=== PATIENT | male | born 1965 | race Caucasian/White ===

== ENCOUNTER 2020-01-18 17:12 | Emergency (ER) | payer OTHER, MEDICARE, SELFPAY ==
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
[2020-01-18 17:45] VITALS: BP 121/91; PULSE 85; RESP 16; TEMP 36.8; O2SAT 99
[2020-01-18 18:42] VITALS: RESP 14; O2SAT 99
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
[2020-01-18] MEDS: TETANUS,DIPHTHERIA,AC PERTUSSIS ADULT (0.5 ML) BOOSTRIX IM (19:46)
[2020-01-18 21:29] VITALS: BP 128/82; PULSE 89; RESP 20; O2SAT 97
== END 2020-01-18 21:33 | disposition home or self-care (01) ==
PROVIDERS: Emergency Provider Emergency Medicine; PCP Family Medicine
DX: S01.01XA Laceration without foreign body of scalp, initial encounter (principal); Z23 Encounter for immunization; I25.10 Atherosclerotic heart disease of native coronary artery without angina pectoris; J44.9 Chronic obstructive pulmonary disease, unspecified; K21.9 Gastro-esophageal reflux disease without esophagitis; E78.2 Mixed hyperlipidemia; I48.0 Paroxysmal atrial fibrillation; I50.22 Chronic systolic (congestive) heart failure; I42.6 Alcoholic cardiomyopathy; F10.20 Alcohol dependence, uncomplicated; Z87.891 Personal history of nicotine dependence; V49.40XA Driver injured in collision with unspecified motor vehicles in traffic accident, initial encounter
CPT/HCPCS: 12002; 70450; 90471; 90715; 99284

== ENCOUNTER 2020-01-19 04:03 | Emergency (ER) | payer MEDICARE, SELFPAY ==
[2020-01-19 03:05] VITALS: BP 150/105; PULSE 77; RESP 16; TEMP 36.1; O2SAT 98
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
== END 2020-01-19 04:11 | disposition left against medical advice (07) ==
LOC: ANHED 04:06
DX: S01.91XA Laceration without foreign body of unspecified part of head, initial encounter (principal)
CPT/HCPCS: 99199

== ENCOUNTER 2020-07-31 09:15 | Outpatient (CLI) | payer MEDICARE, SELFPAY | END 2020-07-31 09:16 | disposition home or self-care (01) | LOC: ANHCOVIDVC 09:15 | PROVIDERS: PCP Family Medicine | DX: Z23 Encounter for immunization (principal) | CPT/HCPCS: 0001A; 91300 ==

== ENCOUNTER 2020-08-21 09:13 | Outpatient (CLI) | payer MEDICARE, SELFPAY | END 2020-08-21 09:14 | disposition home or self-care (01) | LOC: ANHCOVIDVC 09:14 | PROVIDERS: PCP Family Medicine | DX: Z23 Encounter for immunization (principal) | CPT/HCPCS: 0002A; 91300 ==

== ENCOUNTER 2020-11-15 16:52 | Emergency (ER) | payer MEDICARE, SELFPAY ==
[2020-11-15 16:55] VITALS: BP 126/86; PULSE 77; RESP 16; TEMP 36.6; O2SAT 96
--- NOTE | 2020-11-15 17:33 | ED.ALLEREA ---
HPI - Allergic Reaction General Chief complaint: Allergic Reaction Stated complaint: wasp sting Time Seen by Provider: 11/15/20 17:31 Source: patient and family Mode of arrival: ambulatory Limitations: no limitations History of Present Illness HPI narrative: Patient is a 55-year-old male who presents for evaluation of wasp sting to left hand. Patient witnessed the wasp landing on him when he picked up a stick from the ground. Stung between the webspace between thumb and index finger. Patient with swelling in the left hand. States it is itching. He denies any chest pain or shortness of breath. No nausea or vomiting. No diarrhea. No history of anaphylaxis. Patient has not taken any medication to help with his symptoms. He denies any numbness. There is redness to the left hand. No discharge. Other signs of envenomation. Pt is right hand dominant. Related Data Home Medications Medication Instructions Recorded Confirmed amiodarone 200 mg tablet 200 mg PO DAILY 04/24/19 07/21/20 ferrous sulfate 325 mg (65 mg 325 mg PO BID 04/24/19 07/21/20 iron) tablet Allergies Allergy/AdvReac Type Severity Reaction Status Date / Time ragweed pollen Allergy Unknown seasonal Verified 07/21/20 08:38 [place] Allergy Unknown seasonal Uncoded 07/21/20 08:38 [place] Allergy Unknown seasonal Uncoded 07/21/20 08:38 Review of Systems Review of Systems: Narrative: CONSTITUTIONAL: Denies fever CARDIOVASCULAR: Denies chest pain RESPIRATORY: Denies cough or dyspnea. 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 Chronic systolic CHF (congestive heart failure) COPD (chronic obstructive pulmonary disease) Gastro-esophageal reflux disease without esophagitis Mixed hyperlipidemia Paroxysmal atrial fibrillation Family History Family History Father Family history of liver disease Sibling Family history of liver disease Mother Family history of emphysema Social History Social History Years smoked: 15 Smoking status: Current some day smoker Tobacco type: cigarettes Smokeless tobacco user: chewing tobacco Second hand tobacco smoke exposure: Yes Alcohol intake: current Drinks per week: 4 Substance use: never Substance use type: does not use Gender identity (if verbalized by the patient): Male Exam Narrative: Exam Narrative: GENERAL: Awake, alert, conversant HEAD: Normocephalic, atraumatic. EYES: PERRLA and EOMI. ENT: Nares clear, no rhinorrhea or epistaxis. Mucous membranes moist. NECK: Supple. CHEST: No respiratory distress, breathing even and non labored HEART: Regular rate, sinus rhythm ABDOMEN:Non distended, non tender EXTREMITIES: Normal range of motion. Edema of the left hand. Intact sensation median, ulnar, radial nerve distribution. Radial pulses 2+. Envenomation markings in the inner web space between thumb and index finger. Capillary refill less than 3 seconds. No purulent discharge. No evidence of abscess. No foreign body. SKIN: Warm, dry, no rash. NEURO:No focal deficits. Alert and oriented x3 Course Vital Signs Vital signs: Vital Signs Temperature 36.6 C 11/15/20 16:55 Pulse Rate 77 11/15/20 16:55 Respiratory Rate 16 11/15/20 16:55 Blood Pressure 126/86 11/15/20 16:55 Pulse Oximetry 96 11/15/20 16:55 Temperature 36.6 C 11/15/20 16:55 Pulse Rate 77 11/15/20 16:55 Respiratory Rate 16 11/15/20 16:55 Blood Pressure 126/86 11/15/20 16:55 Pulse Oximetry 96 11/15/20 16:55 MDM - Allergic Reaction MDM Narrative Medical decision making narrative: Aliza
[2020-11-15] MEDS: FAMOTIDINE 20 MG TABLET 40 MG PO (20:16)
[2020-11-15] MEDS: diphenhydrAMINE HCl CAP 25 MG CAPSULE 50 MG PO (20:16)
[2020-11-15 20:21] VITALS: BP 131/79; PULSE 82; RESP 18; TEMP 36.9; O2SAT 95
== END 2020-11-15 20:21 | disposition home or self-care (01) ==
PROVIDERS: Emergency Provider Emergency Medicine; PCP Family Medicine
DX: T63.461A Toxic effect of venom of wasps, accidental (unintentional), initial encounter (principal); I25.10 Atherosclerotic heart disease of native coronary artery without angina pectoris; I50.9 Heart failure, unspecified; J44.9 Chronic obstructive pulmonary disease, unspecified; K21.9 Gastro-esophageal reflux disease without esophagitis; E78.5 Hyperlipidemia, unspecified; I48.91 Unspecified atrial fibrillation
CPT/HCPCS: 96372; 99283; A9270; J1100

== ENCOUNTER 2020-12-31 11:36 | Outpatient (CLI) | payer MEDICARE, SELFPAY ==
--- NOTE | ~2020-12-31 | XR_ITS ---
XR chest 2V DATE: 12/31/2020 12:00 INDICATION: Shortness of breath TECHNIQUE: PA and lateral views COMPARISON: 02/07/2019 2 view chest FINDINGS: Normal heart size. No hilar or mediastinal enlargement. No pulmonary infiltrate or consolid ation, pleural effusion or pulmonary vascular congestion or pneumothorax. Included skeletal structure s are unremarkable. IMPRESSION: No active cardiopulmonary disease Reviewed, dictated and finalized at location A.
[2020-12-31 12:34] LABS: Basophils Percent Auto 0.4 % (0.2-1.2); Eosinophils Absolute Auto 0.1 K/mm3 (0-0.3); Eosinophils Percent Auto 1.2 % (0-4.4); Hematocrit 36.1 % (42.0-52.0); Hemoglobin 12.5 g/dL (14.0-18.0); Immature Granulocyte Absolute 0.05 K/mm3 (0.00-0.031); Immature Granulocyte Percent A 0.6 % (0-0.5); Lymphocytes Absolute Auto 0.89 K/mm3 (0.9-3.2); Lymphocytes Percent Auto 10.9 % (18.3-44.2); Mean Corpuscular HGB Conc 34.6 g/dl (32-36); Mean Corpuscular Hemoglobin 34.7 pg (26-34); Mean Corpuscular Volume 100.3 fl (80-100); Mean Platelet Volume 8.6 fl (7.4-10.4); Monocytes Absolute Auto 0.6 K/mm3 (0.1-0.6); Monocytes Percent Auto 6.7 % (2.6-8.5); Neutrophils Absolute Auto 6.6 K/mm3 (1.3-6.7); Neutrophils Percent Auto 80.2 % (45.5-73.1); Platelet Count Result 234 k/mm3 (150-375); Red Cell Distribution Width 13.7 % (11.5-14.5); White Blood Count 8.2 K/mm3 (4.5-10.0)
[2020-12-31 12:48] LABS: Alanine Aminotransferase 45 U/L (4-50); Albumin Level 3.7 g/dL (3.5-5.1); Alkaline Phosphatase 48 U/L (38-126); Anion Gap 6 mmol/L (8-16); Aspartate Amino Transferase 51 U/L (17-59); Bilirubin,Total 0.8 mg/dL (0.2-1.3); Blood Urea Nitrogen 18 mg/dL (9-20); Carbon Dioxide 27 mmol/L (22-30); Chloride 97 mmol/L (98-107); Estimated Glomerular Filt Rate 49; Glucose 92 mg/dL (65-110); Sodium 130 mmol/L (137-145)
[2020-12-31 18:18] LABS: NT Pro B Type Natriuretic Pept 586 pg/mL (5-100)
== END 2020-12-31 11:37 | disposition home or self-care (01) ==
PROVIDERS: PCP Family Medicine; Visit Provider Nurse Practitioner Family
DX: R53.83 Other fatigue (principal); R06.02 Shortness of breath; I11.0 Hypertensive heart disease with heart failure; F10.10 Alcohol abuse, uncomplicated; I42.6 Alcoholic cardiomyopathy; I50.22 Chronic systolic (congestive) heart failure
CPT/HCPCS: 36415; 71046; 80053; 83880; 84443; 85025

== ENCOUNTER 2021-01-14 08:41 | Outpatient (CLI) | payer MEDICARE, SELFPAY ==
[2021-01-14 09:09] LABS: Basophils Percent Auto 0.4 % (0.2-1.2); Eosinophils Absolute Auto 0.1 K/mm3 (0-0.3); Eosinophils Percent Auto 1.8 % (0-4.4); Hematocrit 37.4 % (42.0-52.0); Hemoglobin 12.2 g/dL (14.0-18.0); Immature Granulocyte Absolute 0.02 K/mm3 (0.00-0.031); Immature Granulocyte Percent A 0.4 % (0-0.5); Lymphocytes Absolute Auto 0.98 K/mm3 (0.9-3.2); Lymphocytes Percent Auto 17.8 % (18.3-44.2); Mean Corpuscular HGB Conc 32.6 g/dl (32-36); Mean Corpuscular Volume 107.2 fl (80-100); Mean Platelet Volume 8.5 fl (7.4-10.4); Monocytes Absolute Auto 0.4 K/mm3 (0.1-0.6); Monocytes Percent Auto 7.1 % (2.6-8.5); Neutrophils Percent Auto 72.5 % (45.5-73.1); Platelet Count Result 207 k/mm3 (150-375); Red Blood Count 3.49 M/mm3 (4.6-6.20); Red Cell Distribution Width 14.4 % (11.5-14.5); White Blood Count 5.5 K/mm3 (4.5-10.0)
[2021-01-14 09:27] LABS: Alanine Aminotransferase 18 U/L (4-50); Albumin Level 4.1 g/dL (3.5-5.1); Alkaline Phosphatase 41 U/L (38-126); Anion Gap 8 mmol/L (8-16); Aspartate Amino Transferase 29 U/L (17-59); Bilirubin,Total 0.6 mg/dL (0.2-1.3); Blood Urea Nitrogen 15 mg/dL (9-20); Calcium 9.3 mg/dL (8.4-10.2); Carbon Dioxide 23 mmol/L (22-30); Chloride 99 mmol/L (98-107); Estimated Glomerular Filt Rate > 60; Glucose 98 mg/dL (65-110); Potassium 4.1 mmol/L (3.4-5.0); Sodium 130 mmol/L (137-145)
== END 2021-01-14 08:42 | disposition home or self-care (01) ==
PROVIDERS: PCP Family Medicine; Visit Provider Nurse Practitioner Family
DX: I50.22 Chronic systolic (congestive) heart failure (principal); I11.0 Hypertensive heart disease with heart failure; R06.02 Shortness of breath; D64.9 Anemia, unspecified
CPT/HCPCS: 36415; 80053; 85025

== ENCOUNTER 2021-03-18 00:57 | Day surgery (SDC) | payer MEDICARE, SELFPAY ==
[2021-03-03 13:17] VITALS: BMI 21.7
--- NOTE | 2021-03-17 09:32 | WPDANESEPPF ---
Anes - Initial Pre Proc Eval Procedure: Operation Date: 03/18/21 10:00 Proposed Procedures p Esophagogastroduodenoscopy - Jonny Francis MD Date/Time: 03/17/21 09:32 Surgeon: Jonny Francis MD Pre Op Diagnosis: GERD Patient Data Age: 56 Gender: M Height: 1.68 m Weight: 61 kg Allergies Allergy/AdvReac Type Severity Reaction Status Date / Time ragweed pollen Allergy Unknown seasonal Verified 03/18/21 09:18 [place] Allergy Unknown seasonal Uncoded 03/18/21 09:18 [place] Allergy Unknown seasonal Uncoded 03/18/21 09:18 Home Medications Medication Instructions Recorded Confirmed Type amiodarone 200 mg tablet 200 mg PO DAILY 04/24/19 03/03/21 History ferrous sulfate 325 mg (65 mg 325 mg PO BID 04/24/19 03/03/21 History iron) tablet cetirizine 5 mg/5 mL oral solution 10 mg PO DAILY #150 ml 12/13/19 03/03/21 Rx fluticasone propionate 50 1 spray NASAL DAILY #16 ml 04/30/20 03/03/21 Rx mcg/actuation nasal spray,suspension atorvastatin 40 mg tablet 40 mg PO DAILY #90 tablet 09/18/20 03/03/21 Rx furosemide 20 mg tablet 20 mg PO QAM #90 tablet 10/03/20 03/03/21 Rx levothyroxine 25 mcg tablet See Rx Instructions .ROUTE 10/03/20 03/03/21 Rx .COMPLEX #30 tablet albuterol sulfate 90 mcg/actuation 2 inh INHALATION Q4-6H PRN #8.5 g 10/29/20 03/03/21 Rx aerosol inhaler apixaban 2.5 mg tablet 2.5 mg PO BID #60 tablet 12/22/20 03/03/21 Rx carvedilol 6.25 mg tablet 6.25 mg PO Q12H #180 tablet 12/29/20 03/03/21 Rx fluticasone 250 mcg-salmeterol 50 See Rx Instructions .ROUTE 01/06/21 02/25/21 Rx mcg/dose blistr powdr for .COMPLEX #60 disk inhalation esomeprazole magnesium 40 mg 40 mg PO DAILY #30 cap 01/08/21 03/03/21 Rx capsule,delayed release amitriptyline 25 mg tablet 25 mg PO QHS #30 tablet 01/14/21 03/03/21 Rx buspirone 5 mg tablet 5 mg PO BID #180 tablet 01/28/21 03/03/21 Rx potassium chloride 20 mEq 20 meq PO BID #180 tablet 01/28/21 03/03/21 Rx tablet,extended release spironolactone 25 mg tablet 25 mg PO DAILY #90 tablet 01/28/21 03/03/21 Rx cyclobenzaprine 10 mg tablet 10 mg PO Q8H PRN #30 tablet 02/23/21 03/03/21 Rx Patient hx anesthesia problems: none Family hx anesthesia problems: none Results Review: All pre-operative results and documents have been reviewed as part of the pre-operative evaluation. 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 Chronic systolic CHF (congestive heart failure) COPD (chronic obstructive pulmonary disease) Gastro-esophageal reflux disease without esophagitis Mixed hyperlipidemia [place] (myocardial infarction) Paroxysmal atrial fibrillation Tobacco abuse Family History Family History Father Family history of liver disease Sibling Family history of liver disease Mother Family history of emphysema Social History Social History Years smoked: 15 Smoking status: Current some day smoker Tobacco type: cigars Smokeless tobacco user: chewing tobacco Second hand tobacco smoke exposure: Yes Additional smoking assessment comments: chewing tobacco daily and occassional cigars Alcohol intake: current Drinks per week: 4 Alcohol use details: 1-2 pints weekly Substance use: never Substance use type: does not use Living arrangements: with family Gender identity (if verbalized by the patient): Male Sexual Orientation (if Verbalized by the Patient): Straight or Heterosexual Anes - Eval Final PreProcedure Day of Procedure 03/17/21 09:32 Patient weight: normal Heart: regular rate and rhythm Lungs: clear to auscultation and normal air movement Airway: Mallampati scale class II Neurological: alert and oriented Last oral intake: >/= 8 hours ASA
--- NOTE | 2021-03-17 13:33 | PM.HPGS ---
History of Present Illness History of Present Illness Consent: Risks, benefits, and alternatives have been discussed and questions answered. Patient agrees to proceed with procedure. Chief complaint: GERD Narrative: Gabriel Nathan is a 56 year old male referred for investigation of persistent acid reflux symptoms. This is particularly prone to happen after he lays down at night. He has been on Nexium 40 mg daily for quite a while. He was initially placed on it because of indigestion that would come on after eating or even during a meal but this has resolved. He also gets pain in the mid to upper abdomen which occurs a few times a week. This usually comes on after in meal. 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 Chronic systolic CHF (congestive heart failure) COPD (chronic obstructive pulmonary disease) Gastro-esophageal reflux disease without esophagitis Mixed hyperlipidemia [place] (myocardial infarction) Paroxysmal atrial fibrillation Tobacco abuse Family History Family History Father Family history of liver disease Sibling Family history of liver disease Mother Family history of emphysema Social History Social History Years smoked: 15 Smoking status: Current some day smoker Tobacco type: cigars Smokeless tobacco user: chewing tobacco Second hand tobacco smoke exposure: Yes Additional smoking assessment comments: chewing tobacco daily and occassional cigars Alcohol intake: current Drinks per week: 4 Alcohol use details: 1-2 pints weekly Substance use: never Substance use type: does not use Living arrangements: with family Gender identity (if verbalized by the patient): Male Sexual Orientation (if Verbalized by the Patient): Straight or Heterosexual Meds Home Medications and Allergies Home Medications Medication Instructions Recorded Confirmed Type amiodarone 200 mg tablet 200 mg PO DAILY 04/24/19 03/03/21 History ferrous sulfate 325 mg (65 mg 325 mg PO BID 04/24/19 03/03/21 History iron) tablet cetirizine 5 mg/5 mL oral solution 10 mg PO DAILY #150 ml 12/13/19 03/03/21 Rx fluticasone propionate 50 1 spray NASAL DAILY #16 ml 04/30/20 03/03/21 Rx mcg/actuation nasal spray,suspension atorvastatin 40 mg tablet 40 mg PO DAILY #90 tablet 09/18/20 03/03/21 Rx furosemide 20 mg tablet 20 mg PO QAM #90 tablet 10/03/20 03/03/21 Rx levothyroxine 25 mcg tablet See Rx Instructions .ROUTE 10/03/20 03/03/21 Rx .COMPLEX #30 tablet albuterol sulfate 90 mcg/actuation 2 inh INHALATION Q4-6H PRN #8.5 g 10/29/20 03/03/21 Rx aerosol inhaler apixaban 2.5 mg tablet 2.5 mg PO BID #60 tablet 12/22/20 03/03/21 Rx carvedilol 6.25 mg tablet 6.25 mg PO Q12H #180 tablet 12/29/20 03/03/21 Rx fluticasone 250 mcg-salmeterol 50 See Rx Instructions .ROUTE 01/06/21 02/25/21 Rx mcg/dose blistr powdr for .COMPLEX #60 disk inhalation esomeprazole magnesium 40 mg 40 mg PO DAILY #30 cap 01/08/21 03/03/21 Rx capsule,delayed release amitriptyline 25 mg tablet 25 mg PO QHS #30 tablet 01/14/21 03/03/21 Rx buspirone 5 mg tablet 5 mg PO BID #180 tablet 01/28/21 03/03/21 Rx potassium chloride 20 mEq 20 meq PO BID #180 tablet 01/28/21 03/03/21 Rx tablet,extended release spironolactone 25 mg tablet 25 mg PO DAILY #90 tablet 01/28/21 03/03/21 Rx cyclobenzaprine 10 mg tablet 10 mg PO Q8H PRN #30 tablet 02/23/21 03/03/21 Rx Allergies Allergy/AdvReac Type Severity Reaction Status Date / Time ragweed pollen Allergy Unknown seasonal Verified 03/18/21 09:18 [place] Allergy Unknown seasonal Uncoded 03/18/21 09:
[2021-03-18 09:21] VITALS: BP 125/87; PULSE 60; RESP 18; TEMP 36.4; O2SAT 100; BMI 22.7
[2021-03-18] MEDS: LACTATED RINGERS 1,000 ML 150 ML IV CONT (09:42)
[2021-03-18 10:18] VITALS: BP 112/69; PULSE 55; RESP 19; O2SAT 100
[2021-03-18 10:28] VITALS: BP 114/89; PULSE 58; RESP 16; O2SAT 100
--- NOTE | 2021-03-18 10:38 | SUR.PHASEII ---
Per Dr. Francis restart Eliquis 03/19/21
== END 2021-03-18 10:56 | disposition home or self-care (01) ==
PROVIDERS: PCP Family Medicine; Visit Provider Internal Medicine Gastroenterology
PROC: 0DJ08ZZ Inspection of Upper Intestinal Tract, Via Natural or Artificial Opening Endoscopic (ICD-10-PCS; CPT 43235; principal; 2021-03-18 10:00)
DX: R10.13 Epigastric pain (principal); K29.50 Unspecified chronic gastritis without bleeding; K29.80 Duodenitis without bleeding; I25.2 Old myocardial infarction; I42.6 Alcoholic cardiomyopathy; E78.2 Mixed hyperlipidemia; I48.0 Paroxysmal atrial fibrillation; J44.9 Chronic obstructive pulmonary disease, unspecified; K21.9 Gastro-esophageal reflux disease without esophagitis; I25.10 Atherosclerotic heart disease of native coronary artery without angina pectoris; I50.9 Heart failure, unspecified; F17.290 Nicotine dependence, other tobacco product, uncomplicated; F17.220 Nicotine dependence, chewing tobacco, uncomplicated; E03.9 Hypothyroidism, unspecified; Z79.01 Long term (current) use of anticoagulants; Z79.51 Long term (current) use of inhaled steroids
CPT/HCPCS: 43239; 88305; J2704; J7120

== ENCOUNTER 2021-04-10 17:28 | Emergency (ER) | payer MEDICARE, SELFPAY ==
--- NOTE | ~2021-04-10 | CT_ITS ---
EXAMINATION: CT cervical spine wo con DATE: 04/10/2021 18:25 INDICATION: Fall with head injury TECHNIQUE: Computed tomography (CT) of the cervical spine was performed without intravenous contrast. Automated exposure control and iterative reconstruction technique were employed. The dose-length pro duct was 318.07 mGy-cm. COMPARISON: 01/12/2018 FINDINGS: Mild cervical thoracic levocurvature. Sagittal alignment is normal. Vertebral body heights are normal . No fracture. Moderate osteoarthritis at the atlantoaxial articulation. Moderate disc height loss at T5 C6 and C6-C7. Mild disc height loss at C2-3 C4. Severe uncovertebral osteoarthritis on the right at C5-C6. Mild to moderate uncovertebral osteoarthritis at a few additional levels on both the left a nd right. Severe facet osteoarthritis bilaterally at C4-C5 with mild to moderate osteoarthritis at th e remaining cervical facet joints. Disc bulges with mild central canal stenosis at C3-C4 through C6-C 7. Moderate neural foraminal stenosis on the right at C5-C6 and mild neural foraminal stenosis at sev eral additional levels on the left and right side of the cervical spine. Cervical soft tissues are un remarkable. Visualized airway and apices of lungs are clear. IMPRESSION: 1. Moderate cervical spondylosis. No acute osseous abnormality. Reviewed, dictated and finalized at location A. [employer]
--- NOTE | ~2021-04-10 | CT_ITS ---
EXAMINATION: CT brain wo con DATE: 04/10/2021 18:25 INDICATION: Head injury post fall with laceration and altered mental status. TECHNIQUE: Computed tomography (CT) of the head was performed without intravenous contrast. Sagittal and coronal reconstructions were performed. The mA was adjusted according to patient size. Iterative reconstruction technique was employed. The dose-length product was 605.33 mGy-cm. COMPARISON: head CT dated 12/29/2019 FINDINGS: Small scalp hematoma likely at the site of a reported laceration in the left parietal region. No frac ture. No acute intracranial hemorrhage, acute infarction or abnormal extra axial fluid collection. Th ere is mild scattered white matter hypoattenuation consistent with chronic small vessel ischemic dise ase. Ventricles are normal and symmetric. No mass/mass effect. Changes of left intraocular lens repl acement. The orbits, paranasal sinuses and mastoid air cells are normal. IMPRESSION: 1. No fracture or acute intracranial process. 2. Mild scattered white matter hypoattenuation consistent with chronic small vessel ischemic disease. Reviewed, dictated and finalized at location A. [employer] IMPRESSION: 1. No fracture or acute intracranial process. 2. Mild scattered white matter hypoattenuation consistent with chronic small ve ssel ischemic disease.
[2021-04-10 17:33] VITALS: BP 131/90; PULSE 91; RESP 14; TEMP 36.8; O2SAT 98
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
[2021-04-10 19:37] VITALS: BP 146/97; PULSE 81; RESP 18; O2SAT 96
[2021-04-10 20:10] LABS: Ethanol 389 mg/dL (<10)
--- NOTE | 2021-04-10 20:20 | PC.NURSE ---
Pt spouse contacted per pt request. Spouse will come to ED to pick pt up upon discharge.
[2021-04-10 21:18] VITALS: BP 107/76; PULSE 88; RESP 18; O2SAT 95
--- NOTE | 2021-04-10 22:37 | PC.NURSE ---
Patient seen ambulating with steady gait. , Jessica, called and stated she would come filler picker patient.
[2021-04-10 22:46] VITALS: BP 155/98; PULSE 82; RESP 18; O2SAT 96
[2021-04-10 23:13] VITALS: BP 155/98; PULSE 88; RESP 18; O2SAT 97
== END 2021-04-10 23:17 | disposition home or self-care (01) ==
PROVIDERS: Emergency Provider Emergency Medicine; PCP Family Medicine
DX: S01.112A Laceration without foreign body of left eyelid and periocular area, initial encounter (principal); S00.81XA Abrasion of other part of head, initial encounter; F10.129 Alcohol abuse with intoxication, unspecified; Y90.8 Blood alcohol level of 240 mg/100 ml or more; I42.6 Alcoholic cardiomyopathy; I25.10 Atherosclerotic heart disease of native coronary artery without angina pectoris; I50.22 Chronic systolic (congestive) heart failure; J44.9 Chronic obstructive pulmonary disease, unspecified; K21.9 Gastro-esophageal reflux disease without esophagitis; E78.2 Mixed hyperlipidemia; I25.2 Old myocardial infarction; I48.0 Paroxysmal atrial fibrillation; F17.290 Nicotine dependence, other tobacco product, uncomplicated; F17.220 Nicotine dependence, chewing tobacco, uncomplicated; Z79.01 Long term (current) use of anticoagulants; M47.812 Spondylosis without myelopathy or radiculopathy, cervical region; V18.4XXA Pedal cycle driver injured in noncollision transport accident in traffic accident, initial encounter; Y93.55 Activity, bike riding
CPT/HCPCS: 12011; 36415; 70450; 72125; 80307; 99284

== ENCOUNTER 2021-07-10 09:48 | Outpatient (CLI) | payer MEDICARE, SELFPAY ==
--- NOTE | ~2021-07-10 | XR_ITS ---
EXAMINATION: XR ribs BI 3V w CXR 2V INDICATION: Bilateral chest pain after fall TECHNIQUE: A frontal and lateral views of the chest and multiple views of the bilateral ribs were obt ained. COMPARISON: 12/31/2020 FINDINGS: There are acute fractures of the right fourth and fifth ribs. There are acute fractures of the left fourth through eighth ribs. The lungs are free of acute opacities. There is no pleural effus ion or pneumothorax. The cardiomediastinal silhouette is normal. There is mild thoracic spondylosis. IMPRESSION: 1. Bilateral acute rib fractures as described above. No acute cardiopulmonary abnormality. Reviewed, dictated and finalized at location A. TING ENGINEER IMPRESSION: 1. Bilateral acute rib fractures as described above. No acute cardiopulmonary a bnormality.
== END 2021-07-10 09:49 | disposition home or self-care (01) ==
LOC: ANHIMG 09:56
PROVIDERS: PCP Family Medicine; Visit Provider Physician Assistant
DX: R05.9 Cough, unspecified (principal); R06.02 Shortness of breath; R07.81 Pleurodynia; W19.XXXA Unspecified fall, initial encounter; S22.43XA Multiple fractures of ribs, bilateral, initial encounter for closed fracture
CPT/HCPCS: 71046; 71110

== ENCOUNTER 2021-10-22 11:59 | Inpatient (IN) | payer MEDICARE, SELFPAY ==
[2021-10-22] VITALS (8 sets, daily range): BP systolic 96–133; BP diastolic 66–81; PULSE 59–73; RESP 16–18; TEMP 35.8–36.3; O2SAT 95–100; BMI 17.0
--- NOTE | ~2021-10-22 | CT_ITS ---
EXAMINATION: CT thoracic spine wo con DATE: 10/22/2021 19:08 INDICATION: New T11 compression fracture TECHNIQUE: Computed tomography (CT) of the lumbar spine was performed without intravenous contrast. T he dose-length product (DLP) was 423.79 mGy-cm. Iterative reconstruction was used. COMPARISON: 01/28/2010 FINDINGS: There is a burst fracture of L1 with 3 mm of retropulsion of fracture fragments into the ce ntral spinal canal. No acute fracture of the thoracic spine is identified. The vertebral body heights and alignment are maintained. There is mild loss of intervertebral disc space height at several leve ls in the thoracic spine. There are healing fractures of the medial left fourth, fifth, and sixth rib s. There are healing fractures of the left L1 and L2 transverse processes. There are patchy airspace opacities in the lungs. IMPRESSION: 1. L1 burst fracture with 3 mm of retropulsion of fracture fragments into the central spinal canal. 2. Patchy airspace opacities of the lungs, consistent with pneumonia. 3. Healing fractures of the left medial fourth through sixth ribs and the left L1 and L2 transverse p rocesses. Reviewed, dictated and finalized at location F. IMPRESSION: 1. L1 burst fracture with 3 mm of retropulsion of fracture fragments into the c entral spinal canal. 2. Patchy airspace opacities of the lungs, consistent with pneumonia. 3. Healing fractures of the left medial fourth through sixth ribs and the left L1 and L2 transverse processes.
--- NOTE | ~2021-10-22 | XR_ITS ---
XR chest 1V portable 10/27/2021 08:04 Indication: Pneumonia Procedure: AP portable chest Comparison: Comparison to multiple prior studies sequentially, with oldest reviewed study dated 06/2021. Findings: Cardiomegaly. There is developing widespread bilateral airspace disease, consistent with pn eumonia. Possible small left effusion. No pneumothorax. No acute osseous abnormality. Impression: 1: Progression of widespread bilateral airspace disease, consistent with pneumonia. Reviewed, dictated and finalized at location D. Impression: 1: Progression of widespread bilateral airspace disease, consistent with pneumo william.
--- NOTE | ~2021-10-22 | XR_ITS ---
EXAMINATION: XR chest 1V portable Exam Date/Time: 10/25/2021 14:33 CDT HISTORY: chest pain Comparison: 10/22/2021, 12/21/2020; CT thoracic spine 10/22/2021. RESULT: Lines, tubes, and devices: None. Lungs and pleura: Low lung volumes. Slightly worsened interstitial opacities in the left mid and low er lung and to a lesser extent in the right lower lung. Cardiomediastinal silhouette: Stable cardiomediastinal silhouette. Other: No acute osseous or upper abdominal finding. IMPRESSION: Slightly worsening interstitial pulmonary opacities primarily in the left mid and lower lung, may rep resent sequela of atypical infection (such as Covid 19). Reviewed, dictated and finalized at location K. IMPRESSION: Slightly worsening interstitial pulmonary opacities primarily in the left mid a nd lower lung, may represent sequela of atypical infection (such as Covid 19).
--- NOTE | ~2021-10-22 | XR_ITS ---
EXAMINATION: XR chest 2V DATE: 10/22/2021 12:50 INDICATION: Weakness. TECHNIQUE: Frontal and lateral views of the chest were obtained. COMPARISON: Chest 2 views 07/10/2021, CT abdomen and pelvis 11/25/2018 FINDINGS: The patient is rotated to his left. There are reticular opacities in left mid and lower lucas g zones. No pleural effusion or pneumothorax. The heart size is normal. There are old healed left rib fractures. There is a compression fracture of T12. IMPRESSION: 1. Reticular opacities in left mid and lower lung zones, likely atelectasis. 2. T12 compression fracture, new from 07/10/21. Reviewed, dictated and finalized at location A.
--- NOTE | ~2021-10-22 | CT_ITS ---
EXAMINATION: CT brain wo con DATE: 10/22/2021 12:45 INDICATION: Recent history of falls. Trauma to the back of the head. Weakness. TECHNIQUE: Computed tomography (CT) of the head was performed without intravenous contrast. The dose- length product was 605.33 mGy-cm. Automated exposure control and iterative reconstruction technique w ere employed. COMPARISON: CT dated 04/10/2021 FINDINGS: Generalized atrophy. There are scattered mild periventricular and subcortical white matter changes, most likely related to small vessel ischemic disease (microangiopathy). No acute intracrania l hemorrhage, infarction, mass or mass effect. No ventriculomegaly or midline shift. Basilar cisterns are patent. There are chronic right lacunar infarctions inferiorly. Paranasal sinuses and mastoids a re pneumatized. No depressed skull fractures. IMPRESSION: 1. No acute intracranial abnormality. 2: Chronic right lacunar infarctions. 3: Chronic age-related findings. Reviewed, dictated and finalized at location A.
--- NOTE | 2021-10-22 12:22 | ECG_ITS ---
Measurements Intervals [place] Rate: 57 P: 113 ME: 224 QRS: -44 QRSD: 132 T: 159 QT: 488 QTc: 476 Interpretive Statements SINUS BRADYCARDIA WITH FIRST DEGREE AV BLOCK LEFT AXIS DEVIATION [QRS AXIS < -30] INTRAVENTRICULAR CONDUCTION DELAY [130+ ms QRS DURATION] LEFT VENTRICULAR HYPERTROPHY AND ST-T CHANGE [VOLTAGE CRITERIA PLUS ST/T ABNORMALITY] ABNORMAL ECG COMPARED TO ECG 02/08/2019 02:53:30 HEART RATE HAS DECREASED FIRST DEGREE AV BLOCK NOW PRESENT Electronically Signed On 10-22-2021 17:54:53 CDT by Ameya Burrell M.D.
[2021-10-22 12:44] LABS: Basophils Percent Auto 0.4 % (0.2-1.2); Eosinophils Absolute Auto 0.1 K/mm3 (0-0.3); Eosinophils Percent Auto 1.9 % (0-4.4); Hematocrit 35.7 % (42.0-52.0); Hemoglobin 12.3 g/dL (14.0-18.0); Immature Granulocyte Absolute 0.09 K/mm3 (0.00-0.031); Immature Granulocyte Percent A 1.3 % (0-0.5); Lymphocytes Absolute Auto 0.53 K/mm3 (0.9-3.2); Lymphocytes Percent Auto 7.6 % (18.3-44.2); Mean Corpuscular HGB Conc 34.5 g/dl (32-36); Mean Corpuscular Hemoglobin 37.2 pg (26-34); Mean Corpuscular Volume 107.9 fl (80-100); Mean Platelet Volume 9.2 fl (7.4-10.4); Monocytes Absolute Auto 0.4 K/mm3 (0.1-0.6); Neutrophils Absolute Auto 5.8 K/mm3 (1.3-6.7); Neutrophils Percent Auto 82.8 % (45.5-73.1); Platelet Count Result 237 k/mm3 (150-375); Red Blood Count 3.31 M/mm3 (4.6-6.20); Red Cell Distribution Width 13.9 % (11.5-14.5)
[2021-10-22 13:04] LABS: Alanine Aminotransferase 18 U/L (6-50); Alkaline Phosphatase 87 U/L (38-126); Anion Gap 10 mmol/L (8-16); Aspartate Amino Transferase 41 U/L (17-59); Bilirubin,Total 0.6 mg/dL (0.2-1.3); Blood Urea Nitrogen 20 mg/dL (9-20); Calcium 8.6 mg/dL (8.4-10.2); Carbon Dioxide 18 mmol/L (22-30); Chloride 91 mmol/L (98-107); Estimated CRCL calculation 36 ml/min; Estimated Glomerular Filt Rate 52; Glucose 96 mg/dL (65-110); Potassium 4.4 mmol/L (3.4-5.0); Sodium 119 mmol/L (137-145)
[2021-10-22] MEDS: THIAMINE HCL 200 MG/2 ML VIAL 100 MG IV PUSH (13:13)
[2021-10-22] MEDS: SODIUM CHLORIDE 0.9% IV 1,000 ML 999 ML IV CONT (13:13)
--- NOTE | 2021-10-22 13:51 | ED.WEAKNESS ---
HPI - Weakness General Chief complaint: Weakness Stated complaint: DIZZINESS MULT FALLS X2WKS Time Seen by Provider: 10/22/21 12:36 Source: patient History of Present Illness HPI Narrative: Presents with weakness and falls over the past 2 weeks. Patient ports he has had progressive weakness. He is unsure if it is related to the heat but is having a difficult time getting around so he came to the ER for further evaluation. Reports last time he fell was 4 days ago and struck his head or any loss of consciousness. Reports that he walks around will feel lightheaded and dizzy then collapsed. Denies any chest pain or shortness of breath denies any nausea or vomiting but he not been eating very much as he has not had much of an appetite denies any urinary symptoms. Related Data Home Medications Medication Instructions Recorded Confirmed amiodarone 200 mg tablet 200 mg PO DAILY 04/24/19 10/22/21 ferrous sulfate 325 mg (65 mg 325 mg PO BID 04/24/19 10/22/21 iron) tablet chlorpheniramine-acetaminophen 2 2 tablet PO Q4-6H PRN Cough 10/22/21 10/22/21 mg-325 mg tablet Allergies Allergy/AdvReac Type Severity Reaction Status Date / Time ragweed pollen Allergy Unknown seasonal Verified 10/22/21 11:21 [place] Allergy Unknown seasonal Uncoded 10/22/21 11:21 [place] Allergy Unknown seasonal Uncoded 10/22/21 11:21 Review of Systems Review of Systems: CONSTITUTIONAL: Denies fever, chills, or sweats. EYES: Denies visual changes, redness, or discharge. ENT: Denies rhinorrhea, congestion, sore throat, or otalgia. CARDIOVASCULAR: Denies chest pain, palpitations, or edema. RESPIRATORY: Denies cough or dyspnea. GASTROINTESTINAL: Denies abdominal pain, nausea, vomiting, or diarrhea. GENITOURINARY: Denies dysuria or hematuria. SKIN: Denies rash or itching. MUSCULOSKELETAL: Denies back pain, joint pain, or myalgia. NEUROLOGIC: Denies headache, numbness, dizziness, or focal weakness. PSYCHIATRIC: Denies anxiety or depression. 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 Chronic systolic CHF (congestive heart failure) COPD (chronic obstructive pulmonary disease) Gastro-esophageal reflux disease without esophagitis Mixed hyperlipidemia [place] (myocardial infarction) Paroxysmal atrial fibrillation Tobacco abuse Family History Family History Father Family history of liver disease Sibling Family history of liver disease Mother Family history of emphysema Social History Social History Social History: Years smoked: 15 Smoking status: Current every day smoker Smokeless tobacco user: chewing tobacco Second hand tobacco smoke exposure: Yes Additional smoking assessment comments: chewing tobacco daily and occassional cigars Alcohol intake: current Drinks per week: 4 Alcohol use details: 1-2 pints weekly Substance use: never Substance use type: does not use Gender identity (if verbalized by the patient): Male Sexual Orientation (if Verbalized by the Patient): Straight or Heterosexual Spiritual care concerns: No Exam Narrative: GENERAL: Well-appearing, well-nourished, and in no acute distress. HEAD: Normocephalic, atraumatic. EYES: PERRLA and EOMI. ENT: Nares clear, no rhinorrhea or epistaxis. Mucous membranes moist. NECK: Supple. No masses. No JVD CHEST: Clear to auscultation. No respiratory distress. No wheezes rales or rhonchi HEART: Regular rate and rhythm. No murmur heard. Normal peripheral pulses. ABDOMEN: Soft, nontender, nondistended EXTREMITIES: Normal range of motion. No edema. SKIN: Warm, dry, no rash. Multiple vari
[2021-10-22 13:59] LABS: Ethanol < 10 mg/dL (<10)
[2021-10-22] MEDS: SODIUM CHLORIDE 0.9% IV 1,000 ML 150 ML IV CONT (14:38)
[2021-10-22 14:47] LABS: Appearance Urine Clear (Clear); Bilirubin Urine Negative (Negative); Blood Urine Negative (Negative); Color Urine Yellow (Yellow); Glucose Urine UA Negative (Negative); Ketones Urine Negative (Negative); Leukocyte Esterase Ur Negative LEU/UL (Negative); Nitrate Urine Negative (Negative); Protein Urine Negative (Negative); Urobilinogen Urine 0.2 mg/dL (<2.0)
[2021-10-22 14:48] LABS: Add Urine Microscopic? NO
[2021-10-22 14:54] LABS: Creatinine Urine 89.6 mg/dL
[2021-10-22 14:58] LABS: Sodium Urine Random 12 meq/L
[2021-10-22 15:03] LABS: Amphetamine Screen Urine Negative (Negative); Barbiturate Screen Urine Negative (Negative); Benzodiazepines Screen Urine Negative (Negative); Cannabinoid Screen Urine Negative (Negative); Cocaine Screen Urine Negative (Negative); Methadone Screen Urine Negative (Negative); Opiate Screen Urine Negative (Negative); Phencyclidine Screen Urine Negative (Negative)
--- NOTE | 2021-10-22 16:08 | PM.IMHP ---
H&P: HPI History of Present Illness Date/Time: 10/22/21 16:08 Chief Complaint: Weakness with dizziness and multiple falls Narrative: This 56-year-old male patient with significant past medical history of alcohol abuse, alcoholic cardiomyopathy, paroxysmal atrial fibrillation on chronic anticoagulation with Eliquis, atherosclerotic heart disease of coronary artery status post DC, chronic systolic congestive Heart failure, COPD, GERD, hyperlipidemia and tobacco abuse presents to the emergency room with complaints of having approximately 2 weeks of increasing weakness in his knees that has resulted in multiple falls. He endorses that the last fall was October 19. Before falling he states that he feels acutely dizzy and lightheaded. Today he states he felt so weak that he needed to come in for evaluation. The patient is noted to have scattered areas of bruising on bilateral upper extremities, his back as well as his left lateral ribs. There all of various stages. Patient is a long-term user of alcohol with his last drink being October 19, 2021. His ER workup consisted of labs which are remarkable for what appears to be a chronic anemia as compared with previous visits. Likely iron deficient as patient is taking supplemental iron b.i.d.. His H&H is stable at this time at 12.3 and 35.7. The remainder of his labs are significant for a marked level of sodium at 1:19 a.m., chloride of 91 and an JULIUS with a creatinine of 1.4 BUN of 20. This patient's baseline creatinine is 0.8-1.0. Serum osmolality as well as urine osmolality are pending at this time. His urine sodium is low at 12. Alcohol level is less than 10. Imaging was performed and chest x-ray shows reticular opacities in the left mid and lower lung zones which are likely atelectasis. There is also a new T12 compression fracture as compared to imaging from July 10, 2021 that was not present then. CT of the head showed no acute intracranial abnormality there are chronic right lacunar infarct and age-related findings only. This patient is being admitted to the hospital at this time for his hyponatremia, generalized weakness with falls and JULIUS. He currently denies any chest pain, dyspnea, nausea, vomiting, diarrhea, lightheadedness or headache. He states that he only becomes lightheaded or dizzy when he is moving around and he overall just feels generally weak. 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 Chronic systolic CHF (congestive heart failure) COPD (chronic obstructive pulmonary disease) Gastro-esophageal reflux disease without esophagitis Mixed hyperlipidemia [place] (myocardial infarction) Paroxysmal atrial fibrillation Tobacco abuse Family History Family History Father Family history of liver disease Sibling Family history of liver disease Mother Family history of emphysema Social History Social History Social History: Years smoked: 15 Smoking status: Current every day smoker Smokeless tobacco user: chewing tobacco Second hand tobacco smoke exposure: Yes Additional smoking assessment comments: chewing tobacco daily and occassional cigars Alcohol intake: current Drinks per week: 4 Alcohol use details: 1-2 pints weekly Substance use: never Substance use type: does not use Gender identity (if verbalized by the patient): Male Sexual Orientation (if Verbalized by the Patient): Straight or Heterosexual Spiritual care concerns: No Meds Home Medications and Allergies Home Medications Medication Instructions Recorded Confirmed Type amiodarone 200 mg tablet 200 mg PO DAILY 04/24/19 10/22/21 H
--- NOTE | 2021-10-22 16:23 | PC.NURSE ---
This patient, Gabriel Nathan, was admitted to Medical Room 240-. Patient/family oriented to hospital policies and general routines including ID bracelet, bed and alarms, visiting hours, pain management, procedures, bathroom and other care routines, personal items, smoking policy, room service/diet, and visiting hours. Information on how to activate the Rapid Response Team has been discussed. Patient/Family are encouraged to report perceived risks to care and to ask questions if they do not understand what they are told or what they should do.
[2021-10-22 18:28] LABS: Glucose Point of Care 88 mg/dl (65-105)
[2021-10-22] MEDS: NICOTINE (*PBKC) 21 MG PATCH 1 PATCH TRANSDERM (21:39)
[2021-10-22] MEDS: APIXABAN 2.5 MG TABLET BY MOUTH (21:50)
[2021-10-22] MEDS: busPIRone HCL 5 MG TABLET PO (21:50)
[2021-10-22] MEDS: AMITRIPTYLINE HCL 25 MG TABLET PO (21:50)
[2021-10-23] VITALS (15 sets, daily range): BP systolic 83–113; BP diastolic 50–74; PULSE 62–79; RESP 16–18; TEMP 36.1–36.3; O2SAT 97–100; BMI 17.0
[2021-10-23] MEDS: SODIUM CHLORIDE 0.9% IV 1,000 ML 100 ML IV CONT (00:41)
[2021-10-23] MEDS: ACETAMINOPHEN 500 MG TABLET 1000 MG PO (04:49)
[2021-10-23] MEDS: LEVOTHYROXINE SODIUM 50 MCG TABLET PO (04:49)
[2021-10-23 06:10] LABS: Alanine Aminotransferase 13 U/L (6-50); Albumin Level 2.5 g/dL (3.5-5.1); Alkaline Phosphatase 72 U/L (38-126); Anion Gap 3 mmol/L (8-16); Aspartate Amino Transferase 26 U/L (17-59); Bilirubin,Total < 0.1 mg/dL (0.2-1.3); Blood Urea Nitrogen 16 mg/dL (9-20); Calcium 7.4 mg/dL (8.4-10.2); Carbon Dioxide 20 mmol/L (22-30); Chloride 105 mmol/L (98-107); Estimated CRCL calculation 42 ml/min; Estimated Glomerular Filt Rate > 60; Glucose 95 mg/dL (65-110); Magnesium 1.5 mg/dL (1.6-2.3); Potassium 3.8 mmol/L (3.4-5.0); Sodium 128 mmol/L (137-145)
[2021-10-23 06:12] LABS: Basophils Percent Auto 0.6 % (0.2-1.2); Eosinophils Absolute Auto 0.1 K/mm3 (0-0.3); Eosinophils Percent Auto 2.1 % (0-4.4); Hematocrit 29.1 % (42.0-52.0); Hemoglobin 9.6 g/dL (14.0-18.0); Immature Granulocyte Absolute 0.07 K/mm3 (0.00-0.031); Immature Granulocyte Percent A 1.4 % (0-0.5); Lymphocytes Absolute Auto 0.62 K/mm3 (0.9-3.2); Lymphocytes Percent Auto 12.1 % (18.3-44.2); Mean Corpuscular Hemoglobin 37.6 pg (26-34); Mean Corpuscular Volume 114.1 fl (80-100); Mean Platelet Volume 9.3 fl (7.4-10.4); Monocytes Absolute Auto 0.4 K/mm3 (0.1-0.6); Monocytes Percent Auto 8.4 % (2.6-8.5); Neutrophils Absolute Auto 3.9 K/mm3 (1.3-6.7); Neutrophils Percent Auto 75.4 % (45.5-73.1); Platelet Count Result 154 k/mm3 (150-375); Red Blood Count 2.55 M/mm3 (4.6-6.20); Red Cell Distribution Width 13.9 % (11.5-14.5); White Blood Count 5.1 K/mm3 (4.5-10.0)
[2021-10-23] MEDS: FOLIC ACID 1 MG TABLET PO (08:13)
[2021-10-23] MEDS: APIXABAN 2.5 MG TABLET BY MOUTH ×2 (08:13→21:03)
[2021-10-23] MEDS: FERROUS SULFATE 324 MG TABLET PO ×2 (08:13→16:14)
[2021-10-23] MEDS: carvediloL 6.25 MG TABLET PO (08:13)
[2021-10-23] MEDS: PANTOPRAZOLE 40 MG TABLET PO (08:13)
[2021-10-23] MEDS: busPIRone HCL 5 MG TABLET PO ×2 (08:13→16:14)
[2021-10-23] MEDS: LORATADINE 10 MG TABLET PO (08:14)
--- NOTE | 2021-10-23 09:30 | PM.IMPN ---
Progress Note: A&P Assessment and Plan (1) Hyponatremia: Code(s): E87.1 - Hypo-osmolality and hyponatremia Status: Acute Assessment and Plan: -etiology unknown. Differentials include SIADH versus alcohol-induced hypo-osmolality versus dehydration -Current sodium 128 -urine sodium is low at 12. -serum osmolality and urine osmolality are pending. -IV stopped at this time due to significant increase in sodium levels -dietary fluid restriction of 1200 mL in 24 hours. -Increase sodium 8 per day -Seizure precautions. -initiate fall precautions. -consider Nephrology consult if declining or no considerable improvement over the course of the next 2 days. (2) Orthostatic hypotension: Code(s): I95.1 - Orthostatic hypotension Status: Acute Assessment and Plan: Blood pressure significantly decreases with position changes Will hold coreg for now Cannot start Midodrine due to him taking Elavil Trend BP Adjust therapy as indicated (3) Weakness: Code(s): R53.1 - Weakness Status: Acute Assessment and Plan: -likely multifactorial in etiology. -Including alcohol abuse, hyponatremia, dehydration. -fall precautions initiated -correct underlying medical factors of JULIUS and hyponatremia and re-evaluate. -PT and OT evaluation for concern of safety at home (4) Fall: Qualifiers: Encounter type: initial encounter Qualified Code(s): W19.XXXA - Unspecified fall, initial encounter Code(s): W19.XXXA - Unspecified fall, initial encounter Status: Acute Assessment and Plan: -fall precautions -PT and OT evaluation -Orthostatic blood pressure -Head CT shows chronic infarcts, no acute abnormalities -of increased concern for patient's safety with frequent falls as he is on Eliquis. (5) Compression fracture of T12 vertebra: Code(s): S22.080A - Wedge compression fracture of T11-T12 vertebra, initial encounter for closed fracture Status: Acute Assessment and Plan: -most likely secondary to recent falls. -CT of the thoracic spine found L1 burst fracture with 3mm of retropulsion of fracture fragments into the central spinal canal -Healing fracture of the left medial fourth through sixth ribs and L1 and L2 transverse process -patient without any neurological deficit including saddle anesthesia, paresthesias. -Patient will likely need a TLSO brace to help with protection, will order (6) Acute kidney injury: Code(s): N17.9 - Acute kidney failure, unspecified Status: Acute Assessment and Plan: -Current BUN/Cr 16/1.20 -BUN/Cr elevated upon admission -IV fluids stopped at this time due to excessive increase in sodium -baseline renal function demonstrates creatinine of 0.8-1.0. -follow and trend labs. -if acutely worsening consider Nephrology consult. -hold Lasix and spironolactone -avoid nephrotoxic medications. (7) Paroxysmal atrial fibrillation: Code(s): I48.0 - Paroxysmal atrial fibrillation Status: Acute Assessment and Plan: -chads Vasc score is 2. -continue Eliquis. -telemetry -continue amiodarone 200 mg p.o. daily -Hold carvedilol 6.25 mg p.o. q.12 hours due to orthostatic hypotension (8) Alcohol abuse: Code(s): F10.10 - Alcohol abuse, uncomplicated Status: Acute Assessment and Plan: -CIWA scoring q.4 hours -alcohol withdrawal Assessment ordered including neurological checks, glucose management, p.r.n. Ativan, Zofran, seizure precautions ordered. -Folic acid and thiamine -Librium and ativan added for etoh withdrawal -B12 686.0 (9) Anemia: Code(s): D64.9 - Anemia, unspecified Status: Acute Assessment and Plan: -likely chronic in etiology -Current H/H 9.6/29.1 -currently stable -Anemia labs ordered -continue daily supplementation with iron 325 mg p.o. b.i.d. -monitor labs. (10) Systolic
[2021-10-23] MEDS: FLUTICASONE PROPIONATE 0.05% NA SPR 16 GM BTL (*BKC) 1 SPRAY NASAL (09:42)
[2021-10-23] MEDS: AMIODARONE HCL 200 MG TABLET PO (09:42)
[2021-10-23] MEDS: ATORVASTATIN 40 MG TABLET PO (09:42)
[2021-10-23] MEDS: THIAMINE HCL 100 MG TABLET PO (09:42)
[2021-10-23 10:29] LABS: Iron 65 ug/dL (49-181)
[2021-10-23 10:40] LABS: Transferrin 135 mg/dL (206-381)
[2021-10-23 10:58] LABS: Percent Iron Saturation 25 % (20-50)
[2021-10-23 11:36] LABS: Folic Acid 2.9 ng/mL (2.76->20)
--- NOTE | 2021-10-23 12:27 | PCPTNOTE ---
attempted evaluation ~ 1100 hold per nursing due to low BP; RN is contacting dr about BP;
[2021-10-23 15:58] LABS: IFOB Positive Control Positive; Immunochemical Fecal Occult Bl Negative (N)
[2021-10-23] MEDS: AMITRIPTYLINE HCL 25 MG TABLET PO (21:03)
[2021-10-23] MEDS: NICOTINE (*PBKC) 21 MG PATCH 1 PATCH TRANSDERM (21:03)
[2021-10-24] VITALS (10 sets, daily range): BP systolic 95–121; BP diastolic 65–74; PULSE 68–86; RESP 16–18; TEMP 36.3–36.4; O2SAT 94–100
--- NOTE | 2021-10-24 | ECHO_ITS ---
Patient Info Name: Gabriel Nathan Age: 56 years : 1965 Gender: Male Ht: 66 in Wt: 105 lbs BSA: 1.48 m2 HR: 72 bpm BP: 108 / 74 mmHg Technical Quality: Fair Exam Date: 10/24/2021 9:18 AM Exam Location: [facility] Pulmonary Exam Room: 240 Patient Status: Inpatient Admit Date: 10/23/2021 Staff Ordering Physician: Newton Soliz Body Coverer: Jazz Allen RCS Attending Provider: Giacomo Mcleod MD Referring Physician: Martínez PADRON; Exam Type: CA echo doppler color flow Study Info Indications - fluid status Complete two-dimensional, color flow and Doppler transthoracic echocardiogram is performed. Summary 1. Complete two-dimensional, color flow and Doppler transthoracic echocardiogram is performed. 2. Left ventricular chamber dimension is normal. 3. Left ventricular systolic function is normal, estimated at 60-65%. 4. The left ventricular diastolic function is grade I diastolic dysfunction. 5. E/e' 8 is minimally elevated. 6. Left atrial chamber dimension is mildly enlarged. 7. There is trace mitral valve regurgitation. 8. There is trace tricuspid valve regurgitation. 9. No pulmonary hypertension, estimated pulmonary arterial systolic pressure is 22 mmHg. Left Ventricle E/e' 8 is minimally elevated. Left ventricular chamber dimension is normal. Left ventricular systolic function is normal, estimated at 60-65%. The left ventricular diastolic function is grade I diastolic dysfunction. Right Ventricle Right ventricular chamber dimension is normal. Right ventricular systolic function is normal. Left Atria Left atrial chamber dimension is mildly enlarged. Right Atria Right atrial chamber dimension is normal. Aortic Valve The aortic valve is trileaflet. There is no aortic valve stenosis. There is no aortic valve regurgitation. Pulmonic Valve There is no pulmonic regurgitation. Mitral Valve There is no mitral valve stenosis. There is trace mitral valve regurgitation. Tricuspid Valve There is trace tricuspid valve regurgitation. No pulmonary hypertension, estimated pulmonary arterial systolic pressure is 22 mmHg. Pericardium/Pleural There is no pericardial effusion. Inferior Vena Cava Normal inferior vena cava with >50% collapse upon inspiration consistent with normal right atrial pressure, 5 mmHg. Aorta The aortic root size at the sinus of Valsalva is normal. Left Ventricular Outflow Tract Name Value Normal LVOT 2D LVOT Diameter 2.0 cm LVOT Doppler LVOT Peak Gradient 5 mmHg LVOT Mean Gradient 3 mmHg LVOT VTI 19 cm LVOT VTI/AV VTI Ratio 1.0 LVOT Stroke Volume 60 ml LVOT CO 15.5 l/min LVOT CI 10.5 l/min/m2 Pulmonic Valve Name Value Normal PV Doppler
[2021-10-24 05:34] LABS: Basophils Percent Auto 0.5 % (0.2-1.2); Eosinophils Absolute Auto 0.1 K/mm3 (0-0.3); Eosinophils Percent Auto 1.5 % (0-4.4); Hematocrit 32.3 % (42.0-52.0); Hemoglobin 10.7 g/dL (14.0-18.0); Immature Granulocyte Absolute 0.08 K/mm3 (0.00-0.031); Immature Granulocyte Percent A 1.3 % (0-0.5); Lymphocytes Absolute Auto 0.47 K/mm3 (0.9-3.2); Lymphocytes Percent Auto 7.8 % (18.3-44.2); Mean Corpuscular HGB Conc 33.1 g/dl (32-36); Mean Corpuscular Hemoglobin 38.1 pg (26-34); Mean Corpuscular Volume 114.9 fl (80-100); Mean Platelet Volume 8.9 fl (7.4-10.4); Monocytes Absolute Auto 0.5 K/mm3 (0.1-0.6); Monocytes Percent Auto 8.3 % (2.6-8.5); Neutrophils Absolute Auto 4.8 K/mm3 (1.3-6.7); Neutrophils Percent Auto 80.6 % (45.5-73.1); Platelet Count Result 191 k/mm3 (150-375); Red Blood Count 2.81 M/mm3 (4.6-6.20); Red Cell Distribution Width 14.5 % (11.5-14.5)
[2021-10-24] MEDS: LEVOTHYROXINE SODIUM 50 MCG TABLET PO (05:40)
[2021-10-24 05:44] LABS: Alanine Aminotransferase 14 U/L (6-50); Albumin Level 2.8 g/dL (3.5-5.1); Alkaline Phosphatase 75 U/L (38-126); Anion Gap 4 mmol/L (8-16); Aspartate Amino Transferase 32 U/L (17-59); Bilirubin,Total 0.1 mg/dL (0.2-1.3); Blood Urea Nitrogen 12 mg/dL (9-20); Calcium 7.9 mg/dL (8.4-10.2); Carbon Dioxide 21 mmol/L (22-30); Chloride 102 mmol/L (98-107); Estimated CRCL calculation 69 ml/min; Estimated Glomerular Filt Rate > 60; Glucose 78 mg/dL (65-110); Magnesium 1.3 mg/dL (1.6-2.3); Potassium 3.4 mmol/L (3.4-5.0); Sodium 127 mmol/L (137-145)
[2021-10-24] MEDS: MAGNESIUM SULF 4 GM/WATER100ML 4 GM/100 ML BAG IVPB (08:27)
[2021-10-24] MEDS: busPIRone HCL 5 MG TABLET PO ×2 (08:32→16:20)
[2021-10-24] MEDS: FOLIC ACID 1 MG TABLET PO (08:32)
[2021-10-24] MEDS: ATORVASTATIN 40 MG TABLET PO (08:32)
[2021-10-24] MEDS: PANTOPRAZOLE 40 MG TABLET PO (08:32)
[2021-10-24] MEDS: LORATADINE 10 MG TABLET PO (08:33)
[2021-10-24] MEDS: AMIODARONE HCL 200 MG TABLET PO (08:33)
[2021-10-24] MEDS: THIAMINE HCL 100 MG TABLET PO (08:33)
[2021-10-24] MEDS: FLUTICASONE PROPIONATE 0.05% NA SPR 16 GM BTL (*BKC) 1 SPRAY NASAL (08:34)
[2021-10-24] MEDS: APIXABAN 2.5 MG TABLET BY MOUTH ×2 (08:34→20:36)
[2021-10-24] MEDS: FERROUS SULFATE 324 MG TABLET PO ×2 (08:34→16:20)
[2021-10-24] MEDS: SODIUM CHLORIDE 0.9% IV 1,000 ML 100 ML IV CONT ×2 (08:40→20:35)
--- NOTE | 2021-10-24 09:45 | PM.IMPN ---
Progress Note: A&P Assessment and Plan (1) Hyponatremia: Code(s): E87.1 - Hypo-osmolality and hyponatremia Status: Acute Assessment and Plan: -etiology unknown. Differentials include SIADH versus alcohol-induced hypo-osmolality versus dehydration -Current sodium 127 -urine sodium is low at 12. -serum osmolality and urine osmolality are pending. -IV stopped at this time due to significant increase in sodium levels -dietary fluid restriction of 1200 mL in 24 hours. -Increase sodium 8 per day -Seizure precautions. -initiate fall precautions. -consider Nephrology consult if declining or no considerable improvement over the course of the next 2 days. (2) Orthostatic hypotension: Code(s): I95.1 - Orthostatic hypotension Status: Acute Assessment and Plan: Blood pressure significantly decreases with position changes Will hold coreg for now Cannot start Midodrine due to him taking Elavil Trend BP Adjust therapy as indicated (3) Weakness: Code(s): R53.1 - Weakness Status: Acute Assessment and Plan: -likely multifactorial in etiology. -Including alcohol abuse, hyponatremia, dehydration. -fall precautions initiated -correct underlying medical factors of JULIUS and hyponatremia and re-evaluate. -PT and OT evaluation for concern of safety at home (4) Fall: Qualifiers: Encounter type: initial encounter Qualified Code(s): W19.XXXA - Unspecified fall, initial encounter Code(s): W19.XXXA - Unspecified fall, initial encounter Status: Acute Assessment and Plan: -fall precautions -PT and OT evaluation -Orthostatic blood pressure -Head CT shows chronic infarcts, no acute abnormalities -of increased concern for patient's safety with frequent falls as he is on Eliquis. (5) Compression fracture of T12 vertebra: Code(s): S22.080A - Wedge compression fracture of T11-T12 vertebra, initial encounter for closed fracture Status: Acute Assessment and Plan: -most likely secondary to recent falls. -CT of the thoracic spine found L1 burst fracture with 3mm of retropulsion of fracture fragments into the central spinal canal -Healing fracture of the left medial fourth through sixth ribs and L1 and L2 transverse process -patient without any neurological deficit including saddle anesthesia, paresthesias. -Patient will likely need a TLSO brace to help with protection, will order (6) Acute kidney injury: Code(s): N17.9 - Acute kidney failure, unspecified Status: Acute Assessment and Plan: -Current BUN/Cr 12/0.70 -BUN/Cr elevated upon admission -IV fluids stopped at this time due to excessive increase in sodium -baseline renal function demonstrates creatinine of 0.8-1.0. -follow and trend labs. -if acutely worsening consider Nephrology consult. -hold Lasix and spironolactone -avoid nephrotoxic medications. (7) Paroxysmal atrial fibrillation: Code(s): I48.0 - Paroxysmal atrial fibrillation Status: Acute Assessment and Plan: -Chads Vasc score is 2. -continue Eliquis -telemetry -continue amiodarone 200 mg p.o. daily -Hold carvedilol 6.25 mg p.o. q.12 hours due to orthostatic hypotension (8) Alcohol abuse: Code(s): F10.10 - Alcohol abuse, uncomplicated Status: Acute Assessment and Plan: -CIWA scoring q.4 hours -alcohol withdrawal Assessment ordered including neurological checks, glucose management, p.r.n. Ativan, Zofran, seizure precautions ordered. -Folic acid and thiamine -Librium and ativan added for etoh withdrawal -B12 686.0 (9) Anemia: Code(s): D64.9 - Anemia, unspecified Status: Acute Assessment and Plan: -likely chronic in etiology -Current H/H 10.7/32.3 -currently stable -Anemia labs Iron 65, TIBC 258, % sat 25, Ferritin 524, Transferrin 135, B12 499, Folate 2.9 -continue daily supplemen
[2021-10-24] MEDS: NICOTINE (*PBKC) 4 MG GUM PO ×2 (11:19→20:37)
[2021-10-24 14:56] LABS: Sodium 129 mmol/L (137-145)
[2021-10-24] MEDS: AMITRIPTYLINE HCL 25 MG TABLET PO (20:36)
[2021-10-24] MEDS: NICOTINE (*PBKC) 21 MG PATCH 1 PATCH TRANSDERM (20:36)
[2021-10-25] VITALS (16 sets, daily range): BP systolic 93–137; BP diastolic 63–83; PULSE 68–86; RESP 16–18; TEMP 35.5–36.8; O2SAT 98–100
[2021-10-25] MEDS: LEVOTHYROXINE SODIUM 50 MCG TABLET PO (05:43)
[2021-10-25] MEDS: THIAMINE HCL 100 MG TABLET PO (08:31)
[2021-10-25] MEDS: APIXABAN 2.5 MG TABLET BY MOUTH ×2 (08:31→20:09)
[2021-10-25] MEDS: FERROUS SULFATE 324 MG TABLET PO ×2 (08:31→17:25)
[2021-10-25] MEDS: busPIRone HCL 5 MG TABLET PO ×2 (08:31→17:25)
[2021-10-25] MEDS: FOLIC ACID 1 MG TABLET PO (08:31)
[2021-10-25] MEDS: ATORVASTATIN 40 MG TABLET PO (08:31)
[2021-10-25] MEDS: LORATADINE 10 MG TABLET PO (08:31)
[2021-10-25] MEDS: AMIODARONE HCL 200 MG TABLET PO (08:31)
[2021-10-25] MEDS: FLUTICASONE PROPIONATE 0.05% NA SPR 16 GM BTL (*BKC) 1 SPRAY NASAL (08:31)
[2021-10-25] MEDS: PANTOPRAZOLE 40 MG TABLET PO (08:31)
[2021-10-25] MEDS: SODIUM CHLORIDE 0.9% IV 1,000 ML 100 ML IV CONT (08:38)
--- NOTE | 2021-10-25 09:15 | PM.IMPN ---
Progress Note: A&P Assessment and Plan (1) Hyponatremia: Code(s): E87.1 - Hypo-osmolality and hyponatremia Status: Acute Assessment and Plan: -etiology unknown. Differentials include SIADH versus alcohol-induced hypo-osmolality versus dehydration -Current sodium 132 -urine sodium is low at 12. -serum osmolality and urine osmolality are pending. -IV stopped at this time due to significant increase in sodium levels -dietary fluid restriction of 1200 mL in 24 hours. -Increase sodium 8 per day -Seizure precautions. -initiate fall precautions. -consider Nephrology consult if declining or no considerable improvement over the course of the next 2 days. (2) Orthostatic hypotension: Code(s): I95.1 - Orthostatic hypotension Status: Acute Assessment and Plan: Blood pressure significantly decreases with position changes Will hold coreg for now Cheetah showed that the he is fluid responsive, showing 12.4% 500ml fluid bolus given orthostatic blood pressures laying 113/68, sitting 101/68, standing 93/64 before the bolus Orthostatic blood pressures laying , sitting , standing Midodrine 2.5mg PO TID Confirmed with pharmacy that there is no interaction with the midodrine and the amitriptyline Trend BP Adjust therapy as indicated (3) Weakness: Code(s): R53.1 - Weakness Status: Acute Assessment and Plan: -likely multifactorial in etiology. -Including alcohol abuse, hyponatremia, dehydration. -fall precautions initiated -correct underlying medical factors of JULIUS and hyponatremia and re-evaluate. -PT and OT evaluation for concern of safety at home (4) Fall: Qualifiers: Encounter type: initial encounter Qualified Code(s): W19.XXXA - Unspecified fall, initial encounter Code(s): W19.XXXA - Unspecified fall, initial encounter Status: Acute Assessment and Plan: -fall precautions -PT and OT evaluation -Orthostatic blood pressure -Head CT shows chronic infarcts, no acute abnormalities -of increased concern for patient's safety with frequent falls as he is on Eliquis. (5) Compression fracture of T12 vertebra: Code(s): S22.080A - Wedge compression fracture of T11-T12 vertebra, initial encounter for closed fracture Status: Acute Assessment and Plan: -most likely secondary to recent falls. -CT of the thoracic spine found L1 burst fracture with 3mm of retropulsion of fracture fragments into the central spinal canal -Healing fracture of the left medial fourth through sixth ribs and L1 and L2 transverse process -patient without any neurological deficit including saddle anesthesia, paresthesias. -Patient will likely need a TLSO brace to help with protection, will order -Refusing to use the TLSO brace at this time (6) Acute kidney injury: Code(s): N17.9 - Acute kidney failure, unspecified Status: Acute Assessment and Plan: -Current BUN/Cr 11/0.70 -BUN/Cr elevated upon admission -IV fluids stopped at this time due to excessive increase in sodium -baseline renal function demonstrates creatinine of 0.8-1.0. -follow and trend labs. -if acutely worsening consider Nephrology consult. -hold Lasix and spironolactone -avoid nephrotoxic medications. (7) Paroxysmal atrial fibrillation: Code(s): I48.0 - Paroxysmal atrial fibrillation Status: Acute Assessment and Plan: -Chads Vasc score is 2. -continue Eliquis -telemetry -continue amiodarone 200 mg p.o. daily -Hold carvedilol 6.25 mg p.o. q.12 hours due to orthostatic hypotension (8) Alcohol abuse: Code(s): F10.10 - Alcohol abuse, uncomplicated Status: Acute Assessment and Plan: -CIWA scoring q.4 hours -alcohol withdrawal Assessment ordered including neurological checks, glucose management, p.r.n. Ativan, Zofran, seizure precautions ordered. -Folic acid and thiamine -Saadia
[2021-10-25] MEDS: ACETAMINOPHEN 325 MG TABLET 650 MG PO (09:52)
[2021-10-25] MEDS: SODIUM CHLORIDE 0.9% IV 500 ML IV CONT (12:36)
[2021-10-25] MEDS: MIDODRINE HCL 2.5 MG TABLET PO ×2 (12:38→17:25)
[2021-10-25 13:39] LABS: Basophils Percent Auto 0.5 % (0.2-1.2); Eosinophils Absolute Auto 0.1 K/mm3 (0-0.3); Eosinophils Percent Auto 2.1 % (0-4.4); Hematocrit 30.6 % (42.0-52.0); Hemoglobin 10.2 g/dL (14.0-18.0); Immature Granulocyte Absolute 0.07 K/mm3 (0.00-0.031); Immature Granulocyte Percent A 1.2 % (0-0.5); Lymphocytes Absolute Auto 0.61 K/mm3 (0.9-3.2); Lymphocytes Percent Auto 10.6 % (18.3-44.2); Mean Corpuscular HGB Conc 33.3 g/dl (32-36); Mean Corpuscular Hemoglobin 37.9 pg (26-34); Mean Corpuscular Volume 113.8 fl (80-100); Mean Platelet Volume 8.7 fl (7.4-10.4); Monocytes Absolute Auto 0.6 K/mm3 (0.1-0.6); Monocytes Percent Auto 11.1 % (2.6-8.5); Neutrophils Absolute Auto 4.3 K/mm3 (1.3-6.7); Neutrophils Percent Auto 74.5 % (45.5-73.1); Platelet Count Result 189 k/mm3 (150-375); Red Blood Count 2.69 M/mm3 (4.6-6.20); Red Cell Distribution Width 14.2 % (11.5-14.5); White Blood Count 5.7 K/mm3 (4.5-10.0)
[2021-10-25 13:55] LABS: Alanine Aminotransferase 12 U/L (6-50); Albumin Level 2.7 g/dL (3.5-5.1); Alkaline Phosphatase 72 U/L (38-126); Anion Gap 5 mmol/L (8-16); Aspartate Amino Transferase 19 U/L (17-59); Bilirubin,Total 0.1 mg/dL (0.2-1.3); Blood Urea Nitrogen 11 mg/dL (9-20); Calcium 7.5 mg/dL (8.4-10.2); Carbon Dioxide 20 mmol/L (22-30); Chloride 107 mmol/L (98-107); Estimated CRCL calculation 69 ml/min; Estimated Glomerular Filt Rate > 60; Glucose 88 mg/dL (65-110); Magnesium 1.6 mg/dL (1.6-2.3); Potassium 2.9 mmol/L (3.4-5.0); Sodium 132 mmol/L (137-145)
--- NOTE | 2021-10-25 14:27 | ECG_ITS ---
Measurements Intervals [place] Rate: 68 P: 30 WV: 201 QRS: -32 QRSD: 137 T: 125 QT: 453 QTc: 484 Interpretive Statements SINUS RHYTHM MARKED LEFT AXIS DEVIATION [QRS AXIS < -30] INTRAVENTRICULAR CONDUCTION DELAY [130+ ms QRS DURATION] LEFT VENTRICULAR HYPERTROPHY AND ST-T CHANGE [VOLTAGE CRITERIA PLUS ST/T ABNORMALITY] QT prolongation, consider drug effect COMPARED TO ECG 10/22/2021 12:36:28 SINUS RHYTHM NOW PRESENT and the previously noted ST and T-wave changes have improved Electronically Signed On 10-25-2021 19:26:43 CDT by Raquel Hoff M.D.
[2021-10-25 15:12] LABS: Troponin I < 0.012 ng/mL (0.000-0.034)
[2021-10-25] MEDS: MORPHINE SULFATE (*CRX) 2 MG/ML INJ IV PUSH (15:21)
[2021-10-25] MEDS: MAGNESIUM SULF 4 GM/WATER100ML 4 GM/100 ML BAG IVPB (15:21)
[2021-10-25] MEDS: POTASSIUM CHLORIDE 20 MEQ PACKET (FOR LIQUID) 40 MEQ PO (15:21)
[2021-10-25 16:38] LABS: SARS-CoV-2 RNA PCR Negative
[2021-10-25 17:51] LABS: Troponin I < 0.012 ng/mL (0.000-0.034)
[2021-10-25] MEDS: NICOTINE (*PBKC) 21 MG PATCH 1 PATCH TRANSDERM (20:09)
[2021-10-25] MEDS: AMITRIPTYLINE HCL 25 MG TABLET PO (20:09)
[2021-10-25] MEDS: LORazepam INJ (*CRX) 2 MG/ML VIAL 1 MG IV PUSH (23:48)
[2021-10-26] VITALS (12 sets, daily range): BP systolic 100–137; BP diastolic 58–83; PULSE 73–103; RESP 16–18; TEMP 36.6–36.8; O2SAT 91–100
[2021-10-26 02:52] LABS: Osmolality, Urine 277 mOsm/kg (50-1200)
[2021-10-26] MEDS: SODIUM CHLORIDE 0.9% IV 1,000 ML 100 ML IV CONT (05:07)
[2021-10-26 05:49] LABS: Basophils Percent Auto 0.4 % (0.2-1.2); Eosinophils Absolute Auto 0.1 K/mm3 (0-0.3); Hematocrit 29.8 % (42.0-52.0); Hemoglobin 9.8 g/dL (14.0-18.0); Immature Granulocyte Absolute 0.04 K/mm3 (0.00-0.031); Immature Granulocyte Percent A 0.9 % (0-0.5); Lymphocytes Percent Auto 10.9 % (18.3-44.2); Mean Corpuscular HGB Conc 32.9 g/dl (32-36); Mean Corpuscular Hemoglobin 37.3 pg (26-34); Mean Corpuscular Volume 113.3 fl (80-100); Mean Platelet Volume 9.1 fl (7.4-10.4); Monocytes Absolute Auto 0.5 K/mm3 (0.1-0.6); Monocytes Percent Auto 11.8 % (2.6-8.5); Neutrophils Absolute Auto 3.4 K/mm3 (1.3-6.7); Platelet Count Result 175 k/mm3 (150-375); Red Blood Count 2.63 M/mm3 (4.6-6.20); Red Cell Distribution Width 13.9 % (11.5-14.5); White Blood Count 4.6 K/mm3 (4.5-10.0)
[2021-10-26 05:59] LABS: Alanine Aminotransferase 12 U/L (6-50); Albumin Level 2.7 g/dL (3.5-5.1); Alkaline Phosphatase 68 U/L (38-126); Anion Gap 4 mmol/L (8-16); Aspartate Amino Transferase 25 U/L (17-59); Bilirubin,Total 0.2 mg/dL (0.2-1.3); Blood Urea Nitrogen 9 mg/dL (9-20); Calcium 7.7 mg/dL (8.4-10.2); Carbon Dioxide 17 mmol/L (22-30); Chloride 107 mmol/L (98-107); Estimated CRCL calculation 69 ml/min; Estimated Glomerular Filt Rate > 60; Glucose 77 mg/dL (65-110); Magnesium 1.9 mg/dL (1.6-2.3); Potassium 3.4 mmol/L (3.4-5.0); Sodium 128 mmol/L (137-145)
[2021-10-26] MEDS: LEVOTHYROXINE SODIUM 50 MCG TABLET PO (06:05)
--- NOTE | 2021-10-26 08:30 | PM.IMPN ---
Progress Note: A&P Assessment and Plan (1) Hyponatremia: Code(s): E87.1 - Hypo-osmolality and hyponatremia Status: Acute Assessment and Plan: -etiology unknown. Differentials include SIADH versus alcohol-induced hypo-osmolality versus dehydration -Current sodium 128 -urine sodium is low at 12. -serum osmolality and urine osmolality are pending. -IV stopped at this time due to significant increase in sodium levels -dietary fluid restriction of 1200 mL in 24 hours. -Increase sodium 8 per day -Seizure precautions. -initiate fall precautions. -consider Nephrology consult tomorrow if continues to trend down (2) Pneumonia: Code(s): J18.9 - Pneumonia, unspecified organism Status: Acute Assessment and Plan: Chest xray shows worsening opacities consistent with infection Start azithromycin and ceftriaxone sputum culture ordered repeat xray in the am WBC 4.6 Trend labs Blood cultures pending (3) Orthostatic hypotension: Code(s): I95.1 - Orthostatic hypotension Status: Acute Assessment and Plan: Blood pressure significantly decreases with position changes Will hold coreg for now Cheetah showed that the he is fluid responsive, showing 12.4% 500ml fluid bolus given orthostatic blood pressures laying 113/68, sitting 101/68, standing 93/64 before the bolus Orthostatic blood pressures laying 111/63, sitting 103/67, standing 101/63, better after fluid bolus Midodrine 2.5mg PO TID Confirmed with pharmacy that there is no interaction with the midodrine and the amitriptyline Trend BP Adjust therapy as indicated (4) Weakness: Code(s): R53.1 - Weakness Status: Acute Assessment and Plan: -likely multifactorial in etiology. -Including alcohol abuse, hyponatremia, dehydration. -fall precautions initiated -correct underlying medical factors of JULIUS and hyponatremia and re-evaluate. -PT and OT evaluation for concern of safety at home (5) Fall: Qualifiers: Encounter type: initial encounter Qualified Code(s): W19.XXXA - Unspecified fall, initial encounter Code(s): W19.XXXA - Unspecified fall, initial encounter Status: Acute Assessment and Plan: -fall precautions -PT and OT evaluation -Orthostatic blood pressure -Head CT shows chronic infarcts, no acute abnormalities -of increased concern for patient's safety with frequent falls as he is on Eliquis. (6) Compression fracture of T12 vertebra: Code(s): S22.080A - Wedge compression fracture of T11-T12 vertebra, initial encounter for closed fracture Status: Acute Assessment and Plan: -most likely secondary to recent falls. -CT of the thoracic spine found L1 burst fracture with 3mm of retropulsion of fracture fragments into the central spinal canal -Healing fracture of the left medial fourth through sixth ribs and L1 and L2 transverse process -patient without any neurological deficit including saddle anesthesia, paresthesias. -Patient will likely need a TLSO brace to help with protection, will order -Refusing to use the TLSO brace at this time (7) Acute kidney injury: Code(s): N17.9 - Acute kidney failure, unspecified Status: Acute Assessment and Plan: -seems to be resolved -Current BUN/Cr 9/0.70 -BUN/Cr elevated upon admission -IV fluids stopped at this time due to excessive increase in sodium -baseline renal function demonstrates creatinine of 0.8-1.0. -follow and trend labs. -if acutely worsening consider Nephrology consult. -give one dose of Lasix due to unclearing of ronchi -avoid nephrotoxic medications. (8) Paroxysmal atrial fibrillation: Code(s): I48.0 - Paroxysmal atrial fibrillation Status: Acute Assessment and Plan: -Chads Vasc score is 2. -continue Eliquis -telemetry -EKG from 10/25/21 shows sinus rhythm -continue amiodarone 200 mg p
[2021-10-26] MEDS: LORATADINE 10 MG TABLET PO (08:52)
[2021-10-26] MEDS: FLUTICASONE PROPIONATE 0.05% NA SPR 16 GM BTL (*BKC) 1 SPRAY NASAL (08:52)
[2021-10-26] MEDS: AMIODARONE HCL 200 MG TABLET PO (08:53)
[2021-10-26] MEDS: ATORVASTATIN 40 MG TABLET PO (08:53)
[2021-10-26] MEDS: APIXABAN 2.5 MG TABLET BY MOUTH ×2 (08:53→20:00)
[2021-10-26] MEDS: THIAMINE HCL 100 MG TABLET PO (08:54)
[2021-10-26] MEDS: busPIRone HCL 5 MG TABLET PO ×2 (08:54→16:53)
[2021-10-26] MEDS: FOLIC ACID 1 MG TABLET PO (08:54)
[2021-10-26] MEDS: PANTOPRAZOLE 40 MG TABLET PO (08:54)
[2021-10-26] MEDS: ASPIRIN 81 MG ENTERIC TABLET PO (08:54)
[2021-10-26] MEDS: MIDODRINE HCL 2.5 MG TABLET PO ×3 (08:54→16:53)
[2021-10-26] MEDS: FERROUS SULFATE 324 MG TABLET PO ×2 (08:58→16:53)
[2021-10-26] MEDS: FUROSEMIDE INJ 40 MG/4 ML VIAL IV PUSH (10:22)
[2021-10-26] MEDS: NICOTINE (*PBKC) 21 MG PATCH 1 PATCH TRANSDERM (20:00)
[2021-10-26] MEDS: LIDOCAINE HCL 1% LOCAL INJ 2 ML AMPUL 5 ML INFILTRATE (20:00)
[2021-10-26] MEDS: AMITRIPTYLINE HCL 25 MG TABLET PO (20:00)
[2021-10-26] MEDS: ACETAMINOPHEN 325 MG TABLET 650 MG PO (22:01)
[2021-10-27] VITALS (16 sets, daily range): BP systolic 93–124; BP diastolic 59–88; PULSE 69–99; RESP 16; TEMP 36.7–37.1; O2SAT 95–99
[2021-10-27 05:10] LABS: Hematocrit 26.3 % (42.0-52.0); Hemoglobin 8.6 g/dL (14.0-18.0); Mean Corpuscular HGB Conc 32.7 g/dl (32-36); Mean Corpuscular Hemoglobin 37.4 pg (26-34); Mean Corpuscular Volume 114.3 fl (80-100); Mean Platelet Volume 8.7 fl (7.4-10.4); Platelet Count Result 151 k/mm3 (150-375); White Blood Count 4.4 K/mm3 (4.5-10.0)
[2021-10-27 05:22] LABS: Alanine Aminotransferase 14 U/L (6-50); Albumin Level 2.4 g/dL (3.5-5.1); Alkaline Phosphatase 73 U/L (38-126); Anion Gap 3 mmol/L (8-16); Aspartate Amino Transferase 27 U/L (17-59); Bilirubin,Total < 0.1 mg/dL (0.2-1.3); Blood Urea Nitrogen 11 mg/dL (9-20); Calcium 7.5 mg/dL (8.4-10.2); Carbon Dioxide 22 mmol/L (22-30); Chloride 106 mmol/L (98-107); Estimated CRCL calculation 61 ml/min; Estimated Glomerular Filt Rate > 60; Glucose 78 mg/dL (65-110); Magnesium 1.5 mg/dL (1.6-2.3); Potassium 3.2 mmol/L (3.4-5.0); Sodium 131 mmol/L (137-145)
[2021-10-27] MEDS: SODIUM CHLORIDE 0.9% IV 1,000 ML 100 ML IV CONT (05:30)
[2021-10-27] MEDS: LEVOTHYROXINE SODIUM 50 MCG TABLET PO (05:31)
[2021-10-27 05:37] LABS: Band Neutrophils Percent 1 % (0-6); Eosinophils Absolute Manual 0.13 K/mm3 (0.02-0.5); Eosinophils Percent Manual 3 % (0-4); Monocytes Absolute Manual 0.22 K/mm3 (0.1-0.90); Monocytes Percent Manual 5 % (3-9); Neutrophils Absolute Manual 2.94 K/mm3 (1.3-6.7); Neutrophils Percent Manual 66 % (46-73); Platelet Estimate Adequate (Adequate); Total Cells Counted 100
[2021-10-27 05:38] LABS: Atypical Lymphocytes Present; Hypochromasia 1+ (NORMAL)
[2021-10-27] MEDS: POTASSIUM CHLORIDE 20 MEQ PACKET (FOR LIQUID) 40 MEQ PO (06:52)
[2021-10-27] MEDS: MAGNESIUM SULF 4 GM/WATER100ML 4 GM/100 ML BAG IVPB (06:59)
[2021-10-27] MEDS: ASPIRIN 81 MG ENTERIC TABLET PO (08:20)
[2021-10-27] MEDS: PANTOPRAZOLE 40 MG TABLET PO (08:20)
[2021-10-27] MEDS: FLUTICASONE PROPIONATE 0.05% NA SPR 16 GM BTL (*BKC) 1 SPRAY NASAL (08:20)
[2021-10-27] MEDS: APIXABAN 2.5 MG TABLET BY MOUTH ×2 (08:20→20:04)
[2021-10-27] MEDS: FUROSEMIDE INJ 40 MG/4 ML VIAL IV PUSH ×2 (08:20→16:16)
[2021-10-27] MEDS: ATORVASTATIN 40 MG TABLET PO (08:20)
[2021-10-27] MEDS: THIAMINE HCL 100 MG TABLET PO (08:20)
[2021-10-27] MEDS: busPIRone HCL 5 MG TABLET PO ×2 (08:20→16:16)
[2021-10-27] MEDS: MIDODRINE HCL 2.5 MG TABLET PO ×3 (08:21→16:16)
[2021-10-27] MEDS: FOLIC ACID 1 MG TABLET PO (08:21)
[2021-10-27] MEDS: AMIODARONE HCL 200 MG TABLET PO (08:21)
[2021-10-27] MEDS: LORATADINE 10 MG TABLET PO (08:24)
[2021-10-27] MEDS: FERROUS SULFATE 324 MG TABLET PO ×2 (08:24→16:16)
--- NOTE | 2021-10-27 09:15 | PM.IMPN ---
Progress Note: A&P Assessment and Plan (1) Hyponatremia: Code(s): E87.1 - Hypo-osmolality and hyponatremia Status: Acute Assessment and Plan: -etiology unknown. Differentials include SIADH versus alcohol-induced hypo-osmolality versus dehydration -Current sodium 131 -urine sodium is low at 12. -serum osmolality and urine osmolality are pending. -IV fluids stopped at this time -completed fluid restriction, however, explained that he could go back on it if the sodium declines again -Increase sodium 8 per day -Seizure precautions. -initiate fall precautions. -Responded to the lasix will start on BID dosing for 4 doses (2) Pneumonia: Code(s): J18.9 - Pneumonia, unspecified organism Status: Acute Assessment and Plan: Chest xray shows worsening opacities consistent with infection Azithromycin and ceftriaxone sputum culture ordered, still pending repeat xray- progression of widespaced bilateral airspace disease consistent with PNA WBC 4.4 Trend labs Blood cultures NGTD (3) Orthostatic hypotension: Code(s): I95.1 - Orthostatic hypotension Status: Acute Assessment and Plan: Blood pressure significantly decreases with position changes Will hold coreg for now Cheetah showed that the he is fluid responsive, showing 12.4% Orthostatic blood pressure laying, sitting, standing Midodrine 2.5mg PO TID Confirmed with pharmacy that there is no interaction with the midodrine and the amitriptyline Trend BP Adjust therapy as indicated (4) Weakness: Code(s): R53.1 - Weakness Status: Acute Assessment and Plan: -likely multifactorial in etiology. -Including alcohol abuse, hyponatremia, dehydration. -fall precautions initiated -correct underlying medical factors of JULIUS and hyponatremia and re-evaluate. -PT and OT evaluation for concern of safety at home -PT indicates patient is walking 300 feet with a walker (5) Fall: Qualifiers: Encounter type: initial encounter Qualified Code(s): W19.XXXA - Unspecified fall, initial encounter Code(s): W19.XXXA - Unspecified fall, initial encounter Status: Acute Assessment and Plan: -fall precautions -PT and OT evaluation -Orthostatic blood pressure -Head CT shows chronic infarcts, no acute abnormalities -of increased concern for patient's safety with frequent falls as he is on Eliquis. (6) Compression fracture of T12 vertebra: Code(s): S22.080A - Wedge compression fracture of T11-T12 vertebra, initial encounter for closed fracture Status: Acute Assessment and Plan: -most likely secondary to recent falls. -CT of the thoracic spine found L1 burst fracture with 3mm of retropulsion of fracture fragments into the central spinal canal -Healing fracture of the left medial fourth through sixth ribs and L1 and L2 transverse process -patient without any neurological deficit including saddle anesthesia, paresthesias. -Patient will likely need a TLSO brace to help with protection, will order -Refusing to use the TLSO brace at this time (7) Acute kidney injury: Code(s): N17.9 - Acute kidney failure, unspecified Status: Acute Assessment and Plan: -seems to be resolved -Current BUN/Cr 11/0.80 -BUN/Cr elevated upon admission -baseline renal function demonstrates creatinine of 0.8-1.0. -follow and trend labs. -repeat lasix x 4 doses -avoid nephrotoxic medications. (8) Paroxysmal atrial fibrillation: Code(s): I48.0 - Paroxysmal atrial fibrillation Status: Acute Assessment and Plan: -Chads Vasc score is 2. -continue Eliquis -telemetry SR in the 80s -EKG from 10/25/21 shows sinus rhythm -continue amiodarone 200 mg p.o. daily -Hold carvedilol 6.25 mg p.o. q.12 hours due to orthostatic hypotension (9) Alcohol abuse: Code(s): F10.10 - Alcohol abuse, uncompl
[2021-10-27] MEDS: NICOTINE (*PBKC) 4 MG GUM PO (12:35)
--- NOTE | 2021-10-27 12:36 | PCOTNOTE ---
Attempted to see patient this pm, however patient refused. Upon introduction and explanation of care, PELLETIZER TENDER and RN entered room to retrieve patient's chewing tobacco. Pt became agitated and refused therapy at this time stating, I'm too upset right now.
--- NOTE | 2021-10-27 13:31 | PCNFU ---
Nutrition Follow-Up Complete: Increased Energy Expenditure as related to COPD as evidenced by BMI: 17.1 underweight. Goal: Adequate Intake of at least 75% of meals/supplements - Pt is meeting goal. Pt current nutrition is regular. Last recorded weight is 48 kg. Bowel Motility: +BM (10/25/2021) Labs Reviewed: Hgb 8.6, Hct 26.3, Alb 2.4, Na 131, K 3.2 Meds Noted: B complex vitamins, folic acid, Zofran, Larix, ferrous sulfate Skin: Skin tears and bruising Additional Notes: Pt reports he is eating great, has a very good appetite, and is drinking his Ensure Compact supplement BID (220 kcal, 9gm protein each). Agree with diet order. Will monitor every 7 days.
--- NOTE | 2021-10-27 13:59 | PCNSR ---
On 10/27/21, the student, Arelis Hills, provided care and completed [facility] documentation on this patient. I have reviewed the student's documentation and agree with the findings.
[2021-10-27 15:25] LABS: IFOB Positive Control Positive; Immunochemical Fecal Occult Bl Negative (N)
[2021-10-27] MEDS: ACETAMINOPHEN 325 MG TABLET 650 MG PO (17:24)
[2021-10-27] MEDS: guaiFENesin 200 MG/10 ML UDC PO (19:13)
[2021-10-27] MEDS: AMITRIPTYLINE HCL 25 MG TABLET PO (20:04)
[2021-10-27] MEDS: NICOTINE (*PBKC) 21 MG PATCH 1 PATCH TRANSDERM (20:04)
[2021-10-28] VITALS (14 sets, daily range): BP systolic 87–124; BP diastolic 54–80; PULSE 73–97; RESP 16–20; TEMP 36.4–36.9; O2SAT 96–100
[2021-10-28 05:09] LABS: Basophils Percent Auto 0.6 % (0.2-1.2); Eosinophils Absolute Auto 0.2 K/mm3 (0-0.3); Eosinophils Percent Auto 3.5 % (0-4.4); Hematocrit 28.1 % (42.0-52.0); Immature Granulocyte Absolute 0.05 K/mm3 (0.00-0.031); Lymphocytes Absolute Auto 0.81 K/mm3 (0.9-3.2); Lymphocytes Percent Auto 15.8 % (18.3-44.2); Mean Corpuscular Hemoglobin 36.3 pg (26-34); Mean Corpuscular Volume 113.3 fl (80-100); Mean Platelet Volume 8.8 fl (7.4-10.4); Monocytes Percent Auto 18.8 % (2.6-8.5); Neutrophils Absolute Auto 3.1 K/mm3 (1.3-6.7); Neutrophils Percent Auto 60.3 % (45.5-73.1); Platelet Count Result 167 k/mm3 (150-375); Red Blood Count 2.48 M/mm3 (4.6-6.20); Red Cell Distribution Width 14.1 % (11.5-14.5); White Blood Count 5.1 K/mm3 (4.5-10.0)
[2021-10-28 05:22] LABS: Alanine Aminotransferase 17 U/L (6-50); Albumin Level 2.7 g/dL (3.5-5.1); Alkaline Phosphatase 76 U/L (38-126); Anion Gap 4 mmol/L (8-16); Aspartate Amino Transferase 29 U/L (17-59); Bilirubin,Total < 0.1 mg/dL (0.2-1.3); Blood Urea Nitrogen 10 mg/dL (9-20); Calcium 7.6 mg/dL (8.4-10.2); Carbon Dioxide 26 mmol/L (22-30); Chloride 102 mmol/L (98-107); Estimated CRCL calculation 79 ml/min; Estimated Glomerular Filt Rate > 60; Glucose 78 mg/dL (65-110); Magnesium 1.6 mg/dL (1.6-2.3); Potassium 3.2 mmol/L (3.4-5.0); Sodium 132 mmol/L (137-145)
[2021-10-28] MEDS: LEVOTHYROXINE SODIUM 50 MCG TABLET PO (06:23)
[2021-10-28] MEDS: POTASSIUM CHLORIDE 20 MEQ PACKET (FOR LIQUID) 40 MEQ PO (09:21)
[2021-10-28] MEDS: FERROUS SULFATE 324 MG TABLET PO ×2 (09:21→17:15)
[2021-10-28] MEDS: busPIRone HCL 5 MG TABLET PO ×2 (09:22→17:15)
[2021-10-28] MEDS: ASPIRIN 81 MG ENTERIC TABLET PO (09:22)
[2021-10-28] MEDS: LORATADINE 10 MG TABLET PO (09:22)
[2021-10-28] MEDS: FLUTICASONE PROPIONATE 0.05% NA SPR 16 GM BTL (*BKC) 1 SPRAY NASAL (09:22)
[2021-10-28] MEDS: APIXABAN 2.5 MG TABLET BY MOUTH ×2 (09:22→20:55)
[2021-10-28] MEDS: FUROSEMIDE INJ 40 MG/4 ML VIAL IV PUSH ×2 (09:22→17:16)
[2021-10-28] MEDS: MIDODRINE HCL 2.5 MG TABLET PO ×3 (09:22→17:15)
[2021-10-28] MEDS: THIAMINE HCL 100 MG TABLET PO (09:22)
[2021-10-28] MEDS: PANTOPRAZOLE 40 MG TABLET PO (09:22)
[2021-10-28] MEDS: ATORVASTATIN 40 MG TABLET PO (09:22)
[2021-10-28] MEDS: AMIODARONE HCL 200 MG TABLET PO (09:22)
[2021-10-28] MEDS: FOLIC ACID 1 MG TABLET PO (09:22)
[2021-10-28] MEDS: ACETAMINOPHEN 325 MG TABLET 650 MG PO (09:36)
[2021-10-28 10:34] LABS: Influenza Control Positive
--- NOTE | 2021-10-28 16:27 | P.PNIM_ITS ---
Progress Note: A&P Assessment and Plan (1) Hyponatremia: Code(s): E87.1 - Hypo-osmolality and hyponatremia Status: Acute Assessment and Plan: Etiology unknown. Differentials include SIADH versus alcohol-induced hypo- osmolality versus volume overload * Improved. Current sodium 132 * Improved following fluid restriction * Continue with IV Lasix * Monitor sodium levels closely (2) Pneumonia: Code(s): J18.9 - Pneumonia, unspecified organism Status: Acute Assessment and Plan: Patient complains of shortness of breath * CXR reveals progression of widespread bilateral airspace disease consistent with pneumonia * Continue ceftriaxone azithromycin * COVID negative. Influenza negative * Legionella pneumococcal urine antigens pending * Continue incentive spirometry * Sputum culture ordered, awaiting collection * Blood cultures negative to date (3) Orthostatic hypotension: Code(s): I95.1 - Orthostatic hypotension Status: Acute Assessment and Plan: Improving. * Orthostatics from today with only 16 point drop in systolic BP from supine to standing position. However blood pressure did decline to 87/58 with standing * Carvedilol on hold * Continue midodrine 2.5 mg p.o. TID * May consider increasing midodrine to 5 mg p.o. t.i.d. if BP remains low * Yong hose applied today * Monitor BP trends closely (4) Weakness: Code(s): R53.1 - Weakness Status: Acute Assessment and Plan: Patient complains of increased weakness with recent falls * May be related to alcohol abuse, hyponatremia, orthostasis * Continue fall precautions * Appreciate PT/OT eval (5) Compression fracture of T12 vertebra: Code(s): S22.080A - Wedge compression fracture of T11-T12 vertebra, initial encounter for closed fracture Status: Acute Assessment and Plan: Secondary to fall * CT of the thoracic spine found L1 burst fracture with 3mm of retropulsion of fracture fragments into the central spinal canal * Healing fracture of the left medial fourth through sixth ribs and L1 and L2 transverse process * Patient without any neurological deficit including saddle anesthesia, paresthesias, loss of bowel or bladder control * Continue TLSO brace * PT/OT (6) Paroxysmal atrial fibrillation: Code(s): I48.0 - Paroxysmal atrial fibrillation Status: Acute Assessment and Plan: Rate is controlled * Continue Eliquis * Continue amiodarone 200 mg daily * Carvedilol on hold (7) Alcohol abuse: Code(s): F10.10 - Alcohol abuse, uncomplicated Status: Acute Assessment and Plan: Patient reports drinking 1-2 pints of liquor weekly * CIWA scores have been 0 * No evidence of alcohol withdrawal * Continue thiamine and folic acid * Ativan as needed for CIWA >8 * Alcohol cessation is imperative (8) Anemia: Code(s): D64.9 - Anemia, unspecified Status: Acute Assessment and Plan: H&H is stable * Hemoglobin 9.0 today * Stool occult blood test was negative * Iron stores are adequate. B12 is within normal limits. Folate on the low end of normal. Continue folic acid supplementation. * Suspect anemia of chronic disease * Patient likely with history of iron deficiency. Continue with p.o. iron supplementation * Monitor H&H (9) Systolic heart failure: Code(s): I50.20 - Unspecified systolic (congestive) heart failure Status: Acute Assessment an
--- NOTE | 2021-10-28 16:27 | PM.IMPN ---
Progress Note: A&P Assessment and Plan (1) Hyponatremia: Code(s): E87.1 - Hypo-osmolality and hyponatremia Status: Acute Assessment and Plan: Etiology unknown. Differentials include SIADH versus alcohol-induced hypo-osmolality versus volume overload Improved. Current sodium 132 Improved following fluid restriction Continue with IV Lasix Monitor sodium levels closely (2) Pneumonia: Code(s): J18.9 - Pneumonia, unspecified organism Status: Acute Assessment and Plan: Patient complains of shortness of breath CXR reveals progression of widespread bilateral airspace disease consistent with pneumonia Continue ceftriaxone azithromycin COVID negative. Influenza negative Legionella pneumococcal urine antigens pending Continue incentive spirometry Sputum culture ordered, awaiting collection Blood cultures negative to date (3) Orthostatic hypotension: Code(s): I95.1 - Orthostatic hypotension Status: Acute Assessment and Plan: Improving. Orthostatics from today with only 16 point drop in systolic BP from supine to standing position. However blood pressure did decline to 87/58 with standing Carvedilol on hold Continue midodrine 2.5 mg p.o. TID May consider increasing midodrine to 5 mg p.o. t.i.d. if BP remains low Yong hose applied today Monitor BP trends closely (4) Weakness: Code(s): R53.1 - Weakness Status: Acute Assessment and Plan: Patient complains of increased weakness with recent falls May be related to alcohol abuse, hyponatremia, orthostasis Continue fall precautions Appreciate PT/OT eval (5) Compression fracture of T12 vertebra: Code(s): S22.080A - Wedge compression fracture of T11-T12 vertebra, initial encounter for closed fracture Status: Acute Assessment and Plan: Secondary to fall CT of the thoracic spine found L1 burst fracture with 3mm of retropulsion of fracture fragments into the central spinal canal Healing fracture of the left medial fourth through sixth ribs and L1 and L2 transverse process Patient without any neurological deficit including saddle anesthesia, paresthesias, loss of bowel or bladder control Continue TLSO brace PT/OT (6) Paroxysmal atrial fibrillation: Code(s): I48.0 - Paroxysmal atrial fibrillation Status: Acute Assessment and Plan: Rate is controlled Continue Eliquis Continue amiodarone 200 mg daily Carvedilol on hold (7) Alcohol abuse: Code(s): F10.10 - Alcohol abuse, uncomplicated Status: Acute Assessment and Plan: Patient reports drinking 1-2 pints of liquor weekly CIWA scores have been 0 No evidence of alcohol withdrawal Continue thiamine and folic acid Ativan as needed for CIWA >8 Alcohol cessation is imperative (8) Anemia: Code(s): D64.9 - Anemia, unspecified Status: Acute Assessment and Plan: H&H is stable Hemoglobin 9.0 today Stool occult blood test was negative Iron stores are adequate. B12 is within normal limits. Folate on the low end of normal. Continue folic acid supplementation. Suspect anemia of chronic disease Patient likely with history of iron deficiency. Continue with p.o. iron supplementation Monitor H&H (9) Systolic heart failure: Code(s): I50.20 - Unspecified systolic (congestive) heart failure Status: Acute Assessment and Plan: Not in acute exacerbation. Echo from 10/24/21 EF of 60-65% with a grade one diastolic dysfunction Monitor volume status Continue Lasix, spironolactone, carvedilol (10) Hypothyroidism: Code(s): E03.9 - Hypothyroidism, unspecified Status: Acute Assessment and Plan: TSH is within normal limits Continue levothyroxine (11) Chest pain: Code(s): R07.9 - Chest pain, unspecified Status: Acute Assessment and Plan: Resolved. Not felt to be cardiac in
[2021-10-28] MEDS: NICOTINE (*PBKC) 21 MG PATCH 1 PATCH TRANSDERM (20:55)
[2021-10-28] MEDS: AMITRIPTYLINE HCL 25 MG TABLET PO (20:55)
[2021-10-29] VITALS (7 sets, daily range): BP systolic 101–134; BP diastolic 64–79; PULSE 74–88; RESP 14–21; TEMP 36.3–37.1; O2SAT 98–100
[2021-10-29] MEDS: POTASSIUM CHLORIDE 20 MEQ PACKET (FOR LIQUID) 80 MEQ PO (01:47)
[2021-10-29] MEDS: LEVOTHYROXINE SODIUM 50 MCG TABLET PO (05:29)
[2021-10-29 05:50] LABS: Hematocrit 28.6 % (42.0-52.0); Hemoglobin 9.7 g/dL (14.0-18.0); Mean Corpuscular HGB Conc 33.9 g/dl (32-36); Mean Corpuscular Hemoglobin 37.2 pg (26-34); Mean Corpuscular Volume 109.6 fl (80-100); Mean Platelet Volume 9.1 fl (7.4-10.4); Platelet Count Result 193 k/mm3 (150-375); Red Blood Count 2.61 M/mm3 (4.6-6.20); Red Cell Distribution Width 14.1 % (11.5-14.5); White Blood Count 5.8 K/mm3 (4.5-10.0)
[2021-10-29 06:12] LABS: Anion Gap 4 mmol/L (8-16); Blood Urea Nitrogen 13 mg/dL (9-20); Calcium 8.2 mg/dL (8.4-10.2); Carbon Dioxide 27 mmol/L (22-30); Chloride 100 mmol/L (98-107); Estimated CRCL calculation 79 ml/min; Estimated Glomerular Filt Rate > 60; Glucose 84 mg/dL (65-110); Potassium 3.5 mmol/L (3.4-5.0); Sodium 131 mmol/L (137-145)
[2021-10-29] MEDS: FOLIC ACID 1 MG TABLET PO (08:11)
[2021-10-29] MEDS: LORATADINE 10 MG TABLET PO (08:11)
[2021-10-29] MEDS: FERROUS SULFATE 324 MG TABLET PO ×2 (08:11→17:23)
[2021-10-29] MEDS: THIAMINE HCL 100 MG TABLET PO (08:11)
[2021-10-29] MEDS: ASPIRIN 81 MG ENTERIC TABLET PO (08:11)
[2021-10-29] MEDS: PANTOPRAZOLE 40 MG TABLET PO (08:12)
[2021-10-29] MEDS: ATORVASTATIN 40 MG TABLET PO (08:12)
[2021-10-29] MEDS: FLUTICASONE PROPIONATE 0.05% NA SPR 16 GM BTL (*BKC) 1 SPRAY NASAL (08:12)
[2021-10-29] MEDS: APIXABAN 2.5 MG TABLET BY MOUTH ×2 (08:12→20:46)
[2021-10-29] MEDS: busPIRone HCL 5 MG TABLET PO ×2 (08:12→17:23)
[2021-10-29] MEDS: AMIODARONE HCL 200 MG TABLET PO (08:12)
[2021-10-29] MEDS: MIDODRINE HCL 2.5 MG TABLET PO ×3 (08:13→17:25)
[2021-10-29] MEDS: FUROSEMIDE INJ 40 MG/4 ML VIAL IV PUSH (08:17)
[2021-10-29] MEDS: ACETAMINOPHEN 325 MG TABLET 650 MG PO (08:18)
--- NOTE | 2021-10-29 16:27 | P.PNIM_ITS ---
Progress Note: A&P Assessment and Plan (1) Hyponatremia: Code(s): E87.1 - Hypo-osmolality and hyponatremia Status: Acute Assessment and Plan: Etiology unknown. Differentials include SIADH versus alcohol-induced hypo- osmolality versus volume overload * Improved. Current sodium 131 * Improved following fluid restriction and IV diuretic * Monitor sodium levels closely (2) Pneumonia: Code(s): J18.9 - Pneumonia, unspecified organism Status: Acute Assessment and Plan: Patient complained of shortness of breath * CXR reveals progression of widespread bilateral airspace disease consistent with pneumonia * Continue ceftriaxone and azithromycin * COVID negative. Influenza negative * Legionella and pneumococcal urinary antigens pending * Continue incentive spirometry * Sputum culture ordered, awaiting collection * Blood cultures negative to date (3) Orthostatic hypotension: Code(s): I95.1 - Orthostatic hypotension Status: Acute Assessment and Plan: Improving. * Orthostatics 10/28 with only 16 point drop in systolic BP from supine to standing position. However blood pressure did decline to 87/58 with standing * Carvedilol on hold * Continue midodrine 2.5 mg p.o. TID * Blood pressures stable today at rest * Orthostatic BP pending. Monitor qShift * Continue Yong hose * Monitor BP trends closely (4) Weakness: Code(s): R53.1 - Weakness Status: Acute Assessment and Plan: Patient complains of increased weakness with recent falls * May be related to alcohol abuse, hyponatremia, orthostasis * Continue fall precautions * Appreciate PT/OT eval (5) Compression fracture of T12 vertebra: Code(s): S22.080A - Wedge compression fracture of T11-T12 vertebra, initial encounter for closed fracture Status: Acute Assessment and Plan: Secondary to fall * CT of the thoracic spine found L1 burst fracture with 3mm of retropulsion of fracture fragments into the central spinal canal * Healing fracture of the left medial fourth through sixth ribs and L1 and L2 transverse process * Patient without any neurological deficit including saddle anesthesia, paresthesias, loss of bowel or bladder control * Continue TLSO brace when out of bed * PT/OT (6) Paroxysmal atrial fibrillation: Code(s): I48.0 - Paroxysmal atrial fibrillation Status: Acute Assessment and Plan: Rate is controlled * Continue Eliquis * Continue amiodarone 200 mg daily * Carvedilol on hold due to hypotension (7) Alcohol abuse: Code(s): F10.10 - Alcohol abuse, uncomplicated Status: Acute Assessment and Plan: Patient reports drinking 1-2 pints of liquor weekly * CIWA scores have been 0-2 * No evidence of alcohol withdrawal * Continue thiamine and folic acid * Ativan as needed for CIWA >8 * Alcohol cessation is imperative (8) Anemia: Code(s): D64.9 - Anemia, unspecified Status: Acute Assessment and Plan: H&H is stable * Hemoglobin 9.7 today * Stool occult blood test was negative * Iron stores are adequate. B12 is within normal limits. Folate on the low end of normal. Continue folic acid supplementation. * Suspect anemia of chronic disease * Patient likely with history of iron deficiency. Continue with p.o. iron supplementation * Monitor H&H (9) Systolic heart failure: Code(s): I50.20 - Unspecified systolic (congestive) heart failure Sta
--- NOTE | 2021-10-29 16:27 | PM.IMPN ---
Progress Note: A&P Assessment and Plan (1) Hyponatremia: Code(s): E87.1 - Hypo-osmolality and hyponatremia Status: Acute Assessment and Plan: Etiology unknown. Differentials include SIADH versus alcohol-induced hypo-osmolality versus volume overload Improved. Current sodium 131 Improved following fluid restriction and IV diuretic Monitor sodium levels closely (2) Pneumonia: Code(s): J18.9 - Pneumonia, unspecified organism Status: Acute Assessment and Plan: Patient complained of shortness of breath CXR reveals progression of widespread bilateral airspace disease consistent with pneumonia Continue ceftriaxone and azithromycin COVID negative. Influenza negative Legionella and pneumococcal urinary antigens pending Continue incentive spirometry Sputum culture ordered, awaiting collection Blood cultures negative to date (3) Orthostatic hypotension: Code(s): I95.1 - Orthostatic hypotension Status: Acute Assessment and Plan: Improving. Orthostatics 10/28 with only 16 point drop in systolic BP from supine to standing position. However blood pressure did decline to 87/58 with standing Carvedilol on hold Continue midodrine 2.5 mg p.o. TID Blood pressures stable today at rest Orthostatic BP pending. Monitor qShift Continue Yong hose Monitor BP trends closely (4) Weakness: Code(s): R53.1 - Weakness Status: Acute Assessment and Plan: Patient complains of increased weakness with recent falls May be related to alcohol abuse, hyponatremia, orthostasis Continue fall precautions Appreciate PT/OT eval (5) Compression fracture of T12 vertebra: Code(s): S22.080A - Wedge compression fracture of T11-T12 vertebra, initial encounter for closed fracture Status: Acute Assessment and Plan: Secondary to fall CT of the thoracic spine found L1 burst fracture with 3mm of retropulsion of fracture fragments into the central spinal canal Healing fracture of the left medial fourth through sixth ribs and L1 and L2 transverse process Patient without any neurological deficit including saddle anesthesia, paresthesias, loss of bowel or bladder control Continue TLSO brace when out of bed PT/OT (6) Paroxysmal atrial fibrillation: Code(s): I48.0 - Paroxysmal atrial fibrillation Status: Acute Assessment and Plan: Rate is controlled Continue Eliquis Continue amiodarone 200 mg daily Carvedilol on hold due to hypotension (7) Alcohol abuse: Code(s): F10.10 - Alcohol abuse, uncomplicated Status: Acute Assessment and Plan: Patient reports drinking 1-2 pints of liquor weekly CIWA scores have been 0-2 No evidence of alcohol withdrawal Continue thiamine and folic acid Ativan as needed for CIWA >8 Alcohol cessation is imperative (8) Anemia: Code(s): D64.9 - Anemia, unspecified Status: Acute Assessment and Plan: H&H is stable Hemoglobin 9.7 today Stool occult blood test was negative Iron stores are adequate. B12 is within normal limits. Folate on the low end of normal. Continue folic acid supplementation. Suspect anemia of chronic disease Patient likely with history of iron deficiency. Continue with p.o. iron supplementation Monitor H&H (9) Systolic heart failure: Code(s): I50.20 - Unspecified systolic (congestive) heart failure Status: Acute Assessment and Plan: Not in acute exacerbation. Echo from 10/24/21 EF of 60-65% with a grade one diastolic dysfunction Monitor volume status Continue Lasix, spironolactone, carvedilol (10) Hypothyroidism: Code(s): E03.9 - Hypothyroidism, unspecified Status: Acute Assessment and Plan: TSH is within normal limits Continue levothyroxine (11) Chest pain: Code(s): R07.9 - Chest pain, unspecified Status: Acute Assessment and Plan: Re
[2021-10-29] MEDS: NICOTINE (*PBKC) 21 MG PATCH 1 PATCH TRANSDERM (20:46)
[2021-10-29] MEDS: AMITRIPTYLINE HCL 25 MG TABLET PO (20:46)
[2021-10-30] VITALS (9 sets, daily range): BP systolic 93–127; BP diastolic 56–86; PULSE 81–108; RESP 18; TEMP 36.3–36.7; O2SAT 96–97
[2021-10-30] MEDS: LEVOTHYROXINE SODIUM 50 MCG TABLET PO (05:30)
[2021-10-30 06:17] LABS: Hematocrit 30.8 % (42.0-52.0); Hemoglobin 9.9 g/dL (14.0-18.0); Mean Corpuscular HGB Conc 32.1 g/dl (32-36); Mean Corpuscular Hemoglobin 35.5 pg (26-34); Mean Corpuscular Volume 110.4 fl (80-100); Platelet Count Result 189 k/mm3 (150-375); Red Blood Count 2.79 M/mm3 (4.6-6.20); Red Cell Distribution Width 14.2 % (11.5-14.5); White Blood Count 5.2 K/mm3 (4.5-10.0)
[2021-10-30 06:36] LABS: Anion Gap 5 mmol/L (8-16); Blood Urea Nitrogen 13 mg/dL (9-20); Calcium 8.6 mg/dL (8.4-10.2); Carbon Dioxide 26 mmol/L (22-30); Chloride 101 mmol/L (98-107); Estimated CRCL calculation 69 ml/min; Estimated Glomerular Filt Rate > 60; Glucose 86 mg/dL (65-110); Potassium 3.8 mmol/L (3.4-5.0); Sodium 132 mmol/L (137-145)
[2021-10-30] MEDS: FERROUS SULFATE 324 MG TABLET PO (07:58)
[2021-10-30] MEDS: THIAMINE HCL 100 MG TABLET PO (07:58)
[2021-10-30] MEDS: LORATADINE 10 MG TABLET PO (07:59)
[2021-10-30] MEDS: ATORVASTATIN 40 MG TABLET PO (07:59)
[2021-10-30] MEDS: busPIRone HCL 5 MG TABLET PO (07:59)
[2021-10-30] MEDS: FLUTICASONE PROPIONATE 0.05% NA SPR 16 GM BTL (*BKC) 1 SPRAY NASAL (07:59)
[2021-10-30] MEDS: PANTOPRAZOLE 40 MG TABLET PO (07:59)
[2021-10-30] MEDS: FOLIC ACID 1 MG TABLET PO (07:59)
[2021-10-30] MEDS: APIXABAN 2.5 MG TABLET BY MOUTH (07:59)
[2021-10-30] MEDS: MIDODRINE HCL 2.5 MG TABLET PO ×2 (07:59→12:07)
[2021-10-30] MEDS: ASPIRIN 81 MG ENTERIC TABLET PO (07:59)
[2021-10-30] MEDS: AMIODARONE HCL 200 MG TABLET PO (07:59)
--- NOTE | 2021-10-30 10:09 | PCOTNOTE ---
Attempted to see patient this am, however patient refused ADLs at this time stating, No, I don't want to right now. Maybe later.
--- NOTE | 2021-10-30 13:10 | P.DS_ITS ---
DS: Admitting Diagnosis Discharge Date 10/30/2021 Admitting Diagnosis Weakness DS: Discharge Diagnosis Discharge Diagnosis (1) Hyponatremia: Code(s): E87.1 - Hypo-osmolality and hyponatremia Status: Acute Assessment and Plan: May be related to SIADH versus alcohol-induced hypo-osmolality versus volume overload * Sodium levels improved at appropriate rate following fluid restriction and diuresis. * Sodium 132 at time of discharge. (2) Pneumonia: Code(s): J18.9 - Pneumonia, unspecified organism Status: Acute Assessment and Plan: Patient complained of shortness of breath * CXR revealed widespread bilateral airspace disease consistent with pneumonia * Received ceftriaxone and azithromycin. Completed 5 days of IV azithromycin. Continue PO Cefdinir to complete a total of 7 days of antibiotic therapy * COVID negative. Influenza negative * Legionella urinary antigen pending. Pneumococcal urinary antigen negative * Incentive spirometry * Blood cultures negative to date. Final cultures will be monitored. (3) Orthostatic hypotension: Code(s): I95.1 - Orthostatic hypotension Status: Acute Assessment and Plan: Improved with medication adjustment and appropriate hydration. * Carvedilol was held. * Started on midodrine 2.5 mg TID which will be continued * FITO hose when out of bed * Orthostatic vital signs negative on day of discharge * Encouraged to monitor BP at home and record for review by PCP * Fall precautions discussed (4) Weakness: Code(s): R53.1 - Weakness Status: Acute Assessment and Plan: Patient complained of increased weakness with recent falls * May be related to alcohol abuse, hyponatremia, orthostasis * Participated in PT/OT and was independent with ambulation * He will obtain a walker to use while at home * Lives with who is willing to assist him as needed (5) Compression fracture of T12 vertebra: Code(s): S22.080A - Wedge compression fracture of T11-T12 vertebra, initial encounter for closed fracture Status: Acute Assessment and Plan: Secondary to fall * CT of the thoracic spine found L1 burst fracture with 3mm of retropulsion of fracture fragments into the central spinal canal * Healing fracture of the left medial fourth through sixth ribs and L1 and L2 transverse process * Patient without any neurological deficit including saddle anesthesia, paresthesias, loss of bowel or bladder control * Continue TLSO brace when out of bed * Outpatient referral to neurosurgery (6) Paroxysmal atrial fibrillation: Code(s): I48.0 - Paroxysmal atrial fibrillation Status: Acute Assessment and Plan: Rate controlled * Continue Eliquis * Continue amiodarone 200 mg daily * Carvedilol held due to hypotension. Follow up with PCP for monitoring in 1 week (7) Alcohol abuse: Code(s): F10.10 - Alcohol abuse, uncomplicated Status: Acute Assessment and Plan: Patient reports drinking 1-2 pints of liquor weekly * No issues with alcohol withdrawal. Monitored with [facility] protocol. * Continue thiamine and folic acid * Alcohol cessation is imperative. Patient educated regarding cessation and resources provided. (8) Anemia: Code(s): D64.9 - Anemia, unspecified Status: Acute Assessment and Plan: H&H remained stable * Stool occult blood test was negative * Iron stores adequate. B12 within normal limits. Folate on the low end of nor
--- NOTE | 2021-10-30 13:10 | PM.DS ---
DS: Admitting Diagnosis Discharge Date 10/30/2021 Admitting Diagnosis Weakness DS: Discharge Diagnosis Discharge Diagnosis (1) Hyponatremia: Code(s): E87.1 - Hypo-osmolality and hyponatremia Status: Acute Assessment and Plan: May be related to SIADH versus alcohol-induced hypo-osmolality versus volume overload Sodium levels improved at appropriate rate following fluid restriction and diuresis. Sodium 132 at time of discharge. (2) Pneumonia: Code(s): J18.9 - Pneumonia, unspecified organism Status: Acute Assessment and Plan: Patient complained of shortness of breath CXR revealed widespread bilateral airspace disease consistent with pneumonia Received ceftriaxone and azithromycin. Completed 5 days of IV azithromycin. Continue PO Cefdinir to complete a total of 7 days of antibiotic therapy COVID negative. Influenza negative Legionella urinary antigen pending. Pneumococcal urinary antigen negative Incentive spirometry Blood cultures negative to date. Final cultures will be monitored. (3) Orthostatic hypotension: Code(s): I95.1 - Orthostatic hypotension Status: Acute Assessment and Plan: Improved with medication adjustment and appropriate hydration. Carvedilol was held. Started on midodrine 2.5 mg TID which will be continued FITO hose when out of bed Orthostatic vital signs negative on day of discharge Encouraged to monitor BP at home and record for review by PCP Fall precautions discussed (4) Weakness: Code(s): R53.1 - Weakness Status: Acute Assessment and Plan: Patient complained of increased weakness with recent falls May be related to alcohol abuse, hyponatremia, orthostasis Participated in PT/OT and was independent with ambulation He will obtain a walker to use while at home Lives with who is willing to assist him as needed (5) Compression fracture of T12 vertebra: Code(s): S22.080A - Wedge compression fracture of T11-T12 vertebra, initial encounter for closed fracture Status: Acute Assessment and Plan: Secondary to fall CT of the thoracic spine found L1 burst fracture with 3mm of retropulsion of fracture fragments into the central spinal canal Healing fracture of the left medial fourth through sixth ribs and L1 and L2 transverse process Patient without any neurological deficit including saddle anesthesia, paresthesias, loss of bowel or bladder control Continue TLSO brace when out of bed Outpatient referral to neurosurgery (6) Paroxysmal atrial fibrillation: Code(s): I48.0 - Paroxysmal atrial fibrillation Status: Acute Assessment and Plan: Rate controlled Continue Eliquis Continue amiodarone 200 mg daily Carvedilol held due to hypotension. Follow up with PCP for monitoring in 1 week (7) Alcohol abuse: Code(s): F10.10 - Alcohol abuse, uncomplicated Status: Acute Assessment and Plan: Patient reports drinking 1-2 pints of liquor weekly No issues with alcohol withdrawal. Monitored with CIWA protocol. Continue thiamine and folic acid Alcohol cessation is imperative. Patient educated regarding cessation and resources provided. (8) Anemia: Code(s): D64.9 - Anemia, unspecified Status: Acute Assessment and Plan: H&H remained stable Stool occult blood test was negative Iron stores adequate. B12 within normal limits. Folate on the low end of normal. Continue folic acid supplementation. Patient with history of iron deficiency. Continue with p.o. iron supplementation (9) Systolic heart failure: Code(s): I50.20 - Unspecified systolic (congestive) heart failure Status: Acute Assessment and Plan: Not in acute exacerbation. Echo from 10/24/21 EF of 60-65% with a grade one diastolic dysfunction Continue Lasix and spironolactone (10) Hypothyroidism: Code(s): E03.9 - Hypothyroidis
[2021-10-30 18:42] LABS: Pneumococcal Antigen Urine Not Detected (Not Detected)
[2021-11-01 04:36] LABS: Legionella pneumophila Ag Ur Not Detected (Not Detected)
== END 2021-10-30 14:45 | disposition home or self-care (01) | DRG 640 ==
LOC: ANHED 14:36 → ANH2MED 15:32
PROVIDERS: Internal Medicine; Nurse Practitioner; Nurse Practitioner Adult Health; Admitting Provider Chiropractor; Emergency Provider Emergency Medicine; PCP Family Medicine; Visit Provider Physician Assistant
DX: E87.1 Hypo-osmolality and hyponatremia (principal); J18.9 Pneumonia, unspecified organism; S22.080A Wedge compression fracture of T11-T12 vertebra, initial encounter for closed fracture; I42.6 Alcoholic cardiomyopathy; I50.22 Chronic systolic (congestive) heart failure; N17.9 Acute kidney failure, unspecified; S22.42XD Multiple fractures of ribs, left side, subsequent encounter for fracture with routine healing; D50.9 Iron deficiency anemia, unspecified; E03.9 Hypothyroidism, unspecified; E78.2 Mixed hyperlipidemia; F10.10 Alcohol abuse, uncomplicated; F17.290 Nicotine dependence, other tobacco product, uncomplicated; I25.10 Atherosclerotic heart disease of native coronary artery without angina pectoris; I95.1 Orthostatic hypotension; I48.0 Paroxysmal atrial fibrillation; I25.2 Old myocardial infarction; I11.0 Hypertensive heart disease with heart failure; J44.9 Chronic obstructive pulmonary disease, unspecified; K21.9 Gastro-esophageal reflux disease without esophagitis; R29.6 Repeated falls; R07.9 Chest pain, unspecified; W19.XXXA Unspecified fall, initial encounter; Z79.01 Long term (current) use of anticoagulants; Z86.73 Personal history of transient ischemic attack (TIA), and cerebral infarction without residual deficits; Z99.81 Dependence on supplemental oxygen; Z20.822 Contact with and (suspected) exposure to COVID-19
CPT/HCPCS: 36415; 36569; 51701; 70450; 71045; 71046; 72128; 80048; 80053; 80307; 81003; 82274; 82570; 82607; 82728; 82746; 82948; 83540; 83550; 83735; 83930; 83935; 84132; 84295; 84300; 84443; 84466; 84484; 85025; 85027; 87040; 87449; 87804; 87899; 93005; 93306; 96361; 96374; 97110; 97116; 97161; 97165; 97530; 99285; A9270; C1751; C9803; G0378; J0456; J0696; J1940; J2060; J2270; J3411; J3475; J7030; J7040; U0003; U0005

== ENCOUNTER 2021-12-06 12:18 | Inpatient (IN) | payer MEDICARE, SELFPAY ==
[2021-12-06] VITALS (17 sets, daily range): BP systolic 114–150; BP diastolic 62–93; PULSE 62–104; RESP 13–23; TEMP 36.4–36.6; O2SAT 94–100; BMI 17.6
--- NOTE | ~2021-12-06 | XR_ITS ---
EXAMINATION: XR chest 1V portable Exam Date/Time: 12/06/2021 14:25 CDT HISTORY: cough Comparison: 10/27/2021. RESULT: Lines, tubes, and devices: None. Lungs and pleura: Ill-defined bilateral midlung opacities likely residual from prior infection. Incr eased left basilar opacity with partial silhouetting of the left hemidiaphragm and some evidence of v olume loss. Cardiomediastinal silhouette: Stable cardiomediastinal silhouette. Other: No acute osseous or upper abdominal finding. IMPRESSION: Atelectasis/consolidation left lower lung. Reviewed, dictated and finalized at location K.
--- NOTE | ~2021-12-06 | XR_ITS ---
EXAMINATION: XR chest 1V portable DATE: 12/09/2021 13:20 INDICATION: Consolidation on prior radiographs TECHNIQUE: frontal view of the chest was obtained. COMPARISON: Chest radiograph dated 12/06/2021 FINDINGS: Improved aeration in the left lower lung zone with mild residual groundglass opacities and mild eleva tion of the left hemidiaphragm. Mild increased interstitial pattern with some bronchial wall thickeni ng in the bilateral lower lung zones. No pleural effusion or pneumothorax. The cardiomediastinal silh ouette is normal. IMPRESSION: 1. Increased interstitial pattern with some bronchial wall thickening the bilateral lower lung zones with improvement in now groundglass airspace opacities in the left mid and lower lung zone. Different ial would include pneumonia or mild pulmonary edema. Reviewed, dictated and finalized at location A. IMPRESSION: 1. Increased interstitial pattern with some bronchial wall thickening the bilat eral lower lung zones with improvement in now groundglass airspace opacities in the left mid and lower lung zone. Differential would include pneumonia or mild pulmonary edema.
--- NOTE | 2021-12-06 12:22 | ECG_ITS ---
Measurements Intervals [place] Rate: 75 P: [place]: 0 QRS: 138 QRSD: 150 T: 64 QT: 529 QTc: 594 Interpretive Statements SINUS OR ECTOPIC ATRIAL RHYTHM LEFT BUNDLE BRANCH BLOCK BASELINE ARTIFACT- I, II, III, AVR, AVL, AVF, V1-V6 ABNORMAL ECG Electronically Signed On 12-06-2021 23:02:21 CDT by Sarmad Valenzuela D.O.
[2021-12-06 12:33] LABS: Glucose Point of Care 83 mg/dl (65-105)
[2021-12-06 12:56] LABS: Basophils Percent Auto 0.2 % (0.2-1.2); Hematocrit 39.2 % (42.0-52.0); Hemoglobin 13.1 g/dL (14.0-18.0); Immature Granulocyte Absolute 0.06 K/mm3 (0.00-0.031); Immature Granulocyte Percent A 0.7 % (0-0.5); Lymphocytes Absolute Auto 0.35 K/mm3 (0.9-3.2); Lymphocytes Percent Auto 3.9 % (18.3-44.2); Mean Corpuscular HGB Conc 33.4 g/dl (32-36); Mean Corpuscular Hemoglobin 33.9 pg (26-34); Mean Corpuscular Volume 101.6 fl (80-100); Mean Platelet Volume 8.4 fl (7.4-10.4); Monocytes Absolute Auto 0.5 K/mm3 (0.1-0.6); Monocytes Percent Auto 5.7 % (2.6-8.5); Neutrophils Percent Auto 89.5 % (45.5-73.1); Platelet Count Result 261 k/mm3 (150-375); Red Blood Count 3.86 M/mm3 (4.6-6.20); Red Cell Distribution Width 14.5 % (11.5-14.5); White Blood Count 8.9 K/mm3 (4.5-10.0)
[2021-12-06 13:05] LABS: Prothrombin Time 12.9 Seconds (11.1-14.7)
[2021-12-06 13:07] LABS: Lactic Acid Reflex 1.2 mmol/L (0.7-2.0)
[2021-12-06 13:12] LABS: Alanine Aminotransferase 41 U/L (6-50); Albumin Level 4.6 g/dL (3.5-5.1); Alkaline Phosphatase 72 U/L (38-126); Anion Gap 19 mmol/L (8-16); Aspartate Amino Transferase 85 U/L (17-59); Bilirubin,Total 1.4 mg/dL (0.2-1.3); Blood Urea Nitrogen 17 mg/dL (9-20); Calcium 8.9 mg/dL (8.4-10.2); Carbon Dioxide 12 mmol/L (22-30); Chloride 89 mmol/L (98-107); Estimated CRCL calculation 74 ml/min; Estimated Glomerular Filt Rate > 60; Glucose 106 mg/dL (65-110); Potassium 4.6 mmol/L (3.4-5.0); Sodium 120 mmol/L (137-145)
--- NOTE | 2021-12-06 13:19 | ED.GENADULT ---
HPI - General Adult General Chief complaint: Altered Mental Status Stated complaint: AMS/low BG Time Seen by Provider: 12/06/21 13:01 History of Present Illness HPI narrative: 56-year-old male presented to the emergency department for evaluation after being found unresponsive at home. Patient's states that he does drink heavily daily for the last few months. Patient states that sometimes he does go through alcohol withdrawal. Patient denies any prior history of alcohol withdrawal seizures. This morning his attempted to wake the patient up and she thought that he was still intoxicated. After she was unable to wake the patient she called EMS and they found the patient to be hypoglycemic. He was treated with dextrose and had an improvement of his mental status. Upon arrival to the emergency department patient does have tremor at baseline but denies any other complaints. Related Data Home Medications Medication Instructions Recorded Confirmed amiodarone 200 mg tablet 200 mg PO DAILY 04/24/19 11/06/21 Allergies Allergy/AdvReac Type Severity Reaction Status Date / Time ragweed pollen Allergy Unknown seasonal Verified 12/06/21 12:43 [place] Allergy Unknown seasonal Uncoded 11/25/21 09:40 [place] Allergy Unknown seasonal Uncoded 11/25/21 09:40 Review of Systems Review of Systems: CONSTITUTIONAL: See HPI EYES: Denies visual changes, redness, or discharge. ENT: Denies rhinorrhea, congestion, sore throat, or otalgia. CARDIOVASCULAR: Denies chest pain, palpitations, or edema. RESPIRATORY: Denies cough or dyspnea. GASTROINTESTINAL: Denies abdominal pain, nausea, vomiting, or diarrhea. GENITOURINARY: Denies dysuria or hematuria. SKIN: Denies rash or itching. MUSCULOSKELETAL: Denies back pain, joint pain, or myalgia. NEUROLOGIC: See HPI PSYCHIATRIC: Denies anxiety or depression. 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 Chronic systolic CHF (congestive heart failure) COPD (chronic obstructive pulmonary disease) Gastro-esophageal reflux disease without esophagitis Mixed hyperlipidemia [place] (myocardial infarction) Paroxysmal atrial fibrillation Tobacco abuse Family History Family History Father Family history of liver disease Sibling Family history of liver disease Mother Family history of emphysema Social History Social History Social History: Years smoked: 15 Smoking status: Current every day smoker Smokeless tobacco user: chewing tobacco Second hand tobacco smoke exposure: Yes Additional smoking assessment comments: chewing tobacco daily and occassional cigars Alcohol intake: current Drinks per week: 4 Alcohol use details: 1-2 pints weekly Substance use: never Substance use type: does not use Gender identity (if verbalized by the patient): Male Sexual Orientation (if Verbalized by the Patient): Straight or Heterosexual Spiritual care concerns: No Exam Narrative: APPEARANCE: Well appearing, no pain, no distress, well-nourished. HEAD: normocephalic, atraumatic. EYES: PERRLA/EOMI, conjunctivae clear. NOSE: Normal no drainage THROAT: Pharynx clear, no exudate. NECK: Supple. No adenopathy, no masses. RESPIRATORY: Airway patent, respirations nonlabored. Clear to auscultation bilaterally, no rales, rhonchi, wheezing. CARDIOVASCULAR: Regular rate and rhythm without murmurs rubs or gallops. ABDOMINAL: Soft, nontender, nondistended, normal bowel sounds MUSCULOSKELETAL: Moves all extremities. Strength/ROM intact, No edema, No calf tenderness. NEURO: Alert. Cranial nerves II through XII intact. Grossly intact. Tremulous SKIN: Warm, dry. Normal Color PSYCHIATRIC: Normal affect/mood
[2021-12-06] MEDS: LORazepam INJ (*CRX) 2 MG/ML VIAL 1 MG IV PUSH (13:29)
[2021-12-06] MEDS: ONDANSETRON INJ 4 MG/2 ML VIAL IV PUSH (13:29)
[2021-12-06] MEDS: SODIUM CHLORIDE 0.9% IV 1,000 ML 999 ML IV CONT (13:29)
[2021-12-06 13:42] LABS: Ethanol < 10 mg/dL (<10)
[2021-12-06 14:20] LABS: Appearance Urine Clear (Clear); Bilirubin Urine 1+ (Negative); Blood Urine 2+ (Negative); Color Urine Yellow (Yellow); Glucose Urine UA Negative (Negative); Ketones Urine 3+ mg/dL (Negative); Leukocyte Esterase Ur Negative LEU/UL (Negative); Nitrate Urine Negative (Negative); Protein Urine 1+ mg/dL (Negative); Urobilinogen Urine 0.2 mg/dL (<2.0)
[2021-12-06 14:27] LABS: RBC Urine 0-2 /hpf (0-2); WBC Urine 0-3 /hpf
[2021-12-06 14:30] LABS: Add Urine Microscopic? YES
[2021-12-06 15:26] LABS: SARS-CoV-2 RNA PCR Negative
--- NOTE | 2021-12-06 15:46 | PM.IMHP ---
H&P: HPI History of Present Illness Date/Time: 12/06/21 1443 Chief Complaint: Altered mental status with hypoglycemia Narrative: this 56-year-old male patient with significant past medical history of alcohol abuse, alcoholic cardiomyopathy, COPD, chronic systolic congestive Heart failure, hyperlipidemia, previous [place], paroxysmal atrial fibrillation, GERD and tobacco abuse presents to the emergency room today via EMS after was unable to awaken him this morning. Patient has been on an alcohol binge with last drink 5:00 p.m. last evening. This morning his noted he was difficult to arouse, called 911 in the found his glucose was in the 20s. Patient's hypoglycemia was corrected with supplemental glucose and dextrose, and he was brought to the emergency room for further evaluation. In the emergency room the patient remains somnolent, and his labs are significant for a sodium level of 120 chloride of 89 and bicarb of 12. In addition his total bilirubin is 1.4, AST is 85 and ALT is 41. He has a normal lactic acid of 1.2. Patient is being admitted to the hospital under hospitalist service at this time for hydration, monitoring of any alcohol-related seizures and/or withdrawal and for stabilization. At the time of my exam patient is very somnolent, however does arouse to tactile and verbal stimulation. He denies any acute pain, states he is just very tired. He denies any dyspnea, nausea, vomiting, diarrhea. Review of this patient's last echocardiogram was from 10/24/2021, and demonstrate normal left ventricular dimension and function with ejection fraction at 60-65%. There was grade 1 diastolic dysfunction. No pulmonary hypertension was appreciated. Pulmonary arterial pressure is 22. 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 Chronic systolic CHF (congestive heart failure) COPD (chronic obstructive pulmonary disease) Gastro-esophageal reflux disease without esophagitis Mixed hyperlipidemia [place] (myocardial infarction) Paroxysmal atrial fibrillation Tobacco abuse Family History Family History Father Family history of liver disease Sibling Family history of liver disease Mother Family history of emphysema Social History Social History Social History: Years smoked: 15 Smoking status: Current every day smoker Smokeless tobacco user: chewing tobacco Second hand tobacco smoke exposure: Yes Additional smoking assessment comments: chewing tobacco daily and occassional cigars Alcohol intake: current Drinks per week: 4 Alcohol use details: 1-2 pints weekly Substance use: never Substance use type: does not use Gender identity (if verbalized by the patient): Male Sexual Orientation (if Verbalized by the Patient): Straight or Heterosexual Spiritual care concerns: No Meds Home Medications and Allergies Home Medications Medication Instructions Recorded Confirmed Type amiodarone 200 mg tablet 200 mg PO DAILY 04/24/19 11/06/21 History fluticasone propionate 50 1 spray intranasal DAILY #16 mL 04/30/20 11/06/21 Rx mcg/actuation nasal spray,suspension (Allergy Relief (fluticasone)) albuterol sulfate 90 mcg/actuation 2 inh inhalation Q4-6H PRN 10/29/20 11/06/21 Rx aerosol inhaler (ProAir HFA) shortness of breath or wheezing #8.5 grams buspirone 5 mg tablet 5 mg PO BID #180 tabs 01/28/21 11/06/21 Rx atorvastatin 40 mg tablet (Lipitor) 40 mg PO DAILY #90 tabs 05/20/21 11/06/21 Rx potassium chloride 20 mEq 20 meq PO BID #180 tabs 06/15/21 11/06/21 Rx tablet,extended
[2021-12-06 16:18] LABS: Glucose Point of Care 72 mg/dl (65-105)
[2021-12-06] MEDS: chlordiazePOXIDE (*CRX) 25 MG CAPSULE PO (16:50)
[2021-12-06 17:31] LABS: Glucose 48 mg/dL (65-110)
[2021-12-06] MEDS: THIAMINE HCL INJ 100 MG, FOLIC ACID INJ 1 MG, MULTIVITAMINS-12 INJ VIAL 1 5 ML, MULTIVI... 125 MG IV CONT (17:31)
[2021-12-06 17:36] LABS: Glucose Point of Care 45 mg/dl (65-105)
[2021-12-06 17:59] LABS: Procalcitonin 0.3 ng/mL
[2021-12-06 18:00] LABS: Anion Gap 14 mmol/L (8-16); Blood Urea Nitrogen 17 mg/dL (9-20); Calcium 8.5 mg/dL (8.4-10.2); Carbon Dioxide 13 mmol/L (22-30); Chloride 93 mmol/L (98-107); Estimated CRCL calculation 93 ml/min; Estimated Glomerular Filt Rate > 60; Potassium 4.7 mmol/L (3.4-5.0); Sodium 120 mmol/L (137-145)
[2021-12-06 18:17] LABS: Basophils Percent Auto 0.1 % (0.2-1.2); Hematocrit 36.8 % (42.0-52.0); Hemoglobin 12.2 g/dL (14.0-18.0); Immature Granulocyte Absolute 0.04 K/mm3 (0.00-0.031); Immature Granulocyte Percent A 0.5 % (0-0.5); Lymphocytes Absolute Auto 0.42 K/mm3 (0.9-3.2); Lymphocytes Percent Auto 5.7 % (18.3-44.2); Mean Corpuscular HGB Conc 33.2 g/dl (32-36); Mean Corpuscular Hemoglobin 33.3 pg (26-34); Mean Corpuscular Volume 100.5 fl (80-100); Mean Platelet Volume 8.2 fl (7.4-10.4); Monocytes Absolute Auto 0.7 K/mm3 (0.1-0.6); Monocytes Percent Auto 9.3 % (2.6-8.5); Neutrophils Absolute Auto 6.2 K/mm3 (1.3-6.7); Neutrophils Percent Auto 84.4 % (45.5-73.1); Platelet Count Result 230 k/mm3 (150-375); Red Blood Count 3.66 M/mm3 (4.6-6.20); Red Cell Distribution Width 14.4 % (11.5-14.5); White Blood Count 7.4 K/mm3 (4.5-10.0)
[2021-12-06] MEDS: DEXTROSE 50% 25 GM/50 ML SYRINGE IV PUSH (18:17)
[2021-12-06 18:20] LABS: Glucose Point of Care 40 mg/dl (65-105)
[2021-12-06] MEDS: DEXTROSE 5%/0.9% SOD CHL 1,000 ML 125 ML IV CONT (18:22)
--- NOTE | 2021-12-06 18:24 | ADMGEN ---
This patient, Gabriel Nathan, was admitted to IMU Room 205-02. Patient/family oriented to hospital policies and general routines including ID bracelet, bed and alarms, visiting hours, pain management, procedures, bathroom and other care routines, personal items, smoking policy, room service/diet, and visiting hours. Information on how to activate the Rapid Response Team has been discussed. Patient/Family are encouraged to report perceived risks to care and to ask questions if they do not understand what they are told or what they should do.
[2021-12-06] MEDS: MIDODRINE HCL 2.5 MG TABLET PO (18:43)
[2021-12-06 19:01] LABS: Glucose Point of Care 179 mg/dl (65-105)
[2021-12-06] MEDS: FLUTICASONE/SALMETEROL 115-21 MCG INHALER 1 PUFF 2 PUFF INHALATION (20:05)
[2021-12-06 20:17] LABS: Glucose Point of Care 206 mg/dl (65-105)
[2021-12-06] MEDS: LORazepam INJ (*CRX) 2 MG/ML VIAL IV PUSH (20:37)
[2021-12-06] MEDS: busPIRone HCL 5 MG TABLET PO (20:37)
[2021-12-06] MEDS: APIXABAN 2.5 MG TABLET PO (20:37)
[2021-12-06] MEDS: carvediloL 6.25 MG TABLET PO (20:37)
[2021-12-06] MEDS: PANTOPRAZOLE SODIUM IV 40 MG VIAL IV PUSH (20:38)
[2021-12-07] VITALS (17 sets, daily range): BP systolic 84–126; BP diastolic 50–79; PULSE 57–78; RESP 12–20; TEMP 36.3–37.1; O2SAT 94–100; BMI 18.4
[2021-12-07] MEDS: DEXTROSE 5%/0.9% SOD CHL 1,000 ML 125 ML IV CONT ×2 (02:46→11:02)
[2021-12-07] MEDS: LEVOTHYROXINE SODIUM 50 MCG TABLET PO (05:32)
[2021-12-07] MEDS: chlordiazePOXIDE (*CRX) 25 MG CAPSULE PO ×4 (05:32→23:19)
[2021-12-07] MEDS: FLUTICASONE/SALMETEROL 115-21 MCG INHALER 1 PUFF 2 PUFF INHALATION ×2 (08:22→20:20)
[2021-12-07 08:38] LABS: Glucose Point of Care 114 mg/dl (65-105)
[2021-12-07 09:43] LABS: Anion Gap 1 mmol/L (8-16); Blood Urea Nitrogen 10 mg/dL (9-20); Calcium 7.5 mg/dL (8.4-10.2); Carbon Dioxide 19 mmol/L (22-30); Chloride 103 mmol/L (98-107); Estimated CRCL calculation 74 ml/min; Estimated Glomerular Filt Rate > 60; Glucose 99 mg/dL (65-110); Potassium 3.5 mmol/L (3.4-5.0); Sodium 123 mmol/L (137-145)
[2021-12-07] MEDS: PANTOPRAZOLE SODIUM IV 40 MG VIAL IV PUSH ×2 (11:06→21:00)
[2021-12-07] MEDS: FOLIC ACID 1 MG TABLET PO (11:07)
[2021-12-07] MEDS: THIAMINE HCL 100 MG TABLET PO (11:07)
[2021-12-07] MEDS: APIXABAN 2.5 MG TABLET PO ×2 (11:07→21:00)
[2021-12-07] MEDS: LORATADINE 10 MG TABLET PO (11:07)
[2021-12-07] MEDS: busPIRone HCL 5 MG TABLET PO ×2 (11:08→21:00)
[2021-12-07] MEDS: POTASSIUM CHLORIDE 20 MEQ PACKET (FOR LIQUID) PO (11:08)
[2021-12-07] MEDS: ATORVASTATIN 40 MG TABLET PO (11:08)
[2021-12-07] MEDS: AMIODARONE HCL 200 MG TABLET PO (11:09)
[2021-12-07] MEDS: MIDODRINE HCL 2.5 MG TABLET PO ×3 (11:10→17:31)
[2021-12-07] MEDS: FLUTICASONE PROPIONATE 0.05% NA SPR 16 GM BTL (*BKC) 2 SPRAY NASAL (11:10)
--- NOTE | 2021-12-07 11:31 | PM.IMPN ---
Progress Note: A&P Assessment and Plan (1) Alcohol intoxication: Code(s): F10.929 - Alcohol use, unspecified with intoxication, unspecified Status: Acute Assessment and Plan: - chronic abuser of alcohol related substances - [facility] protocol - fall precautions and seizure precautions initiated - banana bag ordered -p.r.n. lorazepam - Librium q.6 hours scheduled 25 mg - p.r.n. Zofran and p.r.n. Haldol ordered - patient to receive folic acid and thiamine every day. - care coordination consult for rehab - monitor daily labs and vital signs. (2) Hypoglycemia: Code(s): E16.2 - Hypoglycemia, unspecified Status: Acute Assessment and Plan: Currently on D5. Will transition normal saline (3) Acute hyponatremia: Code(s): E87.1 - Hypo-osmolality and hyponatremia Status: Acute Assessment and Plan: Likely related to alcohol intoxication decreased p.o. intake. Asymptomatic. Sodium is now improved to 123. Monitor. (4) Pneumonia: Code(s): J18.9 - Pneumonia, unspecified organism Status: Acute Assessment and Plan: Low suspicion of pneumonia. (5) Hypothyroidism: Code(s): E03.9 - Hypothyroidism, unspecified Status: Acute Assessment and Plan: - Continue supplementation with levothyroxine. (6) Systolic heart failure: Code(s): I50.20 - Unspecified systolic (congestive) heart failure Status: Acute Assessment and Plan: - last echocardiogram was from 10/24/2021, and demonstrate normal left ventricular dimension and function with ejection fraction at 60-65%. There was grade 1 diastolic dysfunction. No pulmonary hypertension was appreciated. Pulmonary arterial pressure is 22. Appears compensated (7) Alcohol abuse: Code(s): F10.10 - Alcohol abuse, uncomplicated Status: Acute Assessment and Plan: - See plan as above for acute alcohol intoxication. - [facility] protocol in affect. - Care coordination consult for rehabilitation. (8) Paroxysmal atrial fibrillation: Code(s): I48.0 - Paroxysmal atrial fibrillation Status: Acute Assessment and Plan: - Telemetry - continue Eliquis 2.5 mg p.o. b.i.d.. (9) COPD (chronic obstructive pulmonary disease): Code(s): J44.9 - Chronic obstructive pulmonary disease, unspecified Status: Acute Assessment and Plan: - Continue fluticasone/salmeterol - monitor SpO2 with vital signs. (10) Gastro-esophageal reflux disease without esophagitis: Code(s): K21.9 - Gastro-esophageal reflux disease without esophagitis Status: Acute Assessment and Plan: - Continue PPI therapy. Subjective Date/time seen: 12/07/21 11:31 Blood sugars improved. Tolerating IV fluids. No seizures noted. Exam Const: General: comfortable and no acute distress Other: Somnolent HENMT: Ears: TM's normal bilaterally General nose exam: Normal nares present Mouth: Yes moist mucous membranes Eyes: General: appearance normal, both eyes and all related structures Sclera: sclerae normal Pupils: Equal, round and reactive pupils present EOM: EOMs intact bilaterally Neck: Neck: supple and no JVD Chest: Other: not tender to palpation Resp: Effort & Inspection: normal respiratory effort Auscultation: clear to auscultation bilaterally Cardio: Rate: regular rate Rhythm: regular rhythm Heart sounds: no gallops, no murmurs and no rubs GI: Auscultation: normal bowel sounds Skin: General skin exam: normal color and no rashes or lesions noted Lesions: no lesions noted Rashes: no rashes noted Wounds: wound noted Neuro: General: No gait normal ( did not test secondary to patient's current condition.) Cranial nerves: Yes Equal, round and reactive pupils present Speech: normal speech Motor exam (neuro): 5/5 motor strength present throughout and tone not normal throughout ( Tremor noted) Sensory Exam: normal sensation Extr
[2021-12-07 12:24] LABS: Glucose Point of Care 157 mg/dl (65-105)
[2021-12-07] MEDS: SODIUM CHLORIDE 0.9% IV 1,000 ML 100 ML IV CONT ×2 (14:03→23:19)
[2021-12-07 16:40] LABS: Glucose Point of Care 141 mg/dl (65-105)
[2021-12-07 20:31] LABS: Glucose Point of Care 99 mg/dl (65-105)
[2021-12-08] VITALS (17 sets, daily range): BP systolic 97–110; BP diastolic 54–74; PULSE 61–83; RESP 18–20; TEMP 36.2–37.1; O2SAT 92–100
[2021-12-08 05:01] LABS: Hematocrit 29.1 % (42.0-52.0); Hemoglobin 9.2 g/dL (14.0-18.0); Immature Platelet Fraction Pct 1.8 % (0.9-11.2); Mean Corpuscular HGB Conc 31.6 g/dl (32-36); Mean Corpuscular Hemoglobin 33.3 pg (26-34); Mean Corpuscular Volume 105.4 fl (80-100); Mean Platelet Volume 8.8 fl (7.4-10.4); Platelet Count Result 126 k/mm3 (150-375); Red Blood Count 2.76 M/mm3 (4.6-6.20)
[2021-12-08 05:14] LABS: Anion Gap 4 mmol/L (8-16); Blood Urea Nitrogen 7 mg/dL (9-20); Calcium 7.2 mg/dL (8.4-10.2); Carbon Dioxide 18 mmol/L (22-30); Chloride 106 mmol/L (98-107); Estimated CRCL calculation 86 ml/min; Estimated Glomerular Filt Rate > 60; Glucose 102 mg/dL (65-110); Potassium 3.6 mmol/L (3.4-5.0); Sodium 128 mmol/L (137-145)
[2021-12-08] MEDS: LEVOTHYROXINE SODIUM 50 MCG TABLET PO (05:34)
[2021-12-08] MEDS: chlordiazePOXIDE (*CRX) 25 MG CAPSULE PO ×2 (05:34→20:33)
[2021-12-08 08:30] LABS: Glucose Point of Care 105 mg/dl (65-105)
[2021-12-08] MEDS: FLUTICASONE/SALMETEROL 115-21 MCG INHALER 1 PUFF 2 PUFF INHALATION ×2 (09:04→20:30)
[2021-12-08] MEDS: FLUTICASONE PROPIONATE 0.05% NA SPR 16 GM BTL (*BKC) 2 SPRAY NASAL (09:25)
[2021-12-08] MEDS: APIXABAN 2.5 MG TABLET PO ×2 (09:25→20:33)
[2021-12-08] MEDS: THIAMINE HCL 100 MG TABLET PO (09:25)
[2021-12-08] MEDS: ATORVASTATIN 40 MG TABLET PO (09:25)
[2021-12-08] MEDS: MIDODRINE HCL 2.5 MG TABLET PO ×3 (09:25→18:23)
[2021-12-08] MEDS: FOLIC ACID 1 MG TABLET PO (09:25)
[2021-12-08] MEDS: busPIRone HCL 5 MG TABLET PO ×2 (09:25→20:33)
[2021-12-08] MEDS: LORATADINE 10 MG TABLET PO (09:26)
[2021-12-08] MEDS: PANTOPRAZOLE SODIUM IV 40 MG VIAL IV PUSH ×2 (09:26→20:33)
[2021-12-08] MEDS: POTASSIUM CHLORIDE 20 MEQ PACKET (FOR LIQUID) PO (09:26)
[2021-12-08] MEDS: AMIODARONE HCL 200 MG TABLET PO (09:26)
[2021-12-08] MEDS: SODIUM CHLORIDE 0.9% IV 1,000 ML 100 ML IV CONT ×2 (09:28→18:24)
[2021-12-08 11:51] LABS: Glucose Point of Care 117 mg/dl (65-105)
--- NOTE | 2021-12-08 13:23 | ECG_ITS ---
Measurements Intervals [place] Rate: 72 P: 9 [place]: 185 QRS: -34 QRSD: 126 T: -28 QT: 433 QTc: 475 Interpretive Statements SINUS RHYTHM LEFT AXIS DEVIATION INTRAVENTRICULAR CONDUCTION DELAY MINIMAL Q WAVES- HIGH LATERAL LEADS BORDERLINE ST-T WAVE ABNORMALITY- ANTEROLAT/INF LEADS BORDERLINE ECG Electronically Signed On 12-08-2021 15:35:18 CDT by Sarmad Valenzuela D.O.
--- NOTE | 2021-12-08 13:55 | PM.IMPN ---
Progress Note: A&P Assessment and Plan (1) Alcohol intoxication: Code(s): F10.929 - Alcohol use, unspecified with intoxication, unspecified Status: Acute Assessment and Plan: - chronic abuser of alcohol related substances - [facility] protocol - fall precautions and seizure precautions initiated - banana bag ordered -p.r.n. lorazepam - Librium q.6 hours scheduled 25 mg - p.r.n. Zofran and p.r.n. Haldol ordered - patient to receive folic acid and thiamine every day. - care coordination consult for rehab - monitor daily labs and vital signs. (2) Hypoglycemia: Code(s): E16.2 - Hypoglycemia, unspecified Status: Acute Assessment and Plan: Currently on D5. Will transition normal saline (3) Acute hyponatremia: Code(s): E87.1 - Hypo-osmolality and hyponatremia Status: Acute Assessment and Plan: Likely related to alcohol intoxication decreased p.o. intake. Asymptomatic. Sodium is now improved to 123. Monitor. (4) Pneumonia: Code(s): J18.9 - Pneumonia, unspecified organism Status: Acute Assessment and Plan: Low suspicion of pneumonia. (5) Hypothyroidism: Code(s): E03.9 - Hypothyroidism, unspecified Status: Acute Assessment and Plan: - Continue supplementation with levothyroxine. (6) Systolic heart failure: Code(s): I50.20 - Unspecified systolic (congestive) heart failure Status: Acute Assessment and Plan: - last echocardiogram was from 10/24/2021, and demonstrate normal left ventricular dimension and function with ejection fraction at 60-65%. There was grade 1 diastolic dysfunction. No pulmonary hypertension was appreciated. Pulmonary arterial pressure is 22. Appears compensated (7) Alcohol abuse: Code(s): F10.10 - Alcohol abuse, uncomplicated Status: Acute Assessment and Plan: - See plan as above for acute alcohol intoxication. - [facility] protocol in affect. - Care coordination consult for rehabilitation. (8) Paroxysmal atrial fibrillation: Code(s): I48.0 - Paroxysmal atrial fibrillation Status: Acute Assessment and Plan: - Telemetry - continue Eliquis 2.5 mg p.o. b.i.d.. (9) COPD (chronic obstructive pulmonary disease): Code(s): J44.9 - Chronic obstructive pulmonary disease, unspecified Status: Acute Assessment and Plan: - Continue fluticasone/salmeterol - monitor SpO2 with vital signs. (10) Gastro-esophageal reflux disease without esophagitis: Code(s): K21.9 - Gastro-esophageal reflux disease without esophagitis Status: Acute Assessment and Plan: - Continue PPI therapy. (11) Chest pain: Code(s): R07.9 - Chest pain, unspecified Status: Acute Assessment and Plan: EKG ordered. Will also trend troponins x2 This does not sound cardiac Subjective Date/time seen: 12/08/21 13:55 Complaining of mild left-sided chest pain. Does not sound cardiac. He is also complaining of neck pain and arm pain and lower back pain and bilateral leg pain. Exam Const: General: comfortable and no acute distress Other: Somnolent HENMT: Ears: TM's normal bilaterally General nose exam: Normal nares present Mouth: Yes moist mucous membranes Eyes: General: appearance normal, both eyes and all related structures Sclera: sclerae normal Pupils: Equal, round and reactive pupils present EOM: EOMs intact bilaterally Neck: Neck: supple and no JVD Chest: Other: not tender to palpation Resp: Effort & Inspection: normal respiratory effort Auscultation: clear to auscultation bilaterally Cardio: Rate: regular rate Rhythm: regular rhythm Heart sounds: no gallops, no murmurs and no rubs GI: Auscultation: normal bowel sounds Skin: General skin exam: normal color and no rashes or lesions noted Lesions: no lesions noted Rashes: no rashes noted Wounds: wound noted Neuro: General: No gait normal (
[2021-12-08 15:25] LABS: Troponin I < 0.012 ng/mL (0.000-0.034)
[2021-12-08 17:18] LABS: Glucose Point of Care 113 mg/dl (65-105)
[2021-12-08] MEDS: traMADol HCL (*CRX) 50 MG TABLET PO (20:34)
[2021-12-08 21:23] LABS: Glucose Point of Care 105 mg/dl (65-105)
[2021-12-08 21:41] LABS: Troponin I < 0.012 ng/mL (0.000-0.034)
[2021-12-09] VITALS (13 sets, daily range): BP systolic 97–124; BP diastolic 55–80; PULSE 65–78; RESP 18–22; TEMP 36.1–36.6; O2SAT 95–100
[2021-12-09] MEDS: SODIUM CHLORIDE 0.9% IV 1,000 ML 100 ML IV CONT (05:50)
[2021-12-09] MEDS: LEVOTHYROXINE SODIUM 50 MCG TABLET PO (05:50)
[2021-12-09] MEDS: FLUTICASONE/SALMETEROL 115-21 MCG INHALER 1 PUFF 2 PUFF INHALATION ×2 (08:58→20:34)
[2021-12-09] MEDS: traMADol HCL (*CRX) 50 MG TABLET PO ×2 (09:02→20:53)
[2021-12-09] MEDS: busPIRone HCL 5 MG TABLET PO ×2 (09:02→20:53)
[2021-12-09] MEDS: MIDODRINE HCL 2.5 MG TABLET PO ×3 (09:03→17:19)
[2021-12-09] MEDS: ATORVASTATIN 40 MG TABLET PO (09:03)
[2021-12-09] MEDS: POTASSIUM CHLORIDE 20 MEQ PACKET (FOR LIQUID) PO (09:03)
[2021-12-09] MEDS: THIAMINE HCL 100 MG TABLET PO (09:03)
[2021-12-09] MEDS: LORATADINE 10 MG TABLET PO (09:03)
[2021-12-09] MEDS: AMIODARONE HCL 200 MG TABLET PO (09:03)
[2021-12-09] MEDS: PANTOPRAZOLE SODIUM IV 40 MG VIAL IV PUSH ×2 (09:03→20:54)
[2021-12-09] MEDS: FOLIC ACID 1 MG TABLET PO (09:03)
[2021-12-09] MEDS: FLUTICASONE PROPIONATE 0.05% NA SPR 16 GM BTL (*BKC) 2 SPRAY NASAL (09:03)
[2021-12-09] MEDS: APIXABAN 2.5 MG TABLET PO ×2 (09:04→20:53)
[2021-12-09] MEDS: chlordiazePOXIDE (*CRX) 25 MG CAPSULE PO ×2 (09:05→20:53)
[2021-12-09 10:38] LABS: Basophils Percent Auto 0.4 % (0.2-1.2); Eosinophils Absolute Auto 0.1 K/mm3 (0-0.3); Eosinophils Percent Auto 2.4 % (0-4.4); Hematocrit 35.2 % (42.0-52.0); Hemoglobin 10.9 g/dL (14.0-18.0); Immature Granulocyte Absolute 0.01 K/mm3 (0.00-0.031); Immature Granulocyte Percent A 0.2 % (0-0.5); Lymphocytes Absolute Auto 0.72 K/mm3 (0.9-3.2); Lymphocytes Percent Auto 15.6 % (18.3-44.2); Mean Corpuscular Volume 109.7 fl (80-100); Mean Platelet Volume 8.8 fl (7.4-10.4); Monocytes Absolute Auto 0.3 K/mm3 (0.1-0.6); Monocytes Percent Auto 5.6 % (2.6-8.5); Neutrophils Absolute Auto 3.5 K/mm3 (1.3-6.7); Neutrophils Percent Auto 75.8 % (45.5-73.1); Platelet Count Result 108 k/mm3 (150-375); Red Blood Count 3.21 M/mm3 (4.6-6.20); Red Cell Distribution Width 15.2 % (11.5-14.5); White Blood Count 4.6 K/mm3 (4.5-10.0)
[2021-12-09 10:48] LABS: Alanine Aminotransferase 31 U/L (6-50); Albumin Level 2.9 g/dL (3.5-5.1); Alkaline Phosphatase 61 U/L (38-126); Anion Gap 3 mmol/L (8-16); Aspartate Amino Transferase 39 U/L (17-59); Bilirubin,Total 0.1 mg/dL (0.2-1.3); Blood Urea Nitrogen 7 mg/dL (9-20); Carbon Dioxide 21 mmol/L (22-30); Chloride 105 mmol/L (98-107); Estimated CRCL calculation 85 ml/min; Estimated Glomerular Filt Rate > 60; Glucose 101 mg/dL (65-110); Magnesium 1.4 mg/dL (1.6-2.3); Potassium 3.6 mmol/L (3.4-5.0); Sodium 129 mmol/L (137-145)
[2021-12-09] MEDS: MAGNESIUM SULF 2 GM/WATER 50ML 2 GM/50 ML BAG IVPB (13:11)
--- NOTE | 2021-12-09 13:14 | PM.IMPN ---
Progress Note: A&P Assessment and Plan (1) Alcohol intoxication: Code(s): F10.929 - Alcohol use, unspecified with intoxication, unspecified Status: Acute (2) Acute hyponatremia: Code(s): E87.1 - Hypo-osmolality and hyponatremia Status: Acute (3) Chest pain: Code(s): R07.9 - Chest pain, unspecified Status: Acute (4) Paroxysmal atrial fibrillation: Code(s): I48.0 - Paroxysmal atrial fibrillation Status: Acute (5) Hypomagnesemia: Code(s): E83.42 - Hypomagnesemia Status: Acute Additional Plan 56-year-old male patient with significant past medical history of alcohol abuse,? alcoholic cardiomyopathy, COPD, chronic systolic congestive Heart failure, hyperlipidemia, previous [place], paroxysmal atrial fibrillation, presented as was not able to wake him up. 1)Acute Alcohol intoxication: improved mentation d/c IV fluids c/w thiamine, folic acid c/w Librium CIWA scores were consisently low d/c CIWA protocol Supplement mag 2)H/o Systolic HF: c/w lasix c/w aldactone 3)Acute Hyponatremia: Improving sodium levels Recheck BMP in AM 4)Paroxysmal Afibb: c/w amiodarone, eliquis intermittent chest pain, troponin negative, EKG unremarkable 5)H/o Chronic Resp Failure: at baseline O2 support, stable ?suspicion for PNA on CXR repeat CXR 6)Thrombocytopenia: Drop in platelet noted Will monitor closely 7)DVT ppx: Eliquis 8)Code:Full 9)Dispo:pending improvement in hyponatremia Time Spent With Patient Time with patient: 25 - 35 minutes Subjective Date/time seen: 12/09/21 13:14 Interval history: no acute events overnight, Review of Systems Review of Systems: All systems reviewed & are unremarkable except as noted in HPI and below Constitutional: Constitutional: Reports fatigue, Reports lethargy and Reports weakness Eyes: Eyes: Reports no additional eye complaints ENT: Reports system reviewed and no additional complaints, except as documented Cardiovascular: Cardiovascular: Reports no additional cardiovascular complaints Respiratory: Respiratory: Reports no additional respiratory complaints Gastrointestinal: Gastrointestinal: Reports no additional gastrointestinal complaints Musculoskeletal: Musculoskeletal: Reports no additional musculoskeletal complaints Exam Const: General: no acute distress HENMT: Mouth: Yes moist mucous membranes Eyes: Sclera: sclerae normal Neck: Neck: supple Resp: Effort & Inspection: normal respiratory effort Cardio: Rate: regular rate Rhythm: regular rhythm GI: GI Palp: Yes Soft to palpation Auscultation: normal bowel sounds Urinary Catheter: Urinary Catheter: patent and draining and urine clear Skin: General skin exam: normal color Extrem: General: normal to inspection Psych: Mental Status: mental status grossly normal Objective Data Vital Signs Vital Signs: Vital Signs - 24 hr 12/08/21 13:46 12/08/21 16:00 12/08/21 14:00 Temperature Pulse Rate 70 Respiratory Rate Blood Pressure Pulse Oximetry 94 Oxygen Delivery Nasal Cannula Nasal Cannula Oxygen Flow Rate 2 2 12/08/21 16:00 12/08/21 18:00 12/08/21 16:00 Temperature 97.6 F Pulse Rate 81 83 77 Respiratory Rate 20 Blood Pressure 102/70 Pulse Oximetry 98 Oxygen Delivery Oxygen Flow Rate 12/08/21 19:59 12/08/21 20:00 12/08/21 20:00 Temperature 98.7 F Pulse Rate 76 76 Respiratory Rate 20 Blood Pressure 101/62 101/62 Pulse Oximetry 97 Oxygen Delivery Oxygen Flow Rate 12/08/21 20:00 12/08/21 21:36 12/08/21 23:47 Temperature 97.5 F L Pulse Rate 76 80 81 Respiratory Rate 20 18 Blood Pressure 97/55 L Pulse Oximetry 97 95 Oxygen Delivery Nasal Cannula Oxygen Flow Rate 2 12/09/21 00:00 12/09/21 00:00 12/09/21 00:00 Temperature Pulse Rate 74 74 Respiratory Rate 18 Blood Pressure 97/55 L Pulse Oximetry 95 Oxygen Delivery Nasal Cannula Oxyg
[2021-12-09 16:54] LABS: Glucose Point of Care 114 mg/dl (65-105)
[2021-12-09 19:51] LABS: Glucose Point of Care 92 mg/dl (65-105)
[2021-12-10 04:00] VITALS: BP 106/66; PULSE 70; RESP 18; TEMP 36.4; O2SAT 100
[2021-12-10 04:52] LABS: Basophils Percent Auto 0.8 % (0.2-1.2); Eosinophils Absolute Auto 0.2 K/mm3 (0-0.3); Eosinophils Percent Auto 2.9 % (0-4.4); Hematocrit 32.6 % (42.0-52.0); Hemoglobin 10.5 g/dL (14.0-18.0); Immature Granulocyte Absolute 0.02 K/mm3 (0.00-0.031); Immature Granulocyte Percent A 0.4 % (0-0.5); Lymphocytes Absolute Auto 0.92 K/mm3 (0.9-3.2); Lymphocytes Percent Auto 17.8 % (18.3-44.2); Mean Corpuscular HGB Conc 32.2 g/dl (32-36); Mean Corpuscular Hemoglobin 34.5 pg (26-34); Mean Corpuscular Volume 107.2 fl (80-100); Mean Platelet Volume 8.8 fl (7.4-10.4); Monocytes Absolute Auto 0.4 K/mm3 (0.1-0.6); Neutrophils Absolute Auto 3.7 K/mm3 (1.3-6.7); Neutrophils Percent Auto 71.1 % (45.5-73.1); Platelet Count Result 114 k/mm3 (150-375); Red Blood Count 3.04 M/mm3 (4.6-6.20); Red Cell Distribution Width 15.1 % (11.5-14.5); White Blood Count 5.2 K/mm3 (4.5-10.0)
[2021-12-10 05:06] LABS: Alanine Aminotransferase 28 U/L (6-50); Albumin Level 2.9 g/dL (3.5-5.1); Alkaline Phosphatase 57 U/L (38-126); Anion Gap 3 mmol/L (8-16); Aspartate Amino Transferase 36 U/L (17-59); Bilirubin,Total 0.2 mg/dL (0.2-1.3); Blood Urea Nitrogen 7 mg/dL (9-20); Calcium 7.9 mg/dL (8.4-10.2); Carbon Dioxide 24 mmol/L (22-30); Chloride 104 mmol/L (98-107); Estimated CRCL calculation 85 ml/min; Estimated Glomerular Filt Rate > 60; Glucose 87 mg/dL (65-110); Magnesium 1.8 mg/dL (1.6-2.3); Potassium 3.7 mmol/L (3.4-5.0); Sodium 131 mmol/L (137-145)
[2021-12-10] MEDS: LEVOTHYROXINE SODIUM 50 MCG TABLET PO (06:18)
[2021-12-10 08:00] VITALS: BP 112/74; PULSE 66; RESP 16; TEMP 35.7; O2SAT 100
[2021-12-10 08:10] LABS: Glucose Point of Care 72 mg/dl (65-105)
[2021-12-10 08:14] VITALS: PULSE 70; RESP 12
[2021-12-10] MEDS: FLUTICASONE/SALMETEROL 115-21 MCG INHALER 1 PUFF 2 PUFF INHALATION (08:14)
[2021-12-10 08:33] VITALS: PULSE 81
[2021-12-10] MEDS: AMIODARONE HCL 200 MG TABLET PO (08:33)
[2021-12-10] MEDS: APIXABAN 2.5 MG TABLET PO (08:34)
[2021-12-10] MEDS: ATORVASTATIN 40 MG TABLET PO (08:34)
[2021-12-10] MEDS: MIDODRINE HCL 2.5 MG TABLET PO ×2 (08:35→12:38)
[2021-12-10] MEDS: busPIRone HCL 5 MG TABLET PO (08:35)
[2021-12-10] MEDS: FOLIC ACID 1 MG TABLET PO (08:35)
[2021-12-10] MEDS: FLUTICASONE PROPIONATE 0.05% NA SPR 16 GM BTL (*BKC) 2 SPRAY NASAL (08:35)
[2021-12-10] MEDS: LORATADINE 10 MG TABLET PO (08:35)
[2021-12-10] MEDS: POTASSIUM CHLORIDE 20 MEQ PACKET (FOR LIQUID) PO (08:36)
[2021-12-10] MEDS: PANTOPRAZOLE SODIUM IV 40 MG VIAL IV PUSH (08:36)
[2021-12-10] MEDS: THIAMINE HCL 100 MG TABLET PO (08:36)
[2021-12-10] MEDS: traMADol HCL (*CRX) 50 MG TABLET PO (08:41)
[2021-12-10] MEDS: chlordiazePOXIDE (*CRX) 25 MG CAPSULE PO (08:42)
[2021-12-10 12:15] LABS: Glucose Point of Care 126 mg/dl (65-105)
[2021-12-10] MEDS: LIDOCAINE 5% PATCH 1 PATCH TRANSDERM (12:44)
--- NOTE | 2021-12-10 14:23 | PM.DS ---
DS: Admitting Diagnosis Discharge Date 12/10/21 Admitting Diagnosis Acute Alcohol Intoxication DS: Discharge Diagnosis Discharge Diagnosis (1) Hypomagnesemia: Code(s): E83.42 - Hypomagnesemia Status: Acute (2) Alcohol intoxication: Code(s): F10.929 - Alcohol use, unspecified with intoxication, unspecified Status: Acute (3) Hypoglycemia: Code(s): E16.2 - Hypoglycemia, unspecified Status: Acute (4) Acute hyponatremia: Code(s): E87.1 - Hypo-osmolality and hyponatremia Status: Acute (5) Paroxysmal atrial fibrillation: Code(s): I48.0 - Paroxysmal atrial fibrillation Status: Acute (6) Thrombocytopenia: Code(s): D69.6 - Thrombocytopenia, unspecified Status: Acute DS: Summary Hospital Course Reason for hospitalization: Acute Alcohol Intoxication Hospital Course: 56-year-old male patient with significant past medical history of alcohol abuse,? alcoholic cardiomyopathy, COPD, chronic systolic congestive Heart failure, hyperlipidemia, previous [place], paroxysmal atrial fibrillation, presented as was not able to wake him up. Symptoms were 2/2 acute alcohol intoxication and hypoglycemia. Was started on CIWA protocol, IV fluids, banana bag, multivitamins. Symptoms improved, mental status improved. Also had hyponatremia which had improved by day of discharge. Continued on lasix and aldactone for h/o systolic HF. O2 requirement remained stable for chronic resp failure. Denied SNF placement for physical deconditioning. Discharged home in stable condition. Status at Discharge Overall status at discharge: patient is back to baseline Time Spent with Patient Time attestation: Total time spent providing and/or coordinating discharge services: Time spent: Greater than 30 minutes Exam Const: General: no acute distress HENMT: Mouth: Yes moist mucous membranes Eyes: Sclera: sclerae normal Pupils: Equal, round and reactive pupils present Neck: Neck: supple Resp: Effort & Inspection: normal respiratory effort Auscultation: clear to auscultation bilaterally Cardio: Rate: regular rate Rhythm: regular rhythm GI: Auscultation: normal bowel sounds Skin: General skin exam: normal color Lesions: no lesions noted Neuro: Speech: normal speech Extrem: General: normal to inspection and no edema Psych: Mental Status: mental status grossly normal DS: Data Data Completed and Pending Labs on day of discharge: Labs from last 24 hours 12/10/21 12/10/2112/10/22 12:03 08:04 04:24 WBC RBC Hgb Hct MCV MCH MCHC RDW Plt Count MPV Immature Gran % (Auto) Neut % (Auto) Lymph % (Auto) [place] % (Auto) Eos % (Auto) Baso % (Auto) Lymph # (Auto) [place] # (Auto) Eos # (Auto) Baso # (Auto) Abs Immat Gran (auto) Absolute Neuts (auto) Absolute Nucleated RBC Nucleated RBC % Sodium 131 L Potassium 3.7 Chloride 104 Carbon Dioxide 24 Anion Gap 3 L BUN 7 L Creatinine 0.60 L Estim Creat Clear Calc 85 Estimated GFR > 60 Glucose 87 POC Capillary Glucose 126 H 72 Calcium 7.9 L Magnesium 1.8 Total Bilirubin 0.2 AST 36 ALT 28 Alkaline Phosphatase 57 Total Protein 5.0 L Albumin 2.9 L 12/10/21 12/09/21 12/09/21 04:24 19:46 15:49 WBC 5.2 RBC 3.04 L Hgb 10.5 L Hct 32.6 L MCV 107.2 H MCH 34.5 H MCHC 32.2 RDW 15.1 H Plt Count 114 L MPV 8.8 Immature Gran % (Auto) 0.4 Neut % (Auto) 71.1 Lymph % (Auto) 17.8 L [place] % (Auto) 7.0 Eos % (Auto) 2.9 Baso % (Auto) 0.8 Lymph # (Auto) 0.92 [place] # (Auto) 0.4 Eos # (Auto) 0.2 Baso # (Auto) 0.0 Abs Immat Gran (auto) 0.02 Absolute Neuts (auto) 3.7 Absolute Nucleated RBC 0.0 Nucleated RBC % 0.0 Sodium Potassium Chloride Carbon Dioxide Anion Gap BUN Creatinine Estim Creat Clear Calc
== END 2021-12-10 15:27 | disposition home or self-care (01) | DRG 897 ==
LOC: ANHED 13:01 → ANHIMU 16:14
PROVIDERS: Nurse Practitioner Adult Health; Admitting Provider Chiropractor; Emergency Provider Emergency Medicine; PCP Family Medicine; Visit Provider Internal Medicine
DX: F10.129 Alcohol abuse with intoxication, unspecified (principal); E87.1 Hypo-osmolality and hyponatremia; I42.6 Alcoholic cardiomyopathy; I50.22 Chronic systolic (congestive) heart failure; J96.10 Chronic respiratory failure, unspecified whether with hypoxia or hypercapnia; F17.220 Nicotine dependence, chewing tobacco, uncomplicated; Z20.822 Contact with and (suspected) exposure to COVID-19; I25.10 Atherosclerotic heart disease of native coronary artery without angina pectoris; J44.9 Chronic obstructive pulmonary disease, unspecified; K21.9 Gastro-esophageal reflux disease without esophagitis; E16.2 Hypoglycemia, unspecified; E78.2 Mixed hyperlipidemia; I48.0 Paroxysmal atrial fibrillation; I25.2 Old myocardial infarction; E03.9 Hypothyroidism, unspecified; E83.42 Hypomagnesemia; R07.9 Chest pain, unspecified; D69.6 Thrombocytopenia, unspecified
CPT/HCPCS: 36415; 51701; 71045; 80048; 80053; 80307; 81001; 82948; 83605; 83735; 84145; 84484; 85025; 85027; 85055; 85610; 85730; 93005; 94640; 96361; 96365; 96374; 96375; 96376; 97110; 97161; 97530; 99285; A9270; C9113; C9803; G0378; J0696; J2060; J2405; J3411; J3475; J7030; J7042; U0003; U0005

== ENCOUNTER 2022-06-14 18:01 | Inpatient (IN) | payer MEDICARE, SELFPAY ==
--- NOTE | ~2022-06-14 | CT_ITS ---
EXAMINATION: CT brain wo con DATE: 06/14/2022 18:29 INDICATION: Head injury . TECHNIQUE: Computed tomography (CT) of the head was performed without intravenous contrast. The mA wa s adjusted according to patient size. Iterative reconstruction technique was employed. The dose-lengt h product was 605.33 mGy-cm. COMPARISON: 10/22/2021. FINDINGS: No acute intracranial hemorrhage or extra-axial fluid collection. No hydrocephalus, mass, or herniation. No acute ischemic infarct. Unremarkable dural venous sinus attenuation. No acute osseous abnormality. The aerated spaces are clear. Mild atrophy and chronic white matter change. Mild atherosclerotic calcifications. Left lens replacem ent. IMPRESSION: No acute intracranial process. Reviewed, dictated and finalized at location K. THER
[2022-06-14 18:01] VITALS: BP 112/93; PULSE 71; RESP 16; TEMP 36.1; O2SAT 100
--- NOTE | 2022-06-14 18:08 | ECG_ITS ---
Measurements Intervals [place] Rate: 72 P: 9 [place]: 231 QRS: -46 QRSD: 162 T: 59 QT: 469 QTc: 516 Interpretive Statements SINUS RHYTHM WITH FIRST DEGREE AV BLOCK LEFT AXIS DEVIATION LEFT BUNDLE BRANCH BLOCK BASELINE ARTIFACT- I, II, III, AVR, AVL, AVF, V1-V6 ABNORMAL ECG COMPARED TO ECG 12/08/2021 14:22:20 FIRST DEGREE AV BLOCK NOW PRESENT LEFT BUNDLE-BRANCH BLOCK NOW PRESENT Electronically Signed On 06-15-2022 7:44:18 [employer] by Sarmad Valenzuela D.O.
--- NOTE | 2022-06-14 18:10 | ED.AMS ---
HPI - Altered Mental Status General Chief Complaint: Alcohol Stated Complaint: ETOH, hypoglycemic History of Present Illness HPI narrative: This is a 57-year-old male with past medical history of alcohol abuse, alcoholic cardiomyopathy, brought in by EMS for hypoglycemia and altered mental status. EMS reports they received a call from the patient's after the patient was found on the floor unresponsive. Earlier today he appeared to be in his normal state of health. On examination the patient had sonorous breathing pattern; a fingerstick glucose read as low. Patient was given IV thiamine and started on D10 IV with repeat blood sugar in the 120s. He has since regained consciousness. The patient denies pain and states this is what happen when you keep drinking. s He has no other complaints. He is not sure if he fell. He states his last drink today was 2 hours ago. Related Data Home Medications Medication Instructions Recorded Confirmed amiodarone 200 mg tablet 200 mg PO DAILY 04/24/19 06/14/22 apixaban 2.5 mg tablet (Eliquis) 2.5 mg PO BID 06/14/22 06/14/22 folic acid 1 mg tablet 1 mg PO DAILY 06/14/22 06/14/22 Allergies Allergy/AdvReac Type Severity Reaction Status Date / Time ragweed pollen Allergy Unknown seasonal Verified 06/14/22 18:33 [place] Allergy Unknown seasonal Uncoded 11/25/21 09:40 [place] Allergy Unknown seasonal Uncoded 11/25/21 09:40 Review of Systems Review of Systems: CONSTITUTIONAL: Denies fever, chills, or sweats. EYES: Denies visual changes, redness, or discharge. ENT: Denies rhinorrhea, congestion, sore throat, or otalgia. CARDIOVASCULAR: Denies chest pain, palpitations, or edema. RESPIRATORY: Denies cough or dyspnea. GASTROINTESTINAL: Denies abdominal pain, nausea, vomiting, or diarrhea. GENITOURINARY: Denies dysuria or hematuria. SKIN: Denies rash or itching. MUSCULOSKELETAL: Denies back pain, joint pain, or myalgia. NEUROLOGIC: Loss of consciousness, generalized weakness denies headache, numbness, dizziness, PSYCHIATRIC: Denies anxiety or depression. [facility] Past Medical History Medical History Alcohol abuse Alcoholic cardiomyopathy Atherosclerotic heart disease of [place] coronary artery without angina pectoris Chronic systolic CHF (congestive heart failure) COPD (chronic obstructive pulmonary disease) Gastro-esophageal reflux disease without esophagitis Mixed hyperlipidemia [place] (myocardial infarction) Paroxysmal atrial fibrillation Tobacco abuse Family History Family History Father Family history of liver disease Sibling Family history of liver disease Mother Family history of emphysema Social History Social History Social History: Years smoked: 15 Smoking status: Current every day smoker Smokeless tobacco user: chewing tobacco Second hand tobacco smoke exposure: Yes Additional smoking assessment comments: chewing tobacco daily and occassional cigars Alcohol intake: current Drinks per week: 4 Alcohol use details: 1-2 pints weekly Substance use: never Substance use type: does not use Living arrangements: with family Occupation/Education: retired Gender identity (if verbalized by the patient): Male Sexual Orientation (if Verbalized by the Patient): Straight or Heterosexual Spiritual care concerns: No Exam Narrative: GENERAL: Well-developed, cachectic, appears intoxicated HEAD: Normocephalic, a 0.5cm superficial laceration is noted to the left forehead EYES: PERRLA and EOMI. ENT: Nares clear, no rhinorrhea or epistaxis. Mucous membranes dry. Oropharynx without tonsillar hypertrophy exudate or other lesions. NECK: Supple. No adenopathy or masses. No carotid bruits or JVD CHEST: Clear to auscultation. No respiratory distress. No wheezes rales or rhonchi HEART: R
[2022-06-14 18:17] LABS: Glucose Point of Care 156 mg/dl (65-105)
[2022-06-14] MEDS: SODIUM CHLORIDE 0.9% IV 1,000 ML 999 ML IV CONT (19:16)
[2022-06-14 19:50] LABS: Basophils Percent Auto 0.1 % (0.2-1.2); Hematocrit 35.7 % (42.0-52.0); Hemoglobin 11.8 g/dL (14.0-18.0); Immature Granulocyte Absolute 0.06 K/mm3 (0.00-0.031); Immature Granulocyte Percent A 0.8 % (0-0.5); Lymphocytes Absolute Auto 0.45 K/mm3 (0.9-3.2); Lymphocytes Percent Auto 6.3 % (18.3-44.2); Mean Corpuscular HGB Conc 33.1 g/dl (32-36); Mean Corpuscular Hemoglobin 30.9 pg (26-34); Mean Corpuscular Volume 93.5 fl (80-100); Mean Platelet Volume 8.6 fl (7.4-10.4); Monocytes Absolute Auto 0.1 K/mm3 (0.1-0.6); Monocytes Percent Auto 1.8 % (2.6-8.5); Neutrophils Absolute Auto 6.5 K/mm3 (1.3-6.7); Platelet Count Result 337 k/mm3 (150-375); Red Blood Count 3.82 M/mm3 (4.6-6.20); Red Cell Distribution Width 14.4 % (11.5-14.5); White Blood Count 7.1 K/mm3 (4.5-10.0)
[2022-06-14 19:51] LABS: Appearance Urine Clear (Clear); Bilirubin Urine Negative (Negative); Blood Urine 2+ (Negative); Color Urine Yellow (Yellow); Glucose Urine UA Negative (Negative); Ketones Urine Negative (Negative); Leukocyte Esterase Ur Negative LEU/UL (Negative); Nitrate Urine Negative (Negative); Protein Urine Negative (Negative); Specific Grav Ur 1.015 (1.001-1.035); Urobilinogen Urine 0.2 mg/dL (<2.0); pH Urine 6.5 (5.0-9.0)
[2022-06-14 19:54] LABS: Bacteria Urine Trace /hpf; Mucus Urine Rare /lpf; RBC Urine 21-50 /hpf (0-2)
[2022-06-14 20:04] LABS: Amphetamine Screen Urine Negative (Negative); Barbiturate Screen Urine Negative (Negative); Benzodiazepines Screen Urine Negative (Negative); Cannabinoid Screen Urine Negative (Negative); Cocaine Screen Urine Negative (Negative); Methadone Screen Urine Negative (Negative); Opiate Screen Urine Negative (Negative); Phencyclidine Screen Urine Negative (Negative)
[2022-06-14 20:07] LABS: Ethanol 195 mg/dL (<10)
[2022-06-14 20:17] LABS: Add Urine Microscopic? YES
[2022-06-14 20:22] LABS: Alanine Aminotransferase 79 U/L (6-50); Albumin Level 3.7 g/dL (3.5-5.1); Alkaline Phosphatase 104 U/L (38-126); Anion Gap 16 mmol/L (8-16); Aspartate Amino Transferase 180 U/L (17-59); Bilirubin,Total 0.8 mg/dL (0.2-1.3); Blood Urea Nitrogen 21 mg/dL (9-20); Calcium 7.8 mg/dL (8.4-10.2); Carbon Dioxide 18 mmol/L (22-30); Chloride 84 mmol/L (98-107); Estimated CRCL calculation 40 ml/min; Estimated Glomerular Filt Rate > 60; Glucose 300 mg/dL (65-110); Potassium 4.9 mmol/L (3.4-5.0); Sodium 118 mmol/L (137-145)
[2022-06-14 20:48] LABS: Thyroid Stimulating Hormone 0.268 uIU/mL (0.465-4.680)
[2022-06-14] MEDS: THIAMINE 500 MG/NS 100 ML 500 MG/100 ML BAG 200 MG IVPB (21:30)
[2022-06-14] MEDS: SODIUM CHLORIDE 0.9% IV 1,000 ML 75 ML IV CONT (21:40)
[2022-06-14 22:09] LABS: Glucose Point of Care 118 mg/dl (65-105)
[2022-06-15] VITALS (17 sets, daily range): BP systolic 100–131; BP diastolic 62–79; PULSE 68–87; RESP 14–18; TEMP 36.1–37.2; O2SAT 98–100; BMI 15.2; BMI 16.1
--- NOTE | 2022-06-15 00:29 | ADMGEN ---
This patient, Gabriel Nathan, was admitted to IMU Room 214-01 at 0020. Patient/family oriented to hospital policies and general routines including ID bracelet, bed and alarms, visiting hours, pain management, procedures, bathroom and other care routines, personal items, smoking policy, room service/diet, and visiting hours. Information on how to activate the Rapid Response Team has been discussed. Patient/Family are encouraged to report perceived risks to care and to ask questions if they do not understand what they are told or what they should do.
[2022-06-15] MEDS: SODIUM CHLORIDE 0.9% IV 1,000 ML 75 ML IV CONT (01:16)
[2022-06-15 01:49] LABS: Anion Gap 7 mmol/L (8-16); Blood Urea Nitrogen 19 mg/dL (9-20); Calcium 7.8 mg/dL (8.4-10.2); Carbon Dioxide 21 mmol/L (22-30); Chloride 90 mmol/L (98-107); Estimated CRCL calculation 51 ml/min; Estimated Glomerular Filt Rate > 60; Glucose 64 mg/dL (65-110); Sodium 118 mmol/L (137-145)
--- NOTE | 2022-06-15 04:11 | PM.IMHP ---
H&P: HPI History of Present Illness Date/Time: 06/15/22 04:11 Chief Complaint: Unresponsive episode Narrative: 57-year-old male with a extensive history of alcohol abuse, combination ischemic and alcoholic cardiomyopathy, systolic heart failure, paroxysmal atrial fibrillation on chronic anticoagulation who presented to the ER with an unresponsive episode. Source of information is past medical records and ER and EMS report and past medical records. The patient himself is a poor historian. He is oriented to person and the fact that he is in the hospital. He thinks the month is June and that the years 2001. AMS stated that they got a call from the patient's the patient was unresponsive. When they arrived to the residence the patient glucose read low on the monitor. The patient received thiamin and was started on D10. Repeat blood sugar was in the 120s. He regained consciousness after administration of glucose. Patient denies any pain. He states that he has not been eating or drinking. He denies any diarrhea or constipation. He denied difficulty with urination but on exam the patient had a palpable bladder. Nursing staff checked a bladder scan in his bladder was 300 mL. They had nursing staff weight 2-3 hours and after shift change the patient bladder scan was repeated as he was unable to urinate in patient had greater than 600 mL retained. He denies any headache or visual changes but he is poor historian. Patient seemed to have some facial droop but is difficult to ascertain due to the patient's long mustache. He has multiple wounds in scabs across his arms and bruises. He is vague on report of events recently. He is unsure if he fell but is covered in bruises. His last drink was reportedly drinking alcohol day his last drink was around 15:00. Review of Systems Review of Systems: Review of systems limited due to the patient's confusion. 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 Chronic systolic CHF (congestive heart failure) COPD (chronic obstructive pulmonary disease) With prior history of home O2 use Essential hypertension Gastro-esophageal reflux disease without esophagitis Hypothyroidism Mixed hyperlipidemia [facility] (myocardial infarction) Orthostatic hypotension Paroxysmal atrial fibrillation Severe protein-calorie malnutrition SVT (supraventricular tachycardia) Tobacco abuse Surgical History Surgical History (Updated 06/15/22 @ 04:40 by Lorraine Tran DO) History of toe surgery History of tonsillectomy and adenoidectomy Family History Family History Father Family history of liver disease Sibling Family history of liver disease Chronic obstructive pulmonary disease Mother Family history of emphysema Social History Social History (Updated 06/15/22 @ 10:04 by Lorraine Tran DO) Social History: He is on disability. He has a long history of alcohol abuse. He tends to binge drink. Typically drinking vodka and beer. He has used chewing tobacco and smokes cigars on occasion. Alcohol has affected the patient's life in many ways. He has been to assisted due to his alcohol use and has intermittently required placement in custodial facilities. He has been homeless at other times due to his alcohol use. Surrogate decision maker: Xiao () Code status: Full code Years smoked: 35 Smoking status: Current some day smoker Tobacco type: cigars Smokeless tobacco user: chewing tobacco Second hand tobacco smoke exposure: No Additional smoking assessment comments: chewing tobacco daily and occassional cigars Alcohol intake: current Alcohol use details: 0.5-1 pt per day of vodka Substance use: never Lack of Transportation: No Lack of Food
[2022-06-15] MEDS: DEXTROSE 5%/0.9% SOD CHL 1,000 ML 100 ML IV CONT (04:23)
[2022-06-15 04:25] LABS: Glucose Point of Care 52 mg/dl (65-105)
[2022-06-15 05:01] LABS: Basophils Percent Auto 0.1 % (0.2-1.2); Eosinophils Percent Auto 0.1 % (0-4.4); Hematocrit 29.7 % (42.0-52.0); Hemoglobin 10.1 g/dL (14.0-18.0); Immature Granulocyte Absolute 0.05 K/mm3 (0.00-0.031); Immature Granulocyte Percent A 0.5 % (0-0.5); Lymphocytes Absolute Auto 0.51 K/mm3 (0.9-3.2); Mean Corpuscular Hemoglobin 30.7 pg (26-34); Mean Corpuscular Volume 90.3 fl (80-100); Mean Platelet Volume 8.7 fl (7.4-10.4); Monocytes Absolute Auto 0.6 K/mm3 (0.1-0.6); Monocytes Percent Auto 6.3 % (2.6-8.5); Platelet Count Result 235 k/mm3 (150-375); Red Blood Count 3.29 M/mm3 (4.6-6.20); Red Cell Distribution Width 14.3 % (11.5-14.5); White Blood Count 10.2 K/mm3 (4.5-10.0)
[2022-06-15 05:10] LABS: Glucose Point of Care 120 mg/dl (65-105)
[2022-06-15 05:22] LABS: Anion Gap 5 mmol/L (8-16); Blood Urea Nitrogen 19 mg/dL (9-20); Calcium 7.6 mg/dL (8.4-10.2); Carbon Dioxide 23 mmol/L (22-30); Chloride 92 mmol/L (98-107); Estimated CRCL calculation 51 ml/min; Estimated Glomerular Filt Rate > 60; Glucose 55 mg/dL (65-110); Potassium 4.3 mmol/L (3.4-5.0); Sodium 120 mmol/L (137-145)
[2022-06-15 06:11] LABS: Glucose Point of Care 149 mg/dl (65-105)
[2022-06-15] MEDS: LEVOTHYROXINE SODIUM 50 MCG TABLET PO (06:41)
[2022-06-15] MEDS: chlordiazePOXIDE (*CRX) 25 MG CAPSULE PO ×3 (06:41→21:56)
[2022-06-15 07:43] LABS: Glucose Point of Care 140 mg/dl (65-105)
[2022-06-15] MEDS: ATORVASTATIN 40 MG TABLET PO (08:32)
[2022-06-15] MEDS: THIAMINE HCL 100 MG TABLET 500 MG PO (08:32)
[2022-06-15] MEDS: AMIODARONE HCL 200 MG TABLET PO (08:33)
[2022-06-15] MEDS: PANTOPRAZOLE 40 MG TABLET PO (08:33)
[2022-06-15] MEDS: APIXABAN 2.5 MG TABLET PO ×2 (08:34→20:38)
[2022-06-15] MEDS: busPIRone HCL 5 MG TABLET PO ×2 (08:34→20:38)
[2022-06-15] MEDS: FOLIC ACID 1 MG TABLET PO (08:34)
[2022-06-15] MEDS: MIDODRINE HCL 2.5 MG TABLET PO ×2 (08:34→14:01)
--- NOTE | 2022-06-15 10:08 | PM.CNNEP ---
Assessment and Plan Assessment and plan (1) Hyponatremia: Code(s): E87.1 - Hypo-osmolality and hyponatremia Status: Acute Assessment and Plan: acute on chronic likely related to volume depletion and excessive alcohol intake improvement in sodium noted with normal saline IVFs goal of therapy is a rate of change of 6 - 8mmol/L in 24 hours check urine electrolytes, TSH, cortisol, SPEP and UPEP follow trend of serial sodium levels (2) Hypoglycemia: Code(s): E16.2 - Hypoglycemia, unspecified Status: Acute Assessment and Plan: due to poor oral intake on dextrose IVFs at this time follow oral intake (3) Alcohol intoxication: Qualifiers: Complication of substance-induced condition: with unspecified complication Qualified Code(s): F10.929 - Alcohol use, unspecified with intoxication, unspecified Code(s): F10.929 - Alcohol use, unspecified with intoxication, unspecified Status: Acute Assessment and Plan: long standing issue/problem monitor for withdrawal thiamine and folate Will continue to follow. History of Present Illness Reason for Consult Consult date: 06/15/22 Reason for consult: hyponatremia Chief Complaint Chief complaint: Hyponatremia History of Present Illness Narrative: Almost all the information I have obtained is from review of the electronic medical record as well as discussion with the physician/ nurses involved in his care as well as the patient's at bedside as the patient was not very forthcoming in answering any of my questions and is a poor historian. The patient is a 57-year-old male with extensive past medical history as outlined below who presented to [facility] Emergency room following a unresponsive episode. Apparently, EMS got received a call from the patient's after he had the a for mentioned unresponsive episode. When they arrived to the residence, it was noted that his Accu-Chek was quite low. He was given thigh min and D10 with a repeat blood sugar in the 120s and this seemed to result in improvement in his consciousness. According to the , the patient has been eating and drinking very well for the last several days if not longer as his diet has been mainly alcohol intake. He is also noted to have multiple bruises and wounds in his upper and lower extremities but the details of how he received these are unclear. Workup and evaluation emergency room demonstrated the patient be hemodynamically stable. Routine blood test demonstrated significant hyponatremia. Furthermore, his exam was noteworthy for a palpable bladder and several bladder scans in the emergency room demonstrated clear evidence of urinary retention. From review of his breath, he has had several hospitalizations /admissions to the hospital for alcohol intoxication of which hyponatremia has been noted with improvement with supportive therapy in the form of IV fluids and fluid resuscitation. He was subsequently given IV fluid boluses in the emergency room and started on maintenance IV fluids with subsequent admission to the hospital. Since his admission, he has been receiving IV fluids with some improvement in his hyponatremia up to 120 millimoles per L from a reading of 118 millimoles per L on presentation. His mentation still seems to be somewhat fluctuating although I am unclear if this is related to his alcohol intake versus his previous hypoglycemic episode. Renal consultation was requested due to his hyponatremia. From review of his records, the patient has a chronic component of hyponatremia probably from his longstanding use/abuse of alcohol. his hyponatremia has been an issue/problems since 2018 with the best sodium level around 131 millimoles per L in that time frame. Throughout his multiple hospitalizations, it would seem that IV fluid fluid resuscitation always seems to improve his sodium level by the time of discharge.
[2022-06-15] MEDS: TAMSULOSIN HCL 0.4 MG CAPSULE PO (11:16)
[2022-06-15] MEDS: LORazepam INJ (*CRX) 2 MG/ML VIAL IV PUSH (11:16)
[2022-06-15 11:18] LABS: Anion Gap 7 mmol/L (8-16); Blood Urea Nitrogen 16 mg/dL (9-20); Calcium 7.6 mg/dL (8.4-10.2); Carbon Dioxide 21 mmol/L (22-30); Chloride 91 mmol/L (98-107); Estimated CRCL calculation 51 ml/min; Estimated Glomerular Filt Rate > 60; Glucose 167 mg/dL (65-110); Potassium 3.5 mmol/L (3.4-5.0); Sodium 119 mmol/L (137-145)
[2022-06-15 12:16] LABS: Glucose Point of Care 168 mg/dl (65-105)
[2022-06-15 13:02] LABS: Creatinine Urine 52.1 mg/dL; Total Protein Urine Random 21 mg/dL; Urea Random Urine 516 MG/DL
[2022-06-15 13:03] LABS: Creatinine Urine 52.7 mg/dL
[2022-06-15 13:10] LABS: Sodium Urine Random 22 meq/L
[2022-06-15 13:51] LABS: Eosinophil Urine None Seen % (None Seen)
[2022-06-15 14:55] LABS: Anion Gap 7 mmol/L (8-16); Blood Urea Nitrogen 15 mg/dL (9-20); Calcium 7.6 mg/dL (8.4-10.2); Carbon Dioxide 22 mmol/L (22-30); Chloride 93 mmol/L (98-107); Estimated CRCL calculation 57 ml/min; Estimated Glomerular Filt Rate > 60; Glucose 105 mg/dL (65-110); Potassium 3.8 mmol/L (3.4-5.0); Sodium 122 mmol/L (137-145)
[2022-06-15 17:19] LABS: Glucose Point of Care 140 mg/dl (65-105)
--- NOTE | 2022-06-15 18:06 | PM.IMPN ---
Progress Note: A&P Assessment and Plan (1) Hypoglycemia: Code(s): E16.2 - Hypoglycemia, unspecified Status: Acute (2) Alcohol intoxication: Qualifiers: Complication of substance-induced condition: with unspecified complication Qualified Code(s): F10.929 - Alcohol use, unspecified with intoxication, unspecified Code(s): F10.929 - Alcohol use, unspecified with intoxication, unspecified Status: Acute (3) Acute hyponatremia: Code(s): E87.1 - Hypo-osmolality and hyponatremia Status: Acute (4) QT prolongation: Code(s): R94.31 - Abnormal electrocardiogram [ECG] [EKG] Status: Acute (5) Alcohol abuse: Code(s): F10.10 - Alcohol abuse, uncomplicated Status: Acute (6) Paroxysmal atrial fibrillation: Code(s): I48.0 - Paroxysmal atrial fibrillation Status: Acute Plan The patient had syncope due to hypoglycemia. Hypoglycemia is likely due to alcohol intoxication and the bleach the patient's glycogen stores chronic alcohol abuse. The patient is cachectic and has severe protein calorie malnutrition. Will change the patient's IV fluids to D5 NS at 100. Patient has severe hyponatremia. Patient received a L of normal saline bolus in the ER. Initially fluids were started 75 mL an hour with NS. Patient's sodium did not change. Subsequently patient has been changed to normal saline with D5 at 100 mL an hour. Patient is having slow and appropriate correction to his sodium. Nephrology has been consulted. Goal is to not correct by more than 10 g sodium in 24 hour period. Will hold the patient's home Lasix. Will continue home spironolactone. The patient has chronic alcoholism. He is actively intoxicated now but will start the patient on Librium to avoid the symptoms of alcohol withdrawal. Ativan has been ordered as needed for CIWA scores greater than 12. Will continue home BusPar will will continue thiamin and folic acid. The patient has QT prolongation on EKG. Will avoid QT prolonging medications with the exception of the patient's amiodarone. Will hold tramadol Patient has been placed on fall precautions. Patient seen by nephrology for the hyponatremia and appreciate their input. Glucose better. Continue IVF with dextrose. Sun in place and FLomax started for retention. Home meds resumed. No evidence of alcohol w/d. Continue thiamine and folate. Add librium prn. QTc prolonged felt related to left BBB (noted in the past as well as IVCD). Repeat EKG in the morning. Subjective Date/time seen: 06/15/22 18:06 Interval history: 57yo male with COPD, pAFib, CHF, and alcohol abuse here for unresponsive episode. No complaints today. No CP or SOSB. No n/v. Eating okay. Exam Narrative: AF 98.5 107/62 80 16 100% ra Gen - thin male NARD sitting up eating Chest - distant BS CV - RRR S1/S2. Tele showing no significant dysrhythmias Abd - Soft, protuberant, +BS - Sun secured draining clear yellow urine Ext - No pedal edema Neuro - Alert and oriented x4. Psych - Nml mood but odd affect Skin - Warm and dry Objective Data Vital Signs Vital Signs: Vital Signs - 24 hr 06/15/22 00:02 06/15/22 00:00 06/15/22 02:00 Temperature 96.9 F L 97.1 F L Pulse Rate 81 80 81 Respiratory Rate 16 16 Blood Pressure 112/69 123/76 Pulse Oximetry 100 98 Oxygen Delivery 06/15/22 03:25 06/15/22 03:27 06/15/22 02:00 Temperature 97.1 F L 97.1 F L Pulse Rate 87 87 Respiratory Rate 16 14 Blood Pressure 119/79 119/79 Pulse Oximetry 98 98 Oxygen Delivery Room Air 06/15/22 04:00 06/15/22 06:00 06/15/22 07:47 Temperature 98.9 F Pulse Rate 84 77 70 Respiratory Rate 18 Blood Pressure 131/73 Pulse Oximetry 100 Oxygen Delivery 06/15/22 08:33 06/15/22 08:00 06/15/22 08:00 Temperature 98.9 F Pulse Rate 80 86 70 Respiratory Rate 18 Blood Pressure 131/73 Pulse Oximetry 100 Oxygen Delivery 06/15/22 12:00 05/24
[2022-06-15 18:56] LABS: Anion Gap 5 mmol/L (8-16); Blood Urea Nitrogen 14 mg/dL (9-20); Calcium 7.4 mg/dL (8.4-10.2); Carbon Dioxide 21 mmol/L (22-30); Chloride 96 mmol/L (98-107); Estimated CRCL calculation 57 ml/min; Estimated Glomerular Filt Rate > 60; Glucose 122 mg/dL (65-110); Potassium 3.6 mmol/L (3.4-5.0); Sodium 122 mmol/L (137-145)
[2022-06-15 20:35] LABS: Glucose Point of Care 146 mg/dl (65-105)
[2022-06-15] MEDS: AMITRIPTYLINE HCL 25 MG TABLET 50 MG PO (20:37)
[2022-06-15] MEDS: ACETAMINOPHEN 325 MG TABLET 650 MG PO (21:56)
[2022-06-15 23:03] LABS: Anion Gap 5 mmol/L (8-16); Blood Urea Nitrogen 13 mg/dL (9-20); Calcium 7.4 mg/dL (8.4-10.2); Carbon Dioxide 22 mmol/L (22-30); Chloride 95 mmol/L (98-107); Estimated CRCL calculation 64 ml/min; Estimated Glomerular Filt Rate > 60; Glucose 129 mg/dL (65-110); Potassium 3.3 mmol/L (3.4-5.0); Sodium 122 mmol/L (137-145)
[2022-06-16] VITALS (12 sets, daily range): BP systolic 100–147; BP diastolic 68–82; PULSE 69–88; RESP 16–20; TEMP 36.1–36.9; O2SAT 96–100
[2022-06-16 05:03] LABS: Hematocrit 27.6 % (42.0-52.0); Mean Corpuscular HGB Conc 32.6 g/dl (32-36); Mean Corpuscular Hemoglobin 30.4 pg (26-34); Mean Corpuscular Volume 93.2 fl (80-100); Mean Platelet Volume 8.8 fl (7.4-10.4); Platelet Count Result 133 k/mm3 (150-375); Red Blood Count 2.96 M/mm3 (4.6-6.20); Red Cell Distribution Width 14.7 % (11.5-14.5); White Blood Count 6.2 K/mm3 (4.5-10.0)
[2022-06-16 05:17] LABS: Alanine Aminotransferase 63 U/L (6-50); Albumin Level 2.5 g/dL (3.5-5.1); Alkaline Phosphatase 73 U/L (38-126); Anion Gap 3 mmol/L (8-16); Aspartate Amino Transferase 76 U/L (17-59); Bilirubin,Total 0.4 mg/dL (0.2-1.3); Blood Urea Nitrogen 12 mg/dL (9-20); Calcium 7.5 mg/dL (8.4-10.2); Carbon Dioxide 22 mmol/L (22-30); Chloride 103 mmol/L (98-107); Estimated CRCL calculation 57 ml/min; Estimated Glomerular Filt Rate > 60; Glucose 119 mg/dL (65-110); Magnesium 1.4 mg/dL (1.6-2.3); Phosphorus 2.2 mg/dL (2.5-4.5); Potassium 3.4 mmol/L (3.4-5.0); Sodium 128 mmol/L (137-145)
[2022-06-16] MEDS: chlordiazePOXIDE (*CRX) 25 MG CAPSULE PO (06:32)
[2022-06-16] MEDS: LEVOTHYROXINE SODIUM 50 MCG TABLET PO (06:49)
[2022-06-16 07:53] LABS: Free T4 Free Thyroxine Reflex 1.73 ng/dL (0.78-2.19)
[2022-06-16 07:59] LABS: Glucose Point of Care 142 mg/dl (65-105)
--- NOTE | 2022-06-16 08:00 | ECG_ITS ---
Measurements Intervals [place] Rate: 72 P: -58 MN: 159 QRS: -39 QRSD: 142 T: 100 QT: 360 QTc: 395 Interpretive Statements SINUS RHYTHM LEFT AXIS DEVIATION IVCD, CONSIDER ATYPICAL LBBB BASELINE ARTIFACT- I, III, V3-V4 ABNORMAL ECG COMPARED TO ECG 06/14/2022 19:21:25 NO SIGNIFICANT CHANGES Electronically Signed On 06-16-2022 11:54:17 [employer] by Sarmad Valenzuela D.O.
[2022-06-16 08:35] LABS: Total Triiodothyronine (T3) 0.54 NG/ML (0.97-1.69)
--- NOTE | 2022-06-16 08:41 | PM.IMPN ---
Progress Note: A&P Assessment and Plan (1) Hypoglycemia: Code(s): E16.2 - Hypoglycemia, unspecified Status: Acute Assessment and Plan: Resolved, continue to monitor (2) Alcohol intoxication: Qualifiers: Complication of substance-induced condition: with unspecified complication Qualified Code(s): F10.929 - Alcohol use, unspecified with intoxication, unspecified Code(s): F10.929 - Alcohol use, unspecified with intoxication, unspecified Status: Acute Assessment and Plan: Last CIWA score was 4 Will discontinue scheduled Librium today, continue p.r.n. dosing, monitor CIWA scores Continue thiamine and folate with D5 infusion (3) Acute hyponatremia: Code(s): E87.1 - Hypo-osmolality and hyponatremia Status: Acute Assessment and Plan: Sodium improved to 128 from 122 yesterday, continue to monitor Appreciate nephrology consultation, continue spironolactone, continue to hold Lasix (4) QT prolongation: Code(s): R94.31 - Abnormal electrocardiogram [ECG] [EKG] Status: Acute Assessment and Plan: Recheck EKG pending (5) Alcohol abuse: Code(s): F10.10 - Alcohol abuse, uncomplicated Status: Acute Assessment and Plan: As above (6) Paroxysmal atrial fibrillation: Code(s): I48.0 - Paroxysmal atrial fibrillation Status: Acute Assessment and Plan: Currently in sinus rhythm (7) Urinary retention: Code(s): R33.9 - Retention of urine, unspecified Status: Acute Assessment and Plan: Sun in place for now, continue Flomax (8) Hypothyroidism: Code(s): E03.9 - Hypothyroidism, unspecified Status: Acute Assessment and Plan: TSH 0.2, check T4, hold levothyroxine (9) Anemia: Code(s): D64.9 - Anemia, unspecified Status: Acute Assessment and Plan: multifactorial, stable, monitor Check B12, folate, iron studies (10) Thrombocytopenia: Code(s): D69.6 - Thrombocytopenia, unspecified Status: Acute Assessment and Plan: Suspect this is secondary to alcoholic liver disease, monitor Plan DVT prophylaxis with Eliquis GI prophylaxis with PPI Code status full code Subjective Date/time seen: 06/16/22 08:41 Interval history: 57yo male with COPD, pAFib, CHF, and alcohol abuse here for unresponsive episode. Patient was snoring, difficult to arouse. He denied any complaints, no overnight events noted. No chest pain or shortness of breath. No nausea, vomiting or diarrhea. No fevers or chills. Review of Systems Review of Systems: 12 point review of systems was assessed and was negative except as noted in the HPI Exam Narrative: General: No acute distress, somnolent HEENT: Atraumatic, normocephalic, mucous membranes moist CV: Regular rate and rhythm, S1, S2 Lungs: Clear to auscultation bilaterally, no rales or crackles noted, no wheezes, good air entry Abdomen: Soft, nontender, nondistended Extremities: Normal to inspection, scattered small, circular areas of bruising and scabbing noted on upper extremities which appears to be the sequelae from skin picking Skin: No rashes noted, no lesions or wounds seen Psych: Unable to assess secondary to lethargy Objective Data Vital Signs Vital Signs: Vital Signs - 24 hr 06/15/22 12:00 06/15/22 16:00 06/15/22 10:00 Temperature 98.8 F 98.5 F Pulse Rate 79 80 68 Respiratory Rate 16 16 Blood Pressure 100/66 107/62 Pulse Oximetry 98 100 Oxygen Delivery 06/15/22 12:00 06/15/22 14:00 06/15/22 16:00 Temperature Pulse Rate 73 76 81 Respiratory Rate Blood Pressure Pulse Oximetry Oxygen Delivery 06/15/22 18:00 06/15/22 20:00 06/15/22 20:00 Temperature 97.2 F L Pulse Rate 70 73 Respiratory Rate 18 Blood Pressure 120/76 Pulse Oximetry 100 Oxygen Delivery Room Air 06/15/22 20:00 06/16/22 00:00 06/16/22 00:00 Temperature 97.2 F L 9
--- NOTE | 2022-06-16 09:32 | PM.PNNEP ---
Progress Note: A&P Assessment and Plan (1) Hyponatremia: Code(s): E87.1 - Hypo-osmolality and hyponatremia Status: Acute Assessment and Plan: acute on chronic likely related to volume depletion and excessive alcohol intake improvement in sodium noted with normal saline IVFs goal of therapy is a rate of change of 6 - 8mmol/L in 24 hours -- this had been acheived urine electrolytes prerenal TSH and cortisol olay SPEP/UPEP pending follow trend of serial sodium levels (2) Hypoglycemia: Code(s): E16.2 - Hypoglycemia, unspecified Status: Acute Assessment and Plan: due to poor oral intake was on dextrose IVFs eating okay -- follow blood sugards (3) Alcohol intoxication: Qualifiers: Complication of substance-induced condition: with unspecified complication Qualified Code(s): F10.929 - Alcohol use, unspecified with intoxication, unspecified Code(s): F10.929 - Alcohol use, unspecified with intoxication, unspecified Status: Acute Assessment and Plan: long standing issue/problem monitor for withdrawal thiamine and folate Will continue to follow. Subjective Date/time seen: 06/16/22 09:32 Sleeping soundly when seen and difficult to arouse despite significant stimulation; sodium has improved with IVF resuscitation; no apparent distress noted; no issues overnight. Exam Narrative: General: male sleeping comfortably who appears older than stated age Heart: normal S1 and S2; no rub Lungs: clear to auscultation Abdomen: soft, nontender, nondistended, positive bowel sounds Extremities: no cyanosis or clubbing; no edema Skin: multiple bruises/excoriations noted Objective Data Vital Signs Vital Signs: Vital Signs Temp Pulse Resp BP Pulse Ox O2 Del Method 06/16/22 08:00 97.6 F 87 20 147/77 H 96 06/16/22 08:00 97.0 F L 84 16 121/82 100 06/16/22 06:00 73 06/16/22 04:00 75 06/16/22 04:00 97.1 F L 70 18 146/81 H 100 06/16/22 04:00 Room Air 06/16/22 02:00 69 06/16/22 00:00 75 06/15/22 22:00 83 06/15/22 20:00 79 06/16/22 00:00 Room Air 06/16/22 00:00 97.6 F 71 20 111/70 100 06/15/22 20:00 97.2 F L 73 18 120/76 100 06/15/22 20:00 Room Air 06/15/22 20:00 97.2 F L 73 18 120/76 100 06/15/22 18:00 70 06/15/22 16:00 81 06/15/22 14:00 76 06/15/22 12:00 73 06/15/22 10:00 68 06/15/22 16:00 98.5 F 80 16 107/62 100 06/15/22 12:00 98.8 F 79 16 100/66 98 Intake/Output Intake/Output: Intake & Output 06/13/22 06/14/22 06/15/22 06/16/22 23:59 23:59 23:59 23:59 Intake Total 1000 1820 640 Output Total 1000 600 Balance 1000 820 40 Meds/Results Medications: Active Medications Generic Name Dose Route Start Last Admin Trade Name Freq PRN Reason Stop Dose Admin Amiodarone HCl 200 mg 06/15/22 08:00 06/15/22 08:33 Amiodarone Hcl 200 Mg Tablet PO 200 mg DAILY@0800 HEENA Administration Amitriptyline HCl 50 mg 06/15/22 21:00 06/15/22 20:37 Amitriptyline Hcl 25 Mg Tablet PO 50 mg HS HEENA Administration Apixaban 2.5 mg 06/15/22 09:00 06/15/22 20:38 Apixaban 2.5 Mg Tablet PO 2.5 mg Q12HR HEENA Administration Atorvastatin Calcium 40 mg 06/15/22 09:00 06/15/22 08:32 Atorvastatin 40 Mg Tablet PO 40 mg DAILY HEENA Administration Buspirone HCl 5 mg 06/15/22 09:00 06/15/22 20:38 Buspirone Hcl 5 Mg Tablet PO 5 mg Q12HR HEENA Administration Chlordiazepoxide HCl 25 mg 06/15/22 06:00 06/16/22 06:32 Chlordiazepoxide (*Crx) 25 Mg Capsule PO 25 mg Q8HR HEENA Administration Chlordiazepoxide HCl 25 mg 06/15/22 19:11 Chlordiazepoxide (*Crx) 25 Mg Capsule PO Q6H PRN Withdrawal with CIWA 10-15 Dextrose 12.5 gm 06/15/22 04:20 Dextrose 50% 25 Gm/50 Ml Syringe IV PUSH PRN PRN Hypoglycemia Protocol
[2022-06-16] MEDS: PANTOPRAZOLE 40 MG TABLET PO (09:50)
[2022-06-16] MEDS: APIXABAN 2.5 MG TABLET PO ×2 (09:50→20:24)
[2022-06-16] MEDS: busPIRone HCL 5 MG TABLET PO ×2 (09:50→20:24)
[2022-06-16] MEDS: THIAMINE HCL 100 MG TABLET 500 MG PO (09:50)
[2022-06-16] MEDS: MIDODRINE HCL 2.5 MG TABLET PO ×3 (09:50→17:40)
[2022-06-16] MEDS: TAMSULOSIN HCL 0.4 MG CAPSULE PO (09:50)
[2022-06-16] MEDS: ATORVASTATIN 40 MG TABLET PO (09:50)
[2022-06-16] MEDS: FOLIC ACID 1 MG TABLET PO (09:50)
[2022-06-16] MEDS: AMIODARONE HCL 200 MG TABLET PO (09:50)
[2022-06-16 11:36] LABS: Glucose Point of Care 210 mg/dl (65-105)
[2022-06-16 12:02] LABS: Hemoglobin A1C 4.3 % (<5.7)
[2022-06-16] MEDS: SODIUM CHLORIDE 0.9% IV 1,000 ML 75 ML IV CONT (14:17)
[2022-06-16 16:36] LABS: Glucose Point of Care 100 mg/dl (65-105)
[2022-06-16 19:40] LABS: Glucose Point of Care 127 mg/dl (65-105)
[2022-06-16] MEDS: AMITRIPTYLINE HCL 25 MG TABLET 50 MG PO (20:24)
[2022-06-17] VITALS (13 sets, daily range): BP systolic 101–115; BP diastolic 65–72; PULSE 73–96; RESP 16–24; TEMP 36.5–37.1; O2SAT 95–100
[2022-06-17] MEDS: SODIUM CHLORIDE 0.9% IV 1,000 ML 75 ML IV CONT ×2 (03:07→12:04)
[2022-06-17 05:00] LABS: Basophils Percent Auto 0.4 % (0.2-1.2); Eosinophils Absolute Auto 0.1 K/mm3 (0-0.3); Eosinophils Percent Auto 0.9 % (0-4.4); Hematocrit 26.4 % (42.0-52.0); Hemoglobin 8.3 g/dL (14.0-18.0); Immature Granulocyte Absolute 0.02 K/mm3 (0.00-0.031); Immature Granulocyte Percent A 0.4 % (0-0.5); Lymphocytes Absolute Auto 0.65 K/mm3 (0.9-3.2); Lymphocytes Percent Auto 12.3 % (18.3-44.2); Mean Corpuscular HGB Conc 31.4 g/dl (32-36); Mean Corpuscular Hemoglobin 30.9 pg (26-34); Mean Corpuscular Volume 98.1 fl (80-100); Mean Platelet Volume 9.2 fl (7.4-10.4); Monocytes Absolute Auto 0.3 K/mm3 (0.1-0.6); Neutrophils Absolute Auto 4.2 K/mm3 (1.3-6.7); Platelet Count Result 118 k/mm3 (150-375); Red Blood Count 2.69 M/mm3 (4.6-6.20); Red Cell Distribution Width 15.6 % (11.5-14.5); White Blood Count 5.3 K/mm3 (4.5-10.0)
[2022-06-17 05:14] LABS: Alanine Aminotransferase 45 U/L (6-50); Albumin Level 2.1 g/dL (3.5-5.1); Alkaline Phosphatase 60 U/L (38-126); Anion Gap 2 mmol/L (8-16); Aspartate Amino Transferase 45 U/L (17-59); Bilirubin,Total 0.3 mg/dL (0.2-1.3); Blood Urea Nitrogen 15 mg/dL (9-20); Calcium 7.4 mg/dL (8.4-10.2); Carbon Dioxide 21 mmol/L (22-30); Chloride 107 mmol/L (98-107); Estimated CRCL calculation 43 ml/min; Estimated Glomerular Filt Rate > 60; Glucose 90 mg/dL (65-110); Potassium 3.5 mmol/L (3.4-5.0); Sodium 130 mmol/L (137-145)
[2022-06-17 06:06] LABS: Iron 28 ug/dL (49-181)
[2022-06-17 06:15] LABS: Percent Iron Saturation 15 % (20-50)
[2022-06-17 06:17] LABS: Folic Acid 10.4 ng/mL (2.76->20)
[2022-06-17 07:35] LABS: Glucose Point of Care 93 mg/dl (65-105)
[2022-06-17] MEDS: FOLIC ACID 1 MG TABLET PO (08:11)
[2022-06-17] MEDS: TAMSULOSIN HCL 0.4 MG CAPSULE PO (08:11)
[2022-06-17] MEDS: PANTOPRAZOLE 40 MG TABLET PO (08:12)
[2022-06-17] MEDS: THIAMINE HCL 100 MG TABLET 500 MG PO (08:12)
[2022-06-17] MEDS: AMIODARONE HCL 200 MG TABLET PO (08:12)
[2022-06-17] MEDS: MIDODRINE HCL 2.5 MG TABLET PO ×3 (08:12→16:29)
[2022-06-17] MEDS: busPIRone HCL 5 MG TABLET PO ×2 (08:12→20:37)
[2022-06-17] MEDS: APIXABAN 2.5 MG TABLET PO ×2 (08:12→20:37)
[2022-06-17] MEDS: ATORVASTATIN 40 MG TABLET PO (08:12)
--- NOTE | 2022-06-17 09:47 | PM.IMPN ---
Progress Note: A&P Assessment and Plan (1) Alcohol intoxication: Qualifiers: Complication of substance-induced condition: with unspecified complication Qualified Code(s): F10.929 - Alcohol use, unspecified with intoxication, unspecified Code(s): F10.929 - Alcohol use, unspecified with intoxication, unspecified Status: Acute Assessment and Plan: CIWA still 4 off scheduled librium, no prn ativan or librium given Discontinue IV fluids, start with iron (2) Hypoglycemia: Code(s): E16.2 - Hypoglycemia, unspecified Status: Acute Assessment and Plan: Resolved, continue to monitor (3) Acute hyponatremia: Code(s): E87.1 - Hypo-osmolality and hyponatremia Status: Acute Assessment and Plan: Sodium cont to improve, up to 130 today Appreciate nephrology consultation, continue spironolactone, continue to hold Lasix (4) QT prolongation: Code(s): R94.31 - Abnormal electrocardiogram [ECG] [EKG] Status: Acute Assessment and Plan: QT prolongation resolved on repeat ECG (5) Alcohol abuse: Code(s): F10.10 - Alcohol abuse, uncomplicated Status: Acute Assessment and Plan: As above (6) Paroxysmal atrial fibrillation: Code(s): I48.0 - Paroxysmal atrial fibrillation Status: Acute Assessment and Plan: Currently in sinus rhythm (7) Urinary retention: Code(s): R33.9 - Retention of urine, unspecified Status: Acute Assessment and Plan: Sun in place for now, continue Flomax (8) Hypothyroidism: Code(s): E03.9 - Hypothyroidism, unspecified Status: Acute Assessment and Plan: TSH 0.2, FT4 WNL, ok to restart levothyroxine 50 mcg daily, follow up outpatient TSH + FT4 (9) Anemia: Code(s): D64.9 - Anemia, unspecified Status: Acute Assessment and Plan: Multifactorial, stable, monitor Iron studies quite low, check FOBT, will initiate venofer infusions B12 and folate WNL (10) Thrombocytopenia: Code(s): D69.6 - Thrombocytopenia, unspecified Status: Acute Assessment and Plan: Suspect this is secondary to alcoholic liver disease, dropped slightly today, down to 118 from 133, monitor Plan DVT prophylaxis with Eliquis GI prophylaxis with PPI Code status full code Subjective Date/time seen: 06/17/22 09:47 Interval history: 57yo male with COPD, pAFib, CHF, and alcohol abuse here for unresponsive episode. No overnight events noted. No chest pain or shortness of breath. No nausea, vomiting or diarrhea. No fevers or chills. Patient's is in the room, they state the patient looks much better. Patient is concerned about the scabbing and bruising on his skin and admits to picking at it. Patient and educated that this is from his low platelets which is secondary to his alcoholic liver disease. Review of Systems Review of Systems: 12 point review of systems was assessed and was negative except as noted in the HPI Exam Narrative: General: No acute distress, alert and oriented per baseline HEENT: Atraumatic, normocephalic, mucous membranes moist CV: Regular rate and rhythm, S1, S2 Lungs: Clear to auscultation bilaterally, no rales or crackles noted, no wheezes, good air entry Abdomen: Soft, nontender, nondistended Extremities: Normal to inspection, scattered small, circular areas of bruising and scabbing noted on upper extremities which appears to be the sequelae from skin picking Psych: Somewhat slowed cognition, euthymic, appropriate affect Objective Data Vital Signs Vital Signs: Vital Signs - 24 hr 06/16/22 10:35 06/16/22 10:49 06/16/22 10:00 Temperature Pulse Rate 84 Respiratory Rate Blood Pressure Pulse Oximetry Oxygen Delivery Room Air Room Air 06/16/22 12:00 06/16/22 12:00 06/16/22 12:00 Temperature 97.6 F Pulse Rate 79 84 Respiratory Rate 20 Blood Pressure 116/77
[2022-06-17] MEDS: IRON SUCROSE COMPLEX 500 MG in SODIUM CHLORIDE 0.9% IV 250 ML 78.57 MG IVPB (11:09)
[2022-06-17 11:36] LABS: Glucose Point of Care 112 mg/dl (65-105)
[2022-06-17] MEDS: MULTIVIT/MIN/PREN/FOL AC/IRON TABLET 1 TAB PO (12:02)
--- NOTE | 2022-06-17 12:33 | PM.PNNEP ---
Progress Note: A&P Assessment and Plan (1) Hyponatremia: Code(s): E87.1 - Hypo-osmolality and hyponatremia Status: Acute Assessment and Plan: acute on chronic likely related to volume depletion and excessive alcohol intake improvement in sodium noted with normal saline IVFs goal of therapy is a rate of change of 6 - 8mmol/L in 24 hours -- this has been achieved urine electrolytes prerenal TSH and cortisol okay SPEP/UPEP pending follow trend of serial sodium levels (2) Hypoglycemia: Code(s): E16.2 - Hypoglycemia, unspecified Status: Acute Assessment and Plan: due to poor oral intake was on dextrose IVFs eating okay -- follow blood sugards (3) Alcohol intoxication: Qualifiers: Complication of substance-induced condition: with unspecified complication Qualified Code(s): F10.929 - Alcohol use, unspecified with intoxication, unspecified Code(s): F10.929 - Alcohol use, unspecified with intoxication, unspecified Status: Acute Assessment and Plan: long standing issue/problem monitor for withdrawal thiamine and folate Will continue to follow. Subjective Date/time seen: 06/17/22 12:33 No new issues or problems voiced at this time; slow and steady improvement in overall condition since hospital admission; no other events overnight or earlier this morning. Exam Narrative: General: male who appears older than stated age Heart: normal S1 and S2; no rub Lungs: clear to auscultation Abdomen: soft, nontender, nondistended, positive bowel sounds Extremities: no cyanosis or clubbing; no edema Skin: multiple bruises/excoriations present Objective Data Vital Signs Vital Signs: Vital Signs Temp Pulse Resp BP Pulse Ox O2 Del Method 06/17/22 12:00 98.7 F 80 24 H 111/71 100 06/17/22 12:00 85 06/17/22 10:00 78 06/17/22 08:00 86 06/17/22 08:00 97.7 F 76 24 H 101/65 100 06/17/22 06:00 85 06/17/22 04:00 97.7 F 77 16 115/72 99 06/17/22 04:00 Room Air 06/17/22 04:00 73 06/17/22 02:00 79 06/17/22 00:00 79 16 100 Room Air 06/17/22 00:00 79 06/16/22 23:29 97.8 F 79 16 122/76 100 06/16/22 22:00 78 06/16/22 20:00 Room Air 06/16/22 20:00 84 06/16/22 20:00 97.7 F 83 18 100/68 98 06/16/22 16:00 98.5 F 84 20 110/69 99 06/16/22 16:00 82 06/16/22 16:00 96 Room Air 06/16/22 14:00 88 Intake/Output Intake/Output: Intake & Output 06/14/22 06/15/22 06/16/22 06/17/22 23:59 23:59 23:59 23:59 Intake Total 1000 1820 1230 2870 Output Total 1000 1050 550 Balance 1000 315 062 2121 Meds/Results Medications: Active Medications Generic Name Dose Route Start Last Admin Trade Name Freq PRN Reason Stop Dose Admin Amiodarone HCl 200 mg 06/15/22 08:00 06/17/22 08:12 Amiodarone Hcl 200 Mg Tablet PO 200 mg DAILY@0800 HEENA Administration Amitriptyline HCl 50 mg 06/15/22 21:00 06/16/22 20:24 Amitriptyline Hcl 25 Mg Tablet PO 50 mg HS HEENA Administration Apixaban 2.5 mg 06/15/22 09:00 06/17/22 08:12 Apixaban 2.5 Mg Tablet PO 2.5 mg Q12HR HEENA Administration Atorvastatin Calcium 40 mg 06/15/22 09:00 06/17/22 08:12 Atorvastatin 40 Mg Tablet PO 40 mg DAILY HEENA Administration Buspirone HCl 5 mg 06/15/22 09:00 06/17/22 08:12 Buspirone Hcl 5 Mg Tablet PO 5 mg Q12HR HEENA Administration Chlordiazepoxide HCl 25 mg 06/15/22 19:11 Chlordiazepoxide (*Crx) 25 Mg Capsule PO Q6H PRN Withdrawal with CIWA 10-15 Dextrose 12.5 gm 06/15/22 04:20 Dextrose 50% 25 Gm/50 Ml Syringe IV PUSH PRN PRN Hypoglycemia Protocol Folic Acid 1 mg 06/15/22 09:00 06/17/22 08:11 Folic Acid 1 Mg Tablet PO 1 mg DAILY HEENA Administration Glucagon 1 mg 06/15/22 04:20 Glucagon For Inj 1 Mg Vial IM PRN PRN Hypogly
[2022-06-17 15:24] LABS: Osmolality, Urine 376 mOsm/kg (50-1200)
[2022-06-17 15:46] LABS: Glucose Point of Care 98 mg/dl (65-105)
[2022-06-17 17:32] LABS: Glucose Point of Care 99 mg/dl (65-105)
[2022-06-17 20:21] LABS: Glucose Point of Care 120 mg/dl (65-105)
[2022-06-17] MEDS: AMITRIPTYLINE HCL 25 MG TABLET 50 MG PO (20:37)
[2022-06-17] MEDS: ACETAMINOPHEN 325 MG TABLET 650 MG PO (20:37)
[2022-06-18] VITALS (10 sets, daily range): BP systolic 109–115; BP diastolic 65–72; PULSE 70–93; RESP 16–20; TEMP 36.3–36.6; O2SAT 97–100
[2022-06-18] MEDS: SODIUM CHLORIDE 0.9% IV 1,000 ML 75 ML IV CONT (04:10)
[2022-06-18 05:14] LABS: Basophils Percent Auto 0.2 % (0.2-1.2); Eosinophils Absolute Auto 0.1 K/mm3 (0-0.3); Eosinophils Percent Auto 1.5 % (0-4.4); Hematocrit 26.4 % (42.0-52.0); Hemoglobin 8.3 g/dL (14.0-18.0); Immature Granulocyte Absolute 0.06 K/mm3 (0.00-0.031); Immature Granulocyte Percent A 1.2 % (0-0.5); Lymphocytes Absolute Auto 0.57 K/mm3 (0.9-3.2); Lymphocytes Percent Auto 11.8 % (18.3-44.2); Mean Corpuscular HGB Conc 31.4 g/dl (32-36); Mean Corpuscular Volume 98.5 fl (80-100); Mean Platelet Volume 9.5 fl (7.4-10.4); Monocytes Absolute Auto 0.3 K/mm3 (0.1-0.6); Monocytes Percent Auto 6.8 % (2.6-8.5); Neutrophils Absolute Auto 3.8 K/mm3 (1.3-6.7); Neutrophils Percent Auto 78.5 % (45.5-73.1); Platelet Count Result 108 k/mm3 (150-375); Red Blood Count 2.68 M/mm3 (4.6-6.20); Red Cell Distribution Width 15.9 % (11.5-14.5); White Blood Count 4.8 K/mm3 (4.5-10.0)
[2022-06-18 05:27] LABS: Alanine Aminotransferase 33 U/L (6-50); Albumin Level 2.2 g/dL (3.5-5.1); Alkaline Phosphatase 64 U/L (38-126); Anion Gap 1 mmol/L (8-16); Aspartate Amino Transferase 29 U/L (17-59); Bilirubin,Total 0.2 mg/dL (0.2-1.3); Blood Urea Nitrogen 14 mg/dL (9-20); Calcium 7.5 mg/dL (8.4-10.2); Carbon Dioxide 22 mmol/L (22-30); Chloride 107 mmol/L (98-107); Estimated CRCL calculation 77 ml/min; Estimated Glomerular Filt Rate > 60; Glucose 77 mg/dL (65-110); Potassium 3.3 mmol/L (3.4-5.0); Sodium 130 mmol/L (137-145)
[2022-06-18 07:50] LABS: Glucose Point of Care 100 mg/dl (65-105)
[2022-06-18] MEDS: busPIRone HCL 5 MG TABLET PO (08:36)
[2022-06-18] MEDS: TAMSULOSIN HCL 0.4 MG CAPSULE PO (08:36)
[2022-06-18] MEDS: ATORVASTATIN 40 MG TABLET PO (08:36)
[2022-06-18] MEDS: APIXABAN 2.5 MG TABLET PO (08:36)
[2022-06-18] MEDS: PANTOPRAZOLE 40 MG TABLET PO (08:36)
[2022-06-18] MEDS: AMIODARONE HCL 200 MG TABLET PO (08:36)
[2022-06-18] MEDS: THIAMINE HCL 100 MG TABLET 500 MG PO (08:37)
[2022-06-18] MEDS: MIDODRINE HCL 2.5 MG TABLET PO ×2 (08:37→12:54)
[2022-06-18] MEDS: FOLIC ACID 1 MG TABLET PO (08:38)
[2022-06-18] MEDS: IRON SUCROSE COMPLEX 500 MG in SODIUM CHLORIDE 0.9% IV 250 ML 78.57 MG IVPB (08:54)
--- NOTE | 2022-06-18 09:07 | PM.DS ---
DS: Admitting Diagnosis Discharge Date 06/18/22 Admitting Diagnosis unresponsive episode DS: Discharge Diagnosis Discharge Diagnosis (1) Alcohol intoxication: Qualifiers: Complication of substance-induced condition: with unspecified complication Qualified Code(s): F10.929 - Alcohol use, unspecified with intoxication, unspecified Code(s): F10.929 - Alcohol use, unspecified with intoxication, unspecified Status: Acute (2) Hypoglycemia: Code(s): E16.2 - Hypoglycemia, unspecified Status: Acute (3) Acute hyponatremia: Code(s): E87.1 - Hypo-osmolality and hyponatremia Status: Acute (4) QT prolongation: Code(s): R94.31 - Abnormal electrocardiogram [ECG] [EKG] Status: Acute (5) Alcohol abuse: Code(s): F10.10 - Alcohol abuse, uncomplicated Status: Acute (6) Paroxysmal atrial fibrillation: Code(s): I48.0 - Paroxysmal atrial fibrillation Status: Acute (7) Urinary retention: Code(s): R33.9 - Retention of urine, unspecified Status: Acute (8) Hypothyroidism: Code(s): E03.9 - Hypothyroidism, unspecified Status: Acute (9) Anemia: Code(s): D64.9 - Anemia, unspecified Status: Acute (10) Thrombocytopenia: Code(s): D69.6 - Thrombocytopenia, unspecified Status: Acute DS: Summary Hospital Course Hospital Course: 57-year-old male with a extensive history of alcohol abuse, combination ischemic and alcoholic cardiomyopathy, systolic heart failure, paroxysmal atrial fibrillation on chronic anticoagulation who presented to the ER with an unresponsive episode.? The patient received thiamin and was started on D10.? Repeat blood sugar was in the 120s.? He regained consciousness after administration of glucose.? A bales was placed due to urinaryu retention. Patient was admitted with librium and CIWAs monitored. Thiamine, folate and D5 was administered. Patient's symptoms resolved. He was noted to have chronic hyponatremia, thrombocytopenia and other sequelae of chronic alcohol abuse and liver disease. His symptoms stabilized off libirum. Bales was pulled, voiding trial was successful. Outpatient resources were given to the patient for his alcohol abuse. Education provided to and patient regarding importance of quitting alcohol. All questions answered. Patient was discharged in stable condition with close outpatient follow up and repeat labs in 1 week. He did have some swelling and mild erythem to RUE around IV site. IV was removed, iced, and elevated. No infection noted. Time Spent with Patient Time attestation: Total time spent providing and/or coordinating discharge services: Exam Narrative: General: No acute distress, alert and oriented per baseline HEENT: Atraumatic, normocephalic, mucous membranes moist CV: Regular rate and rhythm, S1, S2 Lungs: Clear to auscultation bilaterally, no rales or crackles noted, no wheezes, good air entry Abdomen: Soft, nontender, nondistended Extremities: Normal to inspection, scattered small, circular areas of bruising and scabbing noted on upper extremities which appears to be the sequelae from skin picking Psych: Somewhat slowed cognition, euthymic, appropriate affect DS: Data Data Completed and Pending Labs on day of discharge: Labs from last 24 hours 06/18/22 06/18/22 06/18/22 07:43 04:41 04:41 WBC 4.8 RBC 2.68 L Hgb 8.3 L Hct 26.4 L MCV 98.5 MCH 31.0 MCHC 31.4 L RDW 15.9 H Plt Count 108 L MPV 9.5 Immature Gran % (Auto) 1.2 H Neut % (Auto) 78.5 H Lymph % (Auto) 11.8 L [place] % (Auto) 6.8 Eos % (Auto) 1.5 Baso % (Auto) 0.2 Lymph # (Auto) 0.57 L [place] # (Auto) 0.3 Eos # (Auto) 0.1 Baso # (Auto) 0.0 Abs Immat Gran (auto) 0.06 H Absolute Neuts (auto) 3.8 Absolute Nucleated RBC 0.0 Nucleated RBC % 0.0 Sodium 130 L Potassium 3.3 L Chloride 107 Carbon Di
[2022-06-18] MEDS: POTASSIUM CHLORIDE 20 MEQ TABLET 40 MEQ PO (10:31)
[2022-06-18 11:53] LABS: Glucose Point of Care 126 mg/dl (65-105)
[2022-06-18] MEDS: MULTIVIT/MIN/PREN/FOL AC/IRON TABLET 1 TAB PO (12:54)
[2022-06-18 18:27] LABS: Chloride Rand Ur 23 mmol/L (32-290); Chloride/Creatinine Rand Ur 64 (23-275); Creatinine Random Urine 36 mg/dL (20-320)
[2022-06-18 19:06] LABS: Kappa\\Lambda Light Chains 0.68 (0.26-1.65); Lambda Light Chain 45.6 mg/L (5.7-26.3)
[2022-06-18 20:12] LABS: Albumin 2.5 g/dL (3.8-4.8); Alpha 1 Globulin 0.4 g/dL (0.2-0.3); Alpha 2 Globulin 0.6 g/dL (0.5-0.9); Beta 1 Globulin 0.3 g/dL (0.4-0.6); Gamma Globulin 0.4 g/dL (0.8-1.7); Protein, Total 4.4 g/dL (6.1-8.1)
[2022-06-20 20:07] LABS: Creatinine, Random Urine 53 mg/dL (20-320); Total Protein/Creatinine Ratio 340 mg/g creat (25-148)
== END 2022-06-18 15:17 | disposition home health service (06) | DRG 640 ==
LOC: ANHED 19:17 → ANHIMU 23:42
PROVIDERS: Internal Medicine Nephrology; Admitting Provider Internal Medicine; Emergency Provider Preventive Medicine Aerospace Medicine; PCP Family Medicine; Visit Provider Student in an Organized Health Care Education/Training Program
DX: E16.2 Hypoglycemia, unspecified (principal); E43 Unspecified severe protein-calorie malnutrition; I42.6 Alcoholic cardiomyopathy; E87.1 Hypo-osmolality and hyponatremia; I50.22 Chronic systolic (congestive) heart failure; Z68.1 Body mass index [BMI] 19.9 or less, adult; F10.229 Alcohol dependence with intoxication, unspecified; S01.01XA Laceration without foreign body of scalp, initial encounter; I25.10 Atherosclerotic heart disease of native coronary artery without angina pectoris; D69.6 Thrombocytopenia, unspecified; E78.2 Mixed hyperlipidemia; F17.290 Nicotine dependence, other tobacco product, uncomplicated; F42.4 Excoriation (skin-picking) disorder; I25.2 Old myocardial infarction; I48.0 Paroxysmal atrial fibrillation; J44.9 Chronic obstructive pulmonary disease, unspecified; K21.9 Gastro-esophageal reflux disease without esophagitis; N40.1 Benign prostatic hyperplasia with lower urinary tract symptoms; R33.8 Other retention of urine; R94.31 Abnormal electrocardiogram [ECG] [EKG]; Y90.6 Blood alcohol level of 120-199 mg/100 ml; Z79.01 Long term (current) use of anticoagulants
CPT/HCPCS: 12001; 36415; 70450; 80048; 80053; 80307; 81001; 81050; 82436; 82533; 82570; 82607; 82728; 82746; 82948; 83036; 83540; 83550; 83735; 83883; 83930; 83935; 84100; 84155; 84156; 84165; 84166; 84300; 84439; 84443; 84480; 84540; 85025; 85027; 85999; 93005; 96361; 96374; 96375; 97161; 97165; 99285; A9270; G0378; J1756; J2060; J3411; J7030; J7042; J7050

== ENCOUNTER 2022-07-10 20:42 | Emergency (ER) | payer MEDICARE, SELFPAY ==
--- NOTE | ~2022-07-10 | XR_ITS ---
EXAMINATION: XR chest 1V portable Exam Date/Time: 07/10/2022 21:20 LOADER MACHINE HISTORY: COPD/CHF Comparison: 12/09/2021. RESULT: Lines, tubes, and devices: None. Lungs and pleura: Ill-defined patchy reticular and groundglass opacities. Possible emphysematous [place] nge. Cardiomediastinal silhouette: Stable. Other: No acute osseous or upper abdominal finding. IMPRESSION: Pulmonary opacities may reflect edema or infection, in the appropriate clinical context. Reviewed, dictated and finalized at location K. ER MACHINE
--- NOTE | ~2022-07-10 | CT_ITS ---
EXAMINATION: CT cervical spine wo con DATE: 07/10/2022 21:27 INDICATION: Fall on thinners TECHNIQUE: Computed tomography (CT) of the cervical spine was performed without intravenous contrast. Automated exposure control and iterative reconstruction technique were employed. The dose-length pro duct was 135.86 mGy-cm. COMPARISON: 04/10/2021. FINDINGS: Vertebral Body Alignment: Intact. Exaggerated cervical lordosis. Craniocervical and atlantoaxial alignment: Moderate degenerative change. Alignment intact. Osseous structures/fracture: No evidence of a lytic or blastic process in the visualized spine. No e vidence of acute fracture. . Cervical soft tissues: The paraspinal soft tissues planes are maintained. Ill-defined reticular and g roundglass opacities in the left upper, anterior lung Degenerative changes: Multilevel degenerative disc disease and facet arthropathy. Severe right neural foraminal narrowing at C5-6. IMPRESSION: No acute fracture or traumatic malalignment in the cervical spine. Findings may represent mild edema versus infection. Reviewed, dictated and finalized at location K. RITY OPERATIONS ENGINEER
--- NOTE | ~2022-07-10 | CT_ITS ---
EXAMINATION: CT brain wo con DATE: 07/10/2022 21:26 INDICATION: Fall on thinners, hit to R side head . TECHNIQUE: Computed tomography (CT) of the head was performed without intravenous contrast. The mA wa s adjusted according to patient size. Iterative reconstruction technique was employed. The dose-lengt h product was 605.33 mGy-cm. COMPARISON: 06/14/2022. FINDINGS: No acute intracranial hemorrhage or extra-axial fluid collection. No hydrocephalus, mass, or herniation. No acute ischemic infarct. Unremarkable dural venous sinus attenuation. No acute osseous abnormality. The aerated spaces are clear. Mild atrophy and chronic white matter change. Atherosclerotic intracranial calcification. Left lens r eplacement. IMPRESSION: No acute intracranial process. Reviewed, dictated and finalized at location K. YBOAT PILOT
[2022-07-10 20:48] VITALS: PULSE 85; RESP 18
[2022-07-10 20:53] VITALS: BP 128/74; PULSE 84; RESP 18; TEMP 37.2; O2SAT 100
[2022-07-10 21:00] VITALS: PULSE 85; RESP 19; O2SAT 100
--- NOTE | 2022-07-10 21:08 | ECG_ITS ---
Measurements Intervals [place] Rate: 83 P: -41 WA: 138 QRS: -43 QRSD: 137 T: 51 QT: 431 QTc: 507 Interpretive Statements SINUS RHYTHM BASELINE ARTIFACT LEFT AXIS DEVIATION NONSPECIFIC INTRAVENTRICULAR CONDUCTION DELAY MINIMAL VOLTAGE CRITERIA FOR LVH, CONSIDER NORMAL VARIANT BORDERLINE ECG COMPARED TO ECG 06/16/2022 11:19:59 NO SIGNIFICANT CHANGES Electronically Signed On 07-11-2022 14:44:09 REGIONAL OPERATIONS DIRECTOR by Ameya Burrell M.D.
--- NOTE | 2022-07-10 21:10 | ED.GENADULT ---
HPI - General Adult General Chief complaint: Fall Stated complaint: laceration Time Seen by Provider: 07/10/22 20:51 History of Present Illness HPI narrative: This is a 57-year-old alcoholic presenting to ED after a fall at home. Patient got drunk and fell against his brick chimney. He struck his head over the right ear and sustained a right ear laceration. Additionally he takes Eliquis for atrial fibrillation. Patient is denying any complaints at this time. His is at bedside. Related Data Home Medications Medication Instructions Recorded Confirmed amiodarone 200 mg tablet 200 mg PO DAILY 04/24/19 06/29/22 tramadol 50 mg tablet 50 mg PO BID PRN Pain 06/15/22 06/29/22 Allergies Allergy/AdvReac Type Severity Reaction Status Date / Time ragweed pollen Allergy Unknown seasonal Verified 07/10/22 22:01 [place] Allergy Unknown seasonal Uncoded 07/10/22 22:01 [place] Allergy Unknown seasonal Uncoded 07/10/22 22:01 [facility] Past Medical History Medical History Alcohol abuse Alcoholic cardiomyopathy Atherosclerotic heart disease of [place] coronary artery without angina pectoris Chronic systolic CHF (congestive heart failure) COPD (chronic obstructive pulmonary disease) With prior history of home O2 use Essential hypertension Gastro-esophageal reflux disease without esophagitis Hypothyroidism Mixed hyperlipidemia [place] (myocardial infarction) Orthostatic hypotension Paroxysmal atrial fibrillation Severe protein-calorie malnutrition SVT (supraventricular tachycardia) Tobacco abuse Surgical History Surgical History History of toe surgery History of tonsillectomy and adenoidectomy Family History Family History Father Family history of liver disease Sibling Family history of liver disease Chronic obstructive pulmonary disease Mother Family history of emphysema Social History Social History Social History: He is on disability. He has a long history of alcohol abuse. He tends to binge drink. Typically drinking vodka and beer. He has used chewing tobacco and smokes cigars on occasion. Alcohol has affected the patient's life in many ways. He has been to snf due to his alcohol use and has intermittently required placement in longterm facilities. He has been homeless at other times due to his alcohol use. Surrogate decision maker: Xiao () Code status: Full code Years smoked: 35 Smoking status: Current some day smoker Tobacco type: cigars Smokeless tobacco user: chewing tobacco Second hand tobacco smoke exposure: No Additional smoking assessment comments: chewing tobacco daily and occassional cigars Alcohol intake: current Alcohol use details: 0.5-1 pt per day of vodka Substance use: never Lack of Transportation: No Lack of Food: Never True Current Housing: I Have Housing Concerned About Future Housing: No Difficulty Paying Gas/Electric Bills: No Difficulty Paying for Meds: No Currently Unemployed: No Education: High School Diploma/GED Difficulty w/ Childcare or Family Care: No Living arrangements: with family Occupation/Education: retired Gender identity (if verbalized by the patient): Male Sexual Orientation (if Verbalized by the Patient): Straight or Heterosexual Spiritual care concerns: No Exam Narrative: APPEARANCE: patient appears 20 years older than his stated age, appears chronically unwell, cachectic Head: Skin avulsion to thepatient's right earlobe EYES: EOMI, pleural NOSE: Atraumatic NECK: Trachea midline RESPIRATORY: No increased rate of breathing, clear to auscultation CARDIOVASCULAR: RRR, peripheral edema ABDOMINAL: Non-distended soft nontender no guarding or rebound MUSCULOSKELETAl: No obvio
[2022-07-10 21:15] VITALS: PULSE 83; RESP 19; O2SAT 100
[2022-07-10 21:48] LABS: Basophils Percent Auto 0.8 % (0.2-1.2); Eosinophils Absolute Auto 0.1 K/mm3 (0-0.3); Eosinophils Percent Auto 2.5 % (0-4.4); Hematocrit 37.7 % (42.0-52.0); Hemoglobin 12.5 g/dL (14.0-18.0); Immature Granulocyte Absolute 0.03 K/mm3 (0.00-0.031); Immature Granulocyte Percent A 0.6 % (0-0.5); Lymphocytes Absolute Auto 1.47 K/mm3 (0.9-3.2); Lymphocytes Percent Auto 27.9 % (18.3-44.2); Mean Corpuscular HGB Conc 33.2 g/dl (32-36); Mean Corpuscular Volume 96.4 fl (80-100); Mean Platelet Volume 8.4 fl (7.4-10.4); Monocytes Absolute Auto 0.3 K/mm3 (0.1-0.6); Monocytes Percent Auto 5.7 % (2.6-8.5); Neutrophils Absolute Auto 3.3 K/mm3 (1.3-6.7); Neutrophils Percent Auto 62.5 % (45.5-73.1); Platelet Count Result 217 k/mm3 (150-375); Red Blood Count 3.91 M/mm3 (4.6-6.20); Red Cell Distribution Width 15.2 % (11.5-14.5); White Blood Count 5.3 K/mm3 (4.5-10.0)
[2022-07-10 21:55] VITALS: PULSE 84; RESP 23; O2SAT 98
[2022-07-10 21:57] LABS: Lactic Acid Reflex 2.1 mmol/L (0.7-2.0)
[2022-07-10 21:58] LABS: Alanine Aminotransferase 21 U/L (6-50); Albumin Level 4.6 g/dL (3.5-5.1); Alkaline Phosphatase 113 U/L (38-126); Anion Gap 9 mmol/L (8-16); Aspartate Amino Transferase 40 U/L (17-59); Bilirubin,Total 0.4 mg/dL (0.2-1.3); Blood Urea Nitrogen 11 mg/dL (9-20); Calcium 8.4 mg/dL (8.4-10.2); Carbon Dioxide 25 mmol/L (22-30); Chloride 100 mmol/L (98-107); Estimated Glomerular Filt Rate > 60; Glucose 74 mg/dL (65-110); Potassium 4.4 mmol/L (3.4-5.0); Sodium 134 mmol/L (137-145)
[2022-07-10 21:59] LABS: Partial Thromboplastin Time 29.3 SECONDS (22.3-36.8); Prothrombin Time 12.5 Seconds (11.1-14.7)
[2022-07-10] MEDS: ACETAMINOPHEN 500 MG TABLET 1000 MG PO (21:59)
[2022-07-10 22:10] LABS: Lipase 138 U/L (23-300); Magnesium 1.7 mg/dL (1.6-2.3); Phosphorus 3.4 mg/dL (2.5-4.5)
[2022-07-10] MEDS: THIAMINE HCL INJ 100 MG, FOLIC ACID INJ 1 MG, MULTIVITAMINS-12 INJ VIAL 1 5 ML, MULTIVI... 999 MG IV CONT (22:30)
[2022-07-10 22:33] LABS: Ethanol 315 mg/dL (<10)
[2022-07-10] MEDS: SILVER NITRATE (*SP) STICK 1 EACH ×2 (23:07→23:08)
[2022-07-10] MEDS: LIDOCAINE HCL 1% LOCAL INJ 20 ML VIAL (23:08)
[2022-07-10] MEDS: BACITRACIN ZINC OINTMENT 0.9 GRAM PACKET 1 PACKET TOPICAL (23:36)
[2022-07-10] MEDS: levoFLOXacin 750 MG TABLET PO (23:36)
[2022-07-10] MEDS: BACITRACIN OINTMENT 15 GM TUBE 1 APPLIC TOPICAL (23:37)
--- NOTE | 2022-07-10 23:42 | PC.NURSE ---
bacitracin applied to pt R ear/lac. Pt tolerated well.
[2022-07-10 23:43] VITALS: BP 111/69; PULSE 77; RESP 18; TEMP 36.6; O2SAT 99
[2022-07-11 00:46] LABS: Reflex Lactic Acid Yes or No Add Lactic
--- NOTE | 2022-07-14 12:04 | PC.NURSE ---
[facility] ONLY HAS BACITRACIN TUBES NOT PACKETS. OK PER QI RUST
== END 2022-07-10 23:43 | disposition home or self-care (01) ==
PROVIDERS: Emergency Provider Emergency Medicine; PCP Family Medicine
DX: S01.311A Laceration without foreign body of right ear, initial encounter (principal); F10.20 Alcohol dependence, uncomplicated; Y90.8 Blood alcohol level of 240 mg/100 ml or more; I48.0 Paroxysmal atrial fibrillation; I42.6 Alcoholic cardiomyopathy; I50.22 Chronic systolic (congestive) heart failure; J44.9 Chronic obstructive pulmonary disease, unspecified; I11.0 Hypertensive heart disease with heart failure; E78.2 Mixed hyperlipidemia; E03.9 Hypothyroidism, unspecified; K21.9 Gastro-esophageal reflux disease without esophagitis; I25.2 Old myocardial infarction; Z79.01 Long term (current) use of anticoagulants; F17.290 Nicotine dependence, other tobacco product, uncomplicated; F17.220 Nicotine dependence, chewing tobacco, uncomplicated; W01.198A Fall on same level from slipping, tripping and stumbling with subsequent striking against other object, initial encounter
CPT/HCPCS: 36415; 70450; 71045; 72125; 80053; 80307; 83605; 83690; 83735; 84100; 85025; 85610; 85730; 93005; 96365; 99284; A9270; J3411; J3475; J7120

== ENCOUNTER 2022-07-28 03:24 | Emergency (ER) | payer MEDICARE, SELFPAY ==
--- NOTE | ~2022-07-28 | CT_ITS ---
EXAMINATION: CT cervical spine wo con DATE: 07/28/2022 04:13 INDICATION: Patient fell, struck left supraorbital area. TECHNIQUE: Computed tomography (CT) of the cervical spine was performed without intravenous contrast. Automated exposure control and iterative reconstruction technique were employed. Exam dose: 148.50 mGy-cm total exam DLP. COMPARISON: July 10, 2022 CDT cervical spine FINDINGS: The paranasal sinuses and mastoid air cells are included and are normally developed and aer ated. Nasal bones, anterior maxillary spine, facial bones including frontal segment sutures, orbital rims and naranjo, zygomatic arches, pterygoid plates, maxillary bones are intact, without fracture. Nor mal alignment at the temporomandibular joints. No mandibular fracture is evident. Included cranial vault is intact without skull fracture. C1 and C2 are normally aligned and the odontoid process is intact. No fracture or dislocation, locked facet or prevertebral soft tissue swelling. There is mild loss of interspace height and minimal retrolisthesis at C3-4. Moderately severe degenerative disc disease at C5-6 and C6-7. There is slight anterolisthesis at C7-T1. There is degenerative change at the apophyseal joints. There is uncovertebral joint spurring at C5-6 and C6-7, especially prominent on the right at C5-6. Minimal infiltrate, atelectasis or scarring in the left upper lung. IMPRESSION: Cervical spondylosis; no fracture or dislocation or locked facet Reviewed, dictated and finalized at Location A. Reviewed, dictated and finalized at location B. Y CHILDHOOD WORKER
--- NOTE | ~2022-07-28 | CT_ITS ---
EXAMINATION: CT brain wo con DATE: 07/28/2022 04:12 INDICATION: Head injury. TECHNIQUE: Computed tomography (CT) of the head was performed without intravenous contrast. The mA wa s adjusted according to patient size. Iterative reconstruction technique was employed. The dose-lengt h product was 605.33 mGy-cm. COMPARISON: Head CT 07/07/2022 FINDINGS: There are scattered areas of low attenuation in the cerebral white matter. There is no intr acranial hemorrhage, acute infarction, or abnormal intracranial mass lesion. The ventricles are manuel l in size. The paranasal sinuses are clear. There are likely changes of left ocular lens replacement surgery. The mastoid air cells are normal. There is a left-sided scalp laceration. IMPRESSION: 1. Stable mild nonspecific cerebral white matter disease, which likely represents chronic small vesse l ischemic disease. Reviewed, dictated and finalized at location A. OMER SERVICE ANALYST IMPRESSION: 1. Stable mild nonspecific cerebral white matter disease, which likely represen ts chronic small vessel ischemic disease.
[2022-07-28 03:24] VITALS: BP 103/84; PULSE 84; TEMP 36.4; O2SAT 100
[2022-07-28 03:29] VITALS: PULSE 89; RESP 20
[2022-07-28 03:30] VITALS: PULSE 86; RESP 22; O2SAT 100
--- NOTE | 2022-07-28 03:50 | ED.GENADULT ---
HPI - General Adult General Chief complaint: Head Injury Stated complaint: fall Time Seen by Provider: 07/28/22 03:27 History of Present Illness HPI narrative: this is a 57-year-old alcoholic presenting ED after a fall on Eliquis. Patient was drinking a large amount of alcohol as per his daily routine. The patient tripped and fell and struck his head on a clock on the ground causing a large laceration to his head. His then brought him to the hospital. Patient is denying any other injuries at this time. I had the patient for a similar complaint approximately 3 weeks ago and told him that he is a poor candidate for Eliquis due to his chronic alcoholism. He has an appointment later today with his primary care physician to discuss the cessation of Eliquis. Related Data Home Medications Medication Instructions Recorded Confirmed amiodarone 200 mg tablet 200 mg PO DAILY 04/24/19 06/29/22 tramadol 50 mg tablet 50 mg PO BID PRN Pain 06/15/22 06/29/22 Allergies Allergy/AdvReac Type Severity Reaction Status Date / Time ragweed pollen Allergy Unknown seasonal Verified 07/10/22 22:01 [place] Allergy Unknown seasonal Uncoded 07/10/22 22:01 [place] Allergy Unknown seasonal Uncoded 07/10/22 22:01 [facility] Past Medical History Medical History Alcohol abuse Alcoholic cardiomyopathy Atherosclerotic heart disease of [place] coronary artery without angina pectoris Chronic systolic CHF (congestive heart failure) COPD (chronic obstructive pulmonary disease) With prior history of home O2 use Essential hypertension Gastro-esophageal reflux disease without esophagitis Hypothyroidism Mixed hyperlipidemia [place] (myocardial infarction) Orthostatic hypotension Paroxysmal atrial fibrillation Severe protein-calorie malnutrition SVT (supraventricular tachycardia) Tobacco abuse Surgical History Surgical History History of toe surgery History of tonsillectomy and adenoidectomy Family History Family History Father Family history of liver disease Sibling Family history of liver disease Chronic obstructive pulmonary disease Mother Family history of emphysema Social History Social History Social History: He is on disability. He has a long history of alcohol abuse. He tends to binge drink. Typically drinking vodka and beer. He has used chewing tobacco and smokes cigars on occasion. Alcohol has affected the patient's life in many ways. He has been to [facility] due to his alcohol use and has intermittently required placement in correction facilities. He has been homeless at other times due to his alcohol use. Surrogate decision maker: Xiao () Code status: Full code Years smoked: 35 Smoking status: Current some day smoker Tobacco type: cigars Smokeless tobacco user: chewing tobacco Second hand tobacco smoke exposure: No Additional smoking assessment comments: chewing tobacco daily and occassional cigars Alcohol intake: current Alcohol use details: 0.5-1 pt per day of vodka Substance use: never Lack of Transportation: No Lack of Food: Never True Current Housing: I Have Housing Concerned About Future Housing: No Difficulty Paying Gas/Electric Bills: No Difficulty Paying for Meds: No Currently Unemployed: No Education: High School Diploma/GED Difficulty w/ Childcare or Family Care: No Living arrangements: with family Occupation/Education: retired Gender identity (if verbalized by the patient): Male Sexual Orientation (if Verbalized by the Patient): Straight or Heterosexual Spiritual care concerns: No Exam Narrative: APPEARANCE: Appears chronically unwell, A&O x3, smells of alcohol Head: 6.35 cm laceration to the forehead, Small abrasion over eye
[2022-07-28 04:00] VITALS: PULSE 88; RESP 23; O2SAT 100
[2022-07-28 04:15] VITALS: PULSE 84; RESP 20; O2SAT 98
[2022-07-28 04:30] VITALS: PULSE 84; RESP 20; O2SAT 97
--- NOTE | 2022-07-28 05:02 | PC.NURSE ---
Triple antibiotic applied to laceration, telfa, and tegaderm also applied to wound. Patient assisted into wheelchair and taken out to his 's car. Patient able to stand and sit in his 's car. Patient alert and orientated x4 upon leaving the ED.
== END 2022-07-28 05:05 | disposition home or self-care (01) ==
PROVIDERS: Emergency Provider Emergency Medicine; PCP Family Medicine
DX: S01.81XA Laceration without foreign body of other part of head, initial encounter (principal); F10.20 Alcohol dependence, uncomplicated; Y90.9 Presence of alcohol in blood, level not specified; I42.6 Alcoholic cardiomyopathy; I48.0 Paroxysmal atrial fibrillation; I25.10 Atherosclerotic heart disease of native coronary artery without angina pectoris; J44.9 Chronic obstructive pulmonary disease, unspecified; I10 Essential (primary) hypertension; E03.9 Hypothyroidism, unspecified; E78.2 Mixed hyperlipidemia; I25.2 Old myocardial infarction; K21.9 Gastro-esophageal reflux disease without esophagitis; F17.290 Nicotine dependence, other tobacco product, uncomplicated; F17.220 Nicotine dependence, chewing tobacco, uncomplicated; Z79.01 Long term (current) use of anticoagulants; W01.198A Fall on same level from slipping, tripping and stumbling with subsequent striking against other object, initial encounter
CPT/HCPCS: 12014; 70450; 72125; 99284

== ENCOUNTER 2022-08-02 10:15 | Outpatient (CLI) | payer MEDICARE, SELFPAY ==
--- NOTE | ~2022-08-02 | XR_ITS ---
AP and oblique views of the bilateral ribs, and PA and lateral chest radiographs Clinical History: Pain Findings: No acute rib fracture is seen. There are probable chronic fracture deformities of several l eft-sided ribs. Probable subacute fracture deformity of the posterior right 11th and 12th ribs. Subac [place] to chronic fracture deformity of the distal left clavicle noted. Lungs are clear, without focal c onsolidation or pleural effusion. Cardiomediastinal contour is within normal limits. Soft tissues are unremarkable. Impression: No definite acute fracture seen. Probable subacute to chronic fracture deformities of the right 11th and 12th ribs, as well as several left-sided ribs. Subacute to chronic fracture deformity of the distal left clavicle. Clear lungs. Reviewed, dictated and finalized at location . Impression: No definite acute fracture seen. Probable subacute to chronic fracture deformities of the right 11th and 12th ri bs, as well as several left-sided ribs. Subacute to chronic fracture deformity of the distal left clavicle. Clear lungs.
--- NOTE | ~2022-08-02 | XR_ITS ---
Left Shoulder Technique: AP and scapular Y views were obtained. Clinical History: Pain Findings: There is a fracture the distal left clavicle, possibly subacute to chronic in nature. No de finite acute fracture seen.. The glenohumeral and acromioclavicular joint spaces are preserved. Soft tissues are unremarkable. Impression: Subacute to chronic fracture of the distal left clavicle. No acute fracture seen. Reviewed, dictated and finalized at location . Impression: Subacute to chronic fracture of the distal left clavicle. No acute fracture seen.
== END 2022-08-02 10:16 | disposition home or self-care (01) ==
PROVIDERS: PCP Family Medicine; Visit Provider Physician Assistant
DX: M25.512 Pain in left shoulder (principal); R07.81 Pleurodynia; R07.89 Other chest pain; Z91.81 History of falling
CPT/HCPCS: 71046; 71110; 73030

== ENCOUNTER 2022-08-16 18:59 | Observation (INO) | payer MEDICARE, SELFPAY ==
--- NOTE | ~2022-08-16 | XR_ITS ---
EXAMINATION: XR ribs LT 2V w CXR 2V INDICATION: Left rib pain TECHNIQUE: Frontal and lateral views of the chest and 2 views of the left ribs were obtained. COMPARISON: 08/02/2022 FINDINGS: There are minimal airspace opacities of the left lung base. No pleural effusion or pneumoth orax. Cardiomegaly is noted. There are age-indeterminate fractures of the left fifth through seventh ribs. IMPRESSION: 1. Age indeterminate fractures of the left fifth through seventh ribs. 2. Mild atelectasis of the left lung base. Reviewed, dictated and finalized at location F.
--- NOTE | ~2022-08-16 | CT_ITS ---
EXAMINATION: CT cervical spine wo con DATE: 08/16/2022 20:05 INDICATION: Neck pain TECHNIQUE: Computed tomography (CT) of the cervical spine was performed without intravenous contrast. The dose-length product (DLP) was 130.68 mGy-cm. Automated exposure control and iterative reconstruc tion technique were employed. COMPARISON: 07/29/2019 FINDINGS: There is no fracture. The vertebral body heights are maintained. There is mild loss of inte rvertebral disc space height at C5-6 and C6-7. The odontoid process is intact. Small degenerative ost eophytes project from the anterior endplates of multiple vertebral bodies. The prevertebral soft tiss ues are normal. There is multilevel mild to moderate. Uncovertebral joint osteoarthritis and multilev el severe facet joint osteoarthritis. IMPRESSION: 1. Moderate cervical spondylosis without acute findings or significant interval change. Reviewed, dictated and finalized at location F.
--- NOTE | ~2022-08-16 | CT_ITS ---
EXAMINATION: CT brain wo con INDICATION: Head injury COMPARISON: 07/28/2022 TECHNIQUE: Standard unenhanced head CT. The dose-length product (DLP) was 605.33 mGy-cm. The mA was a djusted according to patient size. Iterative reconstruction technique was employed. FINDINGS: There is no acute intraparenchymal hemorrhage. No evidence of mass lesion. No evidence of a cute infarction. There is mild periventricular and subcortical hypodensity probably related to small vessel ischemic disease. There is mild prominence of the sulci and ventricles related to cerebral atr ophy. Intracranial calcified cerebral atherosclerosis is noted. There are no extra-axial collections. There is no mass effect or midline shift. Changes in the left globe are likely from ocular lens surg miya. The visualized sinuses and mastoid air cells are well aerated. IMPRESSION: 1. No acute intracranial abnormality. 2. Age related findings. Reviewed, dictated and finalized at location F.
[2022-08-16 18:59] VITALS: BP 123/80; PULSE 74; RESP 17; O2SAT 100
[2022-08-16 19:08] LABS: Glucose Point of Care 215 mg/dl (65-105)
[2022-08-16 20:29] VITALS: BP 142/95; PULSE 76; RESP 18; TEMP 36.6; O2SAT 100
[2022-08-16 20:37] LABS: Basophils Percent Auto 0.2 % (0.2-1.2); Hemoglobin 11.9 g/dL (14.0-18.0); Immature Granulocyte Absolute 0.03 K/mm3 (0.00-0.031); Immature Granulocyte Percent A 0.6 % (0-0.5); Lymphocytes Absolute Auto 0.31 K/mm3 (0.9-3.2); Lymphocytes Percent Auto 6.7 % (18.3-44.2); Mean Corpuscular HGB Conc 33.1 g/dl (32-36); Mean Corpuscular Hemoglobin 33.9 pg (26-34); Mean Corpuscular Volume 102.6 fl (80-100); Mean Platelet Volume 8.7 fl (7.4-10.4); Monocytes Absolute Auto 0.1 K/mm3 (0.1-0.6); Monocytes Percent Auto 2.8 % (2.6-8.5); Neutrophils Absolute Auto 4.2 K/mm3 (1.3-6.7); Neutrophils Percent Auto 89.7 % (45.5-73.1); Platelet Count Result 128 k/mm3 (150-375); Red Blood Count 3.51 M/mm3 (4.6-6.20); Red Cell Distribution Width 15.3 % (11.5-14.5); White Blood Count 4.7 K/mm3 (4.5-10.0)
[2022-08-16 20:57] LABS: Ethanol 236 mg/dL (<10)
[2022-08-16 21:05] LABS: Alanine Aminotransferase 29 U/L (6-50); Albumin Level 3.9 g/dL (3.5-5.1); Alkaline Phosphatase 122 U/L (38-126); Anion Gap 13 mmol/L (8-16); Aspartate Amino Transferase 86 U/L (17-59); Bilirubin,Total 0.5 mg/dL (0.2-1.3); Blood Urea Nitrogen 18 mg/dL (9-20); Calcium 7.8 mg/dL (8.4-10.2); Carbon Dioxide 17 mmol/L (22-30); Chloride 93 mmol/L (98-107); Estimated CRCL calculation 84 ml/min; Estimated Glomerular Filt Rate > 60; Glucose 239 mg/dL (65-110); Magnesium 1.4 mg/dL (1.6-2.3); Potassium 4.5 mmol/L (3.4-5.0); Sodium 123 mmol/L (137-145)
--- NOTE | 2022-08-16 21:35 | PM.IMHP ---
H&P: HPI History of Present Illness Date/Time: 08/16/22 21:35 Chief Complaint: FALLS Narrative: THIS IS A 57-YEAR-OLD MALE WITH PAST MEDICAL HISTORY SIGNIFICANT FOR ALCOHOL DEPENDENCE, RECURRENT FALLS, alcoholic cardiomyopathy, COPD/emphysema, tobacco dependence, hypertension, GERD, paroxysmal atrial fibrillation. Patient presents to the emergency room after having recurrent falls after alcohol intoxication, patient complaining of ribcage pain. Found to have several rib fractures and several electrolyte abnormalities. Patient denies any fevers, rigors, chills, cough, sputum production, nausea, vomiting, diarrhea, chest pain, leg swelling, palpitations. Patient is been admitted for further evaluation management and treatment. Head CT was reported as: FINDINGS: There is no acute intraparenchymal hemorrhage. No evidence of mass lesion. No evidence of acute infarction. There is mild periventricular and subcortical hypodensity probably related to small vessel ischemic disease. There is mild prominence of the sulci and ventricles related to cerebral atrophy. Intracranial calcified cerebral atherosclerosis is noted. There are no extra-axial collections. There is no mass effect or midline shift. Changes in the left globe are likely from ocular lens surgery. The visualized sinuses and mastoid air cells are well aerated. IMPRESSION: 1. No acute intracranial abnormality. 2. Age related findings. Cervical CT was reported as: FINDINGS: There is no fracture. The vertebral body heights are maintained. There is mild loss of intervertebral disc space height at C5-6 and C6-7. The odontoid process is intact. Small degenerative osteophytes project from the anterior endplates of multiple vertebral bodies. The prevertebral soft tissues are normal. There is multilevel mild to moderate. Uncovertebral joint osteoarthritis and multilevel severe facet joint osteoarthritis. IMPRESSION: 1. Moderate cervical spondylosis without acute findings or significant interval change. Chest x-ray was reported as: FINDINGS: There are minimal airspace opacities of the left lung base. No pleural effusion or pneumothorax. Cardiomegaly is noted. There are age-indeterminate fractures of the left fifth through seventh ribs. IMPRESSION: 1. Age indeterminate fractures of the left fifth through seventh ribs. 2. Mild atelectasis of the left lung base. Review of Systems Review of Systems: Recurrent falls, ribcage Constitutional: Constitutional: Denies chills, Denies fatigue, Denies fever(s), Denies lethargy, Denies malaise, Denies night sweats and Denies weakness Eyes: Eyes: Denies change in vision ENT: Denies dysphagia and Denies odynophagia Cardiovascular: Cardiovascular: Denies chest pain, Denies radiating jaw, neck or arm pain and Denies palpitations Respiratory: Respiratory: Denies cough, Denies excessive phlegm production, Reports pain on inspiration and Denies dyspnea Gastrointestinal: Gastrointestinal: Denies abdominal pain, Denies dyspepsia, Denies heartburn, Denies diarrhea, Denies nausea and Denies vomiting Genitourinary: Genitourinary: Reports no additional male genitourinary complaints, Reports as per HPI and Denies dysuria Musculoskeletal: Musculoskeletal: Reports other (Ribcage pain) Integumentary/Breasts: Skin/Breast: Denies rash Neurologic: Denies focal weakness and Denies Sensory deficit (Neuro) Psychiatric: Psychiatric: Reports no additional psychiatric complaints and Reports as per HPI Endocrine: Endocrine: Denies cold intolerance, Denies flushing, Denies heat intolerance, Denies polyphagia, Denies polydipsia and Denies palpitations Hematologic/Lymphatic: Hematologic/Lymphatic: Reports no additional hematologic/lymphatic complaints and Reports as per HPI Allergic/Immunologic: Allergic/Immunologic: Reports no additional allergic/immunologic complaints and Reports as per HPI PMFSH Past Medical History Medical History (Reviewed 08/16/22 @ 21:45 by Isabel
[2022-08-16] MEDS: MAGNESIUM SULF 2 GM/WATER 50ML 2 GM/50 ML BAG IVPB (21:39)
[2022-08-16 21:44] VITALS: BP 120/82; PULSE 81; RESP 20; O2SAT 98
--- NOTE | 2022-08-16 21:44 | ED.GENADULT ---
HPI - General Adult General Chief complaint: Fall Stated complaint: LEFT FLANK PAIN S/P FALL, HYPOGLYCEMIA Time Seen by Provider: 08/16/22 19:13 History of Present Illness HPI narrative: Patient 57-year-old gentleman who presents the emergency department with chief complaint of falls. Patient has history of alcohol abuse and drinks daily the patient has had multiple falls recently and has also had episodes in the past of hyponatremia. Today the patient had a fall and was found to be hypoglycemic by EMS he was given thiamine prior to arrival and was given dextrose. Patient upon arrival to the emergency department is awake alert able to answer questions and reports that he has pain on the left side of his body and feels weak. Related Data Home Medications Medication Instructions Recorded Confirmed amiodarone 200 mg tablet 200 mg PO DAILY 04/24/19 08/02/22 tramadol 50 mg tablet 50 mg PO BID PRN Pain 06/15/22 08/02/22 Allergies Allergy/AdvReac Type Severity Reaction Status Date / Time ragweed pollen Allergy Unknown seasonal Verified 08/02/22 09:21 [place] Allergy Unknown seasonal Uncoded 08/02/22 09:21 [place] Allergy Unknown seasonal Uncoded 08/02/22 09:21 Review of Systems Review of Systems: A 10 system review of systems was completed on the patient and is negative except for what is stated in the HPI. Nursing and ancillary documentation was reviewed. [facility] Past Medical History Medical History Alcohol abuse Alcoholic cardiomyopathy Atherosclerotic heart disease of [place] coronary artery without angina pectoris Chronic systolic CHF (congestive heart failure) COPD (chronic obstructive pulmonary disease) With prior history of home O2 use Essential hypertension Gastro-esophageal reflux disease without esophagitis Hypothyroidism Mixed hyperlipidemia [place] (myocardial infarction) Orthostatic hypotension Paroxysmal atrial fibrillation Severe protein-calorie malnutrition SVT (supraventricular tachycardia) Tobacco abuse Surgical History Surgical History History of toe surgery History of tonsillectomy and adenoidectomy Family History Family History Father Family history of liver disease Sibling Family history of liver disease Chronic obstructive pulmonary disease Mother Family history of emphysema Social History Social History Social History: He is on disability. He has a long history of alcohol abuse. He tends to binge drink. Typically drinking vodka and beer. He has used chewing tobacco and smokes cigars on occasion. Alcohol has affected the patient's life in many ways. He has been to [facility] due to his alcohol use and has intermittently required placement in assisted facilities. He has been homeless at other times due to his alcohol use. Surrogate decision maker: Xiao () Code status: Full code Years smoked: 35 Smoking status: Current some day smoker Tobacco type: cigars Smokeless tobacco user: chewing tobacco Second hand tobacco smoke exposure: No Additional smoking assessment comments: chewing tobacco daily and occassional cigars Alcohol intake: current Alcohol use details: 0.5-1 pt per day of vodka Substance use: never Lack of Transportation: No Lack of Food: Never True Current Housing: I Have Housing Concerned About Future Housing: No Difficulty Paying Gas/Electric Bills: No Difficulty Paying for Meds: No Currently Unemployed: No Education: High School Diploma/GED Difficulty w/ Childcare or Family Care: No Living arrangements: with family Occupation/Education: retired Gender identity (if verbalized by the patient): Male Sexual Orientation (if Verbalized by the Patient): Straight or Het
[2022-08-16 22:04] LABS: Appearance Urine Clear (Clear); Bacteria Urine None Seen /hpf; Bilirubin Urine Negative (Negative); Blood Urine Negative (Negative); Color Urine Yellow (Yellow); Glucose Urine UA 2+ mg/dL (Negative); Ketones Urine 1+ mg/dL (Negative); Leukocyte Esterase Ur Negative LEU/UL (Negative); Need Manual Microscopic Reviewed; Nitrate Urine Negative (Negative); Non Pathogenic Casts 0-2; Protein Urine 1+ mg/dL (Negative); RBC Urine 0-2 /hpf (0-2); Specific Grav Ur 1.016 (1.001-1.035); Squamous Epithelial Cell Urine None seen /hpf (Few); Urobilinogen Urine 0.2 mg/dL (<2.0); WBC Urine 0-5 /hpf; pH Urine 6.5 (5.0-9.0)
--- NOTE | 2022-08-16 22:05 | PC.NURSE ---
Pt admits to drinking pint of vodka every day. Last drink was approx 1415 this afternoon before he fell.
[2022-08-16 22:06] LABS: Add Urine Microscopic? YES
[2022-08-16] MEDS: THIAMINE 500 MG/NS 100 ML 500 MG/100 ML BAG 200 MG IVPB (23:23)
[2022-08-16] MEDS: SODIUM CHLORIDE 0.9% IV 1,000 ML 125 ML IV CONT (23:23)
[2022-08-16 23:26] VITALS: BP 113/74; PULSE 79; RESP 20; O2SAT 100
[2022-08-17] VITALS (14 sets, daily range): BP systolic 123–135; BP diastolic 79–84; PULSE 71–84; RESP 18; TEMP 36.6–36.9; O2SAT 97–100; BMI 16.8
--- NOTE | 2022-08-17 00:17 | ADMGEN ---
This patient, Gabriel Nathan, was admitted to Medical Room 342-01. Patient/family oriented to hospital policies and general routines including ID bracelet, bed and alarms, visiting hours, pain management, procedures, bathroom and other care routines, personal items, smoking policy, room service/diet, and visiting hours. Information on how to activate the Rapid Response Team has been discussed. Patient/Family are encouraged to report perceived risks to care and to ask questions if they do not understand what they are told or what they should do.
[2022-08-17] MEDS: ACETAMINOPHEN 500 MG TABLET 1000 MG PO (01:30)
[2022-08-17] MEDS: HYDROmorphone HCL INJ (*CRX) 1 MG/ML SYR IV PUSH (01:31)
[2022-08-17 06:03] LABS: Basophils Percent Auto 0.4 % (0.2-1.2); Eosinophils Percent Auto 0.7 % (0-4.4); Hematocrit 31.2 % (42.0-52.0); Hemoglobin 10.6 g/dL (14.0-18.0); Immature Granulocyte Absolute 0.03 K/mm3 (0.00-0.031); Immature Granulocyte Percent A 0.6 % (0-0.5); Lymphocytes Percent Auto 13.1 % (18.3-44.2); Mean Corpuscular Hemoglobin 33.3 pg (26-34); Mean Corpuscular Volume 98.1 fl (80-100); Mean Platelet Volume 8.8 fl (7.4-10.4); Monocytes Absolute Auto 0.4 K/mm3 (0.1-0.6); Neutrophils Absolute Auto 4.1 K/mm3 (1.3-6.7); Neutrophils Percent Auto 77.2 % (45.5-73.1); Platelet Count Result 151 k/mm3 (150-375); Red Blood Count 3.18 M/mm3 (4.6-6.20); Red Cell Distribution Width 14.9 % (11.5-14.5); White Blood Count 5.4 K/mm3 (4.5-10.0)
[2022-08-17 06:16] LABS: Anion Gap 5 mmol/L (8-16); Blood Urea Nitrogen 15 mg/dL (9-20); Calcium 7.6 mg/dL (8.4-10.2); Carbon Dioxide 23 mmol/L (22-30); Chloride 96 mmol/L (98-107); Estimated CRCL calculation 80 ml/min; Estimated Glomerular Filt Rate > 60; Glucose 94 mg/dL (65-110); Potassium 4.1 mmol/L (3.4-5.0); Sodium 124 mmol/L (137-145)
[2022-08-17] MEDS: APIXABAN 2.5 MG TABLET PO ×2 (09:07→16:53)
[2022-08-17] MEDS: MIDODRINE HCL 2.5 MG TABLET PO ×3 (09:07→16:53)
[2022-08-17] MEDS: busPIRone HCL 5 MG TABLET PO ×2 (09:07→16:53)
[2022-08-17] MEDS: LEVOTHYROXINE SODIUM 50 MCG TABLET PO (09:07)
[2022-08-17] MEDS: POTASSIUM CHLORIDE 20 MEQ TABLET.ER PO ×2 (09:07→16:53)
[2022-08-17] MEDS: SODIUM CHLORIDE 0.9% IV 1,000 ML 125 ML IV CONT ×2 (09:08→20:20)
[2022-08-17] MEDS: THIAMINE HCL 100 MG TABLET PO (09:08)
[2022-08-17] MEDS: PANTOPRAZOLE 40 MG TABLET PO (09:08)
[2022-08-17] MEDS: AMIODARONE HCL 200 MG TABLET PO (09:08)
[2022-08-17] MEDS: ATORVASTATIN 40 MG TABLET PO (09:08)
[2022-08-17] MEDS: LORazepam INJ (*CRX) 2 MG/ML VIAL IV PUSH (09:14)
[2022-08-17] MEDS: ONDANSETRON INJ 4 MG/2 ML VIAL IV PUSH (09:14)
[2022-08-17] MEDS: FLUTICASONE/SALMETEROL 115-21 MCG INHALER 1 PUFF 2 PUFF INHALATION ×2 (11:21→21:18)
--- NOTE | 2022-08-17 12:37 | PM.IMPN ---
Progress Note: A&P Assessment and Plan (1) Acute hyponatremia: Code(s): E87.1 - Hypo-osmolality and hyponatremia Status: Acute Assessment and Plan: Will start patient on NS Continue to monitor Likely to be multifactorial Poor per orally intake SIADH Will hold spironolactone Will hold Lasix No neurologic complaints. Serial BMPs. Sodium levels improving. (2) Falls: Code(s): W19.XXXA - Unspecified fall, initial encounter Status: Acute Assessment and Plan: Likely secondary to alcohol intoxication Fall precautions CIWA (3) Alcohol intoxication: Code(s): F10.929 - Alcohol use, unspecified with intoxication, unspecified Status: Acute Assessment and Plan: CIWA protocol as needed (4) Hypomagnesemia: Code(s): E83.42 - Hypomagnesemia Status: Acute Assessment and Plan: Replace as needed (5) Fracture of rib: Code(s): S22.39XA - Fracture of one rib, unspecified side, initial encounter for closed fracture Status: Acute Assessment and Plan: Incentive spirometer Pain management Oxygen as needed (6) Paroxysmal atrial fibrillation: Code(s): I48.0 - Paroxysmal atrial fibrillation Status: Acute Assessment and Plan: Continue to monitor Remains on anticoagulation (7) Hypertensive heart disease with heart failure: Code(s): I11.0 - Hypertensive heart disease with heart failure Status: Acute Assessment and Plan: Continue home meds Continue to monitor Holding Lasix and spironolactone (8) Gastro-esophageal reflux disease without esophagitis: Code(s): K21.9 - Gastro-esophageal reflux disease without esophagitis Status: Acute Assessment and Plan: PPI as needed (9) Chronic systolic CHF (congestive heart failure): Code(s): I50.22 - Chronic systolic (congestive) heart failure Status: Acute Assessment and Plan: Patient appears euvolemic Daily intake and output (10) COPD (chronic obstructive pulmonary disease): Code(s): J44.9 - Chronic obstructive pulmonary disease, unspecified Status: Acute Assessment and Plan: Not actively wheezing Continue to monitor. Subjective Date/time seen: 08/17/22 12:37 No complaints Still on 2L of oxygen Exam Narrative: Patient looks older than stated age Const: General: comfortable, no acute distress, well developed, alert, awake, average body habitus and underweight Nutritional Appearance: average body habitus and underweight Orientation/consciousness: patient oriented x3 HENMT: Head: normal to inspection, normocephalic and atraumatic Ears: hearing grossly normal bilaterally Face/Nose/Sinus: normal facial exam Face and sinus: normal facial exam Eyes: General: appearance normal, both eyes and all related structures Pupils: Equal, round and reactive pupils present EOM: EOMs intact bilaterally Neck: Neck: full ROM, no lymphadenopathy and no JVD Thyroid: thyroid normal Lymphatic: no lymphadenopathy noted Resp: Effort & Inspection: normal respiratory effort and able to speak in complete sentences Auscultation: clear to auscultation bilaterally Cardio: Jugular venous distension: no JVD Rate: regular rate Rhythm: regular rhythm Heart sounds: S1 normal heart sound present and S2 normal heart sound present : General: Yes deferred Skin: Rashes: no rashes Wounds: no wounds Neuro: General: patient oriented x3, CN's II-XI intact bilaterally and Unable to assess gait Cranial nerves: Yes CN's II-XII intact bilaterally and Yes Equal, round and reactive pupils present Cognition (Neuro): normal cognition Speech: normal speech Gait exam (Neuro): Unable to assess gait Motor exam (neuro): 5/5 motor strength present throughout Sensory Exam: No Sensory deficit (Neuro) Extrem: General: normal to inspection, full ROM, no joint enlargement and no pedal edema Objective Data Vital Signs Vital Signs: Vital Signs
[2022-08-17] MEDS: traMADol HCL (*CRX) 50 MG TABLET PO (16:58)
[2022-08-17] MEDS: chlordiazePOXIDE (*CRX) 25 MG CAPSULE PO (16:58)
[2022-08-17 17:05] LABS: Anion Gap 1 mmol/L (8-16); Blood Urea Nitrogen 13 mg/dL (9-20); Calcium 7.9 mg/dL (8.4-10.2); Carbon Dioxide 26 mmol/L (22-30); Chloride 97 mmol/L (98-107); Estimated CRCL calculation 80 ml/min; Estimated Glomerular Filt Rate > 60; Glucose 109 mg/dL (65-110); Potassium 3.7 mmol/L (3.4-5.0); Sodium 124 mmol/L (137-145)
[2022-08-17] MEDS: AMITRIPTYLINE HCL 25 MG TABLET PO (20:19)
[2022-08-17 22:01] LABS: Anion Gap 2 mmol/L (8-16); Blood Urea Nitrogen 10 mg/dL (9-20); Calcium 7.8 mg/dL (8.4-10.2); Carbon Dioxide 22 mmol/L (22-30); Chloride 102 mmol/L (98-107); Estimated CRCL calculation 80 ml/min; Estimated Glomerular Filt Rate > 60; Glucose 107 mg/dL (65-110); Sodium 126 mmol/L (137-145)
[2022-08-18] VITALS (11 sets, daily range): BP systolic 99–129; BP diastolic 57–82; PULSE 72–96; RESP 16–22; TEMP 36.5–37; O2SAT 98–100
[2022-08-18] MEDS: traMADol HCL (*CRX) 50 MG TABLET PO ×3 (04:09→20:45)
[2022-08-18] MEDS: SODIUM CHLORIDE 0.9% IV 1,000 ML 125 ML IV CONT ×3 (05:00→20:46)
[2022-08-18] MEDS: LEVOTHYROXINE SODIUM 50 MCG TABLET PO (05:01)
[2022-08-18 05:41] LABS: Anion Gap 3 mmol/L (8-16); Blood Urea Nitrogen 8 mg/dL (9-20); Calcium 7.8 mg/dL (8.4-10.2); Carbon Dioxide 21 mmol/L (22-30); Chloride 104 mmol/L (98-107); Estimated CRCL calculation 80 ml/min; Estimated Glomerular Filt Rate > 60; Glucose 108 mg/dL (65-110); Potassium 3.7 mmol/L (3.4-5.0); Sodium 128 mmol/L (137-145)
[2022-08-18] MEDS: MIDODRINE HCL 2.5 MG TABLET PO ×3 (08:16→17:45)
[2022-08-18] MEDS: ATORVASTATIN 40 MG TABLET PO (08:16)
[2022-08-18] MEDS: busPIRone HCL 5 MG TABLET PO ×2 (08:17→17:45)
[2022-08-18] MEDS: PANTOPRAZOLE 40 MG TABLET PO (08:17)
[2022-08-18] MEDS: THIAMINE HCL 100 MG TABLET PO (08:17)
[2022-08-18] MEDS: AMIODARONE HCL 200 MG TABLET PO (08:17)
[2022-08-18] MEDS: APIXABAN 2.5 MG TABLET PO ×2 (08:17→17:45)
[2022-08-18] MEDS: POTASSIUM CHLORIDE 20 MEQ TABLET.ER PO ×2 (08:17→17:45)
[2022-08-18] MEDS: FLUTICASONE/SALMETEROL 115-21 MCG INHALER 1 PUFF 2 PUFF INHALATION ×2 (08:49→20:27)
[2022-08-18] MEDS: LIDOCAINE 5% PATCH 1 PATCH TRANSDERM (12:40)
--- NOTE | 2022-08-18 17:59 | PM.IMPN ---
Progress Note: A&P Assessment and Plan (1) Acute hyponatremia: Code(s): E87.1 - Hypo-osmolality and hyponatremia Status: Acute Assessment and Plan: Will start patient on NS Continue to monitor Likely to be multifactorial Poor per orally intake SIADH Will hold spironolactone Will hold Lasix No neurologic complaints. Serial BMPs. Sodium levels improving. 08/18/2022 interval history: 57-year-old male presented with a recurrent fall was found to have hyponatremia most likely multifactorial with history of alcohol abuse, and was diuresed, furosemide and spironolactone on hold, patient's sodium was improved as well as clinical symptom will have a PT OT evaluate the patient further recommendation to follow. (2) Falls: Code(s): W19.XXXA - Unspecified fall, initial encounter Status: Acute Assessment and Plan: Likely secondary to alcohol intoxication Fall precautions CIWA (3) Alcohol intoxication: Code(s): F10.929 - Alcohol use, unspecified with intoxication, unspecified Status: Acute Assessment and Plan: CIWA protocol as needed (4) Hypomagnesemia: Code(s): E83.42 - Hypomagnesemia Status: Acute Assessment and Plan: Replace as needed (5) Fracture of rib: Code(s): S22.39XA - Fracture of one rib, unspecified side, initial encounter for closed fracture Status: Acute Assessment and Plan: Incentive spirometer Pain management Oxygen as needed (6) Paroxysmal atrial fibrillation: Code(s): I48.0 - Paroxysmal atrial fibrillation Status: Acute Assessment and Plan: Continue to monitor Remains on anticoagulation (7) Hypertensive heart disease with heart failure: Code(s): I11.0 - Hypertensive heart disease with heart failure Status: Acute Assessment and Plan: Continue home meds Continue to monitor Holding Lasix and spironolactone (8) Gastro-esophageal reflux disease without esophagitis: Code(s): K21.9 - Gastro-esophageal reflux disease without esophagitis Status: Acute Assessment and Plan: PPI as needed (9) Chronic systolic CHF (congestive heart failure): Code(s): I50.22 - Chronic systolic (congestive) heart failure Status: Acute Assessment and Plan: Patient appears euvolemic Daily intake and output (10) COPD (chronic obstructive pulmonary disease): Code(s): J44.9 - Chronic obstructive pulmonary disease, unspecified Status: Acute Assessment and Plan: Not actively wheezing Continue to monitor. Subjective Date/time seen: 08/18/22 17:59 FALLS Narrative: THIS IS A 57-YEAR-OLD MALE WITH PAST MEDICAL HISTORY SIGNIFICANT FOR ALCOHOL DEPENDENCE, RECURRENT FALLS, alcoholic cardiomyopathy, COPD/emphysema, tobacco dependence, hypertension, GERD, paroxysmal atrial fibrillation.? Patient presents to the emergency room after having recurrent falls after alcohol intoxication, patient complaining of ribcage pain.? Found to have several rib fractures and several electrolyte abnormalities.? Patient denies any fevers, rigors, chills, cough, sputum production, nausea, vomiting, diarrhea, chest pain, leg swelling, palpitations.? Patient is been admitted for further evaluation management and treatment. Head CT was reported as: FINDINGS: There is no acute intraparenchymal hemorrhage. No evidence of mass lesion. No evidence of acute infarction. There is mild periventricular and subcortical hypodensity probably related to small vessel ischemic disease. There is mild prominence of the sulci and ventricles related to cerebral atrophy. Intracranial calcified cerebral atherosclerosis is noted. There are no extra-axial collections. There is no mass effect or midline shift. Changes in the left globe are likely from ocular lens surgery. The visualized sinuses and mastoid air cells are well aerated. IMPRESSION: 1. No acute intracranial abnormality. 2. Age related findings
[2022-08-18] MEDS: AMITRIPTYLINE HCL 25 MG TABLET PO (20:45)
[2022-08-19] VITALS (12 sets, daily range): BP systolic 110–122; BP diastolic 76–79; PULSE 70–81; RESP 14–22; TEMP 36.6–36.7; O2SAT 97–99
[2022-08-19] MEDS: LEVOTHYROXINE SODIUM 50 MCG TABLET PO (05:44)
[2022-08-19 05:51] LABS: Alanine Aminotransferase 22 U/L (6-50); Albumin Level 2.8 g/dL (3.5-5.1); Alkaline Phosphatase 91 U/L (38-126); Anion Gap 4 mmol/L (8-16); Aspartate Amino Transferase 45 U/L (17-59); Bilirubin,Total 0.3 mg/dL (0.2-1.3); Blood Urea Nitrogen 7 mg/dL (9-20); Calcium 7.8 mg/dL (8.4-10.2); Carbon Dioxide 21 mmol/L (22-30); Chloride 104 mmol/L (98-107); Estimated CRCL calculation 69 ml/min; Estimated Glomerular Filt Rate > 60; Glucose 83 mg/dL (65-110); Magnesium 1.4 mg/dL (1.6-2.3); Potassium 3.9 mmol/L (3.4-5.0); Sodium 129 mmol/L (137-145)
[2022-08-19] MEDS: FLUTICASONE/SALMETEROL 115-21 MCG INHALER 1 PUFF 2 PUFF INHALATION ×2 (08:56→19:37)
[2022-08-19] MEDS: traMADol HCL (*CRX) 50 MG TABLET PO (09:06)
[2022-08-19] MEDS: MAGNESIUM OXIDE 400 MG TABLET PO (09:06)
[2022-08-19] MEDS: LIDOCAINE 5% PATCH 1 PATCH TRANSDERM (09:06)
[2022-08-19] MEDS: MAGNESIUM SULF 2 GM/WATER 50ML 2 GM/50 ML BAG IVPB (09:06)
[2022-08-19] MEDS: ATORVASTATIN 40 MG TABLET PO (09:08)
[2022-08-19] MEDS: APIXABAN 2.5 MG TABLET PO ×2 (09:08→17:54)
[2022-08-19] MEDS: PANTOPRAZOLE 40 MG TABLET PO (09:08)
[2022-08-19] MEDS: POTASSIUM CHLORIDE 20 MEQ TABLET.ER PO ×2 (09:08→17:54)
[2022-08-19] MEDS: THIAMINE HCL 100 MG TABLET PO (09:08)
[2022-08-19] MEDS: AMIODARONE HCL 200 MG TABLET PO (09:08)
[2022-08-19] MEDS: MIDODRINE HCL 2.5 MG TABLET PO ×3 (09:08→17:54)
[2022-08-19] MEDS: busPIRone HCL 5 MG TABLET PO ×2 (09:08→17:53)
--- NOTE | 2022-08-19 14:57 | PM.IMPN ---
Progress Note: A&P Assessment and Plan (1) Acute hyponatremia: Code(s): E87.1 - Hypo-osmolality and hyponatremia Status: Acute Assessment and Plan: Will start patient on NS Continue to monitor Likely to be multifactorial Poor per orally intake SIADH Will hold spironolactone Will hold Lasix No neurologic complaints. Serial BMPs. Sodium levels improving. 08/19/2022 interval history: 57-year-old male presented with a recurrent fall was found to have hyponatremia most likely multifactorial with history of alcohol abuse, and was diuresed, furosemide and spironolactone on hold, patient's sodium was improved as well as clinical symptom, patient did not participate in PT on 08/17, patient is encouraged and has agreed to work with PT/OT, will stop IVF, instructed patient to reduce oral water intake to improve his sodium, will have a PT OT evaluate the patient further recommendation to follow. (2) Falls: Code(s): W19.XXXA - Unspecified fall, initial encounter Status: Acute Assessment and Plan: Likely secondary to alcohol intoxication Fall precautions CIWA (3) Alcohol intoxication: Code(s): F10.929 - Alcohol use, unspecified with intoxication, unspecified Status: Acute Assessment and Plan: CIWA protocol as needed (4) Hypomagnesemia: Code(s): E83.42 - Hypomagnesemia Status: Acute Assessment and Plan: Replace as needed (5) Fracture of rib: Code(s): S22.39XA - Fracture of one rib, unspecified side, initial encounter for closed fracture Status: Acute Assessment and Plan: Incentive spirometer Pain management Oxygen as needed (6) Paroxysmal atrial fibrillation: Code(s): I48.0 - Paroxysmal atrial fibrillation Status: Acute Assessment and Plan: Continue to monitor Remains on anticoagulation (7) Hypertensive heart disease with heart failure: Code(s): I11.0 - Hypertensive heart disease with heart failure Status: Acute Assessment and Plan: Continue home meds Continue to monitor Holding Lasix and spironolactone (8) Gastro-esophageal reflux disease without esophagitis: Code(s): K21.9 - Gastro-esophageal reflux disease without esophagitis Status: Acute Assessment and Plan: PPI as needed (9) Chronic systolic CHF (congestive heart failure): Code(s): I50.22 - Chronic systolic (congestive) heart failure Status: Acute Assessment and Plan: Patient appears euvolemic Daily intake and output (10) COPD (chronic obstructive pulmonary disease): Code(s): J44.9 - Chronic obstructive pulmonary disease, unspecified Status: Acute Assessment and Plan: Not actively wheezing Continue to monitor. Subjective Date/time seen: 08/19/22 14:57 Will start patient on NS Continue to monitor Likely to be multifactorial Poor per orally intake SIADH Will hold spironolactone Will hold Lasix No neurologic complaints. Serial BMPs. Sodium levels improving. 08/19/2022 interval history: 57-year-old male presented with a recurrent fall was found to have hyponatremia most likely multifactorial with history of alcohol abuse, and was diuresed, furosemide and spironolactone on hold, patient's sodium was improved as well as clinical symptom, patient did not participate in PT on 08/17, patient is encouraged and has agreed to work with PT/OT, will stop IVF, instructed patient to reduce oral water intake to improve his sodium, will have a PT OT evaluate the patient further recommendation to follow. Exam Narrative: Appears chronically ill, older than his age Patient is comfortable, NAD HEENT: eyes are clear and none icteric LUNGS: Normal respiratory effort ABD: Not distended Lower extremities: no edema SKIN: nonjaundiced Neuro: grossly intact. Objective Data Vital Signs Vital Signs: Vital Signs - 24 hr 08/18/22 16:00 08/18/22 20:00 08/18/22 20:27 [place]
[2022-08-19] MEDS: AMITRIPTYLINE HCL 25 MG TABLET PO (20:44)
[2022-08-20] VITALS (10 sets, daily range): BP systolic 100–128; BP diastolic 57–84; PULSE 67–91; RESP 20; TEMP 36.6–36.8; O2SAT 94–100
[2022-08-20] MEDS: traMADol HCL (*CRX) 50 MG TABLET PO (04:12)
[2022-08-20] MEDS: LEVOTHYROXINE SODIUM 50 MCG TABLET PO (06:03)
[2022-08-20 06:26] LABS: Alanine Aminotransferase 20 U/L (6-50); Albumin Level 2.9 g/dL (3.5-5.1); Alkaline Phosphatase 88 U/L (38-126); Anion Gap 0 mmol/L (8-16); Aspartate Amino Transferase 32 U/L (17-59); Bilirubin,Total 0.3 mg/dL (0.2-1.3); Blood Urea Nitrogen 9 mg/dL (9-20); Calcium 8.5 mg/dL (8.4-10.2); Carbon Dioxide 27 mmol/L (22-30); Chloride 105 mmol/L (98-107); Estimated CRCL calculation 80 ml/min; Estimated Glomerular Filt Rate > 60; Glucose 90 mg/dL (65-110); Magnesium 1.7 mg/dL (1.6-2.3); Potassium 4.5 mmol/L (3.4-5.0); Sodium 132 mmol/L (137-145)
[2022-08-20] MEDS: MAGNESIUM OXIDE 400 MG TABLET PO (09:48)
[2022-08-20] MEDS: APIXABAN 2.5 MG TABLET PO (09:48)
[2022-08-20] MEDS: MIDODRINE HCL 2.5 MG TABLET PO ×2 (09:48→13:42)
[2022-08-20] MEDS: ATORVASTATIN 40 MG TABLET PO (09:48)
[2022-08-20] MEDS: POTASSIUM CHLORIDE 20 MEQ TABLET.ER PO (09:48)
[2022-08-20] MEDS: THIAMINE HCL 100 MG TABLET PO (09:48)
[2022-08-20] MEDS: AMIODARONE HCL 200 MG TABLET PO (09:48)
[2022-08-20] MEDS: PANTOPRAZOLE 40 MG TABLET PO (09:48)
[2022-08-20] MEDS: busPIRone HCL 5 MG TABLET PO (09:48)
[2022-08-20] MEDS: LIDOCAINE 5% PATCH 1 PATCH TRANSDERM (10:03)
[2022-08-20] MEDS: FLUTICASONE/SALMETEROL 115-21 MCG INHALER 1 PUFF 2 PUFF INHALATION (10:09)
--- NOTE | 2022-08-20 12:11 | PM.DS ---
DS: Admitting Diagnosis Discharge Date 08/20/2022 Admitting Diagnosis Falls DS: Discharge Diagnosis Discharge Diagnosis (1) Acute hyponatremia: Code(s): E87.1 - Hypo-osmolality and hyponatremia Status: Acute Assessment and Plan: Will start patient on NS Continue to monitor Likely to be multifactorial Poor per orally intake SIADH Will hold spironolactone Will hold Lasix No neurologic complaints. Serial BMPs. Sodium levels improving. 08/19/2022 interval history: 57-year-old male presented with a recurrent fall was found to have hyponatremia most likely multifactorial with history of alcohol abuse, and was diuresed, furosemide and spironolactone on hold, patient's sodium was improved as well as clinical symptom, patient did not participate in PT on 08/17, patient is encouraged and has agreed to work with PT/OT, will stop IVF, instructed patient to reduce oral water intake to improve his sodium, will have a PT OT evaluate the patient further recommendation to follow. (2) Falls: Code(s): W19.XXXA - Unspecified fall, initial encounter Status: Acute Assessment and Plan: Likely secondary to alcohol intoxication Fall precautions CIWA (3) Alcohol intoxication: Code(s): F10.929 - Alcohol use, unspecified with intoxication, unspecified Status: Acute Assessment and Plan: CIWA protocol as needed (4) Hypomagnesemia: Code(s): E83.42 - Hypomagnesemia Status: Acute Assessment and Plan: Replace as needed (5) Fracture of rib: Code(s): S22.39XA - Fracture of one rib, unspecified side, initial encounter for closed fracture Status: Acute Assessment and Plan: Incentive spirometer Pain management Oxygen as needed (6) Paroxysmal atrial fibrillation: Code(s): I48.0 - Paroxysmal atrial fibrillation Status: Acute Assessment and Plan: Continue to monitor Remains on anticoagulation (7) Hypertensive heart disease with heart failure: Code(s): I11.0 - Hypertensive heart disease with heart failure Status: Acute Assessment and Plan: Continue home meds Continue to monitor Holding Lasix and spironolactone (8) Gastro-esophageal reflux disease without esophagitis: Code(s): K21.9 - Gastro-esophageal reflux disease without esophagitis Status: Acute Assessment and Plan: PPI as needed (9) Chronic systolic CHF (congestive heart failure): Code(s): I50.22 - Chronic systolic (congestive) heart failure Status: Acute Assessment and Plan: Patient appears euvolemic Daily intake and output (10) COPD (chronic obstructive pulmonary disease): Code(s): J44.9 - Chronic obstructive pulmonary disease, unspecified Status: Acute Assessment and Plan: Not actively wheezing Continue to monitor. DS: Summary Hospital Course Reason for hospitalization: FALLS Narrative: THIS IS A 57-YEAR-OLD MALE WITH PAST MEDICAL HISTORY SIGNIFICANT FOR ALCOHOL DEPENDENCE, RECURRENT FALLS, alcoholic cardiomyopathy, COPD/emphysema, tobacco dependence, hypertension, GERD, paroxysmal atrial fibrillation.? Patient presents to the emergency room after having recurrent falls after alcohol intoxication, patient complaining of ribcage pain.? Found to have several rib fractures and several electrolyte abnormalities.? Patient denies any fevers, rigors, chills, cough, sputum production, nausea, vomiting, diarrhea, chest pain, leg swelling, palpitations.? Patient is been admitted for further evaluation management and treatment. Hospital Course: ?57-year-old male presented with a recurrent fall was found to have hyponatremia most likely multifactorial with history of alcohol abuse, and was diuresed, furosemide and spironolactone on hold, patient's sodium was improved as well as clinical symptom, patient did not participate in PT on 08/17, patient is encouraged and has agreed to work with PT/OT, will stop IVF,
== END 2022-08-20 16:38 | disposition home or self-care (01) ==
LOC: ANHED 21:48 → ANH3MED 23:46
PROVIDERS: Chiropractor; Admitting Provider Internal Medicine; Emergency Provider Emergency Medicine; PCP Family Medicine; Visit Provider Family Medicine
DX: E87.1 Hypo-osmolality and hyponatremia (principal); E83.42 Hypomagnesemia; S22.39XA Fracture of one rib, unspecified side, initial encounter for closed fracture; W19.XXXA Unspecified fall, initial encounter; R29.6 Repeated falls; E46 Unspecified protein-calorie malnutrition; Z68.1 Body mass index [BMI] 19.9 or less, adult; I48.0 Paroxysmal atrial fibrillation; I11.0 Hypertensive heart disease with heart failure; I50.22 Chronic systolic (congestive) heart failure; I25.10 Atherosclerotic heart disease of native coronary artery without angina pectoris; K21.9 Gastro-esophageal reflux disease without esophagitis; I25.2 Old myocardial infarction; I47.1 Supraventricular tachycardia; E03.9 Hypothyroidism, unspecified; E78.5 Hyperlipidemia, unspecified; R10.9 Unspecified abdominal pain; J44.9 Chronic obstructive pulmonary disease, unspecified; I42.6 Alcoholic cardiomyopathy; R91.8 Other nonspecific abnormal finding of lung field; M47.812 Spondylosis without myelopathy or radiculopathy, cervical region; F10.929 Alcohol use, unspecified with intoxication, unspecified; Y90.7 Blood alcohol level of 200-239 mg/100 ml; F17.290 Nicotine dependence, other tobacco product, uncomplicated; Z79.01 Long term (current) use of anticoagulants; Z79.51 Long term (current) use of inhaled steroids; Z79.899 Other long term (current) drug therapy
CPT/HCPCS: 36415; 70450; 71046; 71100; 72125; 80048; 80053; 80307; 81001; 82948; 83735; 85025; 94640; 96361; 96365; 96367; 96375; 97161; 99285; A9270; G0378; G0379; J1170; J2060; J2405; J3411; J3475; J7030

== ENCOUNTER 2022-08-23 22:05 | Emergency (ER) | payer MEDICARE, SELFPAY ==
--- NOTE | ~2022-08-23 | XR_ITS ---
EXAMINATION: XR chest 1V INDICATION: Cough and weakness, unresponsive TECHNIQUE: Frontal view of the chest is obtained. COMPARISON: 08/16/2022 FINDINGS: Cardiomegaly is noted. There are bibasilar airspace opacities developing on the right and w orsening on the left. No pleural effusion or pneumothorax. Age indeterminate left-sided rib fractures are again noted. IMPRESSION: 1. Bibasilar airspace opacities, worsening on the left and developing on the right, consistent with a telectasis versus pneumonia. 2. Cardiomegaly. Reviewed, dictated and finalized at location [facility]. IMPRESSION: 1. Bibasilar airspace opacities, worsening on the left and developing on the ri ght, consistent with atelectasis versus pneumonia. 2. Cardiomegaly.
--- NOTE | ~2022-08-23 | CT_ITS ---
EXAMINATION: CT brain wo con INDICATION: Transient alteration of awareness COMPARISON: 08/16/2022 TECHNIQUE: Standard unenhanced head CT. The dose-length product (DLP) was 605.33 mGy-cm. The mA was a djusted according to patient size. Iterative reconstruction technique was employed. FINDINGS: There is no acute intraparenchymal hemorrhage. No evidence of mass lesion. No evidence of a cute infarction. There is mild periventricular and subcortical hypodensity probably related to small vessel ischemic disease. There is mild prominence of the sulci and ventricles related to cerebral atr ophy. Intracranial calcified cerebral atherosclerosis is noted. There are no extra-axial collections. There is no mass effect or midline shift. Changes in the left lobe are likely from ocular lens surge ry. The visualized sinuses and mastoid air cells are well aerated. IMPRESSION: 1. No acute intracranial abnormality. 2. Age related findings. Reviewed, dictated and finalized at location [facility].
--- NOTE | 2022-08-23 21:23 | ECG_ITS ---
Measurements Intervals [place] Rate: 74 P: FL: 0 QRS: -35 QRSD: 146 T: 18 QT: 472 QTc: 525 Interpretive Statements LIKELY SINUS RHYTHM MARKED LEFT AXIS DEVIATION [QRS AXIS < -30] LEFT BUNDLE BRANCH BLOCK [120+ ms QRS DURATION, 80+ ms Q/S IN V1/V2, 85+ ms R IN I/aVL/V5/V6] COMPARED TO ECG 07/10/2022 21:35:49 NO SIGNIFICANT CHANGES Electronically Signed On 08-24-2022 15:59:08 CDT by Arash Platt M.D.
[2022-08-23 22:15] LABS: Glucose Point of Care 64 mg/dl (65-105)
[2022-08-23 22:19] VITALS: BP 115/79; PULSE 74; RESP 20; TEMP 36.5; O2SAT 100
[2022-08-23] MEDS: DEXTROSE 50% 25 GM/50 ML SYRINGE IV PUSH (22:32)
[2022-08-23 22:52] LABS: Basophils Percent Auto 0.9 % (0.2-1.2); Eosinophils Percent Auto 0.9 % (0-4.4); Hematocrit 32.1 % (42.0-52.0); Hemoglobin 10.6 g/dL (14.0-18.0); Immature Granulocyte Absolute 0.02 K/mm3 (0.00-0.031); Immature Granulocyte Percent A 0.5 % (0-0.5); Lymphocytes Absolute Auto 1.14 K/mm3 (0.9-3.2); Lymphocytes Percent Auto 26.3 % (18.3-44.2); Mean Corpuscular Hemoglobin 34.2 pg (26-34); Mean Corpuscular Volume 103.5 fl (80-100); Mean Platelet Volume 8.8 fl (7.4-10.4); Monocytes Absolute Auto 0.2 K/mm3 (0.1-0.6); Monocytes Percent Auto 3.9 % (2.6-8.5); Neutrophils Absolute Auto 2.9 K/mm3 (1.3-6.7); Neutrophils Percent Auto 67.5 % (45.5-73.1); Platelet Count Result 234 k/mm3 (150-375); Red Cell Distribution Width 16.2 % (11.5-14.5); White Blood Count 4.3 K/mm3 (4.5-10.0)
[2022-08-23 22:56] LABS: Add Urine Microscopic? NO; Appearance Urine Clear (Clear); Bilirubin Urine Negative (Negative); Blood Urine Negative (Negative); Color Urine Yellow (Yellow); Glucose Urine UA Negative (Negative); Ketones Urine Negative (Negative); Leukocyte Esterase Ur Negative LEU/UL (Negative); Nitrate Urine Negative (Negative); Protein Urine Negative (Negative); Specific Grav Ur 1.009 (1.001-1.035); Urobilinogen Urine 0.2 mg/dL (<2.0)
[2022-08-23 23:06] LABS: Alanine Aminotransferase 19 U/L (6-50); Albumin Level 3.4 g/dL (3.5-5.1); Alkaline Phosphatase 104 U/L (38-126); Anion Gap 10 mmol/L (8-16); Aspartate Amino Transferase 40 U/L (17-59); Bilirubin,Total 0.3 mg/dL (0.2-1.3); Blood Urea Nitrogen 14 mg/dL (9-20); Calcium 7.3 mg/dL (8.4-10.2); Carbon Dioxide 23 mmol/L (22-30); Chloride 104 mmol/L (98-107); Estimated Glomerular Filt Rate > 60; Glucose 60 mg/dL (65-110); Magnesium 1.7 mg/dL (1.6-2.3); Potassium 3.9 mmol/L (3.4-5.0); Sodium 137 mmol/L (137-145)
[2022-08-23 23:11] LABS: Amphetamine Screen Urine Negative (Negative); Barbiturate Screen Urine Negative (Negative); Benzodiazepines Screen Urine Negative (Negative); Cannabinoid Screen Urine Negative (Negative); Cocaine Screen Urine Negative (Negative); Methadone Screen Urine Negative (Negative); Opiate Screen Urine Negative (Negative); Phencyclidine Screen Urine Negative (Negative)
[2022-08-23] MEDS: ONDANSETRON INJ 4 MG/2 ML VIAL IV PUSH (23:22)
[2022-08-23] MEDS: SODIUM CHLORIDE 0.9% IV 1,000 ML 999 ML IV CONT (23:22)
[2022-08-23 23:35] VITALS: PULSE 86; RESP 15; O2SAT 100
[2022-08-23 23:38] LABS: Ethanol 568 mg/dL (<10)
[2022-08-23 23:48] VITALS: PULSE 75; RESP 18
[2022-08-24] VITALS (24 sets, daily range): BP systolic 106–134; BP diastolic 64–99; PULSE 76–92; RESP 15–22; O2SAT 87–100
[2022-08-24] MEDS: THIAMINE HCL 200 MG/2 ML VIAL 100 MG IV PUSH (01:59)
--- NOTE | 2022-08-24 02:06 | PC.NURSE ---
Pt removed nasal trumpet that was placed by EMS. No signs of distress noted. Will continue to monitor.
[2022-08-24 02:13] LABS: Glucose Point of Care 51 mg/dl (65-105)
[2022-08-24] MEDS: DEXTROSE 50% 25 GM/50 ML SYRINGE IV PUSH (02:16)
[2022-08-24] MEDS: DEXTROSE 5%/0.9% SOD CHL 1,000 ML 100 ML IV CONT (02:20)
[2022-08-24 03:33] LABS: Glucose Point of Care 142 mg/dl (65-105)
--- NOTE | 2022-08-24 03:47 | ED.GENADULT ---
HPI - General Adult General Chief complaint: Alcohol Stated complaint: UNRESPONSIVE, +ETOH History of Present Illness HPI narrative: Patient is a 57-year-old gentleman who presents the emergency department with chief complaint of decreased responsiveness. Patient has history of heavy alcohol abuse and this evening was found by EMS with decreased responsiveness. The patient was minimally responsive upon initial arrival with a nasal trumpet in and EMS almost had to intubate him prehospital due to decreased responsiveness. Related Data Home Medications Medication Instructions Recorded Confirmed amiodarone 200 mg tablet 200 mg PO DAILY 04/24/19 08/17/22 tramadol 50 mg tablet 50 mg PO BID PRN Pain (Scale Score 06/15/22 08/17/22 4-6) albuterol sulfate 90 mcg/actuation 1 inh inhalation Q4H PRN Shortness 08/17/22 08/17/22 aerosol inhaler Of Breath Or Wheezing fluticasone 250 mcg-salmeterol 50 1 inh inhalation Q12H 08/17/22 08/17/22 mcg/dose blistr powdr for inhalation (Wixela Inhub) Allergies Allergy/AdvReac Type Severity Reaction Status Date / Time ragweed pollen Allergy Unknown seasonal Verified 08/02/22 09:21 [place] Allergy Unknown seasonal Uncoded 08/02/22 09:21 [place] Allergy Unknown seasonal Uncoded 08/02/22 09:21 Review of Systems Review of Systems: A 10 system review of systems was completed on the patient and is negative except for what is stated in the HPI. Nursing and ancillary documentation was reviewed. [facility] Past Medical History Medical History Alcohol abuse Alcoholic cardiomyopathy Atherosclerotic heart disease of [place] coronary artery without angina pectoris Chronic systolic CHF (congestive heart failure) COPD (chronic obstructive pulmonary disease) With prior history of home O2 use Essential hypertension Gastro-esophageal reflux disease without esophagitis Hypothyroidism Mixed hyperlipidemia [place] (myocardial infarction) Orthostatic hypotension Paroxysmal atrial fibrillation Severe protein-calorie malnutrition SVT (supraventricular tachycardia) Tobacco abuse Surgical History Surgical History History of toe surgery History of tonsillectomy and adenoidectomy Family History Family History Father Family history of liver disease Sibling Family history of liver disease Chronic obstructive pulmonary disease Mother Family history of emphysema Social History Social History Social History: He is on disability. He has a long history of alcohol abuse. He tends to binge drink. Typically drinking vodka and beer. He has used chewing tobacco and smokes cigars on occasion. Alcohol has affected the patient's life in many ways. He has been to custodial due to his alcohol use and has intermittently required placement in nursing home facilities. He has been homeless at other times due to his alcohol use. Surrogate decision maker: Xiao () Code status: Full code Years smoked: 35 Smoking status: Former smoker Tobacco type: cigars Smokeless tobacco user: chewing tobacco Second hand tobacco smoke exposure: No Additional smoking assessment comments: chewing tobacco daily and occassional cigars Alcohol intake: current Drinks per week: 35 Alcohol use details: 0.5-1 pt per day of vodka Substance use: never Lack of Transportation: No Lack of Food: Never True Current Housing: I Have Housing Concerned About Future Housing: No Difficulty Paying Gas/Electric Bills: No Difficulty Paying for Meds: No Currently Unemployed: No Education: High School Diploma/GED Difficulty w/ Childcare or Family Care: No Living arrangements: with family Occupation/Education: retired Gender identity (if verbalized by t
[2022-08-24 05:22] LABS: Glucose Point of Care 118 mg/dl (65-105)
== END 2022-08-24 06:16 | disposition home or self-care (01) ==
PROVIDERS: Emergency Provider Emergency Medicine; PCP Family Medicine
DX: F10.129 Alcohol abuse with intoxication, unspecified (principal); E16.2 Hypoglycemia, unspecified; I42.6 Alcoholic cardiomyopathy; I25.10 Atherosclerotic heart disease of native coronary artery without angina pectoris; I50.22 Chronic systolic (congestive) heart failure; I48.0 Paroxysmal atrial fibrillation; E03.9 Hypothyroidism, unspecified; E78.2 Mixed hyperlipidemia; I25.2 Old myocardial infarction; K21.9 Gastro-esophageal reflux disease without esophagitis; F17.290 Nicotine dependence, other tobacco product, uncomplicated; Y90.8 Blood alcohol level of 240 mg/100 ml or more; Z79.01 Long term (current) use of anticoagulants; I44.7 Left bundle-branch block, unspecified; I51.7 Cardiomegaly; R91.8 Other nonspecific abnormal finding of lung field; Z79.899 Other long term (current) drug therapy
CPT/HCPCS: 36415; 70450; 71045; 80053; 80307; 81003; 82948; 83735; 85025; 93005; 96361; 96374; 96375; 96376; 99284; J2405; J3411; J7030; J7042

== ENCOUNTER 2022-08-27 15:22 | Inpatient (IN) | payer MEDICARE, SELFPAY ==
[2022-08-27] VITALS (20 sets, daily range): BP systolic 123–138; BP diastolic 71–95; PULSE 76–103; RESP 14–24; TEMP 36.8–36.9; O2SAT 95–100; BMI 18.8
--- NOTE | ~2022-08-27 | CT_ITS ---
EXAMINATION: CT brain wo con DATE: 08/27/2022 20:42 INDICATION: Seizure TECHNIQUE: Computed tomography (CT) of the head was performed without intravenous contrast. The mA wa s adjusted according to patient size. Iterative reconstruction technique was employed. Exam dose: 60 5.33 mGy-cm total exam DLP. COMPARISON: 08/23/2022 CT brain FINDINGS: Cerebral atherosclerosis. Nonspecific diminished attenuation cerebral white matter, likely due to chronic small vessel ischemic changes. There is moderate cerebral and cerebellar atrophy. No intracranial mass lesion or hemorrhage, midline shift or mass effect effect. No subdural or epidur al hematoma. No fracture or bone destruction of the cranial vault. Included paranasal sinuses and mastoid air cell s are normally developed and aerated. IMPRESSION: No acute intracranial finding Reviewed, dictated and finalized at [facility]. Reviewed, dictated and finalized at location A.
--- NOTE | ~2022-08-27 | XR_ITS ---
XR chest 1V portable DATE: 08/27/2022 16:02 INDICATION: Unresponsive. COPD. Smoker. TECHNIQUE: Portable AP chest on 08/27/2022 at 1600 hours COMPARISON: 08/23/2022 AP chest FINDINGS: Cardiomegaly. Aortic arch calcification. There is patchy infiltrate or atelectasis in the mid and to a greater extent lower lung zones, left g reater than right, with some air bronchograms in the medial left lower lobe. There is mild improvemen t of the infiltrates since 08/23/2022 No pleural effusion or pulmonary vascular congestion or pneumothorax is detected. Diffuse osteopenia. IMPRESSION: Bilateral mid and to a greater extent lower lung zone infiltrates, mildly improved since 08/23/2022 Cardiomegaly Osteopenia Reviewed, dictated and finalized at location A.
--- NOTE | ~2022-08-27 | US_ITS ---
Renal-Bladder ultrasound Clinical History: Urinary retention Technique: Real-time sonographic imaging of the kidneys and urinary bladder was performed. Findings: The right kidney measures 8.7 cm in length and the left kidney measures 10.8 cm. There is n o hydronephrosis or renal calculus identified. Renal cortical echogenicity is within normal limits. N o solid renal mass lesion is identified. The urinary bladder is partially distended at the time of this exam. No intraluminal echoes are ident ified. No abnormal wall thickening is seen. Impression: No significant abnormality seen. Reviewed, dictated and finalized at location . Impression: No significant abnormality seen.
--- NOTE | ~2022-08-27 | MR_ITS ---
MRI of the brain Clinical History: Encephalopathy Technique: Axial and sagittal T1-weighted images were acquired. These were followed by axial T2-weigh ajay, diffusion weighted, gradient, and FLAIR images. Following intravenous administration of 10 cc Mu ltiHance gadolinium, T1-weighted fat-sat imaging was performed in the axial and coronal planes. Findings: There is no acute infarct, intracranial hemorrhage, or mass lesion in the brain. There are mild chronic white matter changes in the periventricular white matter bilaterally, and in the dorian. Ventricles and subarachnoid spaces are mildly dilated. Orbits are unremarkable. Paranasal sinuses and mastoid air cells are clear. Major intracranial flow voids are intact. Sagittal midline structures are intact. No abnormal postcontrast enhancement identified. IMPRESSION: No acute infarct, intracranial hemorrhage, or mass lesion. Mild chronic microvascular ischemic changes and mild generalized atrophy. Reviewed, dictated and finalized at [facility].
--- NOTE | 2022-08-27 15:37 | ECG_ITS ---
Measurements Intervals [place] Rate: 83 P: 119 [place]: 203 QRS: -46 QRSD: 133 T: -33 QT: 441 QTc: 520 Interpretive Statements SINUS RHYTHM BASELINE ARTIFACT INTRAVENTRICULAR CONDUCTION DELAY POSSIBLE MITALI SEPTAL MYOCARDIAL INFARCTION, OF INDETERMINATE AGE ST ABNORMALITY IN ANTEROLATERAL LEADS, CONSIDER MYOCARDIAL ISCHEMIA ABNORMAL ECG COMPARED TO ECG 08/23/2022 22:13:04 LEFT BUNDLE-BRANCH BLOCK CRITERIA NOT CLEARLY APPRECIATED Electronically Signed On 08-28-2022 15:07:52 CDT by Ameya Burrell M.D.
[2022-08-27 15:56] LABS: Hematocrit 36.7 % (42.0-52.0); Hemoglobin 11.8 g/dL (14.0-18.0); Mean Corpuscular HGB Conc 32.2 g/dl (32-36); Mean Corpuscular Hemoglobin 34.1 pg (26-34); Mean Corpuscular Volume 106.1 fl (80-100); Mean Platelet Volume 8.7 fl (7.4-10.4); Platelet Count Result 183 k/mm3 (150-375); Red Blood Count 3.46 M/mm3 (4.6-6.20); Red Cell Distribution Width 15.6 % (11.5-14.5); White Blood Count 4.6 K/mm3 (4.5-10.0)
[2022-08-27 16:08] LABS: Ammonia < 9 umol/L (9-30); Ethanol 226 mg/dL (<10); Magnesium 1.6 mg/dL (1.6-2.3); Partial Thromboplastin Time 30.2 SECONDS (22.3-36.8); Prothrombin Time 12.3 Seconds (11.1-14.7)
[2022-08-27 16:09] LABS: Alanine Aminotransferase 31 U/L (6-50); Albumin Level 4.1 g/dL (3.5-5.1); Alkaline Phosphatase 140 U/L (38-126); Anion Gap 13 mmol/L (8-16); Aspartate Amino Transferase 77 U/L (17-59); Bilirubin,Total 0.5 mg/dL (0.2-1.3); Blood Urea Nitrogen 13 mg/dL (9-20); Calcium 8.2 mg/dL (8.4-10.2); Carbon Dioxide 21 mmol/L (22-30); Chloride 101 mmol/L (98-107); Creatine Kinase 124 U/L (55-170); Estimated CRCL calculation 88 ml/min; Estimated Glomerular Filt Rate > 60; Glucose 146 mg/dL (65-110); Sodium 135 mmol/L (137-145)
[2022-08-27 16:20] LABS: Troponin I < 0.012 ng/mL (0.000-0.034)
[2022-08-27 16:24] LABS: Lymphocytes Absolute Manual 0.27 K/mm3 (1.1-4.5); Monocytes Absolute Manual 0.09 K/mm3 (0.1-0.90); Monocytes Percent Manual 2 % (3-9); Neutrophils Percent Manual 92 % (46-73); Platelet Estimate Adequate (Adequate); Schistocytes None Seen (NORMAL); Total Cells Counted 100
[2022-08-27 16:25] LABS: Anisocytosis 2+ (NORMAL); Hypochromasia 1+ (NORMAL)
--- NOTE | 2022-08-27 16:53 | ED.AMS ---
HPI - Altered Mental Status General Chief Complaint: Altered Mental Status Stated Complaint: low blood sugar Time Seen by Provider: 08/27/22 15:23 Source: patient, EMS, RN notes reviewed and old records reviewed Mode of arrival: EMS Limitations: intoxication History of Present Illness HPI narrative: This is 57 year old male with history of alcohol abuse who presents for evaluation of unresponsiveness. PAtient's was unable wake patient up so EMS was called. Patient was found to have low glucose by EMS. Patient was started on D10 infusion with improvement of his blood sugar. Patient states she drinks at least 1 pint of vodka a day and today he drank 1.5 pint. He states his told him she was unable to wake him up. He reports having shaking but denies history of DT/seizures. HE denies headache, nausea, voniting, abdominal pain, chest pain or shortness of breath. HE has not eaten anything today. Related Data Home Medications Medication Instructions Recorded Confirmed amiodarone 200 mg tablet 200 mg PO DAILY 04/24/19 08/17/22 tramadol 50 mg tablet 50 mg PO BID PRN Pain (Scale Score 06/15/22 08/17/22 4-6) albuterol sulfate 90 mcg/actuation 1 inh inhalation Q4H PRN Shortness 08/17/22 08/17/22 aerosol inhaler Of Breath Or Wheezing fluticasone 250 mcg-salmeterol 50 1 inh inhalation Q12H 08/17/22 08/17/22 mcg/dose blistr powdr for inhalation (Wixela Inhub) Allergies Allergy/AdvReac Type Severity Reaction Status Date / Time ragweed pollen Allergy Unknown seasonal Verified 08/02/22 09:21 [place] Allergy Unknown seasonal Uncoded 08/02/22 09:21 [place] Allergy Unknown seasonal Uncoded 08/02/22 09:21 Review of Systems Constitutional: Constitutional: Denies weakness Cardiovascular: Cardiovascular: Denies syncope, Denies rapid heart rate, Denies irregular heart rhythm, Denies leg edema and Reports dyspnea Respiratory: Respiratory: Denies chest congestion, Denies hemoptysis, Denies excessive phlegm production and Denies dyspnea Gastrointestinal: Gastrointestinal: Denies abdominal pain, Denies hematochezia, Denies diarrhea and Denies vomiting Genitourinary: Genitourinary: Denies hematuria, Denies dysuria, Denies penile discharge and Denies testicular pain Musculoskeletal: Musculoskeletal: Denies joint swelling, Denies loss of height and Denies muscle weakness Neurologic: Denies syncope, Denies focal weakness and Denies weakness PMFSH Past Medical History Medical History Alcohol abuse Alcoholic cardiomyopathy Atherosclerotic heart disease of [place] coronary artery without angina pectoris Chronic systolic CHF (congestive heart failure) COPD (chronic obstructive pulmonary disease) With prior history of home O2 use Essential hypertension Gastro-esophageal reflux disease without esophagitis Hypothyroidism Mixed hyperlipidemia [place] (myocardial infarction) Orthostatic hypotension Paroxysmal atrial fibrillation Severe protein-calorie malnutrition SVT (supraventricular tachycardia) Tobacco abuse Surgical History Surgical History History of toe surgery History of tonsillectomy and adenoidectomy Family History Family History Father Family history of liver disease Sibling Family history of liver disease Chronic obstructive pulmonary disease Mother Family history of emphysema Social History Social History Social History: He is on disability. He has a long history of alcohol abuse. He tends to binge drink. Typically drinking vodka and beer. He has used chewing tobacco and smokes cigars on occasion. Alcohol has affected the patient's life in many ways. He has been to [facility] due to his alcohol use and has intermittently required placement in [facility] facilities. He has been
[2022-08-27 17:47] LABS: Glucose Point of Care > 500 mg/dl (65-105)
[2022-08-27 17:47] LABS: Glucose Point of Care > 500 mg/dl (65-105)
[2022-08-27 18:10] LABS: Appearance Urine Clear (Clear); Bacteria Urine None Seen /hpf; Bilirubin Urine Negative (Negative); Blood Urine 1+ (Negative); Color Urine Yellow (Yellow); Glucose Urine UA Negative (Negative); Ketones Urine 1+ mg/dL (Negative); Leukocyte Esterase Ur Negative LEU/UL (Negative); Nitrate Urine Negative (Negative); Non Pathogenic Casts 0-2; Protein Urine Trace mg/dL (Negative); Specific Grav Ur 1.011 (1.001-1.035); Squamous Epithelial Cell Urine None seen /hpf (Few); Urobilinogen Urine 0.2 mg/dL (<2.0); WBC Urine 0-5 /hpf; pH Urine 6.5 (5.0-9.0)
[2022-08-27 18:15] LABS: Add Urine Microscopic? YES
[2022-08-27 18:21] LABS: Amphetamine Screen Urine Negative (Negative); Barbiturate Screen Urine Negative (Negative); Benzodiazepines Screen Urine Negative (Negative); Cannabinoid Screen Urine Negative (Negative); Cocaine Screen Urine Negative (Negative); Methadone Screen Urine Negative (Negative); Opiate Screen Urine Negative (Negative); Phencyclidine Screen Urine Negative (Negative)
[2022-08-27] MEDS: SODIUM CHLORIDE 0.9% IV 1,000 ML 999 ML IV CONT (18:38)
--- NOTE | 2022-08-27 19:25 | PC.NURSE ---
Addendum entered by Deonna Gonzalez RN 08/27/22 19:30: 1925 Pt tremoring and exhibiting altered mental status. Pt is able to respond, Dr Martinez notified and returned to bedside and verbal order of glucose check and ativan 2mg IVP. 8 Glucose reading for LO and D50 amp verbally ordered per Dr. Martinez and given at 1930 n 18G RAC. 1933 Tremors/shaking have stopped and Pt more responsive and following commands at this time. Original Note: Pt tremoring and exhibiting altered mental status
[2022-08-27] MEDS: DEXTROSE 50% 25 GM/50 ML SYRINGE IV PUSH (19:28)
[2022-08-27 19:34] LABS: Glucose Point of Care < 20 mg/dl (65-105)
--- NOTE | 2022-08-27 19:34 | PC.NURSE ---
blood glucose to be checked every hour per Michelle BAKER
--- NOTE | 2022-08-27 19:35 | PC.NURSE ---
[address] Martinez ativan 2mg IVP cancelled verbally.
--- NOTE | 2022-08-27 19:40 | PC.NURSE ---
Pt provided ham sandwich and apple juice at this time by EDP.
[2022-08-27 20:02] LABS: Glucose Point of Care 123 mg/dl (65-105)
[2022-08-27 20:49] LABS: Glucose Point of Care 111 mg/dl (65-105)
--- NOTE | 2022-08-27 21:28 | PM.IMHP ---
H&P: HPI History of Present Illness Date/Time: 08/27/22 21:28 Chief Complaint: Altered mental status Narrative: This is a 57-year-old male with past medical history significant for alcohol dependence, alcoholic cardiomyopathy, atrial fibrillation, rate controlled anticoagulated, GERD, COPD/emphysema. Patient presents to the emergency room via EMS due to episode of unresponsiveness or upon EMS arrival blood glucose was found to be 20, patient denies any fevers, rigors, chills, nausea, vomiting, diarrhea, abdominal pain, chest pain, has had some tremors. Patient usually drinks 1 pt of vodka daily however today he had 1 and half pt. patient was placed on D10 en route to the hospital preliminary workup was significant for an alcohol level of 226. Patient has been admitted for further evaluation management and treatment. A chest x-ray was reported as: FINDINGS: Normal heart size. There is mild aortic unfolding. No hilar or mediastinal enlargement. No pulmonary infiltrate or consolidation, pleural effusion or pulmonary vascular congestion or pneumothorax. Diffuse osteopenia. Chronic left clavicular deformity. Surgical clips overlie the left upper quadrant. Surgical clips, retrocardiac, likely due to cholecystectomy.? IMPRESSION: No active cardiopulmonary disease? CT of the head were supported as: FINDINGS: Cerebral atherosclerosis. Nonspecific diminished attenuation cerebral white matter, likely due to chronic small vessel ischemic changes. There is moderate cerebral and cerebellar atrophy. No intracranial mass lesion or hemorrhage, midline shift or mass effect effect. No subdural or epidural hematoma. No fracture or bone destruction of the cranial vault. Included paranasal sinuses and mastoid air cells are normally developed and aerated. IMPRESSION:? No acute intracranial finding Review of Systems Review of Systems: Episode of unresponsiveness Patient has no recollection of events ROS unobtainable: Yes unobtainable due to mental status PMFSH Past Medical History Medical History Alcohol abuse Alcoholic cardiomyopathy Atherosclerotic heart disease of [place] coronary artery without angina pectoris Chronic systolic CHF (congestive heart failure) COPD (chronic obstructive pulmonary disease) With prior history of home O2 use Essential hypertension Gastro-esophageal reflux disease without esophagitis Hypothyroidism Mixed hyperlipidemia [place] (myocardial infarction) Orthostatic hypotension Paroxysmal atrial fibrillation Severe protein-calorie malnutrition SVT (supraventricular tachycardia) Tobacco abuse Surgical History Surgical History History of toe surgery History of tonsillectomy and adenoidectomy Family History Family History Father Family history of liver disease Sibling Family history of liver disease Chronic obstructive pulmonary disease Mother Family history of emphysema Social History Social History Social History: He is on disability. He has a long history of alcohol abuse. He tends to binge drink. Typically drinking vodka and beer. He has used chewing tobacco and smokes cigars on occasion. Alcohol has affected the patient's life in many ways. He has been to alf due to his alcohol use and has intermittently required placement in correction facilities. He has been homeless at other times due to his alcohol use. Surrogate decision maker: Xiao () Code status: Full code Years smoked: 35 Smoking status: Former smoker Tobacco type: cigars Smokeless tobacco user: chewing tobacco Second hand tobacco smoke exposure: No Additional smoking assessment comments: chewing tobacco daily and occassional cigars Alcohol intake: current Drinks per week: 48 Alcohol u
[2022-08-27 21:44] LABS: Glucose Point of Care 112 mg/dl (65-105)
[2022-08-27 22:50] LABS: Glucose Point of Care 84 mg/dl (65-105)
--- NOTE | 2022-08-27 23:09 | ADMGEN ---
This patient, Gabriel Nathan, was admitted to IMU Room 207-01 at 2255. Patient/family oriented to hospital policies and general routines including ID bracelet, bed and alarms, visiting hours, pain management, procedures, bathroom and other care routines, personal items, smoking policy, room service/diet, and visiting hours. Information on how to activate the Rapid Response Team has been discussed. Patient/Family are encouraged to report perceived risks to care and to ask questions if they do not understand what they are told or what they should do.
[2022-08-27 23:13] LABS: Glucose Point of Care 103 mg/dl (65-105)
[2022-08-28] VITALS (15 sets, daily range): BP systolic 110–130; BP diastolic 62–85; PULSE 79–101; RESP 16–20; TEMP 36.4–37.5; O2SAT 95–100
[2022-08-28 00:18] LABS: Glucose Point of Care 105 mg/dl (65-105)
[2022-08-28 01:49] LABS: Glucose Point of Care 195 mg/dl (65-105)
[2022-08-28 02:36] LABS: Glucose Point of Care 119 mg/dl (65-105)
[2022-08-28 03:22] LABS: Glucose Point of Care 129 mg/dl (65-105)
[2022-08-28 04:04] LABS: Glucose Point of Care 118 mg/dl (65-105)
[2022-08-28 04:39] LABS: Basophils Percent Auto 0.4 % (0.2-1.2); Eosinophils Absolute Auto 0.1 K/mm3 (0-0.3); Eosinophils Percent Auto 0.7 % (0-4.4); Hematocrit 28.6 % (42.0-52.0); Hemoglobin 9.3 g/dL (14.0-18.0); Immature Granulocyte Absolute 0.02 K/mm3 (0.00-0.031); Immature Granulocyte Percent A 0.3 % (0-0.5); Lymphocytes Absolute Auto 0.71 K/mm3 (0.9-3.2); Lymphocytes Percent Auto 9.7 % (18.3-44.2); Mean Corpuscular HGB Conc 32.5 g/dl (32-36); Mean Corpuscular Hemoglobin 33.3 pg (26-34); Mean Corpuscular Volume 102.5 fl (80-100); Mean Platelet Volume 9.3 fl (7.4-10.4); Monocytes Absolute Auto 0.6 K/mm3 (0.1-0.6); Monocytes Percent Auto 7.9 % (2.6-8.5); Neutrophils Absolute Auto 5.9 K/mm3 (1.3-6.7); Platelet Count Result 182 k/mm3 (150-375); Red Blood Count 2.79 M/mm3 (4.6-6.20); Red Cell Distribution Width 15.5 % (11.5-14.5); White Blood Count 7.3 K/mm3 (4.5-10.0)
[2022-08-28 05:03] LABS: Alanine Aminotransferase 33 U/L (6-50); Alkaline Phosphatase 110 U/L (38-126); Anion Gap 1 mmol/L (8-16); Aspartate Amino Transferase 80 U/L (17-59); Bilirubin,Total 0.5 mg/dL (0.2-1.3); Blood Urea Nitrogen 12 mg/dL (9-20); Calcium 7.5 mg/dL (8.4-10.2); Carbon Dioxide 28 mmol/L (22-30); Chloride 101 mmol/L (98-107); Estimated CRCL calculation 81 ml/min; Estimated Glomerular Filt Rate > 60; Glucose 120 mg/dL (65-110); Potassium 3.4 mmol/L (3.4-5.0); Sodium 130 mmol/L (137-145)
[2022-08-28] MEDS: chlordiazePOXIDE (*CRX) 25 MG CAPSULE 50 MG PO ×4 (05:43→23:36)
[2022-08-28 05:52] LABS: Glucose Point of Care 108 mg/dl (65-105)
[2022-08-28 06:47] LABS: Glucose Point of Care 102 mg/dl (65-105)
[2022-08-28 07:31] LABS: Glucose Point of Care 91 mg/dl (65-105)
[2022-08-28] MEDS: THIAMINE HCL 200 MG/2 ML VIAL 100 MG IV PUSH (08:53)
[2022-08-28 11:48] LABS: Glucose Point of Care 150 mg/dl (65-105)
[2022-08-28] MEDS: POTASSIUM CHLORIDE 20 MEQ TABLET 40 MEQ PO (13:16)
[2022-08-28] MEDS: MAGNESIUM OXIDE 400 MG TABLET PO (13:17)
--- NOTE | 2022-08-28 14:41 | PM.IMPN ---
Progress Note: A&P Assessment and Plan (1) Hypoglycemia: Code(s): E16.2 - Hypoglycemia, unspecified Status: Acute Assessment and Plan: Likely secondary to poor per orally intake and ingestion of alcohol Continue to monitor Admit to IMU 08/28/2022 interval history: patient was just discharged last week after he was treated follow alcohol withdrawal patient again presents intoxicated with tremor and alcohol level of 226, patient is started on Librium, thiamine and folic acid, is clinically stable will have a PT OT evaluate the patient, patient will benefit going to alcohol rehab center after discharge, discussed with associate director career services and further recommendation to follow. (2) Alcohol withdrawal: Code(s): F10.939 - Alcohol use, unspecified with withdrawal, unspecified Status: Acute Assessment and Plan: CIWA protocol as needed (3) Alcohol dependence: Code(s): F10.20 - Alcohol dependence, uncomplicated Status: Acute Assessment and Plan: Referral to 12 step program in the outpatient setting (4) Paroxysmal atrial fibrillation: Code(s): I48.0 - Paroxysmal atrial fibrillation Status: Acute Assessment and Plan: Continue amiodarone Continue apixaban (5) Chronic systolic CHF (congestive heart failure): Code(s): I50.22 - Chronic systolic (congestive) heart failure Status: Acute Assessment and Plan: Patient appears euvolemic Daily intake and output Continue home meds (6) COPD (chronic obstructive pulmonary disease): Code(s): J44.9 - Chronic obstructive pulmonary disease, unspecified Status: Acute Assessment and Plan: Not actively wheezing Continue home meds (7) Alcoholic cardiomyopathy: Code(s): I42.6 - Alcoholic cardiomyopathy Status: Acute Assessment and Plan: Unchanged (8) Gastro-esophageal reflux disease without esophagitis: Code(s): K21.9 - Gastro-esophageal reflux disease without esophagitis Status: Acute Assessment and Plan: PPI Subjective Date/time seen: 08/28/22 14:41 Altered mental status Narrative: This is a 57-year-old male with past medical history significant for alcohol dependence, alcoholic cardiomyopathy, atrial fibrillation, rate controlled anticoagulated, GERD, COPD/emphysema.? Patient presents to the emergency room via EMS due to episode of unresponsiveness or upon EMS arrival blood glucose was found to be 20, patient denies any fevers, rigors, chills, nausea, vomiting, diarrhea, abdominal pain, chest pain, has had some tremors.? Patient usually drinks 1 pt of vodka daily however today he had 1 and half pt. patient was placed on D10 en route to the hospital preliminary workup was significant for an alcohol level of 226.? Patient has been admitted for further evaluation management and treatment. A chest x-ray was reported as: FINDINGS: Normal heart size. There is mild aortic unfolding. No hilar or mediastinal enlargement. No pulmonary infiltrate or consolidation, pleural effusion or pulmonary vascular congestion or pneumothorax. Diffuse osteopenia. Chronic left clavicular deformity. Surgical clips overlie the left upper quadrant. Surgical clips, retrocardiac, likely due to cholecystectomy.? IMPRESSION: No active cardiopulmonary disease? CT of the head were supported as: FINDINGS: Cerebral atherosclerosis. Nonspecific diminished attenuation cerebral white matter, likely due to chronic small vessel ischemic changes. There is moderate cerebral and cerebellar atrophy. No intracranial mass lesion or hemorrhage, midline shift or mass effect effect. No subdural or epidural hematoma. No fracture or bone destruction of the cranial vault. Included paranasal sinuses and mastoid air cells are normally developed and aerated. IMPRESSION:? No acute intracranial finding 08/28/2022 interval history: patient was just discharged last week after he was treated follow alcohol withdrawal p
[2022-08-28 18:10] LABS: Glucose Point of Care 117 mg/dl (65-105)
[2022-08-28] MEDS: LORazepam INJ (*CRX) 2 MG/ML VIAL IV PUSH (20:27)
[2022-08-28 23:01] LABS: Glucose Point of Care 146 mg/dl (65-105)
[2022-08-29] VITALS (12 sets, daily range): BP systolic 119–137; BP diastolic 67–95; PULSE 74–127; RESP 16–26; TEMP 36.3–37.3; O2SAT 98–100
[2022-08-29 05:02] LABS: Hemoglobin 9.5 g/dL (14.0-18.0); Mean Corpuscular HGB Conc 31.7 g/dl (32-36); Mean Corpuscular Hemoglobin 34.7 pg (26-34); Mean Corpuscular Volume 109.5 fl (80-100); Mean Platelet Volume 9.7 fl (7.4-10.4); Platelet Count Result 135 k/mm3 (150-375); Red Blood Count 2.74 M/mm3 (4.6-6.20); Red Cell Distribution Width 15.9 % (11.5-14.5); White Blood Count 6.5 K/mm3 (4.5-10.0)
[2022-08-29 05:10] LABS: Anion Gap 2 mmol/L (8-16); Blood Urea Nitrogen 8 mg/dL (9-20); Calcium 8.1 mg/dL (8.4-10.2); Carbon Dioxide 29 mmol/L (22-30); Chloride 100 mmol/L (98-107); Estimated CRCL calculation 107 ml/min; Estimated Glomerular Filt Rate > 60; Glucose 97 mg/dL (65-110); Magnesium 1.7 mg/dL (1.6-2.3); Potassium 3.6 mmol/L (3.4-5.0); Sodium 131 mmol/L (137-145)
[2022-08-29] MEDS: chlordiazePOXIDE (*CRX) 25 MG CAPSULE 50 MG PO ×3 (05:49→23:37)
[2022-08-29] MEDS: THIAMINE HCL 200 MG/2 ML VIAL 100 MG IV PUSH (08:50)
[2022-08-29] MEDS: MAGNESIUM OXIDE 400 MG TABLET PO (08:50)
[2022-08-29] MEDS: POTASSIUM CHLORIDE 20 MEQ TABLET 40 MEQ PO (10:22)
[2022-08-29 12:25] LABS: Glucose Point of Care 146 mg/dl (65-105)
--- NOTE | 2022-08-29 13:11 | PM.IMPN ---
Progress Note: A&P Assessment and Plan (1) Hypoglycemia: Code(s): E16.2 - Hypoglycemia, unspecified Status: Acute Assessment and Plan: Likely secondary to poor per orally intake and ingestion of alcohol Continue to monitor Admit to IMU 08/29/2022 interval history: patient was just discharged last week after he was treated for alcohol withdrawal patient again presents intoxicated with tremor and alcohol level of 226, patient was started on Librium, thiamine and folic acid, patient is getting librium 50mg q6, he is more somnolent and CIWA protocol are low, will stop the scheduled Librium and place the patient Librium 25 mg every 6 hours as needed with CIWA protocol, once he is clinically stable will have a PT OT evaluate the patient, patient will benefit going to alcohol rehab center after discharge, discussed with primary care pediatrician and further recommendation to follow. (2) Alcohol withdrawal: Code(s): F10.939 - Alcohol use, unspecified with withdrawal, unspecified Status: Acute Assessment and Plan: CIWA protocol as needed (3) Alcohol dependence: Code(s): F10.20 - Alcohol dependence, uncomplicated Status: Acute Assessment and Plan: Referral to 12 step program in the outpatient setting (4) Paroxysmal atrial fibrillation: Code(s): I48.0 - Paroxysmal atrial fibrillation Status: Acute Assessment and Plan: Continue amiodarone Continue apixaban (5) Chronic systolic CHF (congestive heart failure): Code(s): I50.22 - Chronic systolic (congestive) heart failure Status: Acute Assessment and Plan: Patient appears euvolemic Daily intake and output Continue home meds (6) COPD (chronic obstructive pulmonary disease): Code(s): J44.9 - Chronic obstructive pulmonary disease, unspecified Status: Acute Assessment and Plan: Not actively wheezing Continue home meds (7) Alcoholic cardiomyopathy: Code(s): I42.6 - Alcoholic cardiomyopathy Status: Acute Assessment and Plan: Unchanged (8) Gastro-esophageal reflux disease without esophagitis: Code(s): K21.9 - Gastro-esophageal reflux disease without esophagitis Status: Acute Assessment and Plan: PPI Subjective Date/time seen: 08/29/22 13:11 08/29/2022 interval history: patient was just discharged last week after he was treated for alcohol withdrawal patient again presents intoxicated with tremor and alcohol level of 226, patient was started on Librium, thiamine and folic acid, patient is getting librium 50mg q6, he is more somnolent and CIWA protocol are low, will stop the scheduled Librium and place the patient Librium 25 mg every 6 hours as needed with CIWA protocol, once he is clinically stable will have a PT OT evaluate the patient, patient will benefit going to alcohol rehab center after discharge, discussed with primary care pediatrician and further recommendation to follow. Review of Systems Review of Systems: ROS unobtainable: Yes unobtainable due to mental status Exam Narrative: Appears chronically ill older than his age Patient is comfortable, NAD HEENT: eyes are clear and none icteric LUNGS: Normal respiratory efforts ABD: Not distended Lower extremities: no edema SKIN: nonjaundiced Neuro: grossly intact. Objective Data Vital Signs Vital Signs: Vital Signs - 24 hr 08/28/22 14:00 08/28/22 16:00 08/28/22 16:00 Temperature 97.8 F Pulse Rate 85 81 80 Respiratory Rate 18 Blood Pressure 130/85 Pulse Oximetry 98 Oxygen Delivery 08/28/22 16:00 08/28/22 18:00 08/28/22 20:00 Temperature 97.5 F L Pulse Rate 79 79 Respiratory Rate 16 Blood Pressure 125/80 Pulse Oximetry 100 Oxygen Delivery Room Air 08/28/22 20:00 08/28/22 20:00 08/28/22 22:00 Temperature Pulse Rate 82 81 Respiratory Rate Blood Pressure Pulse Oximetry Oxygen Delivery Room Air 08/28/22 23:20 08/29/22 00:00 08/29
[2022-08-29] MEDS: chlordiazePOXIDE (*CRX) 25 MG CAPSULE PO ×2 (13:45→14:40)
[2022-08-29] MEDS: LORazepam INJ (*CRX) 2 MG/ML VIAL IV PUSH ×2 (17:56→22:17)
[2022-08-29] MEDS: dilTIAZem HCl INJ 25 MG/5 ML VIAL 20 MG IV PUSH (22:12)
[2022-08-29 23:07] LABS: Glucose Point of Care 112 mg/dl (65-105)
[2022-08-30] VITALS (11 sets, daily range): BP systolic 88–105; BP diastolic 55–70; PULSE 80–113; RESP 20–28; TEMP 36.2–36.5; O2SAT 93–98
[2022-08-30] MEDS: LORazepam INJ (*CRX) 2 MG/ML VIAL IV PUSH (02:19)
[2022-08-30 05:19] LABS: Hematocrit 32.6 % (42.0-52.0); Hemoglobin 10.7 g/dL (14.0-18.0); Immature Platelet Fraction Pct 3.9 % (0.9-11.2); Mean Corpuscular HGB Conc 32.8 g/dl (32-36); Mean Corpuscular Hemoglobin 34.5 pg (26-34); Mean Corpuscular Volume 105.2 fl (80-100); Mean Platelet Volume 9.6 fl (7.4-10.4); Platelet Count Result 142 k/mm3 (150-375); Red Cell Distribution Width 15.6 % (11.5-14.5); White Blood Count 5.7 K/mm3 (4.5-10.0)
[2022-08-30 05:41] LABS: Albumin Level 3.5 g/dL (3.5-5.1); Anion Gap 2 mmol/L (8-16); Blood Urea Nitrogen 7 mg/dL (9-20); Calcium 8.4 mg/dL (8.4-10.2); Carbon Dioxide 29 mmol/L (22-30); Chloride 96 mmol/L (98-107); Estimated CRCL calculation 91 ml/min; Estimated Glomerular Filt Rate > 60; Glucose 85 mg/dL (65-110); Magnesium 1.5 mg/dL (1.6-2.3); Phosphorus 1.7 mg/dL (2.5-4.5); Potassium 3.5 mmol/L (3.4-5.0); Sodium 127 mmol/L (137-145)
[2022-08-30] MEDS: LEVOTHYROXINE SODIUM 50 MCG TABLET PO (06:02)
[2022-08-30] MEDS: chlordiazePOXIDE (*CRX) 25 MG CAPSULE 50 MG PO (06:02)
[2022-08-30 08:47] LABS: Glucose Point of Care 71 mg/dl (65-105)
--- NOTE | 2022-08-30 09:05 | PC.NURSE ---
Notified Dr. Lasron of patient's decreased BP. Pt also difficult to arouse. Blood glucose check was 71, BP 88/55. New order to follow hypoglycemic protocol and to administer 500ml NS bolus x1.
[2022-08-30] MEDS: DEXTROSE 50% 25 GM/50 ML SYRINGE IV PUSH (09:12)
[2022-08-30] MEDS: SODIUM CHLORIDE 0.9% IV 500 ML 999 ML IV CONT (09:13)
[2022-08-30] MEDS: AMIODARONE HCL 200 MG TABLET PO (09:14)
[2022-08-30] MEDS: MAGNESIUM OXIDE 400 MG TABLET PO (09:14)
[2022-08-30] MEDS: MIDODRINE HCL 2.5 MG TABLET PO ×3 (09:14→17:07)
[2022-08-30] MEDS: APIXABAN 2.5 MG TABLET PO ×2 (09:14→20:51)
[2022-08-30] MEDS: THIAMINE HCL 100 MG TABLET PO (09:14)
[2022-08-30] MEDS: PANTOPRAZOLE 40 MG TABLET PO (09:14)
[2022-08-30] MEDS: busPIRone HCL 5 MG TABLET PO ×2 (09:14→17:07)
[2022-08-30] MEDS: ATORVASTATIN 40 MG TABLET PO (09:14)
[2022-08-30 09:45] LABS: Glucose Point of Care 135 mg/dl (65-105)
[2022-08-30] MEDS: MAGNESIUM SULF 2 GM/WATER 50ML 2 GM/50 ML BAG IVPB (10:02)
[2022-08-30] MEDS: POTASSIUM CHLORIDE 20 MEQ PACKET (FOR LIQUID) 40 MEQ PO (10:03)
[2022-08-30 11:43] LABS: Glucose Point of Care 78 mg/dl (65-105)
--- NOTE | 2022-08-30 16:01 | PM.IMPN ---
Progress Note: A&P Assessment and Plan (1) Hypoglycemia: Code(s): E16.2 - Hypoglycemia, unspecified Status: Acute Assessment and Plan: Likely secondary to poor per orally intake and ingestion of alcohol Continue to monitor Admit to IMU 08/30/2022 interval history: patient was just discharged last week after he was treated for alcohol withdrawal patient again presents intoxicated with tremor and alcohol level of 226, patient was started on Librium, thiamine and folic acid, patient is getting librium 50mg q6, he is more somnolent and CIWA protocol were low, stopped the scheduled Librium and place the patient Librium 25 mg every 6 hours as needed with CIWA protocol, however patient became agitated and resume Librium 50 mg every 6 hours for 1 day, will monitor and dose Librium as needed, once he is clinically stable will have a PT OT evaluate the patient, patient will benefit going to alcohol rehab center after discharge, discussed with healthcare administrative assistant and further recommendation to follow. (2) Alcohol withdrawal: Code(s): F10.939 - Alcohol use, unspecified with withdrawal, unspecified Status: Acute Assessment and Plan: CIWA protocol as needed (3) Alcohol dependence: Code(s): F10.20 - Alcohol dependence, uncomplicated Status: Acute Assessment and Plan: Referral to 12 step program in the outpatient setting (4) Paroxysmal atrial fibrillation: Code(s): I48.0 - Paroxysmal atrial fibrillation Status: Acute Assessment and Plan: Continue amiodarone Continue apixaban (5) Chronic systolic CHF (congestive heart failure): Code(s): I50.22 - Chronic systolic (congestive) heart failure Status: Acute Assessment and Plan: Patient appears euvolemic Daily intake and output Continue home meds (6) COPD (chronic obstructive pulmonary disease): Code(s): J44.9 - Chronic obstructive pulmonary disease, unspecified Status: Acute Assessment and Plan: Not actively wheezing Continue home meds (7) Alcoholic cardiomyopathy: Code(s): I42.6 - Alcoholic cardiomyopathy Status: Acute Assessment and Plan: Unchanged (8) Gastro-esophageal reflux disease without esophagitis: Code(s): K21.9 - Gastro-esophageal reflux disease without esophagitis Status: Acute Assessment and Plan: PPI Subjective Date/time seen: 08/30/22 16:01 08/30/2022 interval history: patient was just discharged last week after he was treated for alcohol withdrawal patient again presents intoxicated with tremor and alcohol level of 226, patient was started on Librium, thiamine and folic acid, patient is getting librium 50mg q6, he is more somnolent and CIWA protocol were low, stopped the scheduled Librium and place the patient Librium 25 mg every 6 hours as needed with CIWA protocol, however patient became agitated and resume Librium 50 mg every 6 hours for 1 day, will monitor and dose Librium as needed, once he is clinically stable will have a PT OT evaluate the patient, patient will benefit going to alcohol rehab center after discharge, discussed with healthcare administrative assistant and further recommendation to follow. Review of Systems Review of Systems: ROS unobtainable: Yes unobtainable due to mental status Exam Narrative: Appears chronically ill older than his age Patient is comfortable, NAD HEENT: eyes are clear and none icteric LUNGS: Normal respiratory efforts ABD: Not distended Lower extremities: no edema SKIN: nonjaundiced Neuro: grossly intact. Objective Data Vital Signs Vital Signs: Vital Signs - 24 hr 08/29/22 20:00 08/29/22 20:00 08/29/22 20:00 Temperature 99 F Pulse Rate 120 H 125 H Pulse Rate [Bilateral Pedal (Dorsalis Pedis) Palpation] 127 H Respiratory Rate 18 Blood Pressure 119/89 Pulse Oximetry 100 Oxygen Delivery 08/29/22 20:00 08/29/22 23:31 08/30/22 00:00 Temperature 99.1 F Pulse Rate 125 H
[2022-08-30 18:27] LABS: Glucose Point of Care 103 mg/dl (65-105)
[2022-08-30] MEDS: AMITRIPTYLINE HCL 25 MG TABLET PO (20:52)
[2022-08-30 23:24] LABS: Glucose Point of Care 88 mg/dl (65-105)
[2022-08-31] VITALS (15 sets, daily range): BP systolic 96–204; BP diastolic 64–80; PULSE 80–97; RESP 20–24; TEMP 36.1–36.4; O2SAT 93–100
[2022-08-31 05:03] LABS: Hematocrit 33.5 % (42.0-52.0); Hemoglobin 10.6 g/dL (14.0-18.0); Mean Corpuscular HGB Conc 31.6 g/dl (32-36); Mean Corpuscular Hemoglobin 33.7 pg (26-34); Mean Corpuscular Volume 106.3 fl (80-100); Mean Platelet Volume 9.5 fl (7.4-10.4); Platelet Count Result 137 k/mm3 (150-375); Red Blood Count 3.15 M/mm3 (4.6-6.20); White Blood Count 6.6 K/mm3 (4.5-10.0)
[2022-08-31 05:29] LABS: Albumin Level 3.5 g/dL (3.5-5.1); Anion Gap 7 mmol/L (8-16); Blood Urea Nitrogen 10 mg/dL (9-20); Calcium 8.5 mg/dL (8.4-10.2); Carbon Dioxide 24 mmol/L (22-30); Chloride 101 mmol/L (98-107); Estimated CRCL calculation 91 ml/min; Estimated Glomerular Filt Rate > 60; Glucose 100 mg/dL (65-110); Magnesium 2.1 mg/dL (1.6-2.3); Phosphorus 2.7 mg/dL (2.5-4.5); Potassium 4.3 mmol/L (3.4-5.0); Sodium 132 mmol/L (137-145)
[2022-08-31] MEDS: LEVOTHYROXINE SODIUM 50 MCG TABLET PO (05:53)
[2022-08-31] MEDS: ATORVASTATIN 40 MG TABLET PO (09:03)
[2022-08-31] MEDS: APIXABAN 2.5 MG TABLET PO ×2 (09:03→20:27)
[2022-08-31] MEDS: THIAMINE HCL 100 MG TABLET PO (09:03)
[2022-08-31] MEDS: AMIODARONE HCL 200 MG TABLET PO (09:04)
[2022-08-31] MEDS: MIDODRINE HCL 2.5 MG TABLET PO ×3 (09:04→17:51)
[2022-08-31] MEDS: PANTOPRAZOLE 40 MG TABLET PO (09:04)
[2022-08-31] MEDS: FLUTICASONE/SALMETEROL 115-21 MCG INHALER 1 PUFF 2 PUFF INHALATION ×2 (09:06→20:00)
--- NOTE | 2022-08-31 09:30 | PM.IMPN ---
Progress Note: A&P Assessment and Plan (1) Hypoglycemia: Code(s): E16.2 - Hypoglycemia, unspecified Status: Acute Assessment and Plan: Likely secondary to poor per orally intake and ingestion of alcohol Blood glucose reviewed 08/31 (2) Alcohol withdrawal: Code(s): F10.939 - Alcohol use, unspecified with withdrawal, unspecified Status: Acute Assessment and Plan: CIWA protocol as needed, stop IV Ativan, continue Librium as needed, last score was 3 Continue thiamine (3) Alcohol dependence: Code(s): F10.20 - Alcohol dependence, uncomplicated Status: Acute Assessment and Plan: Referral to 12 step program in the outpatient setting (4) Paroxysmal atrial fibrillation: Code(s): I48.0 - Paroxysmal atrial fibrillation Status: Acute Assessment and Plan: Continue amiodarone Continue apixaban (5) Chronic systolic CHF (congestive heart failure): Code(s): I50.22 - Chronic systolic (congestive) heart failure Status: Acute Assessment and Plan: Patient appears euvolemic Daily intake and output Continue home meds (6) COPD (chronic obstructive pulmonary disease): Code(s): J44.9 - Chronic obstructive pulmonary disease, unspecified Status: Acute Assessment and Plan: Not actively wheezing Continue home meds (7) Alcoholic cardiomyopathy: Code(s): I42.6 - Alcoholic cardiomyopathy Status: Acute Assessment and Plan: Unchanged (8) Gastro-esophageal reflux disease without esophagitis: Code(s): K21.9 - Gastro-esophageal reflux disease without esophagitis Status: Acute Assessment and Plan: PPI (9) Urinary retention: Code(s): R33.9 - Retention of urine, unspecified Status: Acute Assessment and Plan: Unsure of etiology, bales placed, start flomax, check UA + renal US Consider urology consult if he later fails voiding trials (10) Encephalopathy: Code(s): G93.40 - Encephalopathy, unspecified Status: Acute Assessment and Plan: Unsure of etiology, likely multifactorial, Neurology consult pending Would get MRI, EEG, concern for seizure activity due to twitching and possible postictal state versus Wernicke/Korsakoff encephalopathy versus continued alcohol withdrawal? Plan DVT prophylaxis with eliquis GI prophylaxis with PPI Code status full code Subjective Date/time seen: 08/31/22 09:30 Interval history: 57-year-old male here with alcohol withdrawal. No overnight events noted. No vomiting or diarrhea. No fevers or chills. Patient is somnolent, extremely lethargic, unable to be aroused. CIWA score consistently less than 8 on no medication. Noted facial twitching on the left eye and mouth area only. Review of Systems Review of Systems: ROS unobtainable: Yes unobtainable due to mental status Exam Narrative: General: Somnolent, essentially unresponsive HEENT: Atraumatic, normocephalic, mucous membranes dry CV: Regular rate and rhythm, S1, S2 Lungs: Clear to auscultation bilaterally, diminished at bases, no wheeze Abdomen: Soft, nontender, nondistended Extremities: Normal to inspection, no edema Skin: Scattered bruising noted Psych: Unable to assess Objective Data Vital Signs Vital Signs: Vital Signs - 24 hr 08/30/22 11:53 08/30/22 12:00 08/30/22 12:00 Temperature 97.1 F L Pulse Rate 86 80 Pulse Rate [Bilateral Pedal (Dorsalis Pedis) Palpation] 85 Respiratory Rate 28 H Blood Pressure 95/66 L Pulse Oximetry 95 Oxygen Delivery 08/30/22 16:00 08/30/22 16:00 08/30/22 16:00 Temperature 97.2 F L Pulse Rate 88 82 Pulse Rate [Bilateral Pedal (Dorsalis Pedis) Palpation] 93 Respiratory Rate 24 H Blood Pressure 100/70 Pulse Oximetry 97 Oxygen Delivery 08/30/22 20:00 08/30/22 20:00 08/30/22 20:00 Temperature 97.6 F Pulse
[2022-08-31] MEDS: MAGNESIUM OXIDE 400 MG TABLET PO (09:46)
[2022-08-31 12:02] LABS: Glucose Point of Care 135 mg/dl (65-105)
[2022-08-31] MEDS: TAMSULOSIN HCL 0.4 MG CAPSULE PO (12:53)
[2022-08-31 17:00] LABS: Glucose Point of Care 109 mg/dl (65-105)
[2022-08-31 18:17] LABS: Appearance Urine Clear (Clear); Bacteria Urine Rare /hpf; Bilirubin Urine Negative (Negative); Blood Urine Negative (Negative); Color Urine Yellow (Yellow); Glucose Urine UA Negative (Negative); Ketones Urine Negative (Negative); Leukocyte Esterase Ur 1+ LEU/UL (NEGATIVE); Nitrate Urine Positive (Negative); Non Pathogenic Casts 0-2; Protein Urine Negative (Negative); RBC Urine 0-2 /hpf (0-2); Specific Grav Ur 1.008 (1.001-1.035); Squamous Epithelial Cell Urine None seen /hpf (Few); Urobilinogen Urine 0.2 mg/dL (<2.0); WBC Urine 21-50 /hpf (0-3)
[2022-08-31 18:35] LABS: Add Urine Microscopic? YES
[2022-09-01] VITALS (12 sets, daily range): BP systolic 99–125; BP diastolic 60–73; PULSE 77–91; RESP 15–21; TEMP 35.9–36.5; O2SAT 93–100
[2022-09-01 04:48] LABS: Hematocrit 30.5 % (42.0-52.0); Hemoglobin 9.7 g/dL (14.0-18.0); Mean Corpuscular HGB Conc 31.8 g/dl (32-36); Mean Corpuscular Hemoglobin 33.1 pg (26-34); Mean Corpuscular Volume 104.1 fl (80-100); Mean Platelet Volume 9.4 fl (7.4-10.4); Platelet Count Result 159 k/mm3 (150-375); Red Blood Count 2.93 M/mm3 (4.6-6.20); Red Cell Distribution Width 15.8 % (11.5-14.5); White Blood Count 5.4 K/mm3 (4.5-10.0)
[2022-09-01 04:55] LABS: Albumin Level 3.2 g/dL (3.5-5.1); Anion Gap 4 mmol/L (8-16); Blood Urea Nitrogen 13 mg/dL (9-20); Calcium 8.5 mg/dL (8.4-10.2); Carbon Dioxide 26 mmol/L (22-30); Chloride 102 mmol/L (98-107); Estimated CRCL calculation 90 ml/min; Estimated Glomerular Filt Rate > 60; Glucose 102 mg/dL (65-110); Magnesium 1.7 mg/dL (1.6-2.3); Phosphorus 4.3 mg/dL (2.5-4.5); Potassium 3.8 mmol/L (3.4-5.0); Sodium 132 mmol/L (137-145)
[2022-09-01] MEDS: LEVOTHYROXINE SODIUM 50 MCG TABLET PO (06:06)
[2022-09-01] MEDS: MAGNESIUM OXIDE 400 MG TABLET PO (08:55)
[2022-09-01] MEDS: PANTOPRAZOLE 40 MG TABLET PO (08:55)
[2022-09-01] MEDS: APIXABAN 2.5 MG TABLET PO ×2 (08:55→21:01)
[2022-09-01] MEDS: MIDODRINE HCL 2.5 MG TABLET PO ×3 (08:55→18:06)
[2022-09-01] MEDS: AMIODARONE HCL 200 MG TABLET PO (08:55)
[2022-09-01] MEDS: THIAMINE HCL 100 MG TABLET PO (08:55)
[2022-09-01] MEDS: ATORVASTATIN 40 MG TABLET PO (08:55)
[2022-09-01] MEDS: FLUTICASONE/SALMETEROL 115-21 MCG INHALER 1 PUFF 2 PUFF INHALATION ×2 (09:22→21:20)
[2022-09-01] MEDS: TAMSULOSIN HCL 0.4 MG CAPSULE PO (09:40)
[2022-09-01] MEDS: ACETAMINOPHEN 325 MG TABLET 650 MG PO ×2 (09:40→21:04)
--- NOTE | 2022-09-01 09:48 | WPDNEURCNPN ---
Assessment and Plan Assessment and plan (1) Encephalopathy: Code(s): G93.40 - Encephalopathy, unspecified Status: Acute (2) Alcohol withdrawal: Code(s): F10.939 - Alcohol use, unspecified with withdrawal, unspecified Status: Acute (3) Alcohol dependence: Code(s): F10.20 - Alcohol dependence, uncomplicated Status: Acute (4) Hypoglycemia: Code(s): E16.2 - Hypoglycemia, unspecified Status: Acute (5) Seizure-like activity: Code(s): R56.9 - Unspecified convulsions Status: Acute (6) Low vitamin B12 level: Code(s): E53.8 - Deficiency of other specified B group vitamins Status: Acute Plan Gabriel Nathan is a 57 year old male with a history of alcohol dependence, alcoholic cardiomyopathy, atrial fibrillation (on chronic anticoagulation), COPD who was brought in by EMS due to episode of unresponsiveness. Patient remains encephalopathic during admission. Likely related to alcohol withdrawal, although also concern for seizures given witnessed paroxysmal event. Patient also noted to have low vitamin B12 at an earlier admission this year. - MRI brain w/wo contrast - Routine EEG - Vitamin B12 supplementation - Increase B1 to 500mg TID for three days, then 250mg daily for three days, then 100mg daily Consult date: 09/01/22 Reason for consult: Encephalopathy HPI: Gabriel Nathan is a 57 year old male with a history of alcohol dependence, alcoholic cardiomyopathy, atrial fibrillation (on chronic anticoagulation), COPD who was brought in by EMS due to episode of unresponsiveness. Patient was found to have blood glucose of 20. He was placed on D10 en route to the hospital. His alcohol level was 226. Patient usually drinks 1 pint of vodka per day, but the day of presentation he had 1.5 pints. In the ED he had a CT head which was unremarkable. Lab work from this admission was unremarkable. He was started on Thiamine 100mg daily as well as CIWA protocol. His labs during this admission were unremarkable. His ammonia level is normal. He has had several admissions in the past few months for hyponatremia and alcohol withdrawal symptoms. He had lab work done in May 2022 which was significant for B12 of 257. His folate was 10.4 and TSH 0.268 (on levothyroxine). Patient has been lethargic and difficult to arouse during this admission. There was also a witnessed episode of left facial twitching. Patient's at bedside this morning. She feels like he is doing better today, but still very sleepy. 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 Chronic systolic CHF (congestive heart failure) COPD (chronic obstructive pulmonary disease) With prior history of home O2 use Essential hypertension Gastro-esophageal reflux disease without esophagitis Hypothyroidism Mixed hyperlipidemia [place] (myocardial infarction) Orthostatic hypotension Paroxysmal atrial fibrillation Severe protein-calorie malnutrition SVT (supraventricular tachycardia) Tobacco abuse Surgical History Surgical History History of toe surgery History of tonsillectomy and adenoidectomy Family History Family History Father Family history of liver disease Sibling Family history of liver disease Chronic obstructive pulmonary disease Mother Family history of emphysema Social History Social History Social History: He is on disability. He has a long history of alcohol abuse. He tends to binge drink. Typically drinking vodka and beer. He has used chewing tobacco and smokes cigars on occasion. Alcoh
[2022-09-01 11:59] LABS: Glucose Point of Care 122 mg/dl (65-105)
--- NOTE | 2022-09-01 12:57 | PC.NURSE ---
This patient, Gabriel Nathan, was transferred to [[facility] ] on 09/01/22 at 1250. Personal belongings sent with patient. Report given to [ Zena]. Appropriate documentation sent with patient.
--- NOTE | 2022-09-01 13:11 | PM.IMPN ---
Progress Note: A&P Assessment and Plan (1) Hypoglycemia: Code(s): E16.2 - Hypoglycemia, unspecified Status: Acute Assessment and Plan: Likely secondary to poor per orally intake and ingestion of alcohol Blood glucose reviewed 08/3109/01/2022 interval history:??patient was just discharged last week after he was treated for alcohol withdrawal patient again presents intoxicated with tremor and alcohol level of 226, patient was started on Librium, thiamine and folic acid, patient is getting librium 50mg q6, he is more somnolent and CIWA protocol were low, stopped the scheduled Librium and place the patient Librium 25 mg every 6 hours as needed with CIWA protocol, however patient became agitated and resume Librium 50 mg every 6 hours for 1 day, will monitor and dose Librium as needed,?patient remains encephalopathic seen by Neurology to further evaluate patient will have MRI of the brain and EEG, also concerning for vitamin B12 deficiency and supplemented, also the neurologist started the patient on high-dose thiamine 500 mg IV t.i.d. for 3 days, then 250 mg for 3 days thereafter 100 mg q.day, discussed with neurologist, will continue to monitor, and will follow (2) Alcohol withdrawal: Code(s): F10.939 - Alcohol use, unspecified with withdrawal, unspecified Status: Acute Assessment and Plan: CIWA protocol as needed, stop IV Ativan, continue Librium as needed, last score was 3 Continue thiamine (3) Alcohol dependence: Code(s): F10.20 - Alcohol dependence, uncomplicated Status: Acute Assessment and Plan: Referral to 12 step program in the outpatient setting (4) Paroxysmal atrial fibrillation: Code(s): I48.0 - Paroxysmal atrial fibrillation Status: Acute Assessment and Plan: Continue amiodarone Continue apixaban (5) Chronic systolic CHF (congestive heart failure): Code(s): I50.22 - Chronic systolic (congestive) heart failure Status: Acute Assessment and Plan: Patient appears euvolemic Daily intake and output Continue home meds (6) COPD (chronic obstructive pulmonary disease): Code(s): J44.9 - Chronic obstructive pulmonary disease, unspecified Status: Acute Assessment and Plan: Not actively wheezing Continue home meds (7) Alcoholic cardiomyopathy: Code(s): I42.6 - Alcoholic cardiomyopathy Status: Acute Assessment and Plan: Unchanged (8) Gastro-esophageal reflux disease without esophagitis: Code(s): K21.9 - Gastro-esophageal reflux disease without esophagitis Status: Acute Assessment and Plan: PPI (9) Urinary retention: Code(s): R33.9 - Retention of urine, unspecified Status: Acute Assessment and Plan: Unsure of etiology, bales placed, start flomax, check UA + renal US Consider urology consult if he later fails voiding trials (10) Encephalopathy: Code(s): G93.40 - Encephalopathy, unspecified Status: Acute Assessment and Plan: Unsure of etiology, likely multifactorial, Neurology consult pending Would get MRI, EEG, concern for seizure activity due to twitching and possible postictal state versus Wernicke/Korsakoff encephalopathy versus continued alcohol withdrawal? Plan DVT prophylaxis with eliquis GI prophylaxis with PPI Code status full code Subjective Date/time seen: 09/01/22 13:11 09/01/2022 interval history:??patient was just discharged last week after he was treated for alcohol withdrawal patient again presents intoxicated with tremor and alcohol level of 226, patient was started on Librium, thiamine and folic acid, patient is getting librium 50mg q6, he is more somnolent and CIWA protocol were low, stopped the scheduled Librium and place the patient Librium 25 mg every 6 hours as needed with CIWA protocol, however patient became agitated and resume Librium 50 mg every 6 hours
[2022-09-01] MEDS: ONDANSETRON INJ 4 MG/2 ML VIAL IV PUSH (16:25)
[2022-09-01 17:54] LABS: Glucose Point of Care 101 mg/dl (65-105)
[2022-09-01] MEDS: chlordiazePOXIDE (*CRX) 25 MG CAPSULE PO (21:02)
[2022-09-02] VITALS (10 sets, daily range): BP systolic 104–112; BP diastolic 64–78; PULSE 68–92; RESP 14–18; TEMP 36.1–36.7; O2SAT 94–100
[2022-09-02 00:28] LABS: Glucose Point of Care 98 mg/dl (65-105)
[2022-09-02 06:37] LABS: Glucose Point of Care 115 mg/dl (65-105)
[2022-09-02] MEDS: FLUTICASONE/SALMETEROL 115-21 MCG INHALER 1 PUFF 2 PUFF INHALATION ×2 (08:50→21:10)
[2022-09-02] MEDS: MIDODRINE HCL 2.5 MG TABLET PO ×3 (09:00→17:45)
[2022-09-02] MEDS: CYANOCOBALAMIN 1,000 MCG TABLET 1000 MCG PO (09:01)
[2022-09-02] MEDS: AMIODARONE HCL 200 MG TABLET PO (09:01)
[2022-09-02] MEDS: PANTOPRAZOLE 40 MG TABLET PO (09:01)
[2022-09-02] MEDS: APIXABAN 2.5 MG TABLET PO ×2 (09:01→20:34)
[2022-09-02] MEDS: ATORVASTATIN 40 MG TABLET PO (09:01)
[2022-09-02] MEDS: TAMSULOSIN HCL 0.4 MG CAPSULE PO (09:01)
[2022-09-02] MEDS: MAGNESIUM OXIDE 400 MG TABLET PO (09:01)
[2022-09-02 09:57] LABS: Hematocrit 29.8 % (42.0-52.0); Hemoglobin 9.4 g/dL (14.0-18.0); Mean Corpuscular HGB Conc 31.5 g/dl (32-36); Mean Corpuscular Volume 104.6 fl (80-100); Mean Platelet Volume 9.4 fl (7.4-10.4); Platelet Count Result 215 k/mm3 (150-375); Red Blood Count 2.85 M/mm3 (4.6-6.20); Red Cell Distribution Width 15.9 % (11.5-14.5); White Blood Count 4.6 K/mm3 (4.5-10.0)
[2022-09-02 10:10] LABS: Albumin Level 3.2 g/dL (3.5-5.1); Anion Gap 6 mmol/L (8-16); Blood Urea Nitrogen 15 mg/dL (9-20); Calcium 8.6 mg/dL (8.4-10.2); Carbon Dioxide 25 mmol/L (22-30); Chloride 103 mmol/L (98-107); Estimated CRCL calculation 90 ml/min; Estimated Glomerular Filt Rate > 60; Glucose 142 mg/dL (65-110); Magnesium 1.8 mg/dL (1.6-2.3); Phosphorus 4.8 mg/dL (2.5-4.5); Sodium 134 mmol/L (137-145)
--- NOTE | 2022-09-02 10:40 | PCOTNOTE ---
Patient refused treatment this session due to stating, I'm leaving, No therapy.
[2022-09-02 11:59] LABS: Glucose Point of Care 138 mg/dl (65-105)
--- NOTE | 2022-09-02 12:11 | PM.IMPN ---
Progress Note: A&P Assessment and Plan (1) Hypoglycemia: Code(s): E16.2 - Hypoglycemia, unspecified Status: Acute Assessment and Plan: Likely secondary to poor per orally intake and ingestion of alcohol Blood glucose reviewed 08/3109/02/2022 interval history:??patient was just discharged last week after he was treated for alcohol withdrawal patient again presents intoxicated with tremor and alcohol level of 226, patient was started on Librium, thiamine and folic acid, patient is getting librium 50mg q6, he is more somnolent and CIWA protocol were low, stopped the scheduled Librium and place the patient Librium 25 mg every 6 hours as needed with CIWA protocol, however patient became agitated and resume Librium 50 mg every 6 hours for 1 day, will monitor and dose Librium as needed, on 09/01 ?patient remained encephalopathic seen by Neurology to further evaluate patient had MRI of the brain which is normal without any acute injury, and EEG is pending,, also concerning for vitamin B12 deficiency and supplemented, also the neurologist started the patient on high-dose thiamine 500 mg IV t.i.d. for 3 days, then 250 mg for 3 days thereafter 100 mg q.day, discussed with neurologist, today patient is little more awake and eating his breakfast, unable to provide detail ROS, his is present, will continue to monitor, and will follow (2) Alcohol withdrawal: Code(s): F10.939 - Alcohol use, unspecified with withdrawal, unspecified Status: Acute Assessment and Plan: CIWA protocol as needed, stop IV Ativan, continue Librium as needed, last score was 3 Continue thiamine (3) Alcohol dependence: Code(s): F10.20 - Alcohol dependence, uncomplicated Status: Acute Assessment and Plan: Referral to 12 step program in the outpatient setting (4) Paroxysmal atrial fibrillation: Code(s): I48.0 - Paroxysmal atrial fibrillation Status: Acute Assessment and Plan: Continue amiodarone Continue apixaban (5) Chronic systolic CHF (congestive heart failure): Code(s): I50.22 - Chronic systolic (congestive) heart failure Status: Acute Assessment and Plan: Patient appears euvolemic Daily intake and output Continue home meds (6) COPD (chronic obstructive pulmonary disease): Code(s): J44.9 - Chronic obstructive pulmonary disease, unspecified Status: Acute Assessment and Plan: Not actively wheezing Continue home meds (7) Alcoholic cardiomyopathy: Code(s): I42.6 - Alcoholic cardiomyopathy Status: Acute Assessment and Plan: Unchanged (8) Gastro-esophageal reflux disease without esophagitis: Code(s): K21.9 - Gastro-esophageal reflux disease without esophagitis Status: Acute Assessment and Plan: PPI (9) Urinary retention: Code(s): R33.9 - Retention of urine, unspecified Status: Acute Assessment and Plan: Unsure of etiology, bales placed, start flomax, check UA + renal US Consider urology consult if he later fails voiding trials (10) Encephalopathy: Code(s): G93.40 - Encephalopathy, unspecified Status: Acute Assessment and Plan: Unsure of etiology, likely multifactorial, Neurology consult pending Would get MRI, EEG, concern for seizure activity due to twitching and possible postictal state versus Wernicke/Korsakoff encephalopathy versus continued alcohol withdrawal? Plan DVT prophylaxis with eliquis GI prophylaxis with PPI Code status full code Subjective Date/time seen: 09/02/22 12:11 Likely secondary to poor per orally intake and ingestion of alcohol Blood glucose reviewed 08/3109/02/2022 interval history:??patient was just discharged last week after he was treated for alcohol withdrawal patient again presents intoxicated with tremor and alcohol level of 226, patient was started on Librium, thiamine and folic a
--- NOTE | 2022-09-02 12:47 | PCPTNOTE ---
Attempted PT evaluation this date however pt was finishing lunch and asked therapy to check back later.
--- NOTE | 2022-09-02 13:59 | P.NEURO_ITS ---
Neurology EEG Report General Information Date of Study: 09/02/22 TEST Routine EEG DIAGNOSIS Seizure-like activity, alcohol withdrawal CONDITION OF RECORDING Awake, drowsy, asleep EEG NUMBER [id number] CLINICAL HISTORY Patient currently admitted for encephalopathy in the setting of alcohol withdraw al. He had an observed episode of left facial twitching, concerning for seizure. EEG DESCRIPTION During the awake state with eyes closed the background consists of 9 Hz posterior dominant rhythm which attenuates appropriately with eye opening. The recording is continuous. There is a well developed anterior-posterior gradient. No significant asymmetries of background activities are noted. With drowsiness there is waxing and waning of the dominant rhythm with eventual replacement by a mixture of beta, alpha, and theta activity. As the patient enters stage II sleep, symmetrical spindles and K-complexes are present. Arousal is unremarkable. There are no epileptiform discharges or seizures during this recording. Hyperventilation and photic stimulation were not performed. IMPRESSION This is a normal routine EEG recorded in awake and asleep states. There are no electrographic seizures identified, nor are there any epileptiform discharges. Please note that a normal EEG cannot exclude a seizure disorder. Clinical correlation is recommended.
--- NOTE | 2022-09-02 14:26 | PCPTNOTE ---
Attempted PT evaluation, pt refused. RN aware.
[2022-09-02] MEDS: traMADol HCL (*CRX) 50 MG TABLET PO (17:54)
[2022-09-02 18:21] LABS: Glucose Point of Care 163 mg/dl (65-105)
[2022-09-02] MEDS: ACETAMINOPHEN 325 MG TABLET 650 MG PO (18:28)
[2022-09-02] MEDS: chlordiazePOXIDE (*CRX) 25 MG CAPSULE PO (20:39)
[2022-09-03] VITALS (9 sets, daily range): BP systolic 98–123; BP diastolic 64–80; PULSE 83–125; RESP 14–20; TEMP 36.1–36.8; O2SAT 94–98
[2022-09-03 01:33] LABS: Glucose Point of Care 118 mg/dl (65-105)
[2022-09-03] MEDS: LEVOTHYROXINE SODIUM 50 MCG TABLET PO (04:55)
[2022-09-03 05:43] LABS: Glucose Point of Care 94 mg/dl (65-105)
[2022-09-03 06:32] LABS: Hematocrit 29.1 % (42.0-52.0); Hemoglobin 9.1 g/dL (14.0-18.0); Mean Corpuscular HGB Conc 31.3 g/dl (32-36); Mean Corpuscular Volume 108.6 fl (80-100); Mean Platelet Volume 9.4 fl (7.4-10.4); Platelet Count Result 230 k/mm3 (150-375); Red Blood Count 2.68 M/mm3 (4.6-6.20); Red Cell Distribution Width 15.9 % (11.5-14.5)
[2022-09-03 06:45] LABS: Albumin Level 3.1 g/dL (3.5-5.1); Anion Gap 4 mmol/L (8-16); Blood Urea Nitrogen 13 mg/dL (9-20); Calcium 8.7 mg/dL (8.4-10.2); Carbon Dioxide 27 mmol/L (22-30); Chloride 102 mmol/L (98-107); Estimated CRCL calculation 78 ml/min; Estimated Glomerular Filt Rate > 60; Glucose 95 mg/dL (65-110); Magnesium 1.7 mg/dL (1.6-2.3); Potassium 3.9 mmol/L (3.4-5.0); Sodium 133 mmol/L (137-145)
--- NOTE | 2022-09-03 08:44 | PCPTNOTE ---
Attempted PT evaluation, pt eating requested therapist to return at later time.
[2022-09-03] MEDS: FLUTICASONE/SALMETEROL 115-21 MCG INHALER 1 PUFF 2 PUFF INHALATION (08:55)
[2022-09-03] MEDS: AMIODARONE HCL 200 MG TABLET PO (09:04)
[2022-09-03] MEDS: PANTOPRAZOLE 40 MG TABLET PO (09:06)
[2022-09-03] MEDS: ATORVASTATIN 40 MG TABLET PO (09:06)
[2022-09-03] MEDS: TAMSULOSIN HCL 0.4 MG CAPSULE PO (09:06)
[2022-09-03] MEDS: MIDODRINE HCL 2.5 MG TABLET PO ×3 (09:06→18:24)
[2022-09-03] MEDS: APIXABAN 2.5 MG TABLET PO ×2 (09:06→20:51)
[2022-09-03] MEDS: MAGNESIUM OXIDE 400 MG TABLET PO (09:06)
[2022-09-03] MEDS: CYANOCOBALAMIN 1,000 MCG TABLET 1000 MCG PO (09:07)
[2022-09-03] MEDS: ACETAMINOPHEN 325 MG TABLET 650 MG PO (09:09)
--- NOTE | 2022-09-03 10:22 | PCNWS ---
Weekly nutritional screen. Patient is tolerating current diet with 100% adequate intake. No weight loss reported. No nutritional needs at this time.
--- NOTE | 2022-09-03 11:34 | PCOTNOTE ---
Attempted to see pt. for occupational therapy treatment. Pt. refused to participate at this time.
[2022-09-03 12:11] LABS: Glucose Point of Care 176 mg/dl (65-105)
[2022-09-03] MEDS: chlordiazePOXIDE (*CRX) 25 MG CAPSULE PO (13:13)
--- NOTE | 2022-09-03 14:02 | PM.DS ---
DS: Admitting Diagnosis Discharge Date 09/04/2022 Admitting Diagnosis Altered mental status DS: Discharge Diagnosis Discharge Diagnosis (1) Hypoglycemia: Code(s): E16.2 - Hypoglycemia, unspecified Status: Acute Assessment and Plan: Likely secondary to poor per orally intake and ingestion of alcohol Blood glucose reviewed 08/3109/03/2022 interval history:??patient was just discharged last week after he was treated for alcohol withdrawal patient again presents intoxicated with tremor and alcohol level of 226, patient was started on Librium, thiamine and folic acid, patient is getting librium 50mg q6, he is more somnolent and CIWA protocol were low, stopped the scheduled Librium and place the patient Librium 25 mg every 6 hours as needed with CIWA protocol, however patient became agitated and resume Librium 50 mg every 6 hours for 1 day, will monitor and dose Librium as needed, on 09/01 ?patient remained encephalopathic seen by Neurology to further evaluate patient had MRI of the brain which is normal without any acute injury, and EEG is normal,, also concerning for vitamin B12 deficiency and supplemented, also the neurologist started the patient on high-dose thiamine 500 mg IV t.i.d. for 3 days, then 250 mg for 3 days thereafter 100 mg q.day, discussed with neurologist, today patient is little more awake and eating his breakfast,his present in the room, unable to provide detail ROS, patient was able to work PT today, will continue to monitor, and will follow possibly discharge patient tomorrow. (2) Alcohol withdrawal: Code(s): F10.939 - Alcohol use, unspecified with withdrawal, unspecified Status: Acute Assessment and Plan: CIWA protocol as needed, stop IV Ativan, continue Librium as needed, last score was 3 Continue thiamine (3) Alcohol dependence: Code(s): F10.20 - Alcohol dependence, uncomplicated Status: Acute Assessment and Plan: Referral to 12 step program in the outpatient setting (4) Paroxysmal atrial fibrillation: Code(s): I48.0 - Paroxysmal atrial fibrillation Status: Acute Assessment and Plan: Continue amiodarone Continue apixaban (5) Chronic systolic CHF (congestive heart failure): Code(s): I50.22 - Chronic systolic (congestive) heart failure Status: Acute Assessment and Plan: Patient appears euvolemic Daily intake and output Continue home meds (6) COPD (chronic obstructive pulmonary disease): Code(s): J44.9 - Chronic obstructive pulmonary disease, unspecified Status: Acute Assessment and Plan: Not actively wheezing Continue home meds (7) Alcoholic cardiomyopathy: Code(s): I42.6 - Alcoholic cardiomyopathy Status: Acute Assessment and Plan: Unchanged (8) Gastro-esophageal reflux disease without esophagitis: Code(s): K21.9 - Gastro-esophageal reflux disease without esophagitis Status: Acute Assessment and Plan: PPI (9) Urinary retention: Code(s): R33.9 - Retention of urine, unspecified Status: Acute Assessment and Plan: Unsure of etiology, bales placed, start flomax, check UA + renal US Consider urology consult if he later fails voiding trials (10) Encephalopathy: Code(s): G93.40 - Encephalopathy, unspecified Status: Acute Assessment and Plan: Unsure of etiology, likely multifactorial, Neurology consult pending Would get MRI, EEG, concern for seizure activity due to twitching and possible postictal state versus Wernicke/Korsakoff encephalopathy versus continued alcohol withdrawal? Plan DVT prophylaxis with eliquis GI prophylaxis with PPI Code status full code DS: Summary Hospital Course Reason for hospitalization: Altered mental status Narrative: This is a 57-year-old male with past medical history significant for alcohol dependence, alcoholic cardio
--- NOTE | 2022-09-03 14:21 | PCOTNOTE ---
Patient refused to participate this afternoon. Per RN, Patient is discharging home with his .
--- NOTE | 2022-09-03 16:29 | PM.IMPN ---
Progress Note: A&P Assessment and Plan (1) Hypoglycemia: Code(s): E16.2 - Hypoglycemia, unspecified Status: Acute Assessment and Plan: Likely secondary to poor per orally intake and ingestion of alcohol Blood glucose reviewed 08/3109/03/2022 interval history:??patient was just discharged last week after he was treated for alcohol withdrawal patient again presents intoxicated with tremor and alcohol level of 226, patient was started on Librium, thiamine and folic acid, patient is getting librium 50mg q6, he is more somnolent and CIWA protocol were low, stopped the scheduled Librium and place the patient Librium 25 mg every 6 hours as needed with CIWA protocol, however patient became agitated and resume Librium 50 mg every 6 hours for 1 day, will monitor and dose Librium as needed, on 09/01 ?patient remained encephalopathic seen by Neurology to further evaluate patient had MRI of the brain which is normal without any acute injury, and EEG is normal,, also concerning for vitamin B12 deficiency and supplemented, also the neurologist started the patient on high-dose thiamine 500 mg IV t.i.d. for 3 days, then 250 mg for 3 days thereafter 100 mg q.day, discussed with neurologist, today patient is little more awake and eating his breakfast,his present in the room, unable to provide detail ROS, patient was able to work PT today, will continue to monitor, and will follow possibly discharge patient tomorrow. (2) Alcohol withdrawal: Code(s): F10.939 - Alcohol use, unspecified with withdrawal, unspecified Status: Acute Assessment and Plan: CIWA protocol as needed, stop IV Ativan, continue Librium as needed, last score was 3 Continue thiamine (3) Alcohol dependence: Code(s): F10.20 - Alcohol dependence, uncomplicated Status: Acute Assessment and Plan: Referral to 12 step program in the outpatient setting (4) Paroxysmal atrial fibrillation: Code(s): I48.0 - Paroxysmal atrial fibrillation Status: Acute Assessment and Plan: Continue amiodarone Continue apixaban (5) Chronic systolic CHF (congestive heart failure): Code(s): I50.22 - Chronic systolic (congestive) heart failure Status: Acute Assessment and Plan: Patient appears euvolemic Daily intake and output Continue home meds (6) COPD (chronic obstructive pulmonary disease): Code(s): J44.9 - Chronic obstructive pulmonary disease, unspecified Status: Acute Assessment and Plan: Not actively wheezing Continue home meds (7) Alcoholic cardiomyopathy: Code(s): I42.6 - Alcoholic cardiomyopathy Status: Acute Assessment and Plan: Unchanged (8) Gastro-esophageal reflux disease without esophagitis: Code(s): K21.9 - Gastro-esophageal reflux disease without esophagitis Status: Acute Assessment and Plan: PPI (9) Urinary retention: Code(s): R33.9 - Retention of urine, unspecified Status: Acute Assessment and Plan: Unsure of etiology, bales placed, start flomax, check UA + renal US Consider urology consult if he later fails voiding trials (10) Encephalopathy: Code(s): G93.40 - Encephalopathy, unspecified Status: Acute Assessment and Plan: Unsure of etiology, likely multifactorial, Neurology consult pending Would get MRI, EEG, concern for seizure activity due to twitching and possible postictal state versus Wernicke/Korsakoff encephalopathy versus continued alcohol withdrawal? Plan DVT prophylaxis with eliquis GI prophylaxis with PPI Code status full code Subjective Date/time seen: 09/03/22 16:29 09/03/2022 interval history:??patient was just discharged last week after he was treated for alcohol withdrawal patient again presents intoxicated with tremor and alcohol level of 226, patient was started on Librium, thiamine and folic acid, patient is get
[2022-09-03 17:51] LABS: Glucose Point of Care 121 mg/dl (65-105)
[2022-09-03] MEDS: THIAMINE HCL 50 MG TABLET PO (18:23)
[2022-09-03] MEDS: THIAMINE HCL 100 MG TABLET 200 MG PO (18:23)
--- NOTE | 2022-09-03 18:45 | PC.NURSE ---
Pt had discharged order placed 09/03/2022 2308. Pt was this RN's fourth discharge in two hours. Informed pt and pt's that discharge would take some time, but this RN would do her best to get him as soon as possible. After discharging two patients, this RN went in to hang last antibiotic IVPB and communicated to pt/ that after this infusion, discharge paperwork would be completed and it could be reviewed then. About 20 minutes later, pt was heard yelling from his room When the f will I get out of here? This RN went bedside and asked for pt's pharmacy preference to process paperwork and apologized for delay. Pt seemed settled, and appreciative. EMS came for discharge on another patient; this RN gave report to EMS. Shortly returned with paperwork, and the pt/ and this RN discussed having PCP follow up for urinary catheter. PT refused this option. This RN explained that pt would need to possibly stay overnight unless he could void relatively soon. Pt unhappy and began yelling and cussing. Let him know that we would call MD to see how to handle bales being pulled here. MD agreed with options of discharge this evening or tomorrow morning. While this RN on phone, pt heard yelling, F these mother fers as well as other various cursings. MD aware. Pt decided he wanted to stay. More yelling from room, trying calm patient. Pt eventually less frustrated. This RN to pt bedside approx 1800 and 1830 to give 1700 medications. Pt refusing to get off of phone to allow this RN to remove bales or take meds. Thiamine and midrodrine left at bedside with pt nodding agreement to take. Will continue to monitor.
[2022-09-04] VITALS: BP 116/69; PULSE 86; RESP 18; TEMP 36.6; O2SAT 95
[2022-09-04 02:13] LABS: Glucose Point of Care 87 mg/dl (65-105)
[2022-09-04 04:00] VITALS: BP 127/73; PULSE 100; PULSE 87; RESP 20; TEMP 36.4; O2SAT 97
[2022-09-04 05:36] LABS: Glucose Point of Care 95 mg/dl (65-105)
[2022-09-04] MEDS: LEVOTHYROXINE SODIUM 50 MCG TABLET PO (05:58)
[2022-09-04 06:29] LABS: Glucose Point of Care 100 mg/dl (65-105)
[2022-09-04 06:51] LABS: Hemoglobin 9.2 g/dL (14.0-18.0); Mean Corpuscular HGB Conc 31.7 g/dl (32-36); Mean Corpuscular Volume 103.9 fl (80-100); Mean Platelet Volume 9.1 fl (7.4-10.4); Platelet Count Result 278 k/mm3 (150-375); Red Blood Count 2.79 M/mm3 (4.6-6.20); Red Cell Distribution Width 15.9 % (11.5-14.5); White Blood Count 5.1 K/mm3 (4.5-10.0)
[2022-09-04 07:16] LABS: Albumin Level 3.4 g/dL (3.5-5.1); Anion Gap 5 mmol/L (8-16); Blood Urea Nitrogen 13 mg/dL (9-20); Calcium 9.1 mg/dL (8.4-10.2); Carbon Dioxide 27 mmol/L (22-30); Chloride 101 mmol/L (98-107); Estimated CRCL calculation 88 ml/min; Estimated Glomerular Filt Rate > 60; Glucose 92 mg/dL (65-110); Magnesium 1.7 mg/dL (1.6-2.3); Phosphorus 5.5 mg/dL (2.5-4.5); Potassium 3.7 mmol/L (3.4-5.0); Sodium 133 mmol/L (137-145)
[2022-09-04 08:00] VITALS: BP 106/69; PULSE 89; RESP 14; TEMP 36.4; O2SAT 94
[2022-09-04] MEDS: FLUTICASONE/SALMETEROL 115-21 MCG INHALER 1 PUFF 2 PUFF INHALATION (08:19)
[2022-09-04 08:23] VITALS: PULSE 88; RESP 16; O2SAT 95
[2022-09-04] MEDS: MAGNESIUM OXIDE 400 MG TABLET PO (08:28)
[2022-09-04] MEDS: THIAMINE HCL 100 MG TABLET 200 MG PO (08:28)
[2022-09-04] MEDS: THIAMINE HCL 50 MG TABLET PO (08:28)
[2022-09-04] MEDS: ATORVASTATIN 40 MG TABLET PO (08:28)
[2022-09-04] MEDS: TAMSULOSIN HCL 0.4 MG CAPSULE PO (08:28)
[2022-09-04] MEDS: MIDODRINE HCL 2.5 MG TABLET PO (08:28)
[2022-09-04] MEDS: PANTOPRAZOLE 40 MG TABLET PO (08:28)
[2022-09-04] MEDS: APIXABAN 2.5 MG TABLET PO (08:28)
[2022-09-04] MEDS: CYANOCOBALAMIN 1,000 MCG TABLET 1000 MCG PO (08:28)
[2022-09-04] MEDS: AMIODARONE HCL 200 MG TABLET PO (08:28)
== END 2022-09-04 09:32 | disposition home or self-care (01) | DRG 641 ==
LOC: ANHED 16:13 → ANHIMU 22:37 → ANH3MEDSUR 09-01 12:44
PROVIDERS: Student in an Organized Health Care Education/Training Program; Admitting Provider Internal Medicine; Emergency Provider General Practice; PCP Family Medicine; Visit Provider Family Medicine
DX: E16.2 Hypoglycemia, unspecified (principal); F10.239 Alcohol dependence with withdrawal, unspecified; I50.22 Chronic systolic (congestive) heart failure; I42.6 Alcoholic cardiomyopathy; G93.40 Encephalopathy, unspecified; I48.0 Paroxysmal atrial fibrillation; K21.9 Gastro-esophageal reflux disease without esophagitis; R33.9 Retention of urine, unspecified; J43.9 Emphysema, unspecified; I25.2 Old myocardial infarction; R56.9 Unspecified convulsions; Z87.891 Personal history of nicotine dependence; Z79.899 Other long term (current) drug therapy
CPT/HCPCS: 36415; 70450; 70553; 71045; 76775; 80053; 80069; 80307; 81001; 82140; 82550; 82948; 83735; 84484; 85025; 85027; 85055; 85610; 85730; 93005; 94640; 95816; 96361; 96365; 96366; 96375; 96376; 97161; 97166; 97530; 97535; 99285; A9270; A9577; G0378; J0696; J2060; J2405; J3411; J3475; J7030; J7040

== ENCOUNTER 2022-09-08 15:02 | Emergency (ER) | payer MEDICARE, SELFPAY ==
--- NOTE | ~2022-09-08 | CT_ITS ---
EXAMINATION: CT brain wo con DATE: 09/08/2022 15:32 INDICATION: Ground level fall, possible head injury. Alcohol. TECHNIQUE: Computed tomography (CT) of the head was performed without intravenous contrast. The mA wa s adjusted according to patient size. Iterative reconstruction technique was employed. Exam dose: 60 5.33 mGy-cm total exam DLP. COMPARISON: September 01, 2022 MR brain FINDINGS: There is greater than expected cerebellar and cerebral atrophy for patient age of 57 years. No intracranial mass lesion or hemorrhage or recent cerebrovascular accident is detected. No midline shift or mass effect. No subdural or epidural hematoma. There is mild soft tissue thickening the ethmoid air cells and slight mucoperiosteal thickening in th e posterior right maxillary sinus and slight fluid level or new comparison thickening in the posterio r aspect of the left sphenoid sinus. Paranasal sinuses and mastoid air cells otherwise appear normall y developed and aerated. No fracture or bone destruction of the cranial vault. IMPRESSION: Cerebral and cerebellar atrophy No skull fracture or acute intracranial finding Reviewed, dictated and finalized at [facility]. Reviewed, dictated and finalized at [facility].
--- NOTE | ~2022-09-08 | XR_ITS ---
XR hand LT min 3V DATE: 09/08/2022 15:33 INDICATION: Fall. Left hand injury, laceration TECHNIQUE: 3 views COMPARISON: None FINDINGS: No fracture or dislocation, periosteal reaction or bone destruction. No radiopaque soft tis lori foreign body or subcutaneous emphysema is noted. No erosive change or chondrocalcinosis. IMPRESSION: No significant abnormality Reviewed, dictated and finalized at [facility]. IMPRESSION: No significant abnormality
--- NOTE | ~2022-09-08 | CT_ITS ---
EXAMINATION: CT cervical spine wo con DATE: 09/08/2022 15:32 INDICATION: Ground-level fall TECHNIQUE: Computed tomography (CT) of the cervical spine was performed without intravenous contrast. Automated exposure control and iterative reconstruction technique were employed. Exam dose: 182.11 mGy-cm total exam DLP. COMPARISON: None FINDINGS: C1 and C2 are normally aligned and the odontoid process is intact. No fracture or dislocati on or locked facet or prevertebral soft tissue swelling There is mild degenerative disc disease at C3-4. There is moderate to moderately severe degenerative disease at C5-6 and C6-7. There is degenerative change at the apophyseal joints. IMPRESSION: Cervical spondylosis; no fracture or dislocation or locked facet Reviewed, dictated and finalized at [facility]. Reviewed, dictated and finalized at [facility].
[2022-09-08 15:03] VITALS: BP 98/69; PULSE 95; RESP 18; TEMP 36.9; O2SAT 95
--- NOTE | 2022-09-08 15:19 | ED.FALL ---
HPI - Fall General Chief Complaint: Fall Stated Complaint: fall Source: patient and old records reviewed Mode of arrival: EMS Limitations: clinical condition and intoxication History of Present Illness HPI Narrative: Patient is a 57-year-old male who presents the ED via EMS with report of fall. Patient reports he had a ground-level fall today at his neighbor's house and landed on concrete. Patient admits to drinking alcohol. He states he drink half a pint today. He is a daily drinker and is well-known to our facility. Recently admitted for alcohol abuse/unresponsiveness. He sustained a laceration to his left thenar eminence in today's fall. He does report he remembers the entire fall. Denied feeling dizzy or lightheaded prior to the fall, states he just tripped. He does not think he hit his head, but unsure. Did not lose consciousness. No syncopal episodes. C-collar was placed in route by EMS. Patient denies any current pain, denies neck pain, back pain, headache, vision changes, abdominal pain, chest pain, difficulty breathing, nausea, vomiting. Patient is unsure of last tetanus shot. Patient is on Eliquis due to history of A-fib. Patient's , Xiao, present at bedside. Related Data Home Medications Medication Instructions Recorded Confirmed amiodarone 200 mg tablet 200 mg PO DAILY 04/24/19 08/28/22 tramadol 50 mg tablet 50 mg PO BID PRN Pain (Scale Score 06/15/22 08/28/22 4-6) albuterol sulfate 90 mcg/actuation 1 inh inhalation Q4H PRN Shortness 08/17/22 08/28/22 aerosol inhaler Of Breath Or Wheezing fluticasone 250 mcg-salmeterol 50 1 inh inhalation Q12H 08/17/22 08/28/22 mcg/dose blistr powdr for inhalation ([place] Inhub) Allergies Allergy/AdvReac Type Severity Reaction Status Date / Time ragweed pollen Allergy Unknown seasonal Verified 09/08/22 15:11 [place] Allergy Unknown seasonal Uncoded 09/08/22 15:11 [place] Allergy Unknown seasonal Uncoded 09/08/22 15:11 Review of Systems Review of Systems: CONSTITUTIONAL: Denies fever, chills, or sweats. EYES: Denies visual changes. CARDIOVASCULAR: Denies chest pain. RESPIRATORY: Denies dyspnea. GASTROINTESTINAL: Denies abdominal pain, nausea, vomiting. GENITOURINARY: Denies dysuria or hematuria. SKIN: See HPI. MUSCULOSKELETAL: See HPI. NEUROLOGIC: See HPI. 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 Chronic systolic CHF (congestive heart failure) COPD (chronic obstructive pulmonary disease) With prior history of home O2 use Essential hypertension Gastro-esophageal reflux disease without esophagitis Hypothyroidism Mixed hyperlipidemia [place] (myocardial infarction) Orthostatic hypotension Paroxysmal atrial fibrillation Severe protein-calorie malnutrition SVT (supraventricular tachycardia) Tobacco abuse Surgical History Surgical History History of toe surgery History of tonsillectomy and adenoidectomy Family History Family History Father Family history of liver disease Sibling Family history of liver disease Chronic obstructive pulmonary disease Mother Family history of emphysema Social History Social History Social History: He is on disability. He has a long history of alcohol abuse. He tends to binge drink. Typically drinking vodka and beer. He has used chewing tobacco and smokes cigars on occasion. Alcohol has affected the patient's life in many ways. He has been to snf due to his alcohol use and has intermittently required placement in intermediate facilities. He has been homeless at other time
[2022-09-08 16:16] VITALS: BP 102/76; PULSE 88; RESP 15; O2SAT 96
[2022-09-08] MEDS: SODIUM CHLORIDE 0.9% IV 1,000 ML 999 ML IV CONT (16:16)
--- NOTE | 2022-09-08 16:17 | PC.NURSE ---
C Collar removed by provider following neg CT imaging.
== END 2022-09-08 17:41 | disposition home or self-care (01) ==
PROVIDERS: Emergency Provider Physician Assistant; PCP Family Medicine
DX: S61.412A Laceration without foreign body of left hand, initial encounter (principal); F10.10 Alcohol abuse, uncomplicated; I48.0 Paroxysmal atrial fibrillation; J44.9 Chronic obstructive pulmonary disease, unspecified; I11.0 Hypertensive heart disease with heart failure; I50.22 Chronic systolic (congestive) heart failure; I25.2 Old myocardial infarction; I42.6 Alcoholic cardiomyopathy; E78.2 Mixed hyperlipidemia; K21.9 Gastro-esophageal reflux disease without esophagitis; E03.9 Hypothyroidism, unspecified; F17.220 Nicotine dependence, chewing tobacco, uncomplicated; F17.290 Nicotine dependence, other tobacco product, uncomplicated; Y90.9 Presence of alcohol in blood, level not specified; Z79.01 Long term (current) use of anticoagulants; M47.812 Spondylosis without myelopathy or radiculopathy, cervical region; W01.0XXA Fall on same level from slipping, tripping and stumbling without subsequent striking against object, initial encounter
CPT/HCPCS: 12001; 70450; 72125; 73130; 96360; 99284; J7030

== ENCOUNTER 2022-10-09 04:33 | Emergency (ER) | payer MEDICARE, SELFPAY ==
--- NOTE | ~2022-10-09 | CT_ITS ---
EXAMINATION: CT brain wo con DATE: 10/09/2022 05:24 INDICATION: Face injury. TECHNIQUE: Computed tomography (CT) of the head was performed without intravenous contrast. The mA wa s adjusted according to patient size. Iterative reconstruction technique was employed. The dose-lengt h product was 681.00 mGy-cm. COMPARISON: Head CT 09/08/2022 FINDINGS: There are scattered areas of low attenuation in the cerebral white matter. There is no intr acranial hemorrhage, acute infarction, or abnormal intracranial mass lesion. The ventricles are manuel l in size. There are likely changes of left ocular lens replacement surgery. There is mild mucosal th ickening in the paranasal sinuses. The mastoid air cells are normal. There is frontal scalp soft tiss ue swelling. IMPRESSION: 1. Stable mild nonspecific cerebral white matter disease, which likely represents chronic small vesse l ischemic disease. Reviewed, dictated and finalized at location E. IMPRESSION: 1. Stable mild nonspecific cerebral white matter disease, which likely represen ts chronic small vessel ischemic disease.
--- NOTE | ~2022-10-09 | CT_ITS ---
EXAMINATION: CT facial & cervical spine wo DATE: 10/09/2022 05:31 INDICATION: Face injury. TECHNIQUE: Computed tomography (CT) of the maxillofacial region and cervical spine was performed with out intravenous contrast. Automated exposure control and iterative reconstruction technique were empl oyed. The dose-length product was 174.78 mGy-cm. COMPARISON: CT cervical spine 09/08/2022 FINDINGS: MAXILLOFACIAL CT: There are likely changes of left ocular lens replacement surgery. There is gas in some of the veins i n the face from recent IV injection. There is leftward deviation of the nasal septum. There is mucosa l thickening in the paranasal sinuses. CERVICAL SPINE CT: There are airspace and groundglass opacities in the upper lobes, left worse than right. There is 3 de grees levocurvature of cervicothoracic spine. There is a chronic compression fracture of T3 with 1/5 loss of height. There is moderately decreased disc height at C3-C4 and severely decreased disc height at C5-C6 and C6-C7. The following disc levels are specifically discussed: C2-C3: There is no uncovertebral joint osteoarthritis. There is moderate right and severe left facet joint osteoarthritis. There is no neural foraminal stenosis. There is no central canal stenosis. C3-C4: There is severe bilateral uncovertebral joint osteoarthritis. There is mild right and severe l eft facet joint osteoarthritis. There is mild bilateral neural foraminal stenosis. There is mild cent ral canal stenosis. C4-C5: There is mild bilateral uncovertebral joint osteoarthritis. There is severe bilateral facet hebert int osteoarthritis. There is mild bilateral neural foraminal stenosis. There is mild central canal st enosis. C5-C6: There is severe right and moderate left uncovertebral joint osteoarthritis. There is severe ri ght and mild left facet joint osteoarthritis. There is moderate right and mild left neural foraminal stenosis. There is mild central canal stenosis. C6-C7: There is severe bilateral uncovertebral joint osteoarthritis. There is severe right and mild l eft facet joint osteoarthritis. There is mild bilateral neural foraminal stenosis. There is mild cent ral canal stenosis. C7-T1: There is no uncovertebral joint osteoarthritis. There is moderate right and mild left facet hebert int osteoarthritis. There is mild right neural foraminal stenosis. There is no central canal stenosis . IMPRESSION: 1. No acute fracture. 2. Severe cervical spondylosis. 3. Bilateral upper lobe lung disease, consistent with pneumonia. Reviewed, dictated and finalized at location E.
--- NOTE | ~2022-10-09 | XR_ITS ---
EXAMINATION: XR chest 1V portable INDICATION: Cough TECHNIQUE: Portable AP chest at 0659 hours COMPARISON: 08/27/2022 FINDINGS: There are interstitial and airspace opacities throughout all lung zones. No pleural effusio n or pneumothorax. Cardiomegaly is noted. IMPRESSION: 1. Diffuse lung disease, consistent with pneumonia and/or pulmonary edema. 2. Cardiomegaly. Reviewed, dictated and finalized at location A.
[2022-10-09 04:33] VITALS: BP 91/62; PULSE 79; RESP 22; TEMP 36.8; O2SAT 99
--- NOTE | 2022-10-09 04:43 | ECG_ITS ---
Measurements Intervals [place] Rate: 73 P: NC: 0 QRS: -47 QRSD: 161 T: 85 QT: 518 QTc: 572 Interpretive Statements SINUS OR ECTOPIC ATRIAL RHYTHM WITH FIRST DEGREE AV BLOCK LEFT BUNDLE BRANCH BLOCK BASELINE ARTIFACT- I, III, AVR, AVL, V1 ABNORMAL ECG COMPARED TO ECG 08/27/2022 17:52:36 NO SIGNIFICANT CHANGES Electronically Signed On 10-09-2022 7:09:21 CDT by Sarmad Valenzuela D.O.
--- NOTE | 2022-10-09 04:47 | ED.GENADULT ---
HPI - General Adult General Chief complaint: Fall Stated complaint: fall Time Seen by Provider: 10/09/22 04:39 History of Present Illness HPI narrative: Patient is a 57-year-old gentleman who presents the emergency department with chief complaint of fall. Patient reports that he was drinking this evening and had a ground-level fall the patient reports he struck his face against something and reports he has a laceration to his right eyelid. Patient reports that his vision is mostly normal but there is a slight blur to it. Patient reports that he has full range of motion of his eyes and reports no double vision. Patient reports that he is unsure of his last tetanus shot reports that he is on anticoagulants. Related Data Home Medications Medication Instructions Recorded Confirmed amiodarone 200 mg tablet 200 mg PO DAILY 04/24/19 09/16/22 tramadol 50 mg tablet 50 mg PO BID PRN Pain (Scale Score 06/15/22 09/16/22 4-6) albuterol sulfate 90 mcg/actuation 1 inh inhalation Q4H PRN Shortness 08/17/22 09/16/22 aerosol inhaler Of Breath Or Wheezing Allergies Allergy/AdvReac Type Severity Reaction Status Date / Time ragweed pollen Allergy Unknown seasonal Verified 10/09/22 04:48 [place] Allergy Unknown seasonal Uncoded 10/09/22 04:48 [place] Allergy Unknown seasonal Uncoded 10/09/22 04:48 Review of Systems Review of Systems: A 10 system review of systems was completed on the patient and is negative except for what is stated in the HPI. Nursing and ancillary documentation was reviewed. 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 Chronic systolic CHF (congestive heart failure) COPD (chronic obstructive pulmonary disease) With prior history of home O2 use Essential hypertension Gastro-esophageal reflux disease without esophagitis Hypothyroidism Mixed hyperlipidemia [place] (myocardial infarction) Orthostatic hypotension Paroxysmal atrial fibrillation Severe protein-calorie malnutrition SVT (supraventricular tachycardia) Tobacco abuse Surgical History Surgical History History of toe surgery History of tonsillectomy and adenoidectomy Family History Family History Father Family history of liver disease Sibling Family history of liver disease Chronic obstructive pulmonary disease Mother Family history of emphysema Social History Social History Social History: He is on disability. He has a long history of alcohol abuse. He tends to binge drink. Typically drinking vodka and beer. He has used chewing tobacco and smokes cigars on occasion. Alcohol has affected the patient's life in many ways. He has been to [facility] due to his alcohol use and has intermittently required placement in assisted facilities. He has been homeless at other times due to his alcohol use. Surrogate decision maker: Xiao () Code status: Full code Years smoked: 35 Smoking status: Former smoker Tobacco type: cigars Smokeless tobacco user: chewing tobacco Second hand tobacco smoke exposure: No Additional smoking assessment comments: chewing tobacco daily and occassional cigars Alcohol intake: current Drinks per week: 48 Alcohol use details: 0.5-1 pt per day of vodka Substance use: unknown Lack of Transportation: No Lack of Food: Never True Current Housing: I Have Housing Concerned About Future Housing: No Difficulty Paying Gas/Electric Bills: No Difficulty Paying for Meds: No Currently Unemployed: No Education: High School Diploma/GED Difficulty w/ Childcare or Family Care: No Living arrangements: with family [place]
[2022-10-09] MEDS: TETANUS,DIPHTHERIA,AC PERTUSSIS ADULT (0.5 ML) BOOSTRIX IM (04:50)
[2022-10-09] MEDS: ceFAZolin 2 GM/D5W 50 ML 2 GM/50 ML BAG IVPB (04:57)
[2022-10-09 05:03] LABS: Basophils Percent Auto 0.5 % (0.2-1.2); Eosinophils Percent Auto 0.4 % (0-4.4); Hematocrit 33.3 % (42.0-52.0); Hemoglobin 10.3 g/dL (14.0-18.0); Immature Granulocyte Absolute 0.03 K/mm3 (0.00-0.031); Immature Granulocyte Percent A 0.5 % (0-0.5); Lymphocytes Absolute Auto 1.15 K/mm3 (0.9-3.2); Lymphocytes Percent Auto 20.6 % (18.3-44.2); Mean Corpuscular HGB Conc 30.9 g/dl (32-36); Mean Corpuscular Hemoglobin 32.8 pg (26-34); Mean Corpuscular Volume 106.1 fl (80-100); Mean Platelet Volume 9.5 fl (7.4-10.4); Monocytes Absolute Auto 0.3 K/mm3 (0.1-0.6); Monocytes Percent Auto 5.4 % (2.6-8.5); Neutrophils Percent Auto 72.6 % (45.5-73.1); Platelet Count Result 172 k/mm3 (150-375); Red Blood Count 3.14 M/mm3 (4.6-6.20); Red Cell Distribution Width 15.9 % (11.5-14.5); White Blood Count 5.6 K/mm3 (4.5-10.0)
[2022-10-09 05:12] LABS: Partial Thromboplastin Time 31.1 SECONDS (22.3-36.8); Prothrombin Time 13.3 Seconds (11.1-14.7)
[2022-10-09 05:13] LABS: Alanine Aminotransferase 31 U/L (6-50); Albumin Level 3.4 g/dL (3.5-5.1); Alkaline Phosphatase 123 U/L (38-126); Anion Gap 13 mmol/L (8-16); Aspartate Amino Transferase 78 U/L (17-59); Bilirubin,Total 0.6 mg/dL (0.2-1.3); Blood Urea Nitrogen 10 mg/dL (9-20); Calcium 7.1 mg/dL (8.4-10.2); Carbon Dioxide 18 mmol/L (22-30); Chloride 97 mmol/L (98-107); Estimated CRCL calculation 58 ml/min; Estimated Glomerular Filt Rate > 60; Glucose 50 mg/dL (65-110); Potassium 4.6 mmol/L (3.4-5.0); Sodium 128 mmol/L (137-145)
[2022-10-09 05:14] LABS: Ethanol 259 mg/dL (<10)
--- NOTE | 2022-10-09 05:23 | PC.NURSE ---
Lab notified this RN of serum glucose of 50. Dr. Fernandez aware. D50 ordered and administered.
[2022-10-09] MEDS: DEXTROSE 50% 25 GM/50 ML SYRINGE IV PUSH (05:24)
[2022-10-09] MEDS: THIAMINE HCL 200 MG/2 ML VIAL 100 MG IV PUSH (05:34)
[2022-10-09 05:38] VITALS: BP 98/74; PULSE 76; RESP 20; O2SAT 95
--- NOTE | 2022-10-09 05:50 | PC.NURSE ---
PT STATED HE IS UNABLE TO VOID AT THIS TIME. PT TO ATTEMPT TO GIVE URINE SAMPLE IN A FEW MINUTES
[2022-10-09 07:15] VITALS: BP 101/69; PULSE 74; RESP 16; O2SAT 96
== END 2022-10-09 07:16 | disposition home or self-care (01) ==
PROVIDERS: Emergency Provider Emergency Medicine; PCP Family Medicine
DX: S01.111A Laceration without foreign body of right eyelid and periocular area, initial encounter (principal); S01.81XA Laceration without foreign body of other part of head, initial encounter; E16.2 Hypoglycemia, unspecified; Z23 Encounter for immunization; I25.10 Atherosclerotic heart disease of native coronary artery without angina pectoris; I48.0 Paroxysmal atrial fibrillation; I50.22 Chronic systolic (congestive) heart failure; I11.0 Hypertensive heart disease with heart failure; E03.9 Hypothyroidism, unspecified; J44.9 Chronic obstructive pulmonary disease, unspecified; F10.10 Alcohol abuse, uncomplicated; I42.6 Alcoholic cardiomyopathy; K21.9 Gastro-esophageal reflux disease without esophagitis; E78.2 Mixed hyperlipidemia; I25.2 Old myocardial infarction; F17.290 Nicotine dependence, other tobacco product, uncomplicated; F17.220 Nicotine dependence, chewing tobacco, uncomplicated; Z79.82 Long term (current) use of aspirin; Z79.899 Other long term (current) drug therapy; W18.30XA Fall on same level, unspecified, initial encounter; Y90.8 Blood alcohol level of 240 mg/100 ml or more
CPT/HCPCS: 12011; 12052; 36415; 70450; 70486; 71045; 72125; 80053; 80307; 85025; 85610; 85730; 90471; 90715; 93005; 96365; 96375; 99284; J0690; J3411

== ENCOUNTER 2022-10-29 02:16 | Inpatient (IN) | payer MEDICARE, SELFPAY ==
[2022-10-29] VITALS (74 sets, daily range): BP systolic 60–136; BP diastolic 41–92; PULSE 53–88; RESP 17–40; TEMP 35.7–37.6; O2SAT 86–100; BMI 15.5
--- NOTE | 2022-10-29 | ECHO_ITS ---
Patient Info Name: Gabriel Nathan Age: 57 years : 1965 Gender: Male Ht: 67 in Wt: 99 lbs BSA: 1.44 m2 HR: 97 bpm BP: 100 / 81 mmHg Heart Rhythm: Sinus Rhythm Technical Quality: Good Exam Date: 10/29/2022 10:08 AM Exam Location: [facility] Patient Status: Inpatient Admit Date: 10/29/2022 Staff Ordering Physician: Kwesi Muñoz MD Parcel Post Clerk: Jazz Allen RDCS Attending Provider: Lorraine Tran DO Exam Type: CA echo dop color flow w con Study Info Indications I50.20 - Unspecified systolic (congestive) heart failure - NON ISCHEMIC CARDIOMYOPATHY Complete two-dimensional, color flow and Doppler transthoracic echocardiogram is performed with contrast to opacify the left ventricle and to improve the deliniation of the left ventricle endocardial borders. Contrast/Agitated Saline Contrast/Ag. Saline: Definity Amount: 2.00 ml Administered By: Jazz Allen [facility] Existing IV Access: Yes Summary 1. Severe four-chamber dilated cardiomyopathy. 2. Profoundly depressed left ventricular systolic function. 3. Significant mitral regurgitation resulting from mitral annular enlargement/not valvular disease. 4. Mildly sclerotic aortic valve. 5. Compared to previous exam LV systolic function is significantly decline. Left Ventricle Left ventricular chamber dimension is severely enlarged. Left ventricular systolic function is severely reduced, estimated at 15-20%. The left ventricular diastolic function is grade I diastolic dysfunction. Right Ventricle Right ventricular chamber dimension is moderately enlarged. Right ventricular systolic function is reduced. Left Atria Left atrial chamber dimension is severely enlarged. Right Atria Right atrial chamber dimension is severely enlarged. Aortic Valve The aortic valve is trileaflet. There is mild aortic valve sclerosis. Pulmonic Valve The pulmonic valve is normal. Mitral Valve The mitral valve has normal leaflets. There is moderate to severe mitral valve regurgitation. Tricuspid Valve The tricuspid valve leaflets are normal. There is moderate tricuspid valve regurgitation. Moderate pulmonary hypertension, estimated pulmonary arterial systolic pressure is 55 mmHg. Pericardium/Pleural The pericardium appears normal. Aorta The aortic root size at the sinus of Valsalva is normal. Left Ventricular Outflow Tract Name Value Normal LVOT 2D LVOT Diameter 2.10 cm LVOT Doppler LVOT Peak Gradient 2 mmHg LVOT Mean Gradient 2 mmHg LVOT VTI 9.55 cm LVOT VTI/AV VTI Ratio 0.68 LVOT Stroke Volume 32.97 ml LVOT CO 12.75 l/min LVOT CI 8.86 L/min/m2 Pulmonic Valve Name Value Normal RVOT Doppler RVOT Peak Gradient 1 mmHg
--- NOTE | ~2022-10-29 | US_ITS ---
EXAMINATION: US abdomen limited DATE: 10/29/2022 12:45 INDICATION: Abnormal liver function tests. TECHNIQUE: Multiple grayscale and Doppler ultrasound images of the abdomen were obtained. COMPARISON: CT abdomen and pelvis 10/29/2022 FINDINGS: The visualized portions of the head and body of the pancreas are normal. There is diffuse h epatic steatosis. There is normal flow in main portal vein. The gallbladder is normal in size and con tains sludge. No visible gallstones. Gallbladder wall thickening is noted. There is no sonographic Mu rphy sign. The common duct is normal and measures 2 mm. There is a small volume of ascites. IMPRESSION: 1. Small volume of ascites. 2. Gallbladder wall thickening, likely interstitial edema. No specific evidence of acute cholecystiti s. 3. Diffuse hepatic steatosis. Reviewed, dictated and finalized at location A. IMPRESSION: 1. Small volume of ascites. 2. Gallbladder wall thickening, likely interstitial edema. No specific evidence of acute cholecystitis. 3. Diffuse hepatic steatosis.
--- NOTE | ~2022-10-29 | CT_ITS ---
Clinical Indication: Sepsis, pleural effusion CT Scan of the Chest, Abdomen, and Pelvis with Contrast: Technique: Contiguous sections were acquired throughout the chest, abdomen, and pelvis after intraven ous administration of 100 cc of Omnipaque 350. Dose reduction technique was used on this scan by maria antonia alfaroing automated exposure control and iterative reconstruction technique. The dose-length product (DL P) was 418.14 mGy-cm. COMPARISON: 11/25/2018 and 06/15/2018 Findings: Mildly prominent mediastinal lymph nodes are probably reactive. No pericardial effusion. There is car diomegaly. No pulmonary embolus, aortic aneurysm, or aortic dissection identified. There are small bilateral pleural effusions, left greater than right. There is extensive groundglass opacity in the left lung. There is interstitial thickening in the left upper lobe and bilateral lower lobes. There are several focal irregular airspace opacities in the ri ght upper lobe. The liver, spleen, pancreas, adrenals and kidneys are within normal limits. Probable vicarious excret ion of contrast in the gallbladder. There are atherosclerotic calcifications of the aorta. No lympha denopathy. There is extensive large bowel wall thickening, worst at the cecum/ascending colon. There is mild dif fuse haziness in the mesentery. No bowel obstruction. No abscess evident. Urinary bladder is collapsed around a Sun catheter. Prostate gland and seminal vesicles are unremar kable. Pelvic ascites is present. Moderate to severe L1 compression fracture is present, new since pr ior exam. Impression: Diffuse large bowel wall thickening. Findings could reflect infectious/inflammatory pancolitis versus possibly reactive wall thickening/edema due to ascites. Ischemic bowel less likely given the diffuse involvement. Extensive groundglass opacity in the left lung with extensive interstitial thickening throughout both lung bases and left upper lobe. Diagnostic considerations include infection, pulmonary edema, and/or concomitant chronic interstitial disease (especially at the lung bases). Clinical correlation requir ed. Several focal irregular scattered airspace opacities in the right upper lobe. Again, diagnostic a thi s could include infectious process, postinflammatory scarring, or less likely, neoplasm. Follow-up exam after interval therapy is recommended to reassess for persistent/chronic pulmonary pat hology. Pelvic ascites. Small bilateral pleural effusions. Moderate to severe compression fracture of L1, new since prior exam. Reviewed, dictated and finalized at location M. Impression: Diffuse large bowel wall thickening. Findings could reflect infectious/inflamma tory pancolitis versus possibly reactive wall thickening/edema due to ascites. Ischemic bowel less likely given the diffuse involvement. Extensive groundglass opacity in the left lung with extensive interstitial thic kening throughout both lung bases and left upper lobe. Diagnostic consideration s include infection, pulmonary edema, and/or concomitant chronic interstitial d isease (especially at the lung bases). Clinical correlation required. Several focal irregular scattered airspace opacities in the right upper lobe. A gain, diagnostic a this could include infectious process, postinflammatory scar ring, or less likely, neoplasm. Follow-up exam after interval therapy is recommended to reassess for persistent /chronic pulmonary pathology. Pelvic ascites. Small bilateral pleural effusions. Moderate to severe compression fracture of L1, new since prior exam.
--- NOTE | ~2022-10-29 | XR_ITS ---
EXAMINATION: XR chest 1V portable INDICATION: Shortness of breath TECHNIQUE: Portable AP chest at 0529 hours COMPARISON: 10/31/2022 FINDINGS: Patchy opacities persist throughout all lung zones with interval worsening. Cardiomegaly is noted. Small pleural effusions are suggested. There is no pneumothorax. A right subclavian central v enous catheter ends with its tip in the superior vena cava. IMPRESSION: 1. Diffuse lung disease with interval worsening, consistent with pneumonia and/or pulmonary edema. 2. Cardiomegaly. Reviewed, dictated and finalized at location A. IMPRESSION: 1. Diffuse lung disease with interval worsening, consistent with pneumonia and/ or pulmonary edema. 2. Cardiomegaly.
--- NOTE | ~2022-10-29 | XR_ITS ---
Portable chest x-ray Comparison: 10/09/2022 Clinical History: Unresponsive Findings: Probable minimal left pleural effusion. There is extensive left lung consolidation, left l otilio base worsened left upper lobe. There is more patchy haziness throughout the right lung. Cardiome diastinal silhouette is stable. Bones and soft tissues are unremarkable. Impression: Extensive bilateral airspace disease, as detailed above, similar to prior exam, suspicious for bilate ral pneumonia. Probable minimal left pleural effusion. Reviewed, dictated and finalized at location M. Impression: Extensive bilateral airspace disease, as detailed above, similar to prior exam, suspicious for bilateral pneumonia. Probable minimal left pleural effusion.
--- NOTE | ~2022-10-29 | XR_ITS ---
XR chest 1V portable 10/30/2022 05:57 Indication: Pneumonia Procedure: AP portable chest Comparison: Comparison to multiple prior studies sequentially, with oldest reviewed study dated 11/2022. Findings: PICC line tip in the SVC. Cardiomegaly. Progression of diffuse bilateral airspace disease. No pneumothorax. No acute osseous abnormality. Impression: 1: Interval progression of diffuse bilateral airspace disease which may represent pneumonia or edema. Reviewed, dictated and finalized at location A. Impression: 1: Interval progression of diffuse bilateral airspace disease which may represe nt pneumonia or edema.
--- NOTE | ~2022-10-29 | XR_ITS ---
XR chest 1V portable 10/31/2022 02:01 Indication: Respiratory distress Procedure: AP portable chest Comparison: Comparison to multiple prior studies sequentially, with oldest reviewed study dated 10/09. Findings: Cardiomegaly. Diffuse bilateral airspace disease. Small pleural effusions. No pneumothorax. Right subclavian central line tip in the SVC. Impression: 1: Diffuse bilateral airspace disease may represent edema or pneumonia. 2: Small pleural effusions. 3: Cardiomegaly. Reviewed, dictated and finalized at location A. Impression: 1: Diffuse bilateral airspace disease may represent edema or pneumonia. 2: Small pleural effusions. 3: Cardiomegaly.
--- NOTE | ~2022-10-29 | XR_ITS ---
Portable chest x-ray Comparison: 10/29/2022 at 2:44 AM Clinical History: Central line placement Findings: Right subclavian line is in satisfactory position. Extensive left lung haziness and inters titial prominence, with more mild patchy involvement in right lung, similar to prior exam. Cardiomed iastinal silhouette is stable. Bones and soft tissues are unremarkable. Impression: Right subclavian line in satisfactory position. No pneumothorax. Patchy bilateral pulmonary disease, left lung worse than right, suspicious for bilateral pneumonia. C orrelate for other chronic interstitial disease. Reviewed, dictated and finalized at location . Impression: Right subclavian line in satisfactory position. No pneumothorax. Patchy bilateral pulmonary disease, left lung worse than right, suspicious for bilateral pneumonia. Correlate for other chronic interstitial disease.
--- NOTE | ~2022-10-29 | CT_ITS ---
Non-contrast Head CT History: Altered mental status COMPARISON: 10/09/2022 Technique: Axial non-contrast imaging of the brain was performed. Dose reduction technique was used on this scan by utilizing automated exposure control and iterative reconstruction technique. The dose -length product (DLP) was 681.00 mGy-cm. Findings: There is no evidence of intracranial hemorrhage, mass lesion, or acute infarct. Brain par enchyma appears normal. The ventricles and subarachnoid spaces are normal in size. The calvarium ap pears normal. The visualized paranasal sinuses and mastoid air cells are clear. Impression: No significant abnormality seen. Reviewed, dictated and finalized at location . Impression: No significant abnormality seen.
--- NOTE | 2022-10-29 02:34 | ECG_ITS ---
Measurements Intervals [place] Rate: 63 P: GA: 0 QRS: -62 QRSD: 221 T: 118 QT: 589 QTc: 605 Interpretive Statements UNCERTAIN REGULAR RHYTHM; LBBB versus left ventricular paced rhythm COMPARED TO ECG 10/09/2022 05:02:04 The patient has a wide complex rhythm now. Electronically Signed On 10-30-2022 8:43:29 CDT by Raquel Hoff M.D.
[2022-10-29] MEDS: SODIUM CHLORIDE 0.9% IV 1,000 ML 999 ML (02:41)
[2022-10-29 02:48] LABS: Base Excess ABG -14.7 mEq/l (+/-2.0); HCO3 ABG 11.1 mEq/l (22.0-26.0); Oxygen Saturation ABG 98.5 % (95.0-100.0); PCO2 ABG 26.2 mmHg (35.0-45.0); PO2 ABG 141.9 mmHg (80.0-100.0); pH ABG 7.245 (7.350-7.450)
[2022-10-29 02:49] LABS: Alveolar/Arterial O2 Gradient 84.4 mmHg; Carboxyhemoglobin 0.1 % THb (0-2.0); Fractional Inspired Oxygen 36 %; Methemoglobin ABG 0.3 %THb (0-1.5); Oxygen Content ABG 13.9 %vol (16.0-22.0); Oxyhemoglobin 97.1 % THb (90.0-100.0); PO2 FiO2 Ratio Arterial Blood 3.94 %; Reduced Hemoglobin 2.5 %THb (0-5.0)
[2022-10-29 02:50] LABS: Device NASAL CANNULA; Modified Allen's Test Pass; Site Drawn LEFT RADIAL
[2022-10-29 02:51] LABS: Basophils Absolute Auto 0.1 K/mm3 (0.0-0.1); Basophils Percent Auto 0.7 % (0.2-1.2); Eosinophils Percent Auto 0.3 % (0-4.4); Hematocrit 36.3 % (42.0-52.0); Hemoglobin 10.7 g/dL (14.0-18.0); Immature Granulocyte Absolute 0.07 K/mm3 (0.00-0.031); Immature Platelet Fraction Pct 9.9 % (0.9-11.2); Lymphocytes Percent Auto 10.4 % (18.3-44.2); Mean Corpuscular HGB Conc 29.5 g/dl (32-36); Mean Corpuscular Hemoglobin 32.2 pg (26-34); Mean Corpuscular Volume 109.3 fl (80-100); Mean Platelet Volume 10.9 fl (7.4-10.4); Monocytes Absolute Auto 0.6 K/mm3 (0.1-0.6); Monocytes Percent Auto 8.6 % (2.6-8.5); Neutrophils Absolute Auto 5.3 K/mm3 (1.3-6.7); Nucleated Red Blood Cells Perc 0.3 % (0.0-0.2); Platelet Count Result 143 k/mm3 (150-375); Red Blood Count 3.32 M/mm3 (4.6-6.20); Red Cell Distribution Width 15.3 % (11.5-14.5); White Blood Count 6.7 K/mm3 (4.5-10.0)
[2022-10-29] MEDS: SODIUM CHLORIDE 0.9% IV 3,000 ML 999 ML IV CONT (02:55)
[2022-10-29 03:02] LABS: INR 1.6; Prothrombin Time 19.5 Seconds (11.1-14.7)
[2022-10-29 03:03] LABS: Partial Thromboplastin Time 31.8 SECONDS (22.3-36.8)
[2022-10-29] MEDS: MAGNESIUM SULF 2 GM/WATER 50ML 2 GM/50 ML BAG IVPB (03:14)
[2022-10-29 03:17] LABS: Alanine Aminotransferase 52 U/L (6-50); Albumin Level 3.1 g/dL (3.5-5.1); Alkaline Phosphatase 164 U/L (38-126); Anion Gap 12 mmol/L (8-16); Aspartate Amino Transferase 149 U/L (17-59); Bilirubin,Total 1.5 mg/dL (0.2-1.3); Blood Urea Nitrogen 18 mg/dL (9-20); Calcium 7.8 mg/dL (8.4-10.2); Carbon Dioxide 16 mmol/L (22-30); Chloride 102 mmol/L (98-107); Estimated CRCL calculation 46 ml/min; Estimated Glomerular Filt Rate > 60; Glucose 94 mg/dL (65-110); Lactic Acid Reflex 6.8 mmol/L (0.7-2.0); Potassium 6.9 mmol/L (3.4-5.0); Sodium 130 mmol/L (137-145)
[2022-10-29] MEDS: THIAMINE HCL 200 MG/2 ML VIAL 500 MG IV PUSH (03:21)
[2022-10-29] MEDS: SODIUM CHLORIDE 0.9% IV 100 ML 200 ML (03:22)
--- NOTE | 2022-10-29 03:27 | PC.NURSE ---
yesenia duke placed at [id number]
[2022-10-29 03:31] LABS: Creatine Kinase 157 U/L (55-170); Lipase 297 U/L (23-300); Magnesium 1.9 mg/dL (1.6-2.3); Phosphorus 4.3 mg/dL (2.5-4.5)
[2022-10-29 03:39] LABS: Ethanol < 10 mg/dL (<10)
[2022-10-29] MEDS: SODIUM BICARBONATE 8.4% 50 MEQ/50 ML SYRINGE IV PUSH (03:40)
[2022-10-29 03:42] LABS: NT Pro B Type Natriuretic Pept 25000 pg/mL (19.9-100)
[2022-10-29 03:42] LABS: Glucose Point of Care 82 mg/dl (65-105)
[2022-10-29 03:43] LABS: Troponin I < 0.012 ng/mL (0.000-0.034)
[2022-10-29] MEDS: INSULIN HUMAN REGULAR (*BKC) 100 UNITS/ML 10 UNITS IV PUSH (03:47)
[2022-10-29] MEDS: DEXTROSE 50% 25 GM/50 ML SYRINGE IV PUSH (03:47)
[2022-10-29 03:50] LABS: Appearance Urine Clear (Clear); Bacteria Urine None Seen /hpf; Bilirubin Urine 2+ (Negative); Blood Urine Negative (Negative); Color Urine Dark Yellow (Yellow); Glucose Urine UA Negative (Negative); Hyaline Casts Urine Present /lpf; Ketones Urine 1+ mg/dL (Negative); Leukocyte Esterase Ur Negative LEU/UL (Negative); Mucus Urine Present /lpf; Nitrate Urine Negative (Negative); Protein Urine 2+ mg/dL (Negative); RBC Urine 0-2 /hpf (0-2); Specific Grav Ur 1.029 (1.001-1.035); Squamous Epithelial Cell Urine None seen /hpf (Few); WBC Urine 0-5 /hpf
[2022-10-29 03:52] LABS: Add Urine Microscopic? YES
[2022-10-29 03:52] LABS: Amphetamine Screen Urine Negative (Negative); Barbiturate Screen Urine Negative (Negative); Benzodiazepines Screen Urine Positive (Negative); Cannabinoid Screen Urine Negative (Negative); Cocaine Screen Urine Negative (Negative); Methadone Screen Urine Negative (Negative); Opiate Screen Urine Negative (Negative); Phencyclidine Screen Urine Negative (Negative)
[2022-10-29] MEDS: SODIUM ZIRCONIUM CYCLOSILICATE 10 GM POWD.PACK PO ×3 (03:54→17:19)
[2022-10-29 03:55] LABS: Anisocytosis 2+ (NORMAL); Large Platelets Present; Platelet Estimate Adequate (Adequate); Poikilocytosis 1+ (NORMAL)
[2022-10-29 03:56] LABS: Burr Cells 1+ (NORMAL); Macrocytosis 3+ (NORMAL)
[2022-10-29 03:57] LABS: Schistocytes None Seen (NORMAL)
[2022-10-29] MEDS: PIPERACILLIN/TAZOBACTAM SOD 4.5 GM in SODIUM CHLORIDE 0.9% IV 100 ML 200 ML IVPB ×3 (04:09→17:18)
[2022-10-29] MEDS: VANCOMYCIN 1,250 MG/NS 250 ML 1,250 MG/250 ML BAG 166.67 MG IVPB (04:14)
[2022-10-29 04:57] LABS: Potassium 5.8 mmol/L (3.4-5.0)
[2022-10-29 05:02] LABS: Creatine Kinase 243 U/L (55-170)
--- NOTE | 2022-10-29 05:13 | ED.GENADULT ---
HPI - General Adult General Chief complaint: Altered Mental Status Stated complaint: ams History of Present Illness HPI narrative: this is a 57-year-old alcoholic well known to our emergency department presenting with altered mental status. Time of arrival patient is pale hypotensive and nonresponsive. I spoke with his who says that he has been feeling more weak than usual and been unable to move around the house. He has not drank in several days which is unusual for him. Related Data Home Medications Medication Instructions Recorded Confirmed amiodarone 200 mg tablet 200 mg PO DAILY 04/24/19 10/19/22 tramadol 50 mg tablet 50 mg PO BID PRN Pain (Scale Score 06/15/22 10/19/22 4-6) albuterol sulfate 90 mcg/actuation 1 inh inhalation Q4H PRN Shortness 08/17/22 10/19/22 aerosol inhaler Of Breath Or Wheezing Allergies Allergy/AdvReac Type Severity Reaction Status Date / Time ragweed pollen Allergy Unknown seasonal Verified 10/19/22 09:08 [place] Allergy Unknown seasonal Uncoded 10/19/22 09:08 [place] Allergy Unknown seasonal Uncoded 10/19/22 09:08 [facility] Past Medical History Medical History Alcohol abuse 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 Chronic systolic CHF (congestive heart failure) COPD (chronic obstructive pulmonary disease) With prior history of home O2 use Essential hypertension Gastro-esophageal reflux disease without esophagitis Hypothyroidism Mixed hyperlipidemia [place] (myocardial infarction) Orthostatic hypotension Paroxysmal atrial fibrillation Severe protein-calorie malnutrition SVT (supraventricular tachycardia) Tobacco abuse Surgical History Surgical History History of toe surgery History of tonsillectomy and adenoidectomy Family History Family History Father Family history of liver disease Sibling Family history of liver disease Chronic obstructive pulmonary disease Mother Family history of emphysema Social History Social History Social History: He is on disability. He has a long history of alcohol abuse. He tends to binge drink. Typically drinking vodka and beer. He has used chewing tobacco and smokes cigars on occasion. Alcohol has affected the patient's life in many ways. He has been to [facility] due to his alcohol use and has intermittently required placement in longterm facilities. He has been homeless at other times due to his alcohol use. Surrogate decision maker: Xiao () Code status: Full code Years smoked: 35 Smoking status: Former smoker Tobacco type: cigars Smokeless tobacco user: chewing tobacco Second hand tobacco smoke exposure: No Additional smoking assessment comments: chewing tobacco daily and occassional cigars Alcohol intake: current Drinks per week: 48 Alcohol use details: 0.5-1 pt per day of vodka Substance use: unknown Lack of Transportation: No Lack of Food: Never True Current Housing: I Have Housing Concerned About Future Housing: No Difficulty Paying Gas/Electric Bills: No Difficulty Paying for Meds: No Currently Unemployed: No Education: High School Diploma/GED Difficulty w/ Childcare or Family Care: No Living arrangements: with family Occupation/Education: retired Gender identity (if verbalized by the patient): Male Sexual Orientation (if Verbalized by the Patient): Straight or Heterosexual Spiritual care concerns: No Exam Narrative: APPEARANCE: Patient appears chronically unwell, he is emaciated, he is laying flat on the bed, pale and clammy Head: atraumatic. EYES: EOMI, NOSE: Atraumatic NECK: Trachea midline RESPIRATORY: increased respiratory rate, scattered crackles [facility]
--- NOTE | 2022-10-29 05:32 | PC.NURSE ---
patient arrived from home altered, states patient drinks approximately 1 pint of vodka per day but has not been drinking for the past 48 hours. noticed patient becoming confused and sent in for treatment by ems. patient arrived altered and in distress.
--- NOTE | 2022-10-29 05:37 | PC.NURSE ---
0313 patient received at total of 3000ml of ns per doctor order
[2022-10-29 05:48] LABS: Reflex Lactic Acid Yes or No Add Lactic
--- NOTE | 2022-10-29 06:09 | PM.IMHP ---
H&P: HPI History of Present Illness Date/Time: 10/29/22 06:09 Chief Complaint: Altered mental status Narrative: 57-year-old male with a past medical history of both the ischemic and nonischemic cardiomyopathy, alcoholism, paroxysmal atrial fibrillation on chronic anticoagulation and chronic tobacco abuse who presented to the ER from home via EMS due to altered mental status. The patient's told EMS that the patient had not had alcohol in 48 hours but has also not been eating or drinking. He has had similar presentations in it does times was hypoglycemic. But reportedly in the field the patient was not hypoglycemic this time. The patient would open his eyes to verbal stimuli when he initially arrived to the ER but was otherwise incoherent. He was markedly hypotensive with systolic blood pressures in the 60s. He received 3 L of IV fluid hydration with transient improvement in his blood pressures. He was hypothermic and Kalyan Hugger placed. The patient had a Sun catheter placed in the ER and had return of a very small amount of dark don urine. His labs demonstrated marked lactic acidosis and hyperkalemia with a normal BUN and creatinine. However in the past patient has had low BUN and creatinine. And decreased serum bicarb as well. He received IV calcium, sodium bicarbonate, insulin and dextrose in the ER. He had improvement in his potassium. His lactic acidosis slightly improved. He had recurrence of his hypotension and was placed on pressors through a right subclavian central line. He is on Levophed at 9 at the time of my evaluation. A bicarb drip was ordered by myself. At the time of my evaluation the patient was alert oriented to person and place. He thought the month was November and was not able to state the year. He stated he quit drinking alcohol 2 days ago. When I asked him why quit drinking alcohol is started talking about the brand of cigarettes that he smoked and that the number of ?marshmallows? poor building up on him. The patient did have some abdominal tenderness on exam in patient diffuse having any diarrhea. He stated no but then started trying to negotiate with me to get him up to a bedside commode so that he could pass a bowel movement. The patient was overall poor historian. There is no family members at bedside. Patient was noted to be mildly tremulous on exam. The patient's urine drug screen was positive for benzos. 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 Chronic systolic CHF (congestive heart failure) Echocardiogram in 2018 demonstrated both systolic and diastolic dysfunction with EF as low as 38% however more recent echocardiograms October 2021 demonstrated EF 60 65% with grade 1 diastolic dysfunction with mildly elevated E/E COPD (chronic obstructive pulmonary disease) With prior history of home O2 use Essential hypertension Gastro-esophageal reflux disease without esophagitis Hypothyroidism Mixed hyperlipidemia [place] (myocardial infarction) Orthostatic hypotension Paroxysmal atrial fibrillation Severe protein-calorie malnutrition SVT (supraventricular tachycardia) Tobacco abuse Surgical History Surgical History History of toe surgery History of tonsillectomy and adenoidectomy Family History Family History Father Family history of liver disease Sibling Family history of liver disease Chronic obstructive pulmonary disease Mother Family history of emphysema Social History Social History Social History: He is on disability. He has a long history of alcohol abuse. He tends to bin
[2022-10-29 06:23] LABS: Troponin I 0.012 ng/mL (0.000-0.034)
[2022-10-29] MEDS: NOREPINEPHRINE 8 MG/D5W 250 ML 8 MG/250 ML BAG 9.38 MG IV CONT (06:34)
[2022-10-29] MEDS: CALCIUM GLUC 2,000 MG/NS 100ML 2,000 MG/100 ML BAG 100 MG IVPB (06:38)
--- NOTE | 2022-10-29 06:42 | PC.NURSE ---
yesenia duke removed from patient, core temp 98.5
[2022-10-29] MEDS: SODIUM BICARBONATE 8.4% 150 MEQ in DEXTROSE 5% 1,000 ML 950 ML 50 MEQ IV CONT (06:44)
[2022-10-29 06:54] LABS: Lactic Acid 2.6 mmol/L (0.7-2.0)
--- NOTE | 2022-10-29 07:32 | ADMGEN ---
This patient, Gabriel Nathan, was admitted to Intensive Care Unit-6. Patient/family oriented to hospital policies and general routines including ID bracelet, bed and alarms, visiting hours, pain management, procedures, bathroom and other care routines, personal items, smoking policy, room service/diet, and visiting hours. Information on how to activate the Rapid Response Team has been discussed. Patient/Family are encouraged to report perceived risks to care and to ask questions if they do not understand what they are told or what they should do.
--- NOTE | 2022-10-29 08:33 | WPDCNINT ---
Assessment and Plan Assessment and plan (1) Septic shock: Code(s): A41.9 - Sepsis, unspecified organism; R65.21 - Severe sepsis with septic shock Status: Acute Assessment and Plan: Septic shock secondary to pneumonia and possibly colitis Blood cultures, urine Legionella and pneumococcal antigen Patient denies any diarrhea at this time Empiric vancomycin Zosyn and doxycycline Patient received 3 L IV fluid bolus. Continue conservative IV fluids due to history of congestive heart failure Levophed infusion to maintain mean arterial pressure (2) ETOH abuse: Code(s): F10.10 - Alcohol abuse, uncomplicated Status: Acute Assessment and Plan: History of alcohol abuse. Patient states he has not had any any drink in last few days Monitor for signs of withdrawal Thiamine folic acid (3) PNA (pneumonia): Qualifiers: Laterality: bilateral Lung location: unspecified part of lung Pneumonia type: due to unspecified organism Qualified Code(s): J18.9 - Pneumonia, unspecified organism Code(s): J18.9 - Pneumonia, unspecified organism Status: Acute Assessment and Plan: See above (4) Paroxysmal atrial fibrillation: Code(s): I48.0 - Paroxysmal atrial fibrillation Status: Acute Assessment and Plan: History of paroxysmal AFib. Currently in sinus rhythm He states he used to be on anticoagulation but it was discontinued by his primary care physician. Patient clearly is not a good candidate for anticoagulation due to risk of fall and alcohol abuse Continue amiodarone and aspirin hold systemic anticoagulation (5) Gastro-esophageal reflux disease without esophagitis: Code(s): K21.9 - Gastro-esophageal reflux disease without esophagitis Status: Acute Assessment and Plan: Continue PPI (6) COPD (chronic obstructive pulmonary disease): Qualifiers: COPD type: COPD with acute lower respiratory infection Qualified Code(s): J44.0 - Chronic obstructive pulmonary disease with (acute) lower respiratory infection Code(s): J44.9 - Chronic obstructive pulmonary disease, unspecified Status: Acute Assessment and Plan: Not in exacerbation Continue Advair and the albuterol (7) Paroxysmal atrial fibrillation: Code(s): I48.0 - Paroxysmal atrial fibrillation Status: Acute (8) Hypoglycemia: Code(s): E16.2 - Hypoglycemia, unspecified Status: Acute Assessment and Plan: History of hypoglycemia likely secondary to alcohol abuse and liver disease Currently on dextrose infusion Monitor (9) Encephalopathy: Code(s): G93.40 - Encephalopathy, unspecified Status: Acute Assessment and Plan: Multifactorial encephalopathy likely secondary to shock Head CT was negative Mental status improved with improvement in blood pressure Check ammonia and TSH (10) Hypothyroidism: Code(s): E03.9 - Hypothyroidism, unspecified Status: Acute Assessment and Plan: Check TSH Continue levothyroxine (11) Cardiomyopathy: Qualifiers: Cardiomyopathy type: alcoholic Qualified Code(s): I42.6 - Alcoholic cardiomyopathy Code(s): I42.9 - Cardiomyopathy, unspecified Status: Acute Assessment and Plan: History of cardiomyopathy BNP > 25,000 Check echocardiogram Conservative IV fluids (12) Hyperkalemia: Code(s): E87.5 - Hyperkalemia Status: Acute Assessment and Plan: Patient was treated in the ER for hypertension Patient was on supplemental potassium home which could be the cause considering his creatinine is normal. Will repeat BMP (13) Colitis: Code(s): K52.9 - Noninfective gastroenteritis and colitis, unspecified Status: Acute Assessment and Plan: CT scan shows diffuse large bowel thickening suggestive colitis versus edema Patient does have mild diffuse tenderness but denies any diarrhea Continue Zosyn NPO (14) Abnormal
[2022-10-29] MEDS: ALBUTEROL SULFATE NEB 2.5 MG/3 ML INH INHALATION ×3 (08:41→19:50)
[2022-10-29] MEDS: IPRATROPIUM BR 0.02% INH SOLN 0.5 MG/2.5 ML VIAL INHALATION ×3 (08:41→19:50)
[2022-10-29] MEDS: FOLIC ACID 1 MG TABLET PO (09:15)
[2022-10-29] MEDS: PANTOPRAZOLE 40 MG TABLET PO (09:15)
[2022-10-29] MEDS: TAMSULOSIN HCL 0.4 MG CAPSULE PO (09:15)
[2022-10-29] MEDS: DOXYCYCLINE 100 MG/NS 100 ML 100 MG/100 ML BAG IVPB ×2 (09:15→21:16)
[2022-10-29] MEDS: THIAMINE HCL 100 MG TABLET PO (09:15)
[2022-10-29] MEDS: AMIODARONE HCL 200 MG TABLET PO (09:15)
[2022-10-29] MEDS: MIDODRINE HCL 2.5 MG TABLET PO ×3 (09:15→17:18)
[2022-10-29] MEDS: ENOXAPARIN 40 MG/0.4 ML SYRINGE SUB-Q (09:16)
[2022-10-29] MEDS: PERFLUTREN LIPID MICROSPHERES 1.5 ML VIAL DILUTED TO 10 ML TOTAL VOLUME IV PUSH (10:20)
[2022-10-29 10:29] LABS: Free T4 Free Thyroxine Reflex 3.34 ng/dL (0.78-2.19)
[2022-10-29 11:02] LABS: Alveolar/Arterial O2 Gradient 75.1 mmHg; Base Excess ABG -10.5 mEq/l (+/-2.0); Fractional Inspired Oxygen 40 %; HCO3 ABG 13.8 mEq/l (22.0-26.0); Oxygen Content ABG 16.2 %vol (16.0-22.0); Oxygen Saturation ABG 99.2 % (95.0-100.0); Oxyhemoglobin 97.6 % THb (90.0-100.0); PCO2 ABG 26.4 mmHg (35.0-45.0); PO2 ABG 179.7 mmHg (80.0-100.0); PO2 FiO2 Ratio Arterial Blood 4.49 %; Total Hemoglobin 11.5 g/dL (12.0-18.0); pH ABG 7.337 (7.350-7.450)
[2022-10-29 11:05] LABS: Device VENTURI MASK; Modified Allen's Test Pass; Site Drawn LEFT RADIAL
--- NOTE | 2022-10-29 11:07 | PCRCNOTE ---
RT notified Laura Romero RN of ABG results. Pt was on Venturi Mask 40% 12L during time of ABG draw.
--- NOTE | 2022-10-29 11:17 | PM.IMPN ---
Progress Note: A&P Assessment and Plan (1) Septic shock: Code(s): A41.9 - Sepsis, unspecified organism; R65.21 - Severe sepsis with septic shock Status: Acute Assessment and Plan: Patient presents to emergency room with altered mental status and found to be hypotensive. UA not consistent with UTI. CT of the chest shows extensive ground-glass opacities in the left lung with extensive interstitial thickening throughout both lung bases and left upper lobe as well as right upper lobe findings. CT scan also shows diffuse large bowel wall thickening. Septic shock secondary to pneumonia and possibly colitis. Lactic acid 6.8. WBC normal. Blood cultures pending. MRSA nasal swab pending Urine Legionella and pneumococcal antigen ordered Started on vancomycin, Zosyn and doxycycline (10/29) Patient received 3 L IV fluid bolus but remained HoTN. Central line placed and started on Levophed. Appreciate cargo router input (2) Encephalopathy: Code(s): G93.40 - Encephalopathy, unspecified Status: Acute Assessment and Plan: Patient with altered mental status on admission. Head CT was negative. Ammonia <9. 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 Related to Amio? Encephalopathy likely secondary to septic shock. Mental status improved with improvement in blood pressure and fluids Follow (3) PNA (pneumonia): Qualifiers: Laterality: bilateral Lung location: unspecified part of lung Pneumonia type: due to unspecified organism Qualified Code(s): J18.9 - Pneumonia, unspecified organism Code(s): J18.9 - Pneumonia, unspecified organism Status: Acute Assessment and Plan: CT of the chest shows extensive ground-glass opacities in the left lung with extensive interstitial thickening throughout both lung bases and left upper lobe as well as right upper lobe findings. CT scan also shows diffuse large bowel wall thickening. Consider atypical infection such as MAC. See above. Check quant gold (4) ETOH abuse: Code(s): F10.10 - Alcohol abuse, uncomplicated Status: Acute Assessment and Plan: History of alcohol abuse. Patient states he has not had any any drink in last few days CIWA protocol ordered. Continue Thiamine and folic acid. (5) Hyperkalemia: Code(s): E87.5 - Hyperkalemia Status: Acute Assessment and Plan: Potassium 6.9. Patient was treated in the ER for hypertension Patient was on supplemental potassium home which could be the cause considering his creatinine is normal. Potassium has trended down. He is on bicarb. Follow (6) Cardiomyopathy: Qualifiers: Cardiomyopathy type: alcoholic Qualified Code(s): I42.6 - Alcoholic cardiomyopathy Code(s): I42.9 - Cardiomyopathy, unspecified Status: Acute Assessment and Plan: Patient has a hx of cardiomyopathy. Echo October 2021 showed EF 60-65%. BNP > 25,000. Echo ordered but prelim showing severe MR and poor EF. IV fluids stopped. Discussed with cargo router - plan to start Dobutamine. (7) Paroxysmal atrial fibrillation: Code(s): I48.0 - Paroxysmal atrial fibrillation Status: Acute Assessment and Plan: Patient has a hx of pAFib. EKG showing probably junctional rhythm related to hyperkalemia He used to be on anticoagulation but it was discontinued by his primary care physician probably due to his fall risk. Patient clearly is not a good candidate for anticoagulation due to risk of fall and alcohol abuse Continue amiodarone and aspirin but hold systemic anticoagulation Repeat EKG. (8) Hypoglycemia: Code(s): E16.2 - Hypoglycemia, unspecified Status: Acute Assessment and Plan: History of hypoglycemia likely secondary to alcohol abuse and liver disease Treated with dextrose infusion Monitor (9) Colitis: Code(s): K52.9 - Noninfective gastroenteritis and colitis, uns
[2022-10-29] MEDS: DOBUTamine 250 MG/D5W 250 ML 250 MG/250 ML BAG 6.75 MG IV CONT (11:18)
[2022-10-29 11:22] LABS: Ammonia < 9 umol/L (9-30)
[2022-10-29 11:33] LABS: Glucose Point of Care 80 mg/dl (65-105)
[2022-10-29 11:36] LABS: Anion Gap 9 mmol/L (8-16); Blood Urea Nitrogen 19 mg/dL (9-20); Calcium 7.7 mg/dL (8.4-10.2); Carbon Dioxide 19 mmol/L (22-30); Chloride 103 mmol/L (98-107); Estimated CRCL calculation 42 ml/min; Estimated Glomerular Filt Rate > 60; Glucose 76 mg/dL (65-110); Potassium 5.3 mmol/L (3.4-5.0); Sodium 131 mmol/L (137-145)
[2022-10-29] MEDS: SODIUM BICARBONATE TAB 650 MG TABLET PO (17:18)
[2022-10-29 17:32] LABS: Glucose Point of Care 78 mg/dl (65-105)
[2022-10-29] MEDS: FLUTICASONE/SALMETEROL 115-21 MCG INHALER 1 PUFF 2 PUFF INHALATION (19:50)
[2022-10-29 21:57] LABS: Glucose Point of Care 76 mg/dl (65-105)
[2022-10-30] VITALS (34 sets, daily range): BP systolic 79–102; BP diastolic 56–82; PULSE 81–99; RESP 20–39; TEMP 37.1–37.8; O2SAT 88–100
[2022-10-30] MEDS: PIPERACILLIN/TAZOBACTAM SOD 4.5 GM in SODIUM CHLORIDE 0.9% IV 100 ML 200 ML IVPB ×4 (00:01→17:27)
[2022-10-30 00:20] LABS: Glucose Point of Care 100 mg/dl (65-105)
[2022-10-30] MEDS: IPRATROPIUM BR 0.02% INH SOLN 0.5 MG/2.5 ML VIAL INHALATION ×4 (01:31→20:40)
[2022-10-30] MEDS: ALBUTEROL SULFATE NEB 2.5 MG/3 ML INH INHALATION ×4 (01:31→20:40)
[2022-10-30] MEDS: VANCOMYCIN 750 MG/NS 250 ML 750 MG/250 ML BAG 250 MG IVPB (04:29)
[2022-10-30 04:50] LABS: Hematocrit 27.6 % (42.0-52.0); Hemoglobin 8.5 g/dL (14.0-18.0); Immature Platelet Fraction Pct 4.7 % (0.9-11.2); Mean Corpuscular HGB Conc 30.8 g/dl (32-36); Mean Corpuscular Hemoglobin 32.3 pg (26-34); Mean Corpuscular Volume 104.9 fl (80-100); Mean Platelet Volume 10.8 fl (7.4-10.4); Platelet Count Result 89 k/mm3 (150-375); Red Blood Count 2.63 M/mm3 (4.6-6.20); Red Cell Distribution Width 15.6 % (11.5-14.5); White Blood Count 3.6 K/mm3 (4.5-10.0)
[2022-10-30 04:58] LABS: INR 1.6; Prothrombin Time 19.7 Seconds (11.1-14.7)
[2022-10-30 04:59] LABS: Alanine Aminotransferase 177 U/L (6-50); Albumin Level 2.3 g/dL (3.5-5.1); Alkaline Phosphatase 130 U/L (38-126); Anion Gap 6 mmol/L (8-16); Aspartate Amino Transferase 709 U/L (17-59); Blood Urea Nitrogen 17 mg/dL (9-20); Calcium 6.9 mg/dL (8.4-10.2); Carbon Dioxide 21 mmol/L (22-30); Chloride 103 mmol/L (98-107); Creatine Kinase 232 U/L (55-170); Estimated CRCL calculation 56 ml/min; Estimated Glomerular Filt Rate > 60; Glucose 75 mg/dL (65-110); Magnesium 1.8 mg/dL (1.6-2.3); Phosphorus 2.4 mg/dL (2.5-4.5); Sodium 130 mmol/L (137-145)
[2022-10-30] MEDS: LEVOTHYROXINE SODIUM 50 MCG TABLET PO (05:38)
--- NOTE | 2022-10-30 07:00 | ECG_ITS ---
Measurements Intervals [place] Rate: 91 P: 7 TX: 209 QRS: -40 QRSD: 149 T: 75 QT: 429 QTc: 528 Interpretive Statements SINUS RHYTHM MARKED LEFT AXIS DEVIATION [QRS AXIS < -30] LEFT BUNDLE BRANCH BLOCK [120+ ms QRS DURATION, 80+ ms Q/S IN V1/V2, 85+ ms R IN I/aVL/V5/V6] COMPARED TO ECG 10/29/2022 02:25:45 SINUS RHYTHM NOW PRESENT THE QRS WIDTH HAS DIIMINISHED Electronically Signed On 10-30-2022 14:07:26 CDT by Raquel Hoff M.D.
[2022-10-30] MEDS: DOBUTamine 250 MG/D5W 250 ML 250 MG/250 ML BAG 13.5 MG IV CONT (08:01)
[2022-10-30 08:07] LABS: Glucose Point of Care 109 mg/dl (65-105)
--- NOTE | 2022-10-30 08:34 | WPDINTPN ---
Progress Note: A&P Assessment and Plan (1) Shock: Code(s): R57.9 - Shock, unspecified Status: Acute Assessment and Plan: Mix shock secondary to sepsis and cardiogenic Patient received 3 L IV fluid bolus and developed volume overload Hold further IV fluids Treatment of sepsis as below Levophed infusion to maintain mean arterial pressure Dobutamine infusion for ionotropic support (2) Sepsis: Code(s): A41.9 - Sepsis, unspecified organism Status: Acute Assessment and Plan: Sepsis secondary to pneumonia Blood cultures, urine Legionella and pneumococcal antigen Patient denies any diarrhea at this time Continue vancomycin Zosyn and doxycycline (3) ETOH abuse: Code(s): F10.10 - Alcohol abuse, uncomplicated Status: Acute Assessment and Plan: History of alcohol abuse. Patient states he has not had any any drink in last 1 week Monitor for signs of withdrawal although if his history is to he is probably out of the withdrawal window Continue thiamine folic acid (4) PNA (pneumonia): Qualifiers: Laterality: bilateral Lung location: unspecified part of lung Pneumonia type: due to unspecified organism Qualified Code(s): J18.9 - Pneumonia, unspecified organism Code(s): J18.9 - Pneumonia, unspecified organism Status: Acute Assessment and Plan: See above (5) Paroxysmal atrial fibrillation: Code(s): I48.0 - Paroxysmal atrial fibrillation Status: Acute Assessment and Plan: History of paroxysmal AFib. Currently in sinus rhythm He states he used to be on anticoagulation but it was discontinued by his primary care physician. Patient clearly is not a good candidate for anticoagulation due to risk of fall and alcohol abuse Continue amiodarone and aspirin hold systemic anticoagulation (6) Gastro-esophageal reflux disease without esophagitis: Code(s): K21.9 - Gastro-esophageal reflux disease without esophagitis Status: Acute Assessment and Plan: Continue PPI (7) COPD (chronic obstructive pulmonary disease): Qualifiers: COPD type: COPD with acute lower respiratory infection Qualified Code(s): J44.0 - Chronic obstructive pulmonary disease with (acute) lower respiratory infection Code(s): J44.9 - Chronic obstructive pulmonary disease, unspecified Status: Acute Assessment and Plan: Not in exacerbation Continue Advair and the albuterol (8) Hypoglycemia: Code(s): E16.2 - Hypoglycemia, unspecified Status: Acute Assessment and Plan: History of hypoglycemia likely secondary to alcohol abuse and liver disease Advance diet Monitor (9) Encephalopathy: Code(s): G93.40 - Encephalopathy, unspecified Status: Acute Assessment and Plan: Multifactorial encephalopathy likely secondary to shock Head CT was negative Mental status improved with improvement in blood pressure and now patient AO x3 Normal ammonia (10) Hypothyroidism: Code(s): E03.9 - Hypothyroidism, unspecified Status: Acute Assessment and Plan: His TSH and T4 are both elevated. Check T3 Continue levothyroxine (11) Cardiomyopathy: Qualifiers: Cardiomyopathy type: alcoholic Qualified Code(s): I42.6 - Alcoholic cardiomyopathy Code(s): I42.9 - Cardiomyopathy, unspecified Status: Acute Assessment and Plan: Patient has history of cardiomyopathy which is likely combination of ischemic and alcohol induced BNP > 25,000 Echo 10/30 Summary ? 1. Severe four-chamber dilated cardiomyopathy. ? 2. Profoundly depressed left ventricular systolic function. ? 3. Significant mitral regurgitation resulting from mitral annular enlargement/not valvular disease. ? 4. Mildly sclerotic aortic valve. ? 5. Compared to previous exam LV systolic function is significantly decline. Off IV fluids Continue dobutamine Consult cardiology (12) Hyperkalemia: Code(s):
[2022-10-30] MEDS: TAMSULOSIN HCL 0.4 MG CAPSULE PO (08:51)
[2022-10-30] MEDS: THIAMINE HCL 100 MG TABLET PO (08:51)
[2022-10-30] MEDS: SODIUM BICARBONATE TAB 650 MG TABLET PO ×2 (08:51→16:33)
[2022-10-30] MEDS: PANTOPRAZOLE 40 MG TABLET PO (08:51)
[2022-10-30] MEDS: POTASSIUM CHLORIDE 20 MEQ ER TABLET 40 MEQ PO (08:52)
[2022-10-30] MEDS: AMIODARONE HCL 200 MG TABLET PO (08:52)
[2022-10-30] MEDS: FOLIC ACID 1 MG TABLET PO (08:52)
[2022-10-30] MEDS: MIDODRINE HCL 2.5 MG TABLET 5 MG PO ×3 (08:53→16:32)
[2022-10-30] MEDS: POTASSIUM PHOS,M-BASIC-D-BASIC 20 MMOL in SODIUM CHLORIDE 0.9% IV 250 ML 64.17 MMOL IVPB (09:04)
[2022-10-30] MEDS: CALCIUM GLUC 2,000 MG/NS 100ML 2,000 MG/100 ML BAG 100 MG IVPB (09:05)
[2022-10-30] MEDS: FLUTICASONE/SALMETEROL 115-21 MCG INHALER 1 PUFF 2 PUFF INHALATION ×2 (09:05→20:40)
[2022-10-30] MEDS: DOXYCYCLINE 100 MG/NS 100 ML 100 MG/100 ML BAG IVPB ×2 (10:08→20:14)
[2022-10-30 11:33] LABS: Glucose Point of Care 164 mg/dl (65-105)
--- NOTE | 2022-10-30 11:56 | PM.CNCAR ---
Assessment and Plan Assessment and plan (1) Acute on chronic systolic CHF (congestive heart failure): Code(s): I50.23 - Acute on chronic systolic (congestive) heart failure Status: Acute Assessment and Plan: Patient has developed fluid overload while a treating him for septic shock. Per cardiac output state, on dobutamine. Fortunately he has not had respiratory failure to the point requiring intubation or acute kidney failure. Urine output however is borderline. --continue dobutamine --continue supportive care (2) Dilated cardiomyopathy: Code(s): I42.0 - Dilated cardiomyopathy Status: Acute Assessment and Plan: Patient has a known dilated cardiomyopathy, presumably is alcoholic, no evidence of CAD or ischemia. Not on any particular CHF meds on admission and has had poor follow-up in the office. Blood pressure is still too low to initiate any effective therapy. --start CHF meds (BB, ARB/Entresto, spironolactone, SGOT 2 inhibitor etc.) if/when blood pressure improves (3) Sepsis: Code(s): A41.9 - Sepsis, unspecified organism Status: Acute Assessment and Plan: Septic and cardiogenic shock, prob 2nd pneumonia, improving, off levophed --Cont midodrine --cont antibiotics, supportive care (4) LBBB (left bundle branch block): Code(s): I44.7 - Left bundle-branch block, unspecified Status: Acute Assessment and Plan: Admitted with a very wide complex rhythm, left bundle branch block, idioventricular verses sinus rhythm with LBBB. The QRS width has improved with correction of acidosis and hypokalemia. (5) Paroxysmal atrial fibrillation: Code(s): I48.0 - Paroxysmal atrial fibrillation Status: Acute Assessment and Plan: H/O PAF, quiescent on amiodarone. Not on anticoagulation, presumably due to h/o falls. On amiodarone, which is of concern in view of elevated LFTs and etoh abuse, but no good answer here. --Hold amio until LFTs improve. (6) ETOH abuse: Code(s): F10.10 - Alcohol abuse, uncomplicated Status: Acute Assessment and Plan: Long h/o alcohol abuse with malnutriction etc. History of Present Illness History of Present Illness Consult date/time: 10/30/22 11:56 Reason For Visit: Septic Shock Narrative: Gabriel Nathan is a 57-year-old male whom we were asked to see at the request of Dr. Muñoz for advice and opinion regarding his cardiomyopathy, in consultation. The patient has a history of cardiomyopathy, alcoholism, paroxysmal atrial fibrillation, tobacco use. He was admitted with septic shock on 10/29/2022, with hypotension, lactic acidosis, altered mental status, hypokalemia, metabolic acidosis and elevated LFTs. The patient was admitted to the ICU on Levophed, with probable pneumonia. After volume resuscitation he developed fluid overload and CHF. He was started on dobutamine. He is intermittently be on 02 but currently on room air. Levophed has been weaned off and pt was started on midodrine. Mr. Nathan has a long h/o and nonischemic cardiomyopathy. He has also had some paroxysmal atrial fibrillation. He was last seen in our office in November 2021, and canceled several appointments since then. Echo in September 2020 showed ejection fraction 50% with no significant valve disease. He has had several ER visits and hospitalizations for alcohol-related illness, electrolyte imbalance etc.. As of a month ago he could walk across the street but is on home O2 most of the time. He has also not been eating well and has lost weight. Review of Systems Constitutional: Constitutional: Denies fever(s), Reports lethargy and Reports weakness Eyes: Eyes: Reports no additional eye complaints ENT: Reports epistaxis (Occasional mild epistaxis) Cardiovascular: Cardiovascular: Denies chest pain, Denies pedal edema, Denies lightheadedness and Reports dyspnea (Chronic BARNES) Respiratory: Respiratory: Denies chest congest
[2022-10-30 15:09] LABS: Anion Gap 7 mmol/L (8-16); Blood Urea Nitrogen 15 mg/dL (9-20); Calcium 7.4 mg/dL (8.4-10.2); Carbon Dioxide 20 mmol/L (22-30); Chloride 102 mmol/L (98-107); Estimated CRCL calculation 60 ml/min; Estimated Glomerular Filt Rate > 60; Glucose 153 mg/dL (65-110); Sodium 129 mmol/L (137-145)
[2022-10-30] MEDS: NOREPINEPHRINE 8 MG/D5W 250 ML 8 MG/250 ML BAG 9.38 MG IV CONT (15:53)
--- NOTE | 2022-10-30 15:57 | PM.IMPN ---
Progress Note: A&P Assessment and Plan (1) Septic shock: Code(s): A41.9 - Sepsis, unspecified organism; R65.21 - Severe sepsis with septic shock Status: Acute Assessment and Plan: Patient presents to emergency room with altered mental status and found to be hypotensive. UA not consistent with UTI. CT of the chest shows extensive ground-glass opacities in the left lung with extensive interstitial thickening throughout both lung bases and left upper lobe as well as right upper lobe findings. CT scan also shows diffuse large bowel wall thickening. Patient received 3 L IV fluid bolus but remained HoTN. Central line placed and started on Levophed 10/29. Septic shock secondary to pneumonia and possibly colitis. Consider also cardiogenic shock given the findings by Echo Lactic acid 6.8. WBC was normal. Blood cultures NGTD. MRSA nasal swab pending Urine Legionella and pneumococcal antigen ordered Started on vancomycin, Zosyn and doxycycline (10/29) Off levophed today. Dobutamine started 10/29. Appreciate sap ppm consultant input (2) Acute on chronic systolic CHF (congestive heart failure): Code(s): I50.23 - Acute on chronic systolic (congestive) heart failure Status: Acute Assessment and Plan: Patient has a hx of cardiomyopathy. Echo October 2021 showed EF 60-65%. BNP > 25,000. Echo now showing EF 15-20%, Grade I diastolic dysfunction with mod-severe MR (related to CMP) Related to alcohol? IV fluids stopped. Dobutamine started on 10/29. Cardiology consulted and appreciate their input. If/when able, start Coreg, Entresto, Aldactone, Empagliflozin. Will need LifeVest. He is Full Code. (3) Cardiomyopathy: Qualifiers: Cardiomyopathy type: alcoholic Qualified Code(s): I42.6 - Alcoholic cardiomyopathy Code(s): I42.9 - Cardiomyopathy, unspecified Status: Acute Assessment and Plan: As above (4) Encephalopathy: Code(s): G93.40 - Encephalopathy, unspecified Status: Acute Assessment and Plan: Patient with altered mental status on admission. Head CT was negative. Ammonia <9. 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 Related to Amio? Mental status improved with improvement in blood pressure and fluids Encephalopathy likely secondary to septic shock and improving Follow (5) PNA (pneumonia): Qualifiers: Laterality: bilateral Lung location: unspecified part of lung Pneumonia type: due to unspecified organism Qualified Code(s): J18.9 - Pneumonia, unspecified organism Code(s): J18.9 - Pneumonia, unspecified organism Status: Acute Assessment and Plan: CT of the chest shows extensive ground-glass opacities in the left lung with extensive interstitial thickening throughout both lung bases and left upper lobe as well as right upper lobe findings. CT scan also shows diffuse large bowel wall thickening. Consider atypical infection such as MAC. Quant gold pending. Check HIV. (6) ETOH abuse: Code(s): F10.10 - Alcohol abuse, uncomplicated Status: Acute Assessment and Plan: History of alcohol abuse. Patient states his last drink was 48hours prior to admission. CIWA protocol ordered and running <10 mostly. Continue Thiamine and folic acid. (7) Hyperkalemia: Code(s): E87.5 - Hyperkalemia Status: Acute Assessment and Plan: Potassium 6.9. Patient was treated in the ER for hypertension Patient was on supplemental potassium home which could be the cause considering his creatinine was normal. Potassium has trended down to normal. He is on bicarb. Follow (8) Paroxysmal atrial fibrillation: Code(s): I48.0 - Paroxysmal atrial fibrillation Status: Acute Assessment and Plan: Patient has a hx of pAFib. EKG showing probably junctional rhythm with QTc 605 related to hyperkalemia He used to be on anticoagulation but it was discontinued by his pr
[2022-10-30 16:37] LABS: Glucose Point of Care 150 mg/dl (65-105)
[2022-10-30 19:05] LABS: HIV 1/2 Ab P24 Ag Result Negative (Negative)
[2022-10-30 19:38] LABS: Folic Acid > 20.0 ng/mL (2.76->20); Vitamin B12 > 1000.0 pg/mL (239-931)
[2022-10-30 20:31] LABS: Glucose Point of Care 150 mg/dl (65-105)
[2022-10-31] VITALS (64 sets, daily range): BP systolic 74–181; BP diastolic 53–157; PULSE 78–93; RESP 16–44; TEMP 37–38.1; O2SAT 82–100
[2022-10-31] MEDS: PIPERACILLIN/TAZOBACTAM SOD 4.5 GM in SODIUM CHLORIDE 0.9% IV 100 ML 200 ML IVPB ×5 (00:09→23:43)
[2022-10-31] MEDS: guaiFENesin/DEXTROMETHORPHAN 10 ML UDC PO ×2 (00:17→09:40)
[2022-10-31 00:23] LABS: Glucose Point of Care 134 mg/dl (65-105)
[2022-10-31] MEDS: ALBUTEROL SULFATE NEB 2.5 MG/3 ML INH INHALATION ×4 (01:49→18:54)
[2022-10-31] MEDS: IPRATROPIUM BR 0.02% INH SOLN 0.5 MG/2.5 ML VIAL INHALATION ×4 (01:49→18:54)
[2022-10-31 01:50] LABS: Alveolar/Arterial O2 Gradient 128.9 mmHg; Fractional Inspired Oxygen 32 %; HCO3 ABG 15.5 mEq/l (22.0-26.0); Oxygen Content ABG 14.2 %vol (16.0-22.0); Oxygen Saturation ABG 94.2 % (95.0-100.0); Oxyhemoglobin 91.7 % THb (90.0-100.0); PCO2 ABG 25.9 mmHg (35.0-45.0); PO2 FiO2 Ratio Arterial Blood 2.16 %; pH ABG 7.395 (7.350-7.450)
[2022-10-31 01:51] LABS: Device NASAL CANNULA; Modified Allen's Test Pass; Site Drawn RIGHT RADIAL
[2022-10-31] MEDS: FUROSEMIDE INJ 40 MG/4 ML VIAL 20 MG IV PUSH (02:14)
--- NOTE | 2022-10-31 03:13 | PM.EVENT ---
Event Note Event Note Event Note: Nursing staff called to tell me that the patient was having increasing respiratory distress. His respiratory rate was up into the mid 40s. He was only requiring 1 L nasal cannula and maintain oxygen saturations. However his oxygen saturation was questionable given the poor Gosper. The patient's blood pressures at at been hypotensive requiring Levophed and dobutamine actually became hypertensive acutely. I ordered a stat chest x-ray which demonstrated worsening bilateral opacities. The patient is still spiking fevers to 101?. Patient is on broad-spectrum antibiotic coverage for pneumonia. Given this significant worsening chest x-ray in the I did place patient on BiPAP. Patient placed on BiPAP 10/5 with 40% FiO2 backup rate of 18. Patient was pulling 358 of 450 in tidal volumes on the settings. Patient had significantly improved aeration of the right lung with the settings. Low still had significant decreased breath sounds on the left. The patient has had persistent minimal urine output since admission. He has stable BUN and creatinine from admission but patient at baseline usually has low BUN and creatinine due to low muscle mass. Patient has known combined ischemic and nonischemic cardiomyopathy with acute worsening of ejection fraction during this hospitalization. On exam he has evidence of poor perfusion which is likely hindering are monitoring the patient's pulse ox. Extremities are cool with delayed cap refill. Patient's respiratory status seems to have improved on BiPAP with respiratory rate for the most part down in the mid 20s and oxygenation ranging from 95-100 on current settings. I did given order for 20 mg of IV Lasix x1. Patient is still not having any urine output after that time patient may benefit from a Lasix drip. I as nursing staff to discuss this with the dry kiln loader if the patient is still having little to no urine output by the morning. Or sooner if the patient continues to decompensate. Acute respiratory distress in the setting of combined septic and cardiogenic shock. 35 minute spent critical care activities Due to a high probability of clinically significant, life threatening deterioration, the patient required my highest level of preparedness to intervene emergently and I personally spent this critical care time directly and personally managing the patient. This critical care time included obtaining a history; examining the patient; pulse oximetry; ordering and review of studies; arranging urgent treatment with development of a management plan; evaluation of patient's response to treatment; frequent reassessment; and discussions with other providers. It was exclusive of separately billable procedures and treating other patients and teaching time. Please see Assessment and Plan section and the rest of the note for further information on patient assessment and treatment.
[2022-10-31] MEDS: DOBUTamine 250 MG/D5W 250 ML 250 MG/250 ML BAG 13.5 MG IV CONT ×2 (03:32→23:41)
[2022-10-31 03:40] LABS: Hematocrit 31.1 % (42.0-52.0); Hemoglobin 9.5 g/dL (14.0-18.0); Immature Platelet Fraction Pct 7.1 % (0.9-11.2); Mean Corpuscular HGB Conc 30.5 g/dl (32-36); Mean Corpuscular Hemoglobin 32.4 pg (26-34); Mean Corpuscular Volume 106.1 fl (80-100); Mean Platelet Volume 10.9 fl (7.4-10.4); Platelet Count Result 94 k/mm3 (150-375); Red Blood Count 2.93 M/mm3 (4.6-6.20); Red Cell Distribution Width 15.7 % (11.5-14.5); White Blood Count 7.8 K/mm3 (4.5-10.0)
[2022-10-31 03:51] LABS: Alanine Aminotransferase 151 U/L (6-50); Albumin Level 2.5 g/dL (3.5-5.1); Alkaline Phosphatase 136 U/L (38-126); Anion Gap 12 mmol/L (8-16); Aspartate Amino Transferase 445 U/L (17-59); Bilirubin,Total 1.4 mg/dL (0.2-1.3); Blood Urea Nitrogen 16 mg/dL (9-20); Calcium 7.4 mg/dL (8.4-10.2); Carbon Dioxide 17 mmol/L (22-30); Chloride 100 mmol/L (98-107); Estimated CRCL calculation 54 ml/min; Estimated Glomerular Filt Rate > 60; Glucose 121 mg/dL (65-110); Magnesium 1.5 mg/dL (1.6-2.3); Phosphorus 4.3 mg/dL (2.5-4.5); Potassium 4.1 mmol/L (3.4-5.0); Sodium 129 mmol/L (137-145)
[2022-10-31 04:09] LABS: Vancomycin Trough 11.2 ug/mL (10.0-20.0)
[2022-10-31] MEDS: ALBUMIN HUMAN 25% 25 GM/100 ML 100 ML IVPB (04:10)
[2022-10-31] MEDS: MAGNESIUM SULF 4 GM/WATER100ML 4 GM/100 ML BAG IVPB (04:11)
[2022-10-31] MEDS: BUMETANIDE INJ 1 MG/4 ML VIAL 2 MG IV PUSH (04:21)
[2022-10-31] MEDS: VANCOMYCIN 1,000 MG/NS 250 ML 1,000 MG/250 ML BAG 250 MG IVPB (05:03)
[2022-10-31] MEDS: DOXYCYCLINE 100 MG/NS 100 ML 100 MG/100 ML BAG IVPB ×2 (08:35→20:37)
[2022-10-31 08:45] LABS: Glucose Point of Care 128 mg/dl (65-105)
[2022-10-31] MEDS: FLUTICASONE/SALMETEROL 115-21 MCG INHALER 1 PUFF 2 PUFF INHALATION ×2 (09:17→18:54)
--- NOTE | 2022-10-31 09:38 | WPDINTPN ---
Progress Note: A&P Assessment and Plan (1) Acute respiratory distress: Code(s): R06.03 - Acute respiratory distress Status: Acute Assessment and Plan: The night between 10/30-10/31, patient was in respiratory distress, tachypnea, increased work of breathing, chest x-ray showed diffuse bilateral pulmonary opacities likely pneumonia versus pulmonary edema. Patient was diuresed with Lasix 20 mg IV x1 and Bumex 2 mg IV x1 with improvement in his symptoms. Patient had adequate good urine output in response to diuretics -currently on BiPAP, increased inspiratory pressure to 12. Now on 04/26 and 40% FiO2 -maintain O2 sats > 92% -will repeat diuretics later today -continue antibiotics with doxycycline, Zosyn and vancomycin (2) Shock: Code(s): R57.9 - Shock, unspecified Status: Acute Assessment and Plan: Mix shock secondary to sepsis and cardiogenic -Patient received 3 L IV fluid bolus and developed volume overload -Hold further IV fluids -Treatment of sepsis as below -continue Levophed infusion to maintain mean arterial pressure > 65 mmHg -continue Dobutamine infusion for ionotropic support (3) Sepsis: Code(s): A41.9 - Sepsis, unspecified organism Status: Acute Assessment and Plan: Sepsis secondary to pneumonia 10/29: Blood cultures negative x2, 10/29: MRSA screen was positive - urine Legionella and pneumococcal antigen pending -HIV negative -QuantiFERON gold test for TB is pending Patient denies any diarrhea at this time Continue vancomycin, Zosyn and doxycycline (10/29/2022) (4) ETOH abuse: Code(s): F10.10 - Alcohol abuse, uncomplicated Status: Acute Assessment and Plan: History of alcohol abuse. Patient states he has not had any any drink in last 1 week Monitor for signs of withdrawal although if his history is to he is probably out of the withdrawal window Continue thiamine and folic acid (5) PNA (pneumonia): Qualifiers: Laterality: bilateral Lung location: unspecified part of lung Pneumonia type: due to unspecified organism Qualified Code(s): J18.9 - Pneumonia, unspecified organism Code(s): J18.9 - Pneumonia, unspecified organism Status: Acute Assessment and Plan: See above (6) Paroxysmal atrial fibrillation: Code(s): I48.0 - Paroxysmal atrial fibrillation Status: Acute Assessment and Plan: History of paroxysmal AFib. Currently in sinus rhythm He states he used to be on anticoagulation but it was discontinued by his primary care physician. Patient clearly is not a good candidate for anticoagulation due to risk of fall and alcohol abuse Continue amiodarone - hold systemic anticoagulation due to thromobocytopenia (7) Gastro-esophageal reflux disease without esophagitis: Code(s): K21.9 - Gastro-esophageal reflux disease without esophagitis Status: Acute Assessment and Plan: Continue PPI (8) COPD (chronic obstructive pulmonary disease): Qualifiers: COPD type: COPD with acute lower respiratory infection Qualified Code(s): J44.0 - Chronic obstructive pulmonary disease with (acute) lower respiratory infection Code(s): J44.9 - Chronic obstructive pulmonary disease, unspecified Status: Acute Assessment and Plan: Not in exacerbation Continue Advair and the albuterol (9) Hypoglycemia: Code(s): E16.2 - Hypoglycemia, unspecified Status: Acute Assessment and Plan: History of hypoglycemia likely secondary to alcohol abuse and liver disease blood sugars stable Monitor (10) Encephalopathy: Code(s): G93.40 - Encephalopathy, unspecified Status: Acute Assessment and Plan: Multifactorial encephalopathy likely secondary to shock Head CT was negative Mental status improved with improvement in blood pressure and now patient AO x3 Normal ammonia (11) Hypothyroidism: Code(s): E03.9 - Hypothyroidism, unspecified
[2022-10-31] MEDS: LEVOTHYROXINE SODIUM 50 MCG TABLET PO (09:39)
[2022-10-31] MEDS: FOLIC ACID 1 MG TABLET PO (09:39)
[2022-10-31] MEDS: PANTOPRAZOLE 40 MG TABLET PO (09:40)
[2022-10-31] MEDS: MIDODRINE HCL 2.5 MG TABLET 5 MG PO ×2 (09:40→12:24)
[2022-10-31] MEDS: THIAMINE HCL 100 MG TABLET PO (09:40)
[2022-10-31] MEDS: SODIUM BICARBONATE TAB 650 MG TABLET PO (09:40)
[2022-10-31] MEDS: TAMSULOSIN HCL 0.4 MG CAPSULE PO (09:40)
--- NOTE | 2022-10-31 10:02 | PM.PNCARD ---
Progress Note: A&P Assessment and Plan (1) Acute on chronic systolic CHF (congestive heart failure): Code(s): I50.23 - Acute on chronic systolic (congestive) heart failure Status: Acute Assessment and Plan: Patient has developed fluid overload while a treating him for septic shock. Per cardiac output state, on dobutamine. Fortunately he has not had respiratory failure to the point requiring intubation or acute kidney failure. Urine output however is borderline. --continue dobutamine --Cont prn diuretic --continue supportive care --Discussed with Dr. Bundy (2) Dilated cardiomyopathy: Code(s): I42.0 - Dilated cardiomyopathy Status: Acute Assessment and Plan: Patient has a known dilated cardiomyopathy, presumably is alcoholic, no evidence of CAD or ischemia. Not on any particular CHF meds on admission and has had poor follow-up in the office. Blood pressure is still too low to initiate any effective therapy. --start CHF meds (BB, ARB/Entresto, spironolactone, SGOT 2 inhibitor etc.) if/when blood pressure improves (3) Sepsis: Code(s): A41.9 - Sepsis, unspecified organism Status: Acute Assessment and Plan: Septic and cardiogenic shock, prob 2nd pneumonia, improving, off levophed --Cont levophed and midodrine. --cont antibiotics, supportive care (4) LBBB (left bundle branch block): Code(s): I44.7 - Left bundle-branch block, unspecified Status: Acute Assessment and Plan: Admitted with a very wide complex rhythm, left bundle branch block, idioventricular verses sinus rhythm with LBBB. The QRS width has improved with correction of acidosis and hypokalemia. (5) Paroxysmal atrial fibrillation: Code(s): I48.0 - Paroxysmal atrial fibrillation Status: Acute Assessment and Plan: H/O PAF, quiescent on amiodarone. Not on anticoagulation, presumably due to h/o falls. On amiodarone, which is of concern in view of elevated LFTs and etoh abuse, but no good answer here. --Hold amio until LFTs improve. (6) ETOH abuse: Code(s): F10.10 - Alcohol abuse, uncomplicated Status: Acute Assessment and Plan: Long h/o alcohol abuse with malnutriction etc. Subjective Date/time seen: 10/31/22 10:02 Interval history: Follow-up for long history of dilated cardiomyopathy, acute on chronic systolic heart failure. Admitted with sepsis likely due to pneumonia. Has a history of paroxysmal atrial fibrillation, noncompliance and alcohol abuse. Date of service 10/31/2022: Running a low-grade temperature. Blood pressure more solid. Has been on BiPAP through the night and this morning. Was given a dose of IV Lasix and IV Bumex early this morning with modest results. Remains on dobutamine at 5 mics, and back on Levophed at 7 mics. LFTs improving. Magnesium low, supplemented. Yesterday I's and O's were: 2300 in, 500 out. Chest x-ray showed worsening CHF on my personal review. Tele: NSR Review of Systems Review of Systems: ROS obtained from the patient's and the chart. Has been resting comfortably on BiPAP this morning. ROS unobtainable: Yes unobtainable due to medical condition and unobtainable due to mental status Exam Const: General: comfortable and confusion Orientation/consciousness: oriented to person, patient oriented x3 and No confusion Other: Resting comfortably on BiPAP HENMT: Mouth: Yes moist mucous membranes Eyes: General: appearance normal, both eyes and all related structures Neck: Thyroid: thyroid normal Resp: Effort & Inspection: normal respiratory effort Auscultation: rales (Coarse rales lower lobes, left greater than right) Cardio: Rate: regular rate Rhythm: regular rhythm Heart sounds: Murmur heart sound present (1/6 KENISHA left sternal border) GI: Inspection: normal to inspection GI Palp: No abdominal tenderness Skin: General skin exam: normal color Other: Some areas of ecchymo
--- NOTE | 2022-10-31 11:08 | PM.IMPN ---
Progress Note: A&P Assessment and Plan (1) Septic shock: Code(s): A41.9 - Sepsis, unspecified organism; R65.21 - Severe sepsis with septic shock Status: Acute Assessment and Plan: Patient presents to emergency room with altered mental status and found to be hypotensive. UA not consistent with UTI. CT of the chest shows extensive ground-glass opacities in the left lung with extensive interstitial thickening throughout both lung bases and left upper lobe as well as right upper lobe findings. CT scan also shows diffuse large bowel wall thickening. Patient received 3 L IV fluid bolus but remained HoTN. Central line placed and started on Levophed 10/29. Septic shock secondary to pneumonia and possibly colitis. Consider also cardiogenic shock given the findings by Echo Lactic acid 6.8. WBC was normal. Blood cultures NGTD. MRSA nasal swab positive Urine Legionella and pneumococcal antigen pending. TB pending Started on vancomycin, Zosyn and doxycycline (10/29) Continue home Midodrine Came off levophed on 10/30 but resumed later in the day. Remains on Dobutamine (started 10/29). Appreciate livestock yard supervisor input (2) Acute respiratory distress: Code(s): R06.03 - Acute respiratory distress Status: Acute Assessment and Plan: Patient developed acute respiratory distress over night. ABG 7.4/ on 3L but patient tachypneic. CXR reviewed personally showing worsening diffuse bilateral airspace disease. Bumex once then later Lasix given once with good response. Wean off BiPAP as tolerated. (3) Acute on chronic systolic CHF (congestive heart failure): Code(s): I50.23 - Acute on chronic systolic (congestive) heart failure Status: Acute Assessment and Plan: Patient has a hx of cardiomyopathy. Echo October 2021 showed EF 60-65%. BNP > 25,000. Echo now showing EF 15-20%, Grade I diastolic dysfunction with mod-severe MR (related to CMP) Related to alcohol? IV fluids stopped. Dobutamine started on 10/29. Cardiology consulted and appreciate their input. If/when able, start Coreg, Entresto, Aldactone, Empagliflozin. Will need LifeVest. He is Full Code. Plan to repeat diuretics (4) Cardiomyopathy: Qualifiers: Cardiomyopathy type: alcoholic Qualified Code(s): I42.6 - Alcoholic cardiomyopathy Code(s): I42.9 - Cardiomyopathy, unspecified Status: Acute Assessment and Plan: As above (5) Encephalopathy: Code(s): G93.40 - Encephalopathy, unspecified Status: Acute Assessment and Plan: Patient with altered mental status on admission. Head CT was negative. Ammonia <9. 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 Related to Amio? Mental status improved with improvement in blood pressure and fluids Encephalopathy likely secondary to septic shock and is improving Follow (6) PNA (pneumonia): Qualifiers: Laterality: bilateral Lung location: unspecified part of lung Pneumonia type: due to unspecified organism Qualified Code(s): J18.9 - Pneumonia, unspecified organism Code(s): J18.9 - Pneumonia, unspecified organism Status: Acute Assessment and Plan: CT of the chest shows extensive ground-glass opacities in the left lung with extensive interstitial thickening throughout both lung bases and left upper lobe as well as right upper lobe findings. CT scan also shows diffuse large bowel wall thickening. HIV negative. BCx NGTD. Consider atypical infection such as MAC. Quant gold pending. Urine Ag pending. MRSA nasal swab positive. Continue broad spectrum abx. (7) ETOH abuse: Code(s): F10.10 - Alcohol abuse, uncomplicated Status: Acute Assessment and Plan: History of alcohol abuse. Patient states his last drink was 48hours prior to admission. CIWA protocol ordered and running <10 mostly. Continue Thiamine and folic acid. (8) Hyperkalemia: Code(s): E87.5 -
[2022-10-31] MEDS: NOREPINEPHRINE 8 MG/D5W 250 ML 8 MG/250 ML BAG 11.25 MG IV CONT (11:47)
[2022-10-31 11:57] LABS: Glucose Point of Care 118 mg/dl (65-105)
[2022-10-31 17:11] LABS: Glucose Point of Care 100 mg/dl (65-105)
[2022-10-31 20:54] LABS: Glucose Point of Care 111 mg/dl (65-105)
[2022-11-01] VITALS (29 sets, daily range): BP systolic 76–104; BP diastolic 48–77; PULSE 62–98; RESP 27–40; TEMP 36.8–38.4; O2SAT 90–100
[2022-11-01] MEDS: ALBUTEROL SULFATE NEB 2.5 MG/3 ML INH INHALATION ×4 (01:09→21:00)
[2022-11-01] MEDS: IPRATROPIUM BR 0.02% INH SOLN 0.5 MG/2.5 ML VIAL INHALATION ×4 (01:09→21:00)
[2022-11-01] MEDS: VANCOMYCIN 1,000 MG/NS 250 ML 1,000 MG/250 ML BAG 250 MG IVPB (05:00)
[2022-11-01 05:18] LABS: Basophils Percent Auto 0.1 % (0.2-1.2); Eosinophils Percent Auto 0.2 % (0-4.4); Hemoglobin 9.5 g/dL (14.0-18.0); Immature Granulocyte Absolute 0.07 K/mm3 (0.00-0.031); Immature Granulocyte Percent A 0.9 % (0-0.5); Immature Platelet Fraction Pct 7.7 % (0.9-11.2); Lymphocytes Absolute Auto 0.39 K/mm3 (0.9-3.2); Lymphocytes Percent Auto 4.7 % (18.3-44.2); Mean Corpuscular HGB Conc 31.7 g/dl (32-36); Mean Corpuscular Hemoglobin 32.2 pg (26-34); Mean Corpuscular Volume 101.7 fl (80-100); Monocytes Absolute Auto 0.5 K/mm3 (0.1-0.6); Monocytes Percent Auto 5.5 % (2.6-8.5); Neutrophils Absolute Auto 7.3 K/mm3 (1.3-6.7); Neutrophils Percent Auto 88.6 % (45.5-73.1); Platelet Count Result 53 k/mm3 (150-375); Red Blood Count 2.95 M/mm3 (4.6-6.20); White Blood Count 8.2 K/mm3 (4.5-10.0)
[2022-11-01] MEDS: PIPERACILLIN/TAZOBACTAM SOD 4.5 GM in SODIUM CHLORIDE 0.9% IV 100 ML 200 ML IVPB ×3 (05:18→17:16)
[2022-11-01 05:33] LABS: Alanine Aminotransferase 121 U/L (6-50); Albumin Level 2.6 g/dL (3.5-5.1); Alkaline Phosphatase 104 U/L (38-126); Anion Gap 5 mmol/L (8-16); Aspartate Amino Transferase 208 U/L (17-59); Bilirubin,Total 1.7 mg/dL (0.2-1.3); Blood Urea Nitrogen 13 mg/dL (9-20); Calcium 6.6 mg/dL (8.4-10.2); Carbon Dioxide 30 mmol/L (22-30); Chloride 95 mmol/L (98-107); Estimated CRCL calculation 80 ml/min; Estimated Glomerular Filt Rate > 60; Glucose 74 mg/dL (65-110); Magnesium 1.3 mg/dL (1.6-2.3); Sodium 130 mmol/L (137-145)
[2022-11-01] MEDS: KCL 40 MEQ/WATER 100 ML 100 ML 25 ML IVPB ×3 (06:23→20:55)
[2022-11-01] MEDS: LEVOTHYROXINE SODIUM 50 MCG TABLET PO (06:23)
[2022-11-01] MEDS: FLUTICASONE/SALMETEROL 115-21 MCG INHALER 1 PUFF 2 PUFF INHALATION ×2 (07:15→21:01)
[2022-11-01] MEDS: CALCIUM GLUC 2,000 MG/NS 100ML 2,000 MG/100 ML BAG 100 MG IVPB ×2 (08:09→15:24)
[2022-11-01] MEDS: POTASSIUM CHLORIDE 20 MEQ PACKET (FOR LIQUID) 40 MEQ PO (08:09)
[2022-11-01] MEDS: FOLIC ACID 1 MG/0.2 ML INJ IV PUSH (08:09)
[2022-11-01] MEDS: MAGNESIUM SULF 2 GM/WATER 50ML 2 GM/50 ML BAG IVPB (08:09)
[2022-11-01] MEDS: PANTOPRAZOLE SODIUM IV 40 MG VIAL IV PUSH (08:10)
[2022-11-01] MEDS: TAMSULOSIN HCL 0.4 MG CAPSULE PO (08:10)
[2022-11-01] MEDS: MIDODRINE HCL 2.5 MG TABLET 5 MG PO ×2 (08:10→12:39)
[2022-11-01] MEDS: DOXYCYCLINE 100 MG/NS 100 ML 100 MG/100 ML BAG IVPB ×2 (08:11→20:36)
[2022-11-01] MEDS: THIAMINE HCL 200 MG/2 ML VIAL 100 MG IV PUSH (08:11)
[2022-11-01 08:13] LABS: Glucose Point of Care 81 mg/dl (65-105)
--- NOTE | 2022-11-01 09:22 | PM.PNCARD ---
Progress Note: A&P Assessment and Plan (1) Acute on chronic systolic CHF (congestive heart failure): Code(s): I50.23 - Acute on chronic systolic (congestive) heart failure Status: Acute Assessment and Plan: Patient has developed fluid overload while a treating him for septic shock. Per cardiac output state, on dobutamine. Fortunately he has not had respiratory failure to the point requiring intubation or acute kidney failure. Urine output however is borderline. --continue dobutamine --Cont prn diuretic --Replete potassium to maintain K+ goal of ~4.0 --continue supportive care (2) Dilated cardiomyopathy: Code(s): I42.0 - Dilated cardiomyopathy Status: Acute Assessment and Plan: Patient has a known dilated cardiomyopathy, presumably is alcoholic, no evidence of CAD or ischemia. Not on any particular CHF meds on admission and has had poor follow-up in the office. Blood pressure is still too low to initiate any effective therapy. --start CHF meds (BB, ARB/Entresto, spironolactone, SGOT 2 inhibitor etc.) if/when blood pressure improves (3) Sepsis: Code(s): A41.9 - Sepsis, unspecified organism Status: Acute Assessment and Plan: Septic and cardiogenic shock, prob 2nd pneumonia, improving, off levophed --Cont midodrine --cont antibiotics, supportive care (4) LBBB (left bundle branch block): Code(s): I44.7 - Left bundle-branch block, unspecified Status: Acute Assessment and Plan: Admitted with a very wide complex rhythm, left bundle branch block, idioventricular verses sinus rhythm with LBBB. The QRS width has improved with correction of acidosis and hypokalemia. (5) Paroxysmal atrial fibrillation: Code(s): I48.0 - Paroxysmal atrial fibrillation Status: Acute Assessment and Plan: H/O PAF, quiescent on amiodarone. Not on anticoagulation, presumably due to h/o falls. On amiodarone, which is of concern in view of elevated LFTs and etoh abuse, but no good answer here. --Hold amio until LFTs improve. (6) ETOH abuse: Code(s): F10.10 - Alcohol abuse, uncomplicated Status: Acute Assessment and Plan: Long h/o alcohol abuse with malnutriction etc. Subjective Date/time seen: 11/01/22 09:22 Interval history: Follow-up for long history of dilated cardiomyopathy, acute on chronic systolic heart failure. Admitted with sepsis likely due to pneumonia. Has a history of paroxysmal atrial fibrillation, noncompliance and alcohol abuse. Date of service 10/31/2022: Running a low-grade temperature. Blood pressure more solid. Has been on BiPAP through the night and this morning. Was given a dose of IV Lasix and IV Bumex early this morning with modest results. Remains on dobutamine at 5 mics, and back on Levophed at 7 mics. LFTs improving. Magnesium low, supplemented. Yesterday I's and O's were: 2300 in, 500 out. Chest x-ray showed worsening CHF on my personal review. Tele: NSR Date of service 11/01/2022: Feeling better today. Off BiPAP and now on high flow O2. Remains on MASTER BARBER with marginal blood pressures. Review of Systems Review of Systems: ROS unobtainable: Yes unobtainable due to medical condition and unobtainable due to mental status Constitutional: Constitutional: Denies fever(s), Reports lethargy and Reports weakness Eyes: Eyes: Reports no additional eye complaints ENT: Reports epistaxis (Occasional mild epistaxis) Cardiovascular: Cardiovascular: Denies chest pain, Denies pedal edema, Denies lightheadedness, Reports dyspnea and Reports dyspnea on exertion Respiratory: Respiratory: Denies chest congestion, Reports dyspnea and Reports dyspnea on exertion Gastrointestinal: Gastrointestinal: Reports abdominal pain (Periumbilical pain intermittently), Denies hematochezia and Reports nausea (Intermittent) Genitourinary: Genitourinary: Denies hematuria Musculoskeletal: Musculoskeletal: Reports no addition
[2022-11-01] MEDS: guaiFENesin/DEXTROMETHORPHAN 10 ML UDC PO (09:41)
--- NOTE | 2022-11-01 10:45 | WPDINTPN ---
Progress Note: A&P Assessment and Plan (1) Acute respiratory distress: Code(s): R06.03 - Acute respiratory distress Status: Acute Assessment and Plan: The night between 10/30-10/31, patient was in respiratory distress, tachypnea, increased work of breathing, chest x-ray showed diffuse bilateral pulmonary opacities likely pneumonia versus pulmonary edema. Patient was diuresed with Lasix 20 mg IV x1 and Bumex 2 mg IV x1 with improvement in his symptoms. Patient had adequate good urine output in response to diuretics -currently on BiPAP, 10/5 and 30% FiO2 -I will transition patient to vapotherm and see if patient tolerates. Continue BiPAP p.r.n. and at night - Patient remains at risk of requiring intubation mechanical ventilation -hold diuretics until potassium is replaced -continue antibiotics with doxycycline, Zosyn and vancomycin (2) Shock: Code(s): R57.9 - Shock, unspecified Status: Acute Assessment and Plan: Mix shock secondary to sepsis and cardiogenic -Patient received 3 L IV fluid bolus and developed volume overload -Hold further IV fluids -Treatment of sepsis as below -continue Levophed infusion to maintain mean arterial pressure > 65 mmHg -continue Dobutamine infusion for ionotropic support (3) Sepsis: Code(s): A41.9 - Sepsis, unspecified organism Status: Acute Assessment and Plan: Sepsis secondary to pneumonia 10/29: Blood cultures negative x2, 10/29: MRSA screen was positive - urine Legionella and pneumococcal antigen pending -HIV negative -QuantiFERON gold test for TB is pending Patient denies any diarrhea at this time Continue vancomycin, Zosyn and doxycycline (10/29/2022) (4) Cardiomyopathy: Qualifiers: Cardiomyopathy type: alcoholic Qualified Code(s): I42.6 - Alcoholic cardiomyopathy Code(s): I42.9 - Cardiomyopathy, unspecified Status: Acute Assessment and Plan: Patient has history of cardiomyopathy which is likely combination of ischemic and alcohol induced BNP > 25,000 Echo 10/30 Summary ? 1. Severe four-chamber dilated cardiomyopathy. ? 2. Profoundly depressed left ventricular systolic function. EF 15-20% ? 3. Significant mitral regurgitation resulting from mitral annular enlargement/not valvular disease. ? 4. Mildly sclerotic aortic valve. ? 5. Compared to previous exam LV systolic function is significantly decline. Off IV fluids Continue dobutamine Appreciate cardiology evaluation and recommendations (5) ETOH abuse: Code(s): F10.10 - Alcohol abuse, uncomplicated Status: Acute Assessment and Plan: History of alcohol abuse. Patient states he has not had any any drink in last 1 week Monitor for signs of withdrawal although if his history is to he is probably out of the withdrawal window Continue thiamine and folic acid (6) PNA (pneumonia): Qualifiers: Laterality: bilateral Lung location: unspecified part of lung Pneumonia type: due to unspecified organism Qualified Code(s): J18.9 - Pneumonia, unspecified organism Code(s): J18.9 - Pneumonia, unspecified organism Status: Acute Assessment and Plan: See above (7) Paroxysmal atrial fibrillation: Code(s): I48.0 - Paroxysmal atrial fibrillation Status: Acute Assessment and Plan: History of paroxysmal AFib. Currently in sinus rhythm He states he used to be on anticoagulation but it was discontinued by his primary care physician. Patient clearly is not a good candidate for anticoagulation due to risk of fall and alcohol abuse Continue amiodarone - hold systemic anticoagulation due to thromobocytopenia (8) Gastro-esophageal reflux disease without esophagitis: Code(s): K21.9 - Gastro-esophageal reflux disease without esophagitis Status: Acute Assessment and Plan: Continue PPI (9) COPD (chronic obstructive pulmonary disease): Qualifiers: COPD type: COPD with acut
[2022-11-01 12:33] LABS: Glucose Point of Care 110 mg/dl (65-105)
[2022-11-01] MEDS: CENTRAL LINE FLUSH 10 ML IV PUSH ×3 (12:44→21:03)
[2022-11-01 14:39] LABS: Anion Gap 8 mmol/L (8-16); Blood Urea Nitrogen 13 mg/dL (9-20); Calcium 7.3 mg/dL (8.4-10.2); Carbon Dioxide 23 mmol/L (22-30); Chloride 98 mmol/L (98-107); Estimated CRCL calculation 80 ml/min; Estimated Glomerular Filt Rate > 60; Glucose 136 mg/dL (65-110); Magnesium 1.8 mg/dL (1.6-2.3); Potassium 4.1 mmol/L (3.4-5.0); Sodium 129 mmol/L (137-145)
[2022-11-01] MEDS: MAGNESIUM SULF 1 GM/D5W 100 ML 1 GM/100 ML BAG IVPB (15:24)
[2022-11-01] MEDS: BUMETANIDE INJ 1 MG/4 ML VIAL IV PUSH (15:25)
--- NOTE | 2022-11-01 15:35 | PM.IMPN ---
Progress Note: A&P Assessment and Plan (1) Septic shock: Code(s): A41.9 - Sepsis, unspecified organism; R65.21 - Severe sepsis with septic shock Status: Acute Assessment and Plan: Patient presents to emergency room with altered mental status and found to be hypotensive. UA not consistent with UTI. CT of the chest shows extensive ground-glass opacities in the left lung with extensive interstitial thickening throughout both lung bases and left upper lobe as well as right upper lobe findings. CT scan also shows diffuse large bowel wall thickening. Patient received 3 L IV fluid bolus but remained HoTN. Central line placed and started on Levophed 10/29. Septic shock secondary to pneumonia and possibly colitis. Consider also cardiogenic shock given the findings by Echo Lactic acid 6.8. WBC was normal. Blood cultures NGTD. MRSA nasal swab positive Urine Legionella and pneumococcal antigen pending. TB pending Started on vancomycin, Zosyn and doxycycline (10/29) Continue home Midodrine Dobutamine started 10/29 but stopped last night. Came off levophed on 10/30 but resumed later in the day. Remains on Levophed. Wean off Levophed as BP allows. Appreciate funeral arrangement director input (2) Acute respiratory distress: Code(s): R06.03 - Acute respiratory distress Status: Acute Assessment and Plan: Patient developed acute respiratory distress 10/30-. ABG 7.4/ on 3L but patient tachypneic. CXR reviewed personally showing worsening diffuse bilateral airspace disease. Bumex once then later Lasix given once with good response. UOP 4.2L yesterday. CXR worsening today. Changed to AirVo. Bumex given again today. (3) Acute on chronic systolic CHF (congestive heart failure): Code(s): I50.23 - Acute on chronic systolic (congestive) heart failure Status: Acute Assessment and Plan: Patient has a hx of cardiomyopathy. Echo October 2021 showed EF 60-65%. BNP > 25,000. Echo now showing EF 15-20%, Grade I diastolic dysfunction with mod-severe MR (related to CMP) Related to alcohol? IV fluids stopped. Dobutamine started on 10/29 but stopped 10/31. Cardiology consulted and appreciate their input. If/when able, start Coreg, Entresto, Aldactone, Empagliflozin. Will need LifeVest. He is Full Code. Plan to repeat diuretics (4) Cardiomyopathy: Qualifiers: Cardiomyopathy type: alcoholic Qualified Code(s): I42.6 - Alcoholic cardiomyopathy Code(s): I42.9 - Cardiomyopathy, unspecified Status: Acute Assessment and Plan: As above (5) Encephalopathy: Code(s): G93.40 - Encephalopathy, unspecified Status: Acute Assessment and Plan: Patient with altered mental status on admission. Head CT was negative. Ammonia <9. 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 Related to Amio? Mental status improved with improvement in blood pressure and fluids Encephalopathy likely secondary to septic shock and is improving Follow (6) PNA (pneumonia): Qualifiers: Laterality: bilateral Lung location: unspecified part of lung Pneumonia type: due to unspecified organism Qualified Code(s): J18.9 - Pneumonia, unspecified organism Code(s): J18.9 - Pneumonia, unspecified organism Status: Acute Assessment and Plan: CT of the chest shows extensive ground-glass opacities in the left lung with extensive interstitial thickening throughout both lung bases and left upper lobe as well as right upper lobe findings. CT scan also shows diffuse large bowel wall thickening. HIV negative. BCx NGTD. Consider atypical infection such as MAC. Quant gold pending. Urine Ag pending. MRSA nasal swab positive. Continue broad spectrum abx. (7) ETOH abuse: Code(s): F10.10 - Alcohol abuse, uncomplicated Status: Acute Assessment and Plan: History of alcohol abuse. Patient states his last drink was 48hours prior to adm
--- NOTE | 2022-11-01 15:37 | PCFNICU ---
ICU Rounding Note: Pt current nutrition is Clear liquid, low Na. 75%, drank 1/2 Ensure Clear. Nutrition recommendation: Advance diet as medically able per MD. Agree with orders Last recorded weight is 56.2 kg. Bowel Motility: Last BM 10/29/22 Labs Reviewed: Hgb 9.5, Hct 30, Alb 2.6, Na 129, Glu 136 Meds Noted: Levophed @ 5 mcg; thiamine, vancomycin Skin: WNL Additional Notes: Advanced to clear liquids. Dobutamine not given today. Continue with current orders. Following daily in ICU rounds. RD will monitor, weight, labs, oral intake every 3 days. .
[2022-11-01] MEDS: NOREPINEPHRINE 8 MG/D5W 250 ML 8 MG/250 ML BAG 9.38 MG IV CONT (17:15)
[2022-11-01] MEDS: DOBUTamine 250 MG/D5W 250 ML 250 MG/250 ML BAG 13.5 MG IV CONT (17:16)
[2022-11-01 19:36] LABS: Anion Gap 10 mmol/L (8-16); Blood Urea Nitrogen 12 mg/dL (9-20); Calcium 7.8 mg/dL (8.4-10.2); Carbon Dioxide 24 mmol/L (22-30); Chloride 94 mmol/L (98-107); Estimated CRCL calculation 71 ml/min; Estimated Glomerular Filt Rate > 60; Glucose 110 mg/dL (65-110); Magnesium 2.1 mg/dL (1.6-2.3); Potassium 2.6 mmol/L (3.4-5.0); Sodium 128 mmol/L (137-145)
[2022-11-01] MEDS: POTASSIUM CHLORIDE 20 MEQ ER TABLET 40 MEQ PO (20:55)
[2022-11-01 21:11] LABS: Glucose Point of Care 101 mg/dl (65-105)
[2022-11-02] VITALS (11 sets, daily range): BP systolic 66–91; BP diastolic 41–74; PULSE 72–98; RESP 34–48; TEMP 37.4–38.1; O2SAT 89–100
[2022-11-02] MEDS: PIPERACILLIN/TAZOBACTAM SOD 4.5 GM in SODIUM CHLORIDE 0.9% IV 100 ML 200 ML IVPB ×2 (00:20→05:19)
[2022-11-02] MEDS: ALBUTEROL SULFATE NEB 2.5 MG/3 ML INH INHALATION ×2 (02:41→07:42)
[2022-11-02] MEDS: IPRATROPIUM BR 0.02% INH SOLN 0.5 MG/2.5 ML VIAL INHALATION ×2 (02:41→07:41)
[2022-11-02 04:14] LABS: Hematocrit 31.4 % (42.0-52.0); Hemoglobin 9.9 g/dL (14.0-18.0); Immature Platelet Fraction Pct 9.8 % (0.9-11.2); Mean Corpuscular HGB Conc 31.5 g/dl (32-36); Mean Corpuscular Hemoglobin 31.8 pg (26-34); Platelet Count Result 58 k/mm3 (150-375); Red Blood Count 3.11 M/mm3 (4.6-6.20); Red Cell Distribution Width 15.1 % (11.5-14.5); White Blood Count 11.5 K/mm3 (4.5-10.0)
[2022-11-02 04:33] LABS: Alanine Aminotransferase 91 U/L (6-50); Albumin Level 2.6 g/dL (3.5-5.1); Alkaline Phosphatase 152 U/L (38-126); Anion Gap 8 mmol/L (8-16); Aspartate Amino Transferase 107 U/L (17-59); Bilirubin,Total 2.3 mg/dL (0.2-1.3); Blood Urea Nitrogen 13 mg/dL (9-20); Calcium 7.6 mg/dL (8.4-10.2); Carbon Dioxide 24 mmol/L (22-30); Chloride 96 mmol/L (98-107); Estimated CRCL calculation 71 ml/min; Estimated Glomerular Filt Rate > 60; Glucose 92 mg/dL (65-110); Magnesium 1.7 mg/dL (1.6-2.3); Phosphorus 3.4 mg/dL (2.5-4.5); Potassium 3.7 mmol/L (3.4-5.0); Sodium 128 mmol/L (137-145)
[2022-11-02] MEDS: CENTRAL LINE FLUSH 10 ML IV PUSH (05:19)
[2022-11-02] MEDS: VANCOMYCIN 1,250 MG/NS 250 ML 1,250 MG/250 ML BAG 166.67 MG IVPB (06:00)
[2022-11-02 06:15] LABS: Alveolar/Arterial O2 Gradient 196.7 mmHg; Fractional Inspired Oxygen 45 %; HCO3 ABG 18.4 mEq/l (22.0-26.0); Methemoglobin ABG 0.4 %THb (0-1.5); Oxygen Content ABG 19.6 %vol (16.0-22.0); Oxygen Saturation ABG 95.2 % (95.0-100.0); Oxyhemoglobin 92.9 % THb (90.0-100.0); PCO2 ABG 37.2 mmHg (35.0-45.0); PO2 ABG 81.8 mmHg (80.0-100.0); PO2 FiO2 Ratio Arterial Blood 1.82 %; Reduced Hemoglobin 5.7 %THb (0-5.0); pH ABG 7.313 (7.350-7.450)
[2022-11-02 06:16] LABS: Device BIPAP; Modified Allen's Test Pass; Site Drawn RIGHT RADIAL
[2022-11-02 06:18] LABS: Expiratory Pressure 8 cmH2O; Inspiratory Pressure 12 cmH2O
--- NOTE | 2022-11-02 07:45 | PC.NURSE ---
Spouse to bedside. Dr. Heck at bedside. Spouse decided change patient status to comfort care. Patient pronounced at 0825.
[2022-11-02] MEDS: FLUTICASONE/SALMETEROL 115-21 MCG INHALER 1 PUFF 2 PUFF INHALATION (07:46)
[2022-11-02] MEDS: LORazepam INJ (*CRX) 2 MG/ML VIAL IV PUSH (08:10)
[2022-11-02] MEDS: MORPHINE SULFATE (*CRX) 4 MG/ML INJ 5 MG IV PUSH (08:10)
--- NOTE | 2022-11-02 08:54 | WPDINTPN ---
Progress Note: A&P Assessment and Plan (1) Acute respiratory distress: Code(s): R06.03 - Acute respiratory distress Status: Acute Assessment and Plan: The night between 10/30-10/31, patient was in respiratory distress, tachypnea, increased work of breathing, chest x-ray showed diffuse bilateral pulmonary opacities likely pneumonia versus pulmonary edema. Patient was diuresed with Lasix 20 mg IV x1 and Bumex 2 mg IV x1 with improvement in his symptoms. Patient had adequate good urine output in response to diuretics -currently on BiPAP, 04/29 and 45% FiO2 -patient had good response to diuresis yesterday and overnight -this morning patient is more obtunded, continues to have respiratory distress with tachypnea - at bedside, requests to make him comfort measures -patient on doxycycline, Zosyn and vancomycin (2) Shock: Code(s): R57.9 - Shock, unspecified Status: Acute Assessment and Plan: Mix shock secondary to sepsis and cardiogenic -Patient received 3 L IV fluid bolus and developed volume overload -Hold further IV fluids -Treatment of sepsis as below -continue Levophed infusion to maintain mean arterial pressure > 65 mmHg -continue Dobutamine infusion for ionotropic support (3) Sepsis: Code(s): A41.9 - Sepsis, unspecified organism Status: Acute Assessment and Plan: Sepsis secondary to pneumonia 10/29: Blood cultures negative x2, 10/29: MRSA screen was positive - urine Legionella and pneumococcal antigen pending -HIV negative -QuantiFERON gold test for TB is pending Patient denies any diarrhea at this time Continue vancomycin, Zosyn and doxycycline (10/29/2022) (4) Cardiomyopathy: Qualifiers: Cardiomyopathy type: alcoholic Qualified Code(s): I42.6 - Alcoholic cardiomyopathy Code(s): I42.9 - Cardiomyopathy, unspecified Status: Acute Assessment and Plan: Patient has history of cardiomyopathy which is likely combination of ischemic and alcohol induced BNP > 25,000 Echo 10/30 Summary ? 1. Severe four-chamber dilated cardiomyopathy. ? 2. Profoundly depressed left ventricular systolic function. EF 15-20% ? 3. Significant mitral regurgitation resulting from mitral annular enlargement/not valvular disease. ? 4. Mildly sclerotic aortic valve. ? 5. Compared to previous exam LV systolic function is significantly decline. Off IV fluids Continue dobutamine Appreciate cardiology evaluation and recommendations (5) ETOH abuse: Code(s): F10.10 - Alcohol abuse, uncomplicated Status: Acute Assessment and Plan: History of alcohol abuse. Patient states he has not had any any drink in last 1 week Monitor for signs of withdrawal although if his history is to he is probably out of the withdrawal window Continue thiamine and folic acid (6) PNA (pneumonia): Qualifiers: Laterality: bilateral Lung location: unspecified part of lung Pneumonia type: due to unspecified organism Qualified Code(s): J18.9 - Pneumonia, unspecified organism Code(s): J18.9 - Pneumonia, unspecified organism Status: Acute Assessment and Plan: See above (7) Paroxysmal atrial fibrillation: Code(s): I48.0 - Paroxysmal atrial fibrillation Status: Acute Assessment and Plan: History of paroxysmal AFib. Currently in sinus rhythm He states he used to be on anticoagulation but it was discontinued by his primary care physician. Patient clearly is not a good candidate for anticoagulation due to risk of fall and alcohol abuse Continue amiodarone - hold systemic anticoagulation due to thromobocytopenia (8) Gastro-esophageal reflux disease without esophagitis: Code(s): K21.9 - Gastro-esophageal reflux disease without esophagitis Status: Acute Assessment and Plan: Continue PPI (9) COPD (chronic obstructive pulmonary disease): Qualifiers: COPD type: COPD with acute lower respiratory in
--- NOTE | 2022-11-02 10:31 | PM.DDS ---
Discharge Summary Date and Time Date of : 11/02/22 Time of : 08:25 Provider Pronounced By: Erika Blanco RN Kenny Shoemaker RN Probable Cause of Probable Cause of : Cardiogenic and Septic Shock Summary Hospital Course: Patient presents to emergency room with altered mental status and found to be hypotensive. CT of the chest shows extensive ground-glass opacities in the left lung with extensive interstitial thickening throughout both lung bases and left upper lobe as well as right upper lobe findings. CT Abd/Pelvis also shows diffuse large bowel wall thickening c/w colitis. Patient received 3 L IV fluid bolus initially but remained HoTN. A central line was placed and he was started on pressors. He was also started on broad spectrum abx. Flattening Press Operator consulted. [place] he had septic shock secondary to pneumonia and possibly colitis. BNP > 25,000. Echo showed EF 15-20%, Grade I diastolic dysfunction with mod-severe MR (related to CMP). Related to alcohol? [place] patient also had cardiogenic shock. Cardiology consulted. Patient developed acute respiratory distress. CXR was showing worsening diffuse bilateral airspace disease. It came to a point where the patient needed to be intubated. He was unable to make medical decisions. After long discussion, his did not want the patient intubated and requested that he be made comfortable. He at 0825 on 11/02/22. Additional Data Confirmation of as documented by pronouncing clinician: Pupillary Reflex, Palpable Pulses, Response to Stimuli, Heart Tones and Breath Sounds Name of Provider Notified: Dr. Heck, Dr. Bundy Time Provider Notified: 08:25 Provider Requests Autopsy: No Family Requests Autopsy: No Rail Project Engineer Notified: Yes Date [facility] Notified of : 11/02/22 Time [facility] Notified of : 08:44
[2022-11-02 13:58] LABS: NIL 0.01 IU/mL; Quantiferon TB Plus, 1T NEGATIVE (NEGATIVE)
[2022-11-04 00:57] LABS: Pneumococcal Antigen Urine Not Detected (Not Detected)
[2022-11-04 06:54] LABS: Legionella pneumophila Ag Ur Not Detected (Not Detected)
[2022-11-09 10:21] LABS: T3 Free 1.6
== END 2022-11-02 08:25 | disposition expired | DRG 871 ==
LOC: ANHED 06:33 → ANHICU 07:07
PROVIDERS: Internal Medicine; Admitting Provider Internal Medicine; Emergency Provider Emergency Medicine; PCP Family Medicine; Visit Provider Internal Medicine
DX: A41.9 Sepsis, unspecified organism (principal); G93.41 Metabolic encephalopathy; I50.23 Acute on chronic systolic (congestive) heart failure; J18.9 Pneumonia, unspecified organism; R65.21 Severe sepsis with septic shock; I42.6 Alcoholic cardiomyopathy; J44.0 Chronic obstructive pulmonary disease with (acute) lower respiratory infection; F10.288 Alcohol dependence with other alcohol-induced disorder; D61.818 Other pancytopenia; I48.0 Paroxysmal atrial fibrillation; E16.2 Hypoglycemia, unspecified; R06.03 Acute respiratory distress; K52.9 Noninfective gastroenteritis and colitis, unspecified; E87.6 Hypokalemia; E83.51 Hypocalcemia; E83.42 Hypomagnesemia; T50.2X5A Adverse effect of carbonic-anhydrase inhibitors, benzothiadiazides and other diuretics, initial encounter; I11.0 Hypertensive heart disease with heart failure; E78.2 Mixed hyperlipidemia; K70.31 Alcoholic cirrhosis of liver with ascites; E87.5 Hyperkalemia; E03.9 Hypothyroidism, unspecified
CPT/HCPCS: 36415; 36600; 70450; 71045; 71260; 74177; 76705; 80048; 80053; 80202; 80307; 81001; 82140; 82375; 82550; 82607; 82746; 82805; 82948; 83050; 83605; 83690; 83735; 83880; 84100; 84132; 84439; 84443; 84480; 84484; 85025; 85027; 85055; 85610; 85730; 86480; 86703; 87040; 87081; 87449; 87899; 93005; 94002; 94003; 94640; 96365; 96366; 96367; 96368; 96375; 99285; A9270; C1751; C8929; C9113; G0432; J0613; J1250; J1650; J1815; J1940; J2060; J2270; J2543; J3370; J3411; J3475; J3480; J7030; J7050; J7070; P9047; Q9957; Q9967